=== PATIENT | male | born 1965 | race Caucasian/White ===

== ENCOUNTER 2024-11-13 20:40 | Emergency (ER) | payer BC, SELFPAY ==
--- OUTSIDE RECORDS SUMMARY | 2024-10-15 13:40 | XMS_ITS | Encounter Summary ---
Author Organization [facility] Address [address] [place] [id number] Care Team Providers Care [employer] Name Role Phone No Ref-Primary, Physician Primary Care Provider Reason for Visit * Reason Comments Urgent Care Abdominal pain back/ rib cage x 2 wks Encounter Details Date Type Department Care Team (Late st Contact Info) Description 10/15/2024 1:40 PM CDT Office Visit [facility] [place] [address] [place] [phone] Awais Kidd, PAOh [address] [place] [address] Abdominal pain, right upper quadrant (Primary Dx); Fever, unspecified fever cause; Nausea Social History Tobacco Use Types Packs/Day Years Used Date Smoking Tobacco: Every Day Cigarettes Smokeless Tobacco: Current Chew Comments:chew quiting, 1 can q 3 day7s Alcohol Use Standard Drinks/Week Comments Yes 0 (1 standard drink = 0.6 oz pur e alcohol) several beers on the weekends AUDIT-C Answer Date Recorded Q1: How often do you have a drink containing alc ohol? 2-3 times a week 04/04/2019 Q2: How many drinks containi ng alcohol do you have on a typical day when you are drinking? 10 or more 04/04/2019 Frequency of Binge Drinking Not on file 03/07 PHQ-2 Answer Date Recorded PHQ-2 Score 0 04/13/2021 Adolescent Education Answer Date Record ed Getting School Help Needed Not on file 03/20 Food Insecurity Answer Date Recorded Within the past 12 months, d id you worry that your food would run out before you got money to buy more? No 10/15/2024 Within the past 12 months, d id the food you bought just not last and you didn t have money to get more? No 10/15/2024 Housing Stability Answer Date Recorded Do you have housing? ([place]aughn is defined as stable permanent housing and does not include staying outside in a car, in a tent, in an abandoned building, in an overnight senior care, or couch-surfing.) Yes 10/15/2024 Are you worried about losing your housing? No 10/15/2024 Financial Resource Strain Answer Date R ecorded Within the past 12 months, h ave you or your family members you live with been unable to get utilities (heat, electricity) when it was really needed? No 10/15/2024 Transportation Needs Answer Date Record ed Within the past 12 months, h as lack of transportation kept you from medical appointments, getting your medicines, non-medical meetings or appointments, work, or from getting things that you need? No 10/15/2024 Interpersonal Safety Answer Date Record ed Do you feel physically and e motionally safe where you currently live? Yes 10/16/2024 Within the past 12 months, h ave you been hit, slapped, kicked or otherwise physically hurt by someone? No 10/16/2024 Within the past 12 months, h ave you been humiliated or emotionally abused in other ways by your partner or ex-partner? No 10/16/2024 Sex and Gender Information Value Date Recorded Sex Assigned at Not on file Legal Sex Male 3:38 AM [employer] Gender Identity Not on file Sexual Orientation Not on file documented as of this encounter Last Filed Vital Signs Vital Sign Reading Time Taken Comments Blood Pressure 165/100 10/15/2024 1:51 PM CDT Pulse 104 10/15/2024 1:51 PM CDT Temperature 38.7 C (101.7 F) 10/15/2024 1:46 PM CDT Respiratory Rate - - Oxygen Saturation 94% 10/15/2024 1:51 PM CDT Inhaled Oxygen Concentration - - Weight 90.7 kg (200 lb) 10/15/2024 1:46 PM CDT Height - - Body Mass Index 28.63 04/04/2019 3:54 PM CDT documented in this encounter Progress Notes * Awais Kidd PA-C - 10/15/2024 1:40 PM CDT Assessment & Plan Abdominal pain, right upper quadrant Patient is having extensive RUQ abdominal pain, high fever, nausea He is not feeling well He has had some problems the last few weeks but now its worse I have sent him to the ED for IV fluids, advanced imaging and blood work He will need to have much more done than what we can do in an UC - UA Macroscopic with reflex to Microscopic and Culture - Clinic Collect - UA Microscopic with Reflex to Culture Fever, unspecified fever cause A fever is a high body temperature and is the body's reaction to an illness. It's one way your bodyfights illness. A temperature of up to 102??F can be helpful, because it helps the body respond to infection. Most healthy people can have a fever as high as 103??F to 104??F for short periods of time without problems. Its important to stay well hydrated with a fever and avoid being in the heat. A fever can be treated with medications provided, but If symptoms worsen then be seen by your PCP or go to the UC. Concern for 101.7 fever for cholycystitis Nausea Patient is nauseated Stay NPO Referred to the ED now for advanced imaging, blood work, IV access No follow-ups on file. Awais Kidd, [facility] Franco is a 59 year old male who presents to clinic today for the following health issues: Chief Complaint Patient presents with Urgent Care Abdominal pain back/rib cage x 2 wks 10/15/2024 1:49 PM Additional Questions Roomed by Talia Accompanied by (Danyelle) HPI Review of Systems Constitutional, HEENT, cardiovascular, pulmonary, GI, , musculoskeletal, neuro, skin, endocrine and psych systems are negative, except as otherwise noted. Objective BP (!) 165/100 Pulse 104 Temp (!) 101.7 ??F (38.7 ??C) (Tympanic) Wt 90.7 kg (200 lb) SpO2 94% BMI 28.63 kg/m?? Physical Exam GENERAL: alert and no distress EYES: Eyes grossly normal to inspection, PERRL and conjunctivae and sclerae normal HENT: ear canals and TM's normal, nose and mouth without ulcers or lesions NECK: no adenopathy, no asymmetry, masses, or scars RESP: lungs clear to auscultation - no rales, rhonchi or wheezes CV: regular rate and rhythm, normal S1 S2, no S3 or S4, no murmur, click or rub, no peripheral edema ABDOMEN: tenderness RUQ and bowel sounds normal MS: no gross musculoskeletal defects noted, no edema SKIN: no suspicious lesions or rashes NEURO: Normal strength and tone, mentation intact and speech normal PSYCH: mentation appears normal, affect normal/bright Results for orders placed or performed in visit on 10/15/24 UA Macroscopic with reflex to Microscopic and Culture - Clinic Collect Status: Abnormal Specimen: Urine, Clean Catch Result Value Ref Range Color Urine Yellow Colorless, Straw, Light Yellow, Yellow Appearance Urine Clear Clear Glucose Urine Negative Negative mg/dL Bilirubin Urine Moderate (A) Negative Ketones Urine Trace (A) Negative mg/dL Specific [place] Urine 1.020 1.003 - 1.035 Blood Urine Negative Negative pH Urine 7.0 5.0 - 7.0 Protein Albumin Urine 100 (A) Negative mg/dL Urobilinogen Urine 4.0 (A) 0.2, 1.0 E.U./dL Nitrite Urine Negative Negative Leukocyte Esterase Urine Negative Negative UA Microscopic with Reflex to Culture Status: Abnormal Result Value Ref Range Bacteria Urine None Seen None Seen /HPF RBC Urine 0-2 0-2 /HPF /HPF WBC Urine 0-5 0-5 /HPF /HPF Squamous Epithelials Urine Few (A) None Seen /LPF Narrative Urine Culture not indicated documented in this encounter Plan of Treatment Upcoming Encounters Date Type Department Care Team (Late st Contact Info) Description 12/09/2024 8:30 AM CDT Office Visit [facility] [place] [address] [place] [phone] Henri Castañeda PA-C [address] [place] [address] [place] [phone] documented as of this encounter Procedures Procedure Name Priority Date/Time Associated Diagnosis Comments UA MICROSCOPIC WITH REFLEX TO CULTURE Routine 10/15/2024 1:53 PM CDT Abdominal pain, right upper quadrant UA MACROSCOPIC WITH REFLEX TO MICRO AND CULTURE Routine 10/15/2024 1:53 PM CDT Abdominal pain, right upper quadrant documented in this encounter Results * (ABNORMAL) UA Microscopic with Reflex to Culture (10/15/2024 1:53 PM CDT) Bacteria Urine None Seen None Seen /HPF [facility] 10/15/2024 2:11 PM CDT [facility] RBC Urine 0-2 0-2 /HPF /HPF FIL[place] 10/15/2024 2:11 PM CDT [facility] WBC Urine 0-5 0-5 /HPF /HPF [place] 10/15/2024 2:11 PM CDT [facility] Squamous Epithelials Urine Few(A) None Seen /LPF [place] 10/15/2024 2:11 PM CDT [facility] Urine URINE SPECIMEN OBTAINED BY CLEAN CATCH PROCEDURE / Unknown Non-blood Collection / Unknown 10/15/2024 1:53 PM CDT 10/15/2024 2:02 PM CDT Narrative [facility] - 10/15/2024 2:11 PM CDT Urine Culture not indicated Awais Kidd PA-C LAB - URINE ORDERABLES Final Result [facility] [address] [place] [phone] * (ABNORMAL) UA Macroscopic with reflex to Microscopic and Culture - Clinic Collect (10/15/2024 1:53 PM CDT) Color Urine Yellow Colorless, Straw, Light Yellow, Yellow 10/15/2024 2:12 PM CDT [facility] Appearance Urine Clear Clear 10/16/19 2:12 PM CDT [facility] Glucose Urine Negative Negative mg/dL 10/15/2024 2:12 PM CDT [facility] Bilirubin Urine Moderate(A) Negative 10/16/19 2:12 PM CDT [facility] Ketones Urine Trace(A) Negative mg/dL 10/15/2024 2:12 PM CDT [facility] Specific [place] Urine 1.020 1.003 - 1.035 10/15/2024 2:12 PM CDT [facility] Blood Urine Negative Negative 10/15/2024 2:12 PM CDT [facility] pH Urine 7.0 5.0 - 7.0 10/15/2024 2:12 PM CDT [facility] Protein Albumin Urine 100(A) Negative mg/dL 10/15/2024 2:12 PM CDT [facility] Urobilinogen Urine 4.0(A) 0.2, 1.0 E.U./dL 10/15/2024 2:12 PM CDT [facility] Nitrite Urine Negative Negative 10/15/2024 2:12 PM CDT [facility] Leukocyte Esterase Urine Negative Negative 10/15/2024 2:12 PM CDT [facility] Urine URINE SPECIMEN OBTAINED BY CLEAN CATCH PROCEDURE / Unknown Non-blood Collection / Unknown 10/15/2024 1:53 PM CDT 10/15/2024 2:02 PM CDT us Awais Kidd PA-C LAB - URINE ORDERABLES Final Result [facility] [address] [place] [phone], [facility] documented in this encounter Visit Diagnoses Diagnosis Abdominal pain, right upper quadrant- Primary Fever, unspecified fever cause Nausea Nausea alone documented in this encounter Care Teams [employer] Relationship Specialty Start Date End Date No Ref-Primary, Physician PCP - General 10/15/24 documented as of this encounter
--- OUTSIDE RECORDS SUMMARY | 2024-10-15 15:36 | XMS_ITS | Encounter Summary ---
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 Role Phone No Ref-Primary, Physician Primary Care Provider Reason for Referral * Consultation (Routine: Next available opening) - Pending Review Specialty Diagnoses / Procedures Referred By Anh hermosillo Referred To Contact Diagnoses Acute sepsis (H) Nicolas Caicedo MD [address] [place] [address] Phone: tel:[phone] fax: Referral ID Status Reason Start Date Expiration Date V isits Requested Visits Authorized [id number] Pending Review 10/21/2024 10/21/2025 1 1 Question Answer Schedule Primary Care visit within 7 Days Recommended labs and Imaging (to be ordered by Primary Care Provider) Will benefit for repeat echocardiogram in the near future to follow-up recent diagnosis of stress-induced cardiomyopathy Comments Please be aware that coverage of these services is subject to the terms and limitations of your health insurance plan. Call member services at your health plan with any benefit or coverage questions. Reason for Visit * Reason Comments Abdominal Pain * Auth/Cert Specialty Diagnoses / Procedures Referred By Anh t Referred To Contact EMERGENCY MEDICINE Diagnoses Cholecystitis Acute sepsis (H) Elevated LFTs Common bile duct dilation [facility] Emergency Dept [address] [place] [address] Phone: tel:[phone] fax: Referral ID Status Reason Start Date Expiration Date Visits Re quested Visits Authorized [id number] 1 1 Encounter Details Date Type Department Care Team (Late st Contact Info) Description 10/15/2024 3:36 PM CDT - 10/21/2024 10:41 PM CDT Hospital Encounter [place] [address] Medical Surgical [address] [place] [id number] Leonora Bone PA-C [facility] [address] [place], [place] [id number] Ole Brown MD [address] [place] [address] Cholangitis (H) (Primary Dx); Cholecystitis; Acute sepsis (H); Elevated LFTs; Common bile duct dilation Discharge Disposition: Home or Self Care Social History Tobacco Use Types Packs/Day Years Used Date Smoking Tobacco: Every Day Cigarettes Smokeless Tobacco: Current Chew Tobacco Cessation:Ready to Q uit: Not Asked; Counseling Given: Not Answered Comments:chew quiting, 1 can q 3 day7s [...] in an abandoned building, in an overnight fdc, or couch-surfing.) Yes 10/15/2024 Are you worried [...] on file 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 Gender Identity Not on file Sexual Orientation Not on file documented as of this encounter Last Filed Vital Signs Vital Sign Reading Time Taken Comments Blood Pressure 136/87 10/21/2024 4:16 PM CDT Pulse 117 10/21/2024 4:16 PM CDT Temperature 37.2 C (98.9 F) 10/21/2024 4:16 PM CDT Respiratory Rate 20 10/21/2024 4:16 PM CDT Oxygen Saturation 96% 10/21/2024 4:16 PM CDT Inhaled Oxygen Concentration - - Weight 88.2 kg (194 lb 8 oz) 10/21/2024 5:35 AM CDT Height 175.3 cm (5' 9) 10/17/2024 8:08 PM CDT Body Mass Index 28.72 10/17/2024 8:08 PM CDT documented in this encounter Discharge Summaries * Nicolas Caicedo MD - 10/21/2024 1:32 PM CDT Images from the original note were not included. [facility] Hospitalist Discharge Summary Date of Admission: 10/15/2024 Date of Discharge: 10/21/2024 Discharging Provider: Nicolas Caicedo MD, MD Discharge Service: Hospitalist Service Discharge Diagnoses Severe sepsis secondary to ascending cholangitis with accompanying E. coli bacteremia Acute hypoxic respiratory failure secondary to #1 Acute congestive heart failure with reduced EF at 45% secondary to stress- induced cardiomyopathy GERD. Hypokalemia Tobacco abuse Acute postoperative pain Postoperative ileus improving Clinically Significant Risk Factors # Overweight: Estimated body mass index is 28.72 kg/m?? as calculated from the following: Height as of this encounter: 1.753 m (5' 9). Weight as of this encounter: 88.2 kg (194 lb 8 oz). Follow-ups Needed After Discharge Follow-up Appointments Follow Up Follow up with general surgery as scheduled Hospital to Primary Care - Establish PCP Referral Please be aware that coverage of these services is subject to the terms and limitations of your health insurance plan. Call member services at your health plan with any benefit or coverage questions. Schedule Primary Care visit within: 7 Days Recommended labs and Imaging (to be ordered by Primary Care Provider): Will benefit for repeat echocardiogram in the near future to follow-up recent diagnosis of stress-induced cardiomyopathy Unresulted Labs Ordered in the Past 30 Days of this Admission Date and Time Order Name Status Description 10/18/2024 2:01 PM Blood Culture Peripheral blood (BC) Hand, Right Preliminary 10/18/2024 2:01 PM Blood Culture Peripheral blood (BC) Arm, Right Preliminary These results will be followed up by primary care physician Discharge Disposition Discharged to home Condition at discharge: Stable Hospital Course I assumed medicine service care today. I met this very pleasant 59-year-old gentleman together withhis at bedside. He lives at home independently and has a background history for tobacco abuse and unfortunately has a presents in the hospital for fever with a worsening abdominal pain and eventually found with choledocholithiasis complicated with ascending cholangitis and severe sepsis with E. coli bacteremia with concomitant acute hypoxic respiratory failure and finding of stress-induced cardiomyopathy. Eventually had a uncontrolled postoperative pain with accompanying ileus. Fortunatelyhe responded well with antibiotics, surgical approach, further advancement of diet and currently fee ling significantly improved. He was diuresis earlier. He is not showing any evidence of hypoxia. Ambulating more. Stable hemodynamics. Remained afebrile. Pain control being optimized and prescriptions for pain regimen as per surgical service. Continuation of oral antibiotics with Cipro as per ID recommendations to finish until October 24. He is confident about hospital discharge. He will be awaitingfor a meaningful and satisfying bowel movement prior to discharge.. I will refer you to excerpts of prior progress notes as listed below further details of his hospitalization stay ASSESSMENT 59M with history of GERD presented with right upper quadrant abdominal pain and fever and found to have ascending colon just with E. coli bacteremia. Patient is now status post ERCP with evidence of choledocholithiasis s/p biliary sphincterotomy, dilation and balloon extraction. Also s/p lap amla rosa to prevent recurrence. Ongoing pain control issues but improved today. Will try to progress to full liquid diet. Still hasSOB, which may be a combination of mild pulmonary edema and atelectasis. Gentle diuresis today and incentive spirometry. PLAN Severe Sepsis 2/2 Ascending Cholangitis w/ E coli Bacteremia -Presented with RUQ abd pain and fever -On and, met SIRS criteria with evidence of ascending cholangitis as source -Now s/p ERCP with choledocholithiasis s/p sphincterotomy and balloon extraction -Also s/p lap alma rosa to prevent recurrence -Ceftriaxone 2g every day, 10d course of antibiotics per ID Post-Operative Pain & Ileus -A lot of issues with postoperative pain control -Likely due to ileus, also has large amount of operative gas below right diaphragm -Improved today, progressed to FLD if tolerated, wean pain meds as able Acute Hypoxic Respiratory Failure Acute HFmrEF EF 45-50% 2/2 Stress-Induced Cardiomyopathy -Worsening respiratory status and found to have flash pulm edema -TTE w/ EF 45-50% with concern for stress-induced cardiomyopathy -S/p diuresis, repeat echo with EF 55% -Seems to still have issues with periodic SOB and PND -Gentle IV diuresis today, may benefit from Lasix 20 mg daily at time of discharge Other Issues -GERD: PPI -Tobacco abuse: Counseled cessation, nicotine replacement -Hypokalemia: Replacement protocol Consultations This Hospital Stay GASTROENTEROLOGY IP CONSULT SURGERY GENERAL IP CONSULT CARDIOLOGY IP CONSULT INFECTIOUS DISEASES IP CONSULT NURSING TO CONSULT FOR VASCULAR ACCESS CARE IP CONSULT Code Status Full Code Time Spent on this Encounter I, Nicolas Caicedo MD, , personally saw the patient today and spent greater than 30 minutes discharging this patient. Nicolas Caicedo MD, [address] SURGICAL [address] [place] [facility] [address] Physical Exam Vital Signs: Temp: 98.1 ??F (36.7 ??C) Temp src: Oral BP: 137/89 Pulse: 112 Resp: 20 SpO2: 96 % O2 Device: None (Room air) Weight: 194 lbs 8 oz HEENT; Atraumatic, normocephalic, pinkish conjuctiva, pupils bilateral reactive Skin: warm and moist, no rashes Lymphatics: no cervical or axillary lymphandenopathy Lungs: equal chest expansion, clear to auscultation, no wheezes, no stridor, no crackles, Heart: normal rate, normal rhythm, no rubs or gallops. Abdomen: normal bowel sounds, no tenderness, no peritoneal signs, no guarding Extremities: no deformities, no edema Neuro; follow commands, alert and oriented x3, spontaneous speech, coherent, moves all extremities spontaneously Psych; no hallucination, euthymic mood, not agitated Primary Care Physician Physician No Ref-Primary Discharge Orders Hospital to Primary Care - Establish PCP Referral Reason for your hospital stay I assumed medicine service care today. I met this very pleasant 59-year-old gentleman together withhis at bedside. He lives at home independently and has a background history for tobacco abuse and unfortunately has a presents in the hospital for fever with a worsening abdominal pain and eventually found with choledocholithiasis complicated with ascending cholangitis and severe sepsis with E. coli bacteremia with concomitant acute hypoxic respiratory failure and finding of stress-induced cardiomyopathy. Eventually had a uncontrolled postoperative pain with accompanying ileus. Fortunatelyhe responded well with antibiotics, surgical approach, further advancement of diet and currently fee ling significantly improved. He was diuresis earlier. He is not showing any evidence of hypoxia. Ambulating more. Stable hemodynamics. Remained afebrile. Pain control being optimized and prescriptions for pain regimen as per surgical service. Continuation of oral antibiotics with Cipro as per ID recommendations to finish until October 24. He is confident about hospital discharge. He will be awaiting for a meaningful and satisfying bowel movement prior to discharge. Activity Your activity upon discharge: activity as tolerated Follow Up Follow up with general surgery as scheduled Full Code Diet Follow this diet upon discharge: Current Diet:Orders Placed This Encounter Regular Diet Adult Significant Results and Procedures Most Recent 3 CBC's: Recent Labs Lab Test 10/21/24 0710 10/20/24 0739 10/19/24 0723 WBC 11.7* 15.5* 11.4* HGB 13.6 14.4 14.2 MCV 87 87 88 PLT 311 246 207 Most Recent 3 BMP's: Recent Labs Lab Test 10/21/24 0710 10/20/24 0739 10/19/24 0723 NA 135 136 139 POTASSIUM 3.6 4.1 4.6 CHLORIDE 95* 99 103 CO2 26 25 24 BUN 20.5 17.6 12.9 CR 0.84 0.82 0.74 ANIONGAP 14 12 12 RACHAEL 9.1 9.2 8.8 GLC 125* 133* 111* Most Recent 2 LFT's: Recent Labs Lab Test 10/21/24 0710 10/20/24 0739 AST 31 43 ALT 143* 201* ALKPHOS 127 121 BILITOTAL 1.9* 2.5* Most Recent 3 INR's: Recent Labs Lab Test 10/16/24 0224 INR 1.21* 7-Day Micro Results Collected Updated Procedure Result Status 10/18/2024 1455 10/20/2024 1831 Blood Culture Peripheral blood (BC) Arm, Right [[id number]] Peripheral blood (BC) from Arm, Right Preliminary result Component Value Culture No growth after 2 days [P] 10/18/2024 1455 10/20/2024 1831 Blood Culture Peripheral blood (BC) Hand, Right [[id number]] Peripheral blood (BC) from Hand, Right Preliminary result Component Value Culture No growth after 2 days [P] 10/15/2024 1709 10/18/2024 0822 Blood Culture Peripheral blood (BC) Arm, Right [[id number]] (Abnormal) Peripheral blood (BC) from Arm, Right Final result Component Value Culture Positive on the 1st day of incubation Escherichia coli 2 of 2 bottles Susceptibility Escherichia coli FILIPE Ampicillin <=2 ug/mL Susceptible Ampicillin/ Sulbactam <=2 ug/mL Susceptible Cefepime <=0.12 ug/mL Susceptible Ceftazidime <=0.5 ug/mL Susceptible Ceftriaxone <=0.25 ug/mL Susceptible Ciprofloxacin <=0.06 ug/mL Susceptible Gentamicin <=1 ug/mL Susceptible Levofloxacin <=0.12 ug/mL Susceptible Meropenem <=0.25 ug/mL Susceptible Piperacillin/Tazobactam <=4 ug/mL Susceptible Trimethoprim/Sulfamethoxazole <=1/19 ug/mL Susceptible 10/15/2024 1709 10/16/2024 0600 Blood Culture ID Panel, PCR [[id number]] (Abnormal) Peripheral blood (BC) from Arm, Right Final result Component Value Enterococcus faecalis Not Detected Enterococcus faecium Not Detected Listeria monocytogenes Not Detected Staphylococcus species Not Detected Staphylococcus aureus Not Detected Staphylococcus epidermidis Not Detected Staphylococcus lugdunensis Not Detected Streptococcus species Not Detected Streptococcus agalactiae Not Detected Streptococcus pneumoniae Not Detected Streptococcus pyogenes Not Detected A. baumannii complex Not Detected Bacteroides fragilis Not Detected Enterobacter cloacae complex Not Detected Escherichia coli Detected Escherichia coli detected by [employer] BCID2 assay. Final identification and antimicrobial susceptibility testing will be verified by standard methods. The BCID2 assay will not distinguish E. coli fromShigella species. Specimens containing Shigella species or E. coli will be reported as E. coli detected. Klebsiella aerogenes Not Detected Klebsiella oxytoca Not Detected Klebsiella pneumoniae group Not Detected Proteus species Not Detected Salmonella species Not Detected Serratia marcescens Not Detected Haemophilus influenzae Not Detected Neisseria meningitidis Not Detected Pseudomonas aeruginosa Not Detected Stenotrophomonas maltophilia Not Detected CTX-M Not Detected IMP Not Detected KPC Not Detected mcr-1 Not Detected NDM Not Detected OXA-48 like Not Detected VIM Not Detected Agnes albicans Not Detected Agnes auris Not Detected Agnes glabrata Not Detected Agnes krusei Not Detected Agnes parapsilosis Not Detected Agnes tropicalis Not Detected Cryptococcus neoformans/gattii Not Detected 10/15/2024 1631 10/18/2024 0824 Blood Culture Peripheral blood (BC) Arm, Left [[id number]] (Abnormal) Peripheral blood (BC) from Arm, Left Final result Component Value Culture Positive on the 1st day of incubation Escherichia coli 2 of 2 bottles Susceptibilities done on previous cultures Most Recent TSH and T4:No lab results found. Most Recent Hemoglobin A1c:No lab results found. Most Recent 6 glucoses: Recent Labs Lab Test 10/21/24 0710 10/20/24 0739 10/19/24 0723 10/18/24 0720 10/17/24 1607 10/17/24 1215 GLC 125* 133* 111* 100* 150* 151* Most Recent Urinalysis: Recent Labs Lab Test 10/15/24 1353 COLOR Yellow APPEARANCE Clear URINEGLC Negative URINEBILI Moderate* URINEKETONE Trace* SG 1.020 UBLD Negative URINEPH 7.0 PROTEIN 100* UROBILINOGEN 4.0* NITRITE Negative LEUKEST Negative RBCU 0-2 WBCU 0-5 Most Recent ABG:No lab results found., Results for orders placed or performed during the hospital encounter of 10/15/24 US Abdomen Limited Narrative EXAM: US ABDOMEN LIMITED LOCATION: [facility] DATE: 10/15/2024 INDICATION: Right upper quadrant pain; elevated LFTs. COMPARISON: 05/09/2017. TECHNIQUE: Limited abdominal ultrasound. FINDINGS: GALLBLADDER: Gallstones and sludge in an otherwise normal gallbladder. No wall thickening, or pericholecystic fluid. Negative sonographic Casillas's sign. BILE DUCTS: No visualized intrahepatic biliary ductal dilatation. The common duct measures up to 11mm within its midportion. It is incompletely visualized distally, due to overlying bowel gas. LIVER: Normal parenchyma with smooth contour. The portal vein is patent with flow in the normal direction. RIGHT KIDNEY: No hydronephrosis. PANCREAS: The pancreas is largely obscured by overlying gas. Impression IMPRESSION: 1. Cholelithiasis and sludge, without sonographic evidence of acute cholecystitis. 2. Dilated common bile duct, measuring up to 11 mm. Correlation with LFTs and consideration of MRCPimaging is recommended to exclude a distal obstructing stone or mass lesion. XR Chest Port 1 View Narrative EXAM: XR CHEST PORT 1 VIEW LOCATION: [facility] DATE: 10/16/2024 INDICATION: hypoxia COMPARISON: 10/11/2021 Impression IMPRESSION: Heart size is upper limits of normal. Mild pulmonary vascular congestion noted. Mild linear atelectasis in the left lung base. No confluent airspace opacity, right pleural effusion or pneumothorax. Left costophrenic angle is excluded from view without significant left pleural effusion. CT Chest Pulmonary Embolism w Contrast Narrative EXAM: CT CHEST PULMONARY EMBOLISM W CONTRAST LOCATION: [facility] DATE: 10/16/2024 INDICATION: tachycardia, tachypnea COMPARISON: Same date portable chest radiograph. TECHNIQUE: CT chest pulmonary angiogram during arterial phase injection of IV contrast. Multiplanarreformats and MIP reconstructions were performed. Dose reduction techniques were used. CONTRAST: 67mL Isovue 370 FINDINGS: ANGIOGRAM CHEST: Pulmonary arteries are normal caliber and negative for pulmonary emboli. Thoracic aorta is negative for dissection. No CT evidence of right heart strain. LUNGS AND PLEURA: Scattered areas of subsegmental atelectasis. No pleural effusion. MEDIASTINUM/AXILLAE: Normal. CORONARY ARTERY CALCIFICATION: None. UPPER ABDOMEN: Normal. MUSCULOSKELETAL: No acute osseous abnormality. Impression IMPRESSION: 1. No pulmonary artery embolus. 2. Scattered areas of subsegmental atelectasis. No pleural effusion. 3. No other acute process within the chest. XR ERCP Narrative This exam was marked as non-reportable because it will not be read by a radiologist or a [facility] non-radiologist provider. XR Abdomen 1 View Narrative EXAM: XR ABDOMEN 1 VIEW LOCATION: [facility] DATE: 10/19/2024 INDICATION: evaluate for ileus, increasing distension, postop day one lateral cholecystectomy. COMPARISON: None. Impression IMPRESSION: Postop changes from recent cholecystectomy. Free air under the right hemidiaphragm consistent with recent surgery. Nothing for ileus. XR Chest Port 1 View Narrative EXAM: XR CHEST PORT 1 VIEW LOCATION: [facility] DATE: 10/19/2024 INDICATION: SOB postop day 1 cholecystectomy. COMPARISON: 10/16/2024 portable chest and 10/16/2024 CT chest Impression IMPRESSION: Some free air under the right hemidiaphragm consistent with recent cholecystectomy. Shallow inspiration with some mild new atelectasis in the left lung base. CT Abdomen Pelvis w Contrast Narrative EXAM: CT ABDOMEN PELVIS W CONTRAST LOCATION: [facility] DATE: 10/19/2024 INDICATION: worsening abdominal pain following surgery yesterday COMPARISON: 05/09/2017 TECHNIQUE: CT scan of the abdomen and pelvis was performed following injection of IV contrast. Multiplanar reformats were obtained. Dose reduction techniques were used. CONTRAST: 99mL Isovue 370 FINDINGS: LOWER CHEST: Bibasilar atelectasis. HEPATOBILIARY: Liver appears normal. Status post cholecystectomy. No fluid collection in the gallbladder fossa. No biliary dilatation. PANCREAS: Normal. SPLEEN: Normal. ADRENAL GLANDS: Normal. KIDNEYS/BLADDER: Normal. BOWEL: Few mildly dilated small bowel loops in the left upper quadrant, measuring up to 3.0 cm in diameter. Gradual transition to normal caliber small bowel. No transition point to suggest obstruction. Appendix not visualized, although no secondary signs of acute appendicitis. PERITONEUM/RETROPERITONEUM: Small amount of intraperitoneal free air. Small amount of intraperitoneal free fluid. No focal fluid collection. LYMPH NODES: No lymphadenopathy. VASCULATURE: Mild atherosclerotic calcifications. PELVIC ORGANS: Prostatic calcifications. MUSCULOSKELETAL: Bilateral fat-containing inguinal hernias. Small fat-containing periumbilical hernia. Scattered soft tissue gas in the ventral abdominal wall, presumably postsurgical. Multilevel degenerative changes of the spine. Impression IMPRESSION: 1. Status post cholecystectomy. No fluid collection in the gallbladder fossa. No biliary dilatation. Small amount of intraperitoneal free air and free fluid, presumably postsurgical. 2. Few mildly dilated small bowel loops in the left upper quadrant, favored to represent focal ileus. No discrete transition point to suggest obstruction. XR Chest Port 1 View Narrative EXAM: XR CHEST PORT 1 VIEW LOCATION: [facility] DATE: 10/20/2024 INDICATION: Shortness of breath COMPARISON: Chest radiograph and CT abdomen/pelvis 10/19/2024. Impression IMPRESSION: Stable size of cardiomediastinal silhouette. Low lung volumes with likely linear bibasilar atelectasis. No davin airspace consolidation, pleural effusion or pneumothorax. Small volume pneumoperitoneum, not significantly changed from recent chest radiograph and CT abdomen/pelvis. Echocardiogram Complete Value LVEF 45-50% Narrative [id number]^SATURNINO^[facility] [address] [place] [address] Name: SALVADOR AHUMADA : 1965 Study Date: 10/16/2024 09:51 AM Age: 59 yrs Gender: Male Patient Location: [facility] Reason For Study: SOB, SOB Ordering Physician: REBEKAH MATAMOROS Performed By: Isha Murray BSA: 2.0 m2 Height: 68 in Weight: 200 lb BP: 134/92 mmHg Procedure Echocardiogram with two-dimensional, color and spectral Doppler. Optison ([facility] #[id number]) given intravenously. Interpretation Summary The visual ejection fraction is 45-50%. There is mild global hypokinesia of the left ventricle. Grade I or early diastolic dysfunction. Contrast was used without apparent complications. Left Ventricle The left ventricle is normal in size. There is normal left ventricular wall thickness. The visual ejection fraction is 45-50%. Grade I or early diastolic dysfunction. There is mild global hypokinesia of the left ventricle. Right Ventricle The right ventricle is normal in structure, function and size. Atria Normal left atrial size. Right atrial size is normal. Mitral Valve The mitral valve is normal in structure and function. There is mild mitral annular calcification. Tricuspid Valve Normal tricuspid valve. Aortic Valve The aortic valve is normal in structure and function. Pulmonic Valve Normal pulmonic valve. Vessels The aortic root is normal size. Pericardium There is no pericardial effusion. Rhythm The rhythm was sinus tachycardia. MMode/2D Measurements & Calculations IVSd: 0.99 cm LVIDd: 4.5 cm LVIDs: 3.5 cm LVPWd: 0.79 cm FS: 22.2 % LV mass(C)d: 130.2 grams LV mass(C)dI: 63.7 grams/m2 Ao root diam: 3.7 cm asc Aorta Diam: 3.4 cm LVOT diam: 2.4 cm LVOT area: 4.5 cm2 Ao root diam index Ht(cm/m): 2.2 Ao root diam index BSA (cm/m2): 1.8 Asc Ao diam index BSA (cm/m2): 1.7 Asc Ao diam index Ht(cm/m): 2.0 EF Biplane: 48.0 % LA Volume (BP): 45.4 ml LA Volume Index (BP): 22.3 ml/m2 RWT: 0.35 TAPSE: 1.3 cm Doppler Measurements & Calculations MV E max onur: 57.7 cm/sec MV A max onur: 79.0 cm/sec MV E/A: 0.73 MV dec slope: 745.1 cm/sec2 MV dec time: 0.08 sec PA acc time: 0.11 sec TR max onur: 221.8 cm/sec TR max P.7 mmHg E/E' av.9 Lateral E/e': 6.3 Medial E/e': 7.6 Report approved by: Rudy Mcdowell MD on 10/16/2024 11:03 AM Echocardiogram Limited Value LVEF 55-60% Narrative [id number]^RICKI^STEVO^A [facility] [address] [place] [address] Name: SALVADOR AHUMADA : 1965 Study Date: 10/18/2024 07:35 AM Age: 59 yrs Gender: Male Patient [facility]: [facility] Reason For Study: Cardiomyopathy Ordering Physician: STEVO ROBISON Performed By: Katelyn Antonio BSA: 2.1 m2 Height: 69 in Weight: 201 lb HR: 88 BP: 138/96 mmHg Procedure Limited Echocardiogram with two-dimensional, color and spectral Doppler. Interpretation Summary Left ventricular systolic function is normal. The visual ejection fraction is 55-60%. No regional wall motion abnormalities noted. Left Ventricle Left ventricular systolic function is normal. The visual ejection fraction is 55-60%. No regional wall motion abnormalities noted. Right Ventricle The right ventricle is normal in structure, function and size. Mitral Valve The mitral valve is normal in structure and function. There is trace mitral regurgitation. Tricuspid Valve The tricuspid valve is not well visualized, but is grossly normal. The right ventricular systolic pressure is elevated at 33.6 mmHg. Aortic Valve The aortic valve is trileaflet. No aortic regurgitation is present. No aortic stenosis is present. Vessels The inferior vena cava is normal. Pericardium There is no pericardial effusion. MMode/2D Measurements & Calculations IVC diam: 1.9 cm asc Aorta Diam: 3.5 cm Asc Ao diam index BSA (cm/m2): 1.7 Asc Ao diam index Ht(cm/m): 2.0 Doppler Measurements & Calculations TR max onur: 290.0 cm/sec TR max P.6 mmHg Report approved by: Saima Yeung MD on 10/18/2024 08:56 AM Discharge Medications Current Discharge Medication List START taking these medications Details acetaminophen (TYLENOL) 325 MG tablet Take 2 tablets (650 mg) by mouth 3 times daily. Qty: 100 tablet, Refills: 0 Associated Diagnoses: Cholecystitis; Cholangitis (H) ciprofloxacin (CIPRO) 500 MG tablet Take 1 tablet (500 mg) by mouth 2 times daily for 3 days. Qty: 6 tablet, Refills: 0 Associated Diagnoses: Acute sepsis (H) HYDROmorphone (DILAUDID) 2 MG tablet Take 1 tablet (2 mg) by mouth every 4 hours as needed for severe pain (IF pain not managed with non-pharmacological and non-opioid interventions). Qty: 10 tablet, Refills: 0 Associated Diagnoses: Cholecystitis; Cholangitis (H) senna-docusate (SENOKOT-S/PERICOLACE) 8.6-50 MG tablet Take 1 tablet by mouth 2 times daily. Qty: 20 tablet, Refills: 0 Associated Diagnoses: Cholecystitis; Cholangitis (H) CONTINUE these medications which have NOT CHANGED Details multivitamin (CENTRUM SILVER) tablet Take 1 tablet by mouth daily. omeprazole (PRILOSEC OTC) 20 MG EC tablet Take 20 mg by mouth daily. STOP taking these medications azithromycin (ZITHROMAX) 250 MG tablet Comments: Reason for Stopping: Allergies No Known Allergies documented in this encounter Discharge Instructions * Discharge Instructions* Dominique Ortiz MD - 10/21/2024 9:08 AM CDT HOME CARE FOLLOWING LAPAROSCOPIC CHOLECYSTECTOMY Pamela Jay, Zaria Valencia, R. O???Basil Gonzales J. Shaheen INCISIONAL CARE: Replace the bandage over your incisions DAILY until all drainage stops, or if more comfortable to have in place. If present, leave the steri-strips (white paper tapes) in place for 14 days after surgery. If Dermabond (a type of skin glue) is present, leave in place until it wears/flakes off (2-3 weeks). BATHING: OK to shower 48 hours after surgery. Avoid baths for 1 week after surgery. You may wash your hair at any time. Gently pat your incision dry after bathing. Do not apply lotions, creams, or ointments to incisions. ACTIVITY: Light Activity -- you may immediately be up and about as tolerated. Walking is encouraged, increaseas tolerated. Driving/Light Work-- when comfortable and off narcotic pain medications. Strenuous Work/Activity -- limit lifting to 20 pounds for 2 weeks. Progressively increase with time. Active Sports (running, biking, etc.) -- cautiously resume after 2 weeks. DISCOMFORT: Local anesthetic placed at surgery should provide relief for 4-8 hours. Begin taking pain pills before discomfort is severe. Take the pain medication with some food, when possible, to minimize side effects. Intermittent use of ice packs may help during the first 1-3 weeks after surgery. Expect gradual improvement. Joua-woj-jzdsmki anti-inflammatory medications (i.e. Ibuprofen/Advil/Motrin or Naprosyn/Aleve) may be used per package instructions in addition to or while tapering off the narcotic pain medications to decrease swelling and sensitivity. DO NOT TAKE these Anti-inflammatory medications if your primary physician has advised against doing so, or if you have acid reflux, ulcer, or bleeding disorder, or take blood-thinner medications. Call your primary physician or the surgery office if you have medication questions. After laparoscopic cholecystectomy, you may have shoulder or upper back discomfort due to the gas used during surgery. This is temporary and should resolve within 2-3 days. Frequent short walks may help with this. You may have decreased energy level for 1-2 weeks after surgery related to your recovery. DIET: Start with liquids and gradually increase diet as tolerated. Drink plenty of fluids. While taking pain medications, consider use of a stool softener, increase your fiber in your diet, or add a fiber supplement (like Metamucil, Citrucel) to help prevent constipation - a possible side effect of pain m edications. It is not uncommon to experience some bowel changes (loose stools or constipation) after surgery. Your body has to adapt to you no longer having a gall bladder. To help minimize this sideeffect, avoid fatty foods for 1-2 weeks after surgery. You may then slowly increase the amount of fatty foods in your diet. NAUSEA: If nauseated from the anesthetic/pain meds; rest in bed, get up cautiously with assistance, and drink clear liquids (juice, tea, broth). FOLLOW-UP AFTER SURGERY: -Our office will contact you approximately 2-3 weeks after surgery to check on your progress and answer any questions you may have. If you are doing well, you will not need to return for an office appointment. If any concerns are identified over the phone, we will help you make an appointment to see a provider. -If you have not received a phone call, have any questions or concerns, or would like to be seen, please call us at [phone]. We are located at: [address] [facility], [address]; [place] [address] -CONTACT US IF THE FOLLOWING DEVELOPS: 1. A fever that is above 101?? 2. Increased redness, warmth, drainage, bleeding, or swelling. 3. Pain that is not relieved by rest/ice and your prescription. 4. Increasing pain after 48 hours. 5. Drainage that is thick, cloudy, yellow, green or white. 6. Any other questions or concerns. FREQUENTLY ASKED QUESTIONS: Q: How should my incision look? A: Normally your incision will appear slightly swollen with light redness directly along the incision itself as it heals. It may feel like a bump or ridge as the healing/scarring happens, and over time (3-4 months) this bump or ridge feeling should slowly go away. In general, clear or pink watery drainage can be normal at first as your incision heals, but should decrease over time. Q: How do I know if my incision is infected? A: Look at your incision for signs of infection, like redness around the incision spreading to surrounding skin, or drainage of cloudy or foul-smelling drainage. If you feel warm, check your temperature to see if you are running a fever. If any of these things occur, please notify the nurse at our office. We may need you to come intothe office for an incision check. Q: How do I take care of my incision? A: If you have a dressing in place - Starting the day after surgery, replace the dressing 1-2 timesa day until there is no further drainage from the incision. At that time, a dressing is no longer needed. Try to minimize tape on the skin if irritation is occurring at the tape sites. If you have significant irritation from tape on the skin, please call the office to discuss other method of dressing your incision. Small pieces of tape called ???steri-strips?? may be present directly overlying your incision; these may be removed 10 days after surgery unless otherwise specified by your surgeon. If these tapes start to loosen at the ends, you may trim them back until they fall off or are removed. A: If you had ???Dermabond?? tissue glue used as a dressing (this causes your incision to look shiny with a clear covering over it) - This type of dressing wears off with time and does not require more dressings over the top unless it is draining around the glue as it wears off. Do not apply ointments or lotions over the incisions until the glue has completely worn off. Q: There is a piece of tape or a sticky ???lead?? still on my skin. Can I remove this? A: Sometimes the sticky ???leads?? used for monitoring during surgery or for evaluation in the emergency department are not all removed while you are in the hospital. These sometimes have a tab or metal dot on them. You can easily remove these on your own, like taking off a band-aid. If there is agel substance under the ???lead?? , simply wipe/clean it off with a washcloth or paper towel. Q: What can I do to minimize constipation (very hard stools, or lack of stools)? A: Stay well hydrated. Increase your dietary fiber intake or take a fiber supplement -with plenty of water. Walk around frequently. You may consider an [id number] stool-softener. Your Pharmacist can assist you with choosing one that is stocked at your pharmacy. Constipation is also one of themost common side effects of pain medication. If you are using pain medication, be pro- active and try to PREVENT problems with constipation by taking the steps above BEFORE constipation becomes a problem. Q: What do I do if I need more pain medications? A: Call the office to receive refills. Be aware that certain pain meds cannot be called into a pharmacy and actually require a paper prescription. A change may be made in your pain med as you progress thru your recovery period or if you have side effects to certain meds. --Pain meds are NOT refilled after 5pm on weekdays, and NOT AT ALL on the weekends, so please look ahead to prevent problems. Q: Why am I having a hard time sleeping now that I am at home? A: Many medications you receive while you are in the hospital can impact your sleep for a number ofdays after your surgery/hospitalization. Decreased level of activity and naps during the day may also make sleeping at night difficult. Try to minimize day-time naps, and get up frequently during theday to walk around your home during your recovery time. Sleep aides may be of some help, but are not recommended for long-term use. Q: I am having some back discomfort. What should I do? A: This may be related to certain positioning that was required for your surgery, extended periods of time in bed, or other changes in your overall activity level. You may try ice, heat, acetaminophen, or ibuprofen to treat this temporarily. Note that many pain medications have acetaminophen in them and would state this on the prescription bottle. Be sure not to exceed the maximum of 4000mg per day of acetaminophen. If the pain you are having does not resolve, is severe, or is a flare of back pain you have had on other occasions prior to surgery, please contact your primary physician for further recommendations or for an appointment to be examined at their office. Q: Why am I having headaches? A: Headaches can be caused by many things: caffeine withdrawal, use of pain meds, dehydration, highblood pressure, lack of sleep, over-activity/exhaustion, flare-up of usual migraine headaches. If you feel this is related to muscle tension (a band-like feeling around the head, or a pressure at thelow-back of the head) you may try ice or heat to this area. You may need to drink more fluids (try electrolyte drink like Gatorade), rest, or take your usual migraine medications. If your headaches do not resolve, worsen, are accompanied by other symptoms, or if your blood pressure is high, please call your primary physician for recommendation and/or examination. Q: I am unable to urinate. What do I do? A: A small percentage of people can have difficulty urinating initially after surgery. This includes being able to urinate only a very small amount at a time and feeling discomfort or pressure in thevery low abdomen. This is called ???urinary retention?? , and is actually an urgent situation. Proceed to your nearest Emergency department for evaluation (not an Urgent Care Center). Sometimes the bladder does not work correctly after certain medications you receive during surgery, or related to certain procedures. You may need to have a catheter placed until your bladder recovers. When planningto go to an Emergency department, it may help to call the ER to let them know you are coming in for this problem after a surgery. This may help you get in quicker to be evaluated. If you have symptoms of a urinary tract infection, please contact your primary physician for the proper evaluation and treatment. If you have other questions, please call the office Monday thru Monday between 8am and 4:30pm to discuss with the nurse or physician access services assistant. # There is a surgeon [employer]ETICIST on weekday evenings and over the weekend in case of urgent need only, and may be contacted at the same number. If you are having an emergency, call 911 or proceed to your nearest emergency department. * Attachments The following attachments cannot be sent through Care Everywhere. * (s) After Anesthesia (Sleep Medicine) (Macedonian) documented in this encounter Medications at Time of Discharge acetaminophen (TYLENOL) 325 MG tabletIndications :Cholecystitis,Ch olangitis (H) Take 2 tablets (650 mg) by mouth 3 times daily. 100 tablet 10/21/2024 multivitamin (CENTRUM SILVER) tablet Take 1 tablet by mouth daily. omeprazole (PRILOSEC OTC) 20 MG EC tablet Take 20 mg by mouth daily. senna-docusate (SENOKOT-S/ESTELLE LACE) 8.6-50 MG tabletIndications :Cholecystitis,Ch olangitis (H) Take 1 tablet by mouth 2 times daily. 20 tablet 10/21/2024 ciprofloxacin (CIPRO) 500 MG tabletIndications :Acute sepsis (H) Take 1 tablet (500 mg) by mouth 2 times daily for 3 days. 6 tablet 10/21/2024 10/24/2024 HYDROmorphone (DILAUDID) 2 MG tabletIndications :Cholecystitis,Ch olangitis (H) Take 1 tablet (2 mg) by mouth every 4 hours as needed for severe pain (IF pain not managed with non-pharmacol ogical and non-opioid interventions ). 10 tablet 10/21/2024 10/24/2024 documented as of this encounter Progress Notes * Dominique Ortiz MD - 10/21/2024 9:31 AM CDT General surgery progress note Patient feeling better today. Did not sleep well. Still has right neck/shoulder/RUQ pain but it is manageable with PO diluadid. Tolerating diet. Abdomen mildly distended, incisions intact with small amount of reactive erythema. No BM since last week. Plan for suppository today, recommend BM before DC Otherwise appropriate for discharge, instructions and pain medications ordered Dominique Ortiz MD * Barbara Lal MD - 10/20/2024 1:07 PM CDT Images from the original note were not included. [facility] Infectious Disease Progress Note Date of Service (when I saw the patient): 10/20/2024 Assessment: 59YM who has been admitted due to fever and right upper quadrant abdominal pain, and was found to have E.coli sepsis with markedly elevated liver enzymes related to ascending cholangitis in the setting of cholelithiasis. He is s/p ERCP on 10/15 with removal of biliary stones and sphincterotomy, followed by laparoscopic cholecystectomy on 10/18. Sepsis is now controlled, course complicated by post operative ileus. -E.coli sepsis of biliary source -Ascending cholangitis with marked elevation of liver enzymes -Choledocholithiasis s/p ERCP with removal of biliary stones and sphincterotomy on 10/15 -S/p cholecystectomy on 10/18 -Post operative ileus -Elevated liver enzymes are improving Recommendations: Patient has been maintained on appropriate antimicrobials with Ceftriaxone -day 6 of antibiotics today Transition to oral Ciprofloxacin at discharge, complete a 10 day treatment course until 10/24. Supportive care for ileus CT abdomen was completed which does not show any additional focus of infection ID will sign off, please call us back as needed Barbara Lal MD Interval History Feels better today, remains afebrile, was diagnosed with ileus as cause for abdominal pain, afebrile and has leukocytosis of 15.5L today Physical Exam Temp: 98.1 ??F (36.7 ??C) Temp src: Oral BP: (!) 159/103 Pulse: 110 Resp: 16 SpO2: 97 % O2 Device: None (Room air) Vitals: 10/18/24 0606 10/19/24 0612 10/20/24 0700 Weight: 89.9 kg (198 lb 1.6 oz) 89.7 kg (197 lb 12.8 oz) 89.3 kg (196 lb 14.4 oz) Vital Signs with Ranges Temp: [98.1 ??F (36.7 ??C)-98.9 ??F (37.2 ??C)] 98.1 ??F (36.7 ??C) Pulse: [102-110] 110 Resp: [16-22] 16 BP: (151-167)/(103-106) 159/103 SpO2: [93 %-97 %] 97 % Constitutional: Awake, alert, cooperative, no apparent distress Lungs: non labored breathing Abdomen: distended Skin: No rashes, no cyanosis, no edema Other: Medications Current Facility-Administered Medications Medication Dose Route Frequency Provider Last Rate Last Admin Current Facility-Administered Medications Medication Dose Route Frequency Provider Last Rate Last Admin acetaminophen (TYLENOL) tablet 650 mg 650 mg Oral TID Dominique Ortiz MD 650 mg at 10/20/24 0844 Or acetaminophen (TYLENOL) Suppository 650 mg 650 mg Rectal TID Dominique Ortiz MD cefTRIAXone (ROCEPHIN) 2 g vial to attach to NS 100 ml bag for ADULTS or NS 50 ml bag for PEDS 2 g Intravenous Q24H RickiStevo DO 2 g at 10/19/24 1627 furosemide (LASIX) injection 20 mg 20 mg Intravenous Q8H [address] MD 20 mg at 10/20/24 0846 melatonin tablet 3 mg 3 mg Oral Once [address] MD nicotine (NICODERM CQ) 7 MG/24HR 24 hr patch 1 patch 1 patch Transdermal Daily Ole Brown MD 1 patch at 10/20/24 0845 pantoprazole (PROTONIX) EC tablet 40 mg 40 mg Oral QAM AC Salvador Rocha APRN [employer]ER 40 mg at 10/20/24 0526 rOPINIRole (REQUIP) tablet 0.25 mg 0.25 mg Oral At Bedtime Ole Brown MD 0.25 mg at 10/19/24 2128 senna-docusate (SENOKOT-S/PERICOLACE) 8.6-50 MG per tablet 1 tablet 1 tablet Oral BID Bev Rocha APRN CNP 1 tablet at 10/19/24 0828 Or senna-docusate (SENOKOT-S/PERICOLACE) 8.6-50 MG per tablet 2 tablet 2 tablet Oral BID Salvador Rocha APRN CNP 2 tablet at 10/20/24 0844 sodium chloride (PF) 0.9% PF flush 3 mL 3 mL Intracatheter Q8H LOU Salvador Rocha APRN [employer] 3 mL at 10/20/24 0846 Data All microbiology laboratory data reviewed. Recent Labs Lab Test 10/20/24 0739 10/19/24 0723 10/18/24 2354 WBC 15.5* 11.4* 15.5* HGB 14.4 14.2 13.7 HCT 42.0 41.6 39.5* MCV 87 88 87 PLT 246 207 213 Recent Labs Lab Test 10/20/24 0739 10/19/24 0723 10/18/24 0720 CR 0.82 0.74 0.93 icrobiology 10/18/2024 1455 10/19/2024 0631 Blood Culture Peripheral blood (BC) Arm, Right [[id number]] Peripheral blood (BC) from Arm, Right Preliminary result Component Value Culture No growth after 12 hours P 10/18/2024 1455 10/19/2024 0631 Blood Culture Peripheral blood (BC) Hand, Right [[id number]] Peripheral blood (BC) from Hand, Right Preliminary result Component Value Culture No growth after 12 hours P 10/15/2024 1709 10/18/2024 0822 Blood Culture Peripheral blood (BC) Arm, Right [[id number]] (Abnormal) Peripheral blood (BC) from Arm, Right Final result Component Value Culture Positive on the 1st day of incubation Abnormal Escherichia coli Panic 2 of 2 bottles Susceptibility Escherichia coli FILIPE Ampicillin <=2 ug/mL Susceptible Ampicillin/ Sulbactam <=2 ug/mL Susceptible Cefazolin 2 ug/mL Susceptible * Cefepime <=0.12 ug/mL Susceptible Ceftazidime <=0.5 ug/mL Susceptible Ceftriaxone <=0.25 ug/mL Susceptible Ciprofloxacin <=0.06 ug/mL Susceptible Ertapenem <=0.12 ug/mL Susceptible * Extended Spectrum Beta-Lactamase Negative ug/mL ESBL Negative * Gentamicin <=1 ug/mL Susceptible Levofloxacin <=0.12 ug/mL Susceptible Meropenem <=0.25 ug/mL Susceptible Nitrofurantoin <=16 ug/mL Susceptible * Piperacillin/Tazobactam <=4 ug/mL Susceptible Trimethoprim/Sulfamethoxazole <=1/19 ug/mL Susceptible 10/15/2024 1631 10/18/2024 0824 Blood Culture Peripheral blood (BC) Arm, Left [[id number]] (Abnormal) Peripheral blood (BC) from Arm, Left Final result Component Value Culture Positive on the 1st day of incubation Abnormal Escherichia coli Panic 2 of 2 bottles Susceptibilities done on previous cultures Imaging EXAM: CT ABDOMEN PELVIS W CONTRAST LOCATION: [facility] DATE: 10/19/2024 INDICATION: worsening abdominal pain following surgery yesterday COMPARISON: 05/09/2017 TECHNIQUE: CT scan of the abdomen and pelvis was performed following injection of IV contrast. Multiplanar reformats were obtained. Dose reduction techniques were used. CONTRAST: 99mL Isovue 370 FINDINGS: LOWER CHEST: Bibasilar atelectasis. HEPATOBILIARY: Liver appears normal. Status post cholecystectomy. No fluid collection in the gallbladder fossa. No biliary dilatation. PANCREAS: Normal. SPLEEN: Normal. ADRENAL GLANDS: Normal. KIDNEYS/BLADDER: Normal. BOWEL: Few mildly dilated small bowel loops in the left upper quadrant, measuring up to 3.0 cm in diameter. Gradual transition to normal caliber small bowel. No transition point to suggest obstruction. Appendix not visualized, although no secondary signs of acute appendicitis. PERITONEUM/RETROPERITONEUM: Small amount of intraperitoneal free air. Small amount of intraperitoneal free fluid. No focal fluid collection. LYMPH NODES: No lymphadenopathy. VASCULATURE: Mild atherosclerotic calcifications. PELVIC ORGANS: Prostatic calcifications. MUSCULOSKELETAL: Bilateral fat-containing inguinal hernias. Small fat-containing periumbilical hernia. Scattered soft tissue gas in the ventral abdominal wall, presumably postsurgical. Multilevel degenerative changes of the spine. IMPRESSION: 1. Status post cholecystectomy. No fluid collection in the gallbladder fossa. No biliary dilatation. Small amount of intraperitoneal free air and free fluid, presumably postsurgical. 2. Few mildly dilated small bowel loops in the left upper quadrant, favored to represent focal ileus. No discrete transition point to suggest obstruction. EXAM: CT CHEST PULMONARY EMBOLISM W CONTRAST LOCATION: [facility] DATE: 10/16/2024 INDICATION: tachycardia, tachypnea COMPARISON: Same date portable chest radiograph. TECHNIQUE: CT chest pulmonary angiogram during arterial phase injection of IV contrast. Multiplanarreformats and MIP reconstructions were performed. Dose reduction techniques were used. CONTRAST: 67mL Isovue 370 FINDINGS: ANGIOGRAM CHEST: Pulmonary arteries are normal caliber and negative for pulmonary emboli. Thoracic aorta is negative for dissection. No CT evidence of right heart strain. LUNGS AND PLEURA: Scattered areas of subsegmental atelectasis. No pleural effusion. MEDIASTINUM/AXILLAE: Normal. CORONARY ARTERY CALCIFICATION: None. UPPER ABDOMEN: Normal. MUSCULOSKELETAL: No acute osseous abnormality. IMPRESSION: 1. No pulmonary artery embolus. 2. Scattered areas of subsegmental atelectasis. No pleural effusion. 3. No other acute process within the chest. EXAM: US ABDOMEN LIMITED LOCATION: [facility] DATE: 10/15/2024 INDICATION: Right upper quadrant pain; elevated LFTs. COMPARISON: 05/09/2017. TECHNIQUE: Limited abdominal ultrasound. FINDINGS: GALLBLADDER: Gallstones and sludge in an otherwise normal gallbladder. No wall thickening, or pericholecystic fluid. Negative sonographic Caslilas's sign. BILE DUCTS: No visualized intrahepatic biliary ductal dilatation. The common duct measures up to 11mm within its midportion. It is incompletely visualized distally, due to overlying bowel gas. LIVER: Normal parenchyma with smooth contour. The portal vein is patent with flow in the normal direction. RIGHT KIDNEY: No hydronephrosis. PANCREAS: The pancreas is largely obscured by overlying gas. IMPRESSION: 1. Cholelithiasis and sludge, without sonographic evidence of acute cholecystitis. 2. Dilated common bile duct, measuring up to 11 mm. Correlation with LFTs and consideration of MRCPimaging is recommended to exclude a distal obstructing stone or mass lesion. * Jacob Valencia MD - 10/20/2024 12:16 PM CDT Surgery progress note: Doing better today. Still some pain in the abdomen but much improved. Breathing also better. Getting some gentle diuresis. Had some food this morning. CT scan yesterday reviewed by me showing expected post-op changes. Abdomen remains moderately distended on exam but appropriately tender. Incisions are clean and intact. Overall improving. Ok to ADAT. Suspect discharge later today vs tomorrow. Jacob Valencia MD * [address] MD - 10/20/2024 10:13 AM CDT [facility] Hospitalist Progress Note Assessment & Plan ASSESSMENT 59M with history of GERD presented with right upper quadrant abdominal pain and fever and found to have ascending colon just with E. coli bacteremia. Patient is now status post ERCP with evidence of choledocholithiasis s/p biliary sphincterotomy, dilation and balloon extraction. Also s/p lap alma rosa to prevent recurrence. Ongoing pain control issues but improved today. Will try to progress to full liquid diet. Still hasSOB, which may be a combination of mild pulmonary edema and atelectasis. Gentle diuresis today and incentive spirometry. PLAN Severe Sepsis 2/2 Ascending Cholangitis w/ E coli Bacteremia -Presented with RUQ abd pain and fever -On and, met SIRS criteria with evidence of ascending cholangitis as source -Now s/p ERCP with choledocholithiasis s/p sphincterotomy and balloon extraction -Also s/p lap alma rosa to prevent recurrence -Ceftriaxone 2g every day, 10d course of antibiotics per ID Post-Operative Pain & Ileus -A lot of issues with postoperative pain control -Likely due to ileus, also has large amount of operative gas below right diaphragm -Improved today, progressed to FLD if tolerated, wean pain meds as able Acute Hypoxic Respiratory Failure 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 Pain somewhat improved. Has been walking the halls. Does still feel short of breath. Objective Blood pressure (!) 159/103, pulse 110, temperature 98.1 ??F (36.7 ??C), temperature source Oral, resp. rate 16, height 1.753 m (5' 9), weight 89.3 kg (196 lb 14.4 oz), SpO2 97%. PHYSICAL EXAM General: In no acute distress CV: RRR. Lungs: CTAB. Nl WOB. Abd: Mild right upper quadrant tenderness. Surgical incision sites clean dry intact. Ext: No edema. LABS AND IMAGING Reviewed and pertinent results discussed in assessment and plan. * Jacob Valencia MD - 10/19/2024 10:02 AM CDT Surgery progress note: POD#1 lap cholecystectomy. Surgery notable for chronically inflamed and contracted gallbladder. Hadpain and distension last night after drinking liquids. Pain is better this morning although he has had a lot of pain meds and feels a little foggy right now. Not much of an appetite. No vomiting. Hurts to take deep breaths BP (!) 173/109 Pulse 89 Temp 98 ??F (36.7 ??C) (Oral) Resp 20 Ht 1.753 m (5' 9) Wt 89.7 kg (197 lb 12.8 oz) SpO2 95% BMI 29.21 kg/m?? On exam, he is lying in bed and appears not in distress and is Aox3. Slight tachypnea with short sentences, abdomen is distended with mild diffuse tenderness, incisions are c/d/I A/P: -I suspect the pain and pain with deep breaths is due to ileus after surgery. I ordered an XR todaywhich was not very remarkable for distended bowel but on exam he is distended. His labs have improved today. Recommend continuing with just sips of clears for today. Not ready for discharge. Jacob Valencia MD * [address] MD - 10/19/2024 9:44 AM CDT [facility] Hospitalist Progress Note Assessment & Plan ASSESSMENT 59M with history of GERD presented with right upper quadrant abdominal pain and fever and found to have ascending colon just with E. coli bacteremia. Patient is now status post ERCP with evidence of choledocholithiasis s/p biliary sphincterotomy, dilation and balloon extraction. Also s/p lap alma rosa to prevent recurrence. Issues with pain control overnight. Will be clear liquid diet today, scheduled Toradol, surgery putan order for XR to eval for ileus. 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 A lot of pain control issues last night and this morning expresses eating. Some nausea as well. Case discussed with surgery. XR ordered. Clear liquid diet for today. Objective Blood pressure (!) 173/109, pulse 89, temperature 98 ??F (36.7 ??C), temperature source Oral, resp.rate 20, height 1.753 m (5' 9), weight 89.7 kg (197 lb 12.8 oz), SpO2 95%. PHYSICAL EXAM General: In no acute distress CV: RRR. Lungs: CTAB. Nl WOB. Abd: Mild right upper quadrant tenderness. Surgical incision sites clean dry intact. Ext: No edema. LABS AND IMAGING Reviewed and pertinent results discussed in assessment and plan. * Ole Brown MD - 10/18/2024 9:23 PM CDT Notified by RN that patient is having abdominal pain after having chicken broth. Patient seen and examined. He states that he is having epigastric pain which he described as burning pain. He had Tumsearlier which did not help much. He denies vomiting. Currently he is very uncomfortable. Will orderPepcid. Will keep him n.p.o. and put him back on IV fluids. * Julio Cesar Regan MD - 10/18/2024 3:14 PM CDT [facility] Progress Note - Hospitalist Service Date of Admission: 10/15/2024 Reason for hospitalization Severe sepsis secondary to ascending cholangitis E. coli bacteremia Assessment & Plan Salvador Ahumada is a 59 year old male admitted on 10/15/2024. He has a past medical history of GERD and is admitted for sepsis due to ascending cholangitis. Seen in urgent care on 10/15/24 for RUQ pain that developed around 0400. He endorses intermittent abdominal pain with radiation to his back over the past 2- 1/2 weeks with 3-4 episodes of severe pain up to 02/12. He did endorse intermittent RUQ pain over the past year to 1.5 years. Past surgical history of an appendectomy at age 21. At urgent care he had a fever of 101, elevated LFTs of ALT 1380 and AST 1240, WBC count of 11.9, elevated total bilirubin at 4.7 and direct of 2.98, lipase 28 and was advised to go to the ED. Vital signs in the ED were T 101.7, P 104-117, BP 165/100, RR 18, and O2 sat 95% on RA. Ultrasound abdomen showed a dilated common bile duct measuring up to 11mm, cholelithiasis and sludge without evidence for acute cholecystitis. He was admitted to medicine with sepsis and concern for ascending cholangitis. At 0200 on 10/16 he developed sudden SOB and a rapid response was called. He was noted to have rigors, increased work of breathing, tachypnea where his breathing in high 30s, tachycardia 130s to 150s. Blood pressure 230/128. Workup revealed elevated D-dimer 1.47, lactic acid 5.5, N-terminal proBNP 652, chest x-ray was without any overt pulmonary edema, consolidation, pleural effusion, or pneumothorax. CT angiogram wasperformed due to concern for PE and was negative. Patient was placed on BiPAP and transferred to the ICU. Patient was able to wean off BiPAP and wean down to 2L NC over the next several hours. Repeatlactic acid was 2.1 and 3.3. Blood cultures returned positive for E. Coli, and the patient is being covered with Zosyn. 10/17 antibiotics were de-escalated to ceftriaxone per antimicrobial management. Severe Sepsis without evidence of septic shock E.coli bacteremia and lactic acidosis due to sepsis ascending cholangitis Elevated LFT -blood cultures positive for E. Coli. Initially on Zosyn. De-escalated to ceftriaxone 2g daily on 10/17 per antimicrobial management and ID. . -LFT improving -GI consult, ERCP on 10/16 with removal of stone from biliary tree and removal of sludge. Patient tolerated procedure well. -seen by GI, they have signed off. - Currently patient is afebrile, status post lap alma rosa, blood culture from October 15 grew pansensitiveE. coli. No subsequent cultures obtained. Will get 2 sets of blood culture, involve infectious service duration of antibiotic given patient's complex infection. Continue ceftriaxone for now Acute hypoxic respiratory failure Flash pulmonary edema mildly reduced LVEF of 45-50% with early diastolic dysfunction Concern for Sepsis induced cardiomyopathy Acute episode of respiratory distress overnight on 10/16. Patient placed on BiPAP during episode andthen able to wean to 2L NC. Elevated BNP up to 652. Patient with no history of CHF, CAD, asthma, COPD, or smoking history. Chest xray without pneumothorax and CT angiogram negative for PE. Flash pulmonary edema possible, monitor fluids and respiratory status closely. Cardiogenic etiology including sepsis-induced cardiomyopathy remains likely and echocardiogram today showed mild global hypokinesiaof left ventricle with EF 45-50% and grade I or early diastolic dysfunction. Lower suspicion for CAD given global hypokinesia and patient denies chest pain. -EKG with sinus tach on 10/16 -Cardiology consult on 10/16. Recommended repeat echo on 10/18. Agree LV dysfunction most likely secondary to sepsis and Lactic acidosis. Consider patient low risk for cholecystectomy. -closely monitor fluid and respiratory status in the setting of recent respiratory distress and hypokinesia of LV with reduced EF. Cardiology does not recommend further diuretics. -rpt limited ECHO showed EF of 55 to 60%. -Currently patient is stable without hypoxia or shortness of breath. Will continue to monitor Hypokalemia-replace per protocol Status post laparoscopic cholecystectomy for chronic cholecystitis -- Dr. Ortiz performed cholecystectomy on October 18, 2024. -- Stable postoperatively, continue to monitor, ambulate the patient, continue to biotic and postoperative care Diet: Advance Diet as Tolerated: Clear Liquid Diet; Regular Diet Adult DVT Prophylaxis: Pneumatic Compression Devices Pro Catheter: Not present Fluids: none Lines: None Cardiac Monitoring: None Code Status: Full Code Social Drivers of Health Tobacco Use: High Risk (10/18/2024) Patient History Smoking Tobacco Use: Every Day Smokeless Tobacco Use: Current Alcohol Use: Alcohol Misuse (04/04/2019) AUDIT-C Frequency of Alcohol Consumption: 2-3 times a week Average Number of Drinks: 10 or more Disposition Plan Disposition: Home when ready Medically Ready for Discharge: Anticipated in 2-4 Days pending continued improvement and once antibiotic plan is clarified by infectious disease service Family update: Patient spouse at bedside and she was updated about care plan. Julio Cesar Regan MD Interval History Patient was seen and examined by me this morning. Care plan assumed by me today. Patient is postop following lap alma rosa. Denies any pain. No shortness of breath, fever or chills. His was at bedside. Care plan discussed with patient and family. I briefly spoke with surgery as well. Physical Exam Vital Signs: Temp: 98.7 ??F (37.1 ??C) Temp src: Oral BP: 137/89 Pulse: 82 Resp: 22 SpO2: 96 % O2 Device: None (Room air) Oxygen Delivery: 6 LPM Weight: 198 lbs 1.6 oz Constitutional: awake, alert, cooperative, no apparent distress Eyes: pupils equal, round and reactive to light, extra ocular muscles intact, no scleral icterus, conjunctiva normal ENT: normocephalic, without obvious abnormality Respiratory: No increased work of breathing, good air exchange, clear to auscultation bilaterally, no crackles or wheezing, Cardiovascular: regular rate and rhythm, normal S1 and S2, no S3 or S4, and no murmur noted GI: Well-healed appendectomy scar, normal bowel sounds, no tenderness to palpation, no masses palpated, no hepatosplenomegally Skin: jaundice improved, warm without edema Neurologic: Awake, alert, oriented to name, place and time. Cranial nerves II- XII are grossly intact. Moving all four extremities. Neuropsychiatric: mood and affect appropriate Medical Decision Making All laboratory and imaging data in the past 24 hours reviewed Recent Labs Lab 10/18/24 0710/17/24 0550 10/16/24 0224 WBC 10.8 16.9* 12.3* HGB 13.6 13.1* 15.5 HCT 39.8* 38.1* 46.0 MCV 87 88 89 PLT 208 168 233 No results for input(s): CULT in the last 168 hours. Recent Labs Lab 10/18/24 0720 10/17/24 1607 10/17/24 1215 10/17/24 0754 10/17/24 0550 10/16/24 1443 10/16/24 1039 10/16/24 0307 10/16/24 0224 NA 137 -- -- -- 138 -- -- -- 136 POTASSIUM 4.3 -- -- -- 4.4 -- 3.6 < > 4.4 CHLORIDE 105 -- -- -- 104 -- -- -- 100 CO2 23 -- -- -- 22 -- -- -- 20* ANIONGAP 9 -- -- -- 12 -- -- -- 16* GLC 100* 150* 151* < > 127* < > -- < > 125* BUN 15.6 -- -- -- 20.3 -- -- -- 15.2 CR 0.93 -- -- -- 1.00 -- -- -- 1.13 GFRESTIMATED >90 -- -- -- 87 -- -- -- 75 RACHAEL 8.7* -- -- -- 8.0* -- -- -- 8.9 PROTTOTAL 5.9* -- -- -- 5.3* -- -- -- 7.0 ALBUMIN 3.3* -- -- -- 3.0* -- -- -- 4.4 BILITOTAL 2.7* -- -- -- 4.7* -- -- -- 7.0* ALKPHOS 87 -- -- -- 72 -- -- -- 116 AST 73* -- -- -- 200* -- -- -- 736* ALT 382* -- -- -- 565* -- -- -- 1,259* < > = values in this interval not displayed. Recent Labs Lab 10/18/24 0720 10/17/24 1607 10/17/24 1215 10/17/24 0754 10/17/24 0550 GLC 100* 150* 151* 154* 127* Recent Labs Lab 10/16/24 0224 INR 1.21* No results for input(s): TROPONIN, TROPI, TROPR in the last 168 hours. Invalid input(s): TROP, TROPONINIES Recent Results (from the past 48 hours) Echocardiogram Limited Result Value LVEF 55-60% Narrative [id number]^RICKI^STEVO^Yakelin [facility] [address] [place] [address] Name: SALVADOR AHUMADA : 1965 Study Date: 10/18/2024 07:35 AM Age: 59 yrs Gender: Male Patient Location: [facility] Reason For Study: Cardiomyopathy Ordering Physician: STEVO ROBISON Performed By: Katelyn Antonio BSA: 2.1 m2 Height: 69 in Weight: 201 lb HR: 88 BP: 138/96 mmHg Procedure Limited Echocardiogram with two-dimensional, color and spectral Doppler. Interpretation Summary Left ventricular systolic function is normal. The visual ejection fraction is 55-60%. No regional wall motion abnormalities noted. Left Ventricle Left ventricular systolic function is normal. The visual ejection fraction is 55-60%. No regional wall motion abnormalities noted. Right Ventricle The right ventricle is normal in structure, function and size. Mitral Valve The mitral valve is normal in structure and function. There is trace mitral regurgitation. Tricuspid Valve The tricuspid valve is not well visualized, but is grossly normal. The right ventricular systolic pressure is elevated at 33.6 mmHg. Aortic Valve The aortic valve is trileaflet. No aortic regurgitation is present. No aortic stenosis is present. Vessels The inferior vena cava is normal. Pericardium There is no pericardial effusion. MMode/2D Measurements & Calculations IVC diam: 1.9 cm asc Aorta Diam: 3.5 cm Asc Ao diam index BSA (cm/m2): 1.7 Asc Ao diam index Ht(cm/m): 2.0 Doppler Measurements & Calculations TR max onur: 290.0 cm/sec TR max P.6 mmHg Report approved by: Saima Yeung MD on 10/18/2024 08:56 AM Data PAST 24 HR DATA REVIEWED * Saima Yeung DO - 10/18/2024 8:57 AM CDT REPEAT ECHO shows normal LV function. Low risk for periop cardiac events. No further cardiac workup needed. Please call with further questions. * Chuy Borrero RN - 10/17/2024 9:59 PM CDT 10/17/242005 Skin Skin WDL X;integrity Skin Integrity bruised (ecchymotic) Bruised (ecchymotic) location Buttocks/IT Device Skin Interventions Taken No adjustments needed Admission/Transfer from: ICU 2 RN skin assessment completed. Yes with Ankush Silverman RN Significant findings include: no breaches in skin integrity. Small bruise on Lest buttock in cleft. LDA added (if applicable)? Not Applicable Requested WOC Nurse Consult from MD? Not Applicable * Kimberlyn Stringer MD - 10/17/2024 3:01 PM CDT [facility] Surgery Progress Note Assessment and Plan: Assessment: Sepsis due to ascending cholangitis, choledocholithiasis with dilated common bile duct, elevated LFTs/Tbili, E.Coli Bacteremia on admission blood cultures -s/p 10/16 ERCP with sphincterotomy and stone extraction; am LFTs improved, TBili improved to 4.7, slight increase in leukocytosis (16.9) -sepsis induced cardiomyopathy (EF 45-50% on TTE yesterday) cardiology following -tachycardia/tachypnea improved Plan: -IV Rocephin per medicine -Pain management: acetaminophen -Diet restricted: full liquids advance to regular/low fat -Advance activity as tolerated -possible cholecystectomy this admission. Noted plan for repeat echo in the morning tomorrow. Will need to review and if improved may be able to add to surgery schedule if time allows. Pt and family aware surgery would be with Dr Ortiz if it happened tomorrow. If we are not able to do tomorrow likely would need to schedule as outpatient. Discussed surgery in detail, risks and benefits and they want to proceed as soon as possible Interval History: Pt feels very well. Sitting up in chair in good spirits and visiting with family. Tolerated liquid diet. Having bowel function. Wondering if he can advance diet and when surgery would be. Physical Exam: Blood pressure (!) 134/103, pulse 75, temperature 98.5 ??F (36.9 ??C), resp. rate 26, height 1.745 m (5' 8.7), weight 90.8 kg (200 lb 2.8 oz), SpO2 97%. I/O last 3 completed shifts: In: 2092.33 [P.O.:240; I.V.:3.33; IV Piggyback:200] Out: 1100 [Urine:1100] Constitutional: awake, alert, cooperative, no apparent distress, and appears stated age CV/Resp: RRR, breathing comfortably on RA Abdomen: Soft nontender nondistended Skin: Jaundiced Data: Recent Labs Lab 10/17/24 0550 10/16/24 0224 10/15/24 1510 WBC 16.9* 12.3* 11.9* HGB 13.1* 15.5 16.3 HCT 38.1* 46.0 45.6 MCV 88 89 85 PLT 168 233 236 Recent Labs Lab 10/17/24 1215 10/17/24 0754 10/17/24 0550 10/16/24 1443 10/16/24 1039 10/16/24 0755 10/16/24 0535 10/16/24 0307 10/16/24 0224 10/15/24 1510 NA -- -- 138 -- -- -- -- -- 136 138 POTASSIUM -- -- 4.4 -- 3.6 -- 3.1* -- 4.4 4.5 CHLORIDE -- -- 104 -- -- -- -- -- 100 101 CO2 -- -- 22 -- -- -- -- -- 20* 26 ANIONGAP -- -- 12 -- -- -- -- -- 16* 11 GLC 151* 154* 127* < > -- < > -- < > 125* 147* BUN -- -- 20.3 -- -- -- -- -- 15.2 12.3 CR -- -- 1.00 -- -- -- -- -- 1.13 1.00 GFRESTIMATED -- -- 87 -- -- -- -- -- 75 87 RACHAEL -- -- 8.0* -- -- -- -- -- 8.9 10.0 PROTTOTAL -- -- 5.3* -- -- -- -- -- 7.0 7.5 ALBUMIN -- -- 3.0* -- -- -- -- -- 4.4 4.8 BILITOTAL -- -- 4.7* -- -- -- -- -- 7.0* 4.7* ALKPHOS -- -- 72 -- -- -- -- -- 116 111 AST -- -- 200* -- -- -- -- -- 736* 1,240* ALT -- -- 565* -- -- -- -- -- 1,259* 1,380* < > = values in this interval not displayed. Kimberlyn Stringer MD * Stevo Robison DO - 10/17/2024 12:05 PM CDT Physician Attestation I, Stevo Robison DO, was present with the medical/JIM student who participated in the service and in the documentation of the note. I have verified the history and personally performed the physical exam and medical decision making. I agree with the assessment and plan of care as documented in the note. Advance diet but would advance to low fat in setting of cholelithiasis. Await gen surg plan. Repeatlimited ECHO tomorrow Please see A&P for additional details of medical decision making. I have personally reviewed the following data over the past 24 hrs: 16.9 (H) \ 13.1 (L) / 168 138 104 20.3 / 151 (H) 4.4 22 1.00 \ ALT: 565 (HH) AST: 200 (H) AP: 72 TBILI: 4.7 (H) ALB: 3.0 (L) TOT PROTEIN: 5.3 (L) LIPASE: N/A Stevo Robison, Date of Service (when I saw the patient): 10/17/24 [facility] Progress Note - Hospitalist Service Date of Admission: 10/15/2024 Assessment & Plan Salvador Ahumada is a 59 year old male admitted on 10/15/2024. He has a past medical history of GERD and is admitted for sepsis due to ascending cholangitis. Seen in urgent care on 10/15/24 for RUQ pain that developed around 0400. He endorses intermittent abdominal pain with radiation to his back over the past 2- 1/2 weeks with 3-4 episodes of severe pain up to 02/12. He did endorse intermittent RUQ pain over the past year to 1.5 years. Past surgical history of an appendectomy at age 21. At urgent care he had a fever of 101, elevated LFTs of ALT 1380 and AST 1240, WBC count of 11.9, elevated total bilirubin at 4.7 and direct of 2.98, lipase 28 and was advised to go to the ED. Vital signs in the ED were T 101.7, P 104-117, BP 165/100, RR 18, and O2 sat 95% on RA. Ultrasound abdomen showed a dilated common bile duct measuring up to 11mm, cholelithiasis and sludge without evidence for acute cholecystitis. He was admitted to medicine with sepsis and concern for ascending cholangitis. At 0200 on 10/16 he developed sudden SOB and a rapid response was called. He was noted to have rigors, increased work of breathing, tachypnea where his breathing in high 30s, tachycardia 130s to 150s. Blood pressure 230/128. Workup revealed elevated D-dimer 1.47, lactic acid 5.5, N-terminal proBNP 652, chest x-ray was without any overt pulmonary edema, consolidation, pleural effusion, or pneumothorax. CT angiogram wasperformed due to concern for PE and was negative. Patient was placed on BiPAP and transferred to the ICU. Patient was able to wean off BiPAP and wean down to 2L NC over the next several hours. Repeatlactic acid was 2.1 and 3.3. Blood cultures returned positive for E. Coli, and the patient is being covered with Zosyn. 10/17 antibiotics were de-escalated to ceftriaxone per antimicrobial management. Severe Sepsis without evidence of septic shock E.coli bacteremia and lactic acidosis due to sepsis ascending cholangitis Elevated LFT -blood cultures positive for E. Coli. Initially on Zosyn. De-escalated to ceftriaxone 2g daily on 10/17 per antimicrobial management and ID. Recommend at least 7 day course for bacteremia and can transition to PO cephalosporin at discharge. E. Coli Susceptibility pending. -LFT improving today, ALT down to 565, AST down to 200, total bili down from 7 to 4.7. WBC count upat 16.9 today. Daily CBC and CMP -GI consult, ERCP on 10/16 with removal of stone from biliary tree and removal of sludge. Patient tolerated procedure well. -Monitor for post-ERCP bleeding, patient with 1 normal bowel movement today, on PPI, Hb down at 13.1 today from 15.5. -Gen surg consult, possible lap alma rosa inpt vs outpt -IVF stopped after ERCP as patient successfully advanced to clear liquid diet -seen by GI, they have signed off. Will advance diet today to full liquids, eventual advancement tolow fat diet (cholelithiasis) acute hypoxic respiratory failure Flash pulmonary edema mildly reduced LVEF of 45-50% with early diastolic dysfunction Concern for Sepsis induced cardiomyopathy Acute episode of respiratory distress overnight on 10/16. Patient placed on BiPAP during episode andthen able to wean to 2L NC. Elevated BNP up to 652. Patient with no history of CHF, CAD, asthma, COPD, or smoking history. Chest xray without pneumothorax and CT angiogram negative for PE. Flash pulmonary edema possible, monitor fluids and respiratory status closely. Cardiogenic etiology including sepsis-induced cardiomyopathy remains likely and echocardiogram today showed mild global hypokinesiaof left ventricle with EF 45-50% and grade I or early diastolic dysfunction. Lower suspicion for CAD given global hypokinesia and patient denies chest pain. -EKG with sinus tach on 10/16 -Cardiology consult on 10/16. Recommended repeat echo on 10/18. Agree LV dysfunction most likely secondary to sepsis and Lactic acidosis. Consider patient low risk for cholecystectomy. -closely monitor fluid and respiratory status in the setting of recent respiratory distress and hypokinesia of LV with reduced EF. Cardiology does not recommend further diuretics. -rpt limited ECHO tomorrow, pending that consider outpt stress test as cardiology has signed off Hypokalemia Potassium 3.1 on 10/16. Replaced with repeat 3.6. K+ normal on 10/17 at 4.4. Diet: Clear Liquid Diet DVT Prophylaxis: Pneumatic Compression Devices Pro Catheter: Not present Fluids: none Lines: None Cardiac Monitoring: None Code Status: Full Code Social Drivers of Health Tobacco Use: High Risk (10/16/2024) Patient History Smoking Tobacco Use: Every Day Smokeless Tobacco Use: Current Alcohol Use: Alcohol Misuse (04/04/2019) AUDIT-C Frequency of Alcohol Consumption: 2-3 times a week Average Number of Drinks: 10 or more Disposition Plan Medically Ready for Discharge: Anticipated in 2-4 Days Zahira Garcia Medical Student Hospitalist Service [facility] Securely message with [employer] (more info) Text page via Sharematic Paging/Directory Interval History Underwent ERCP and tolerated procedure well. Afebrile since procedure. Reports no abdominal pain. 1BM without melena. Patient has been weaned to room air. Physical Exam Vital Signs: Temp: 98.5 ??F (36.9 ??C) Temp src: Temporal BP: (!) 134/103 Pulse: 75 Resp: 26 SpO2: 97 % O2 Device: None (Room air) Oxygen Delivery: 2 LPM Weight: 200 lbs 2.84 oz Constitutional: awake, alert, cooperative, no apparent distress Eyes: pupils equal, round and reactive to light, extra ocular muscles intact, no scleral icterus, conjunctiva normal ENT: normocephalic, without obvious abnormality Respiratory: No increased work of breathing, good air exchange, clear to auscultation bilaterally, no crackles or wheezing, Cardiovascular: regular rate and rhythm, normal S1 and S2, no S3 or S4, and no murmur noted GI: Well-healed appendectomy scar, normal bowel sounds, no tenderness to palpation, no masses palpated, no hepatosplenomegally Skin: jaundice improved, warm without edema Neurologic: Awake, alert, oriented to name, place and time. Cranial nerves II- XII are grossly intact. Moving all four extremities. Neuropsychiatric: mood and affect appropriate Medical Decision Making Please see A&P for additional details of medical decision making. Data PAST 24 HR DATA REVIEWED * Kerline Zurita, [facility] - 10/17/2024 10:08 AM CDT Images from the original note were not included. Antimicrobial Stewardship Team Note Antimicrobial Stewardship Program - A joint venture between [facility] and [facility] to optimize antibiotic management. Patient: Salvador Ahumada Allergies: Patient has no known allergies. Brief Summary: Savlador Ahumada is a 59 year old male admitted on 10/15/24 with abdominal pain, found to have ascending cholangitis. PMH significant for GERD. Abdominal ultrasound showed dilated CBD, cholelithiasis, and sludge without evidence for acute cholecystitis. He received ceftriaxone and metronidazole x1 in ED, started on Zosyn on admission. ERCP performed by GI 10/16 with noted choledocholithiasis with an obstruction, complete removal was accomplished by biliary sphincterotomy, dilation, and balloon extraction. General surgery consulted,plan for likely lap cholecystectomy this hospitalization. WBC count 11.9 on admission with fever 102 .7F, WBC 16.9 today, afebrile. Stable on room air. Blood cultures from admission growing E coli in 2/2 bottles. Active Anti-infective Medications (From admission, onward) Start Stop 10/16/24 0230 piperacillin-tazobactam 3.375 g, Intravenous, EVERY 6 HOURS sepsis -- Assessment: E coli bacteremia 2/2 ascending cholangitis s/p ERCP 10/16 Patient presented with abdominal pain, found to have imaging concerning for acute cholangitis and taken for ERCP by GI on 10/16 where choledocholithiasis with obstruction was found, complete removal accomplished. Blood cultures from admission growing mercer-sensitive E coli, currently on broad spectrumantibiotics with Zosyn. Based on susceptibilities, recommend narrowing to ceftriaxone to complete at least 7 day course. Recommendations: Narrow Zosyn to ceftriaxone 2g q24h to complete at least 7 day course for bacteremia, can transition to PO cephalosporin at discharge. Discussed with ID Staff MD Kerline Robin, PharmD, BCIDP Vital Signs/Clinical Features: Vitals 10/15 0710/16 0659 10/16 0700 10/17 0659 10/17 0700 10/17 1008 Most Recent Temp (??F) 98 - 102.7 97.1 - 101.5 98.5 98.5 (36.9) 10/17 0800 Pulse 78 - 156 66 - 124 75 - 85 75 10/17 0915 Resp 18 - 44 10 - 36 12 - 28 26 10/17 0915 BP 91/53 - 233/105 90/59 - 130/99 126/93 - 134/103 134/103 10/17 0900 SpO2 (%) 90 - 98 93 - 100 97 97 10/17 0700 Labs Estimated Creatinine Clearance: 88.1 mL/min (based on SCr of 1 mg/dL). Recent Labs Lab Test 03/07/24213010/15/24 15110/16/24 0224 10/17/24 0550 CR 1.10 1.00 1.13 1.00 Recent Labs Lab Test 03/07/24213010/15/24 1510 10/16/24 0224 10/17/24 0550 WBC 5.8 11.9* 12.3* 16.9* ANEU 4.1 11.1* -- -- ALYM 0.9 0.2* -- -- BRYAN 0.6 0.4 -- -- AEOS 0.1 0.0 -- -- HGB 14.3 16.3 15.5 13.1* HCT 42.5 45.6 46.0 38.1* MCV 90 85 89 88 PLT 254 236 233 168 Recent Labs Lab Test 10/15/24 1510 10/16/24 0224 10/17/24 0550 BILITOTAL 4.7* 7.0* 4.7* ALKPHOS 111 116 72 ALBUMIN 4.8 4.4 3.0* AST 1,240* 736* 200* ALT 1,380* 1,259* 565* Recent Labs Lab Test 10/16/24 0224 10/16/24 0535 10/16/24 0819 LACT 5.5* 2.1* 3.3* Culture Results: 7-Day Micro Results Procedure Component Value Units Date/Time Blood Culture Peripheral blood (BC) Arm, Right [[id number]] (Abnormal) (Susceptibility) Collected: 10/15/241708 Order Status: Completed Lab Status: Preliminary result Updated: 10/17/24 0935 Specimen: Peripheral blood (BC) from Arm, Right Culture Positive on the 1st day of incubation Escherichia coli Comment: 2 of 2 bottles Susceptibility Escherichia coli (1) Antibiotic Interpretation Sensitivity Method Status Ampicillin Susceptible <=2 ug/mL FILIPE Final Ampicillin/ Sulbactam Susceptible <=2 ug/mL FILIPE Final Piperacillin/Tazobactam Susceptible <=4 ug/mL FILIPE Final Cefazolin [*] Susceptible 2 ug/mL FILIPE Final Ceftazidime Susceptible <=0.5 ug/mL FILIPE Final Ceftriaxone Susceptible <=0.25 ug/mL FILIPE Final Cefepime Susceptible <=0.12 ug/mL FILIPE Final Extended Spectrum Beta-Lactamase [*] ESBL Negative Negative ug/mL FILIPE Final Ertapenem [*] Susceptible <=0.12 ug/mL FILIPE Final Meropenem Susceptible <=0.25 ug/mL FILIPE Final Gentamicin Susceptible <=1 ug/mL FILIPE Final Ciprofloxacin Susceptible <=0.06 ug/mL FILIPE Final Levofloxacin Susceptible <=0.12 ug/mL FILIPE Final Nitrofurantoin [*] Susceptible <=16 ug/mL FILIPE Final Trimethoprim/Sulfamethoxazole Susceptible <=1/19 ug/mL FILIPE Final [*] Suppressed Antibiotic Blood Culture ID Panel, PCR [[id number]] (Abnormal) Collected: 10/15/241708 Order Status: Completed Lab Status: Final result Updated: 10/16/24 06 Specimen: Peripheral blood (BC) from Arm, Right Enterococcus faecalis Not Detected Enterococcus faecium Not Detected Listeria monocytogenes Not Detected Staphylococcus species Not Detected Staphylococcus aureus Not Detected Staphylococcus epidermidis Not Detected Staphylococcus lugdunensis Not Detected Streptococcus species Not Detected Streptococcus agalactiae Not Detected Streptococcus pneumoniae Not Detected Streptococcus pyogenes Not Detected A. baumannii complex Not Detected Bacteroides fragilis Not Detected Enterobacter cloacae complex Not Detected Escherichia coli Detected Comment: Escherichia coli detected by Expert DynamicsFire BCID2 assay. Final identification and antimicrobial susceptibility testing will be verified by standard methods. The BCID2 assay will not distinguish E. coli from Shigella species. Specimens containing Shigella species or E. coli will be reported as E. coli detected. Klebsiella aerogenes Not Detected Klebsiella oxytoca Not Detected Klebsiella pneumoniae group Not Detected Proteus species Not Detected Salmonella species Not Detected Serratia marcescens Not Detected Haemophilus influenzae Not Detected Neisseria meningitidis Not Detected Pseudomonas aeruginosa Not Detected Stenotrophomonas maltophilia Not Detected CTX-M Not Detected IMP Not Detected KPC Not Detected mcr-1 Not Detected NDM Not Detected OXA-48 like Not Detected VIM Not Detected Agnes albicans Not Detected Agnes auris Not Detected Agnes glabrata Not Detected Agnes krusei Not Detected Agnes parapsilosis Not Detected Agnes tropicalis Not Detected Cryptococcus neoformans/gattii Not Detected Narrative: Assay performed using the FDA-cleared OnAppe Blood Culture Identification 2 (BCID2) Panel, a multiplexed nucleic acid test for the detection and identification of multiple bacterial and yeast nucleic acids and select genetic determinants associated with antimicrobial resistance. A negative BCID2 result does not exclude the possibility of bloodstream infection. Positive resultsdo not rule out co-infection with organisms not included in the BioFire BCID2 Panel. Results are intended to aid in the diagnosis of illness and are meant to be used in conjunction with other clinical findings. This test has been verified and performed by the Infectious Diseases Diagnostic Laboratory at [facility]. This laboratory is certified under the Clinical Laboratory Improvement Amendments of 1988 (CLIA-88) as qualified to perform high complexity clinical laboratory testing. Blood Culture Peripheral blood (BC) Arm, Left [[id number]] (Abnormal) Collected: 10/15/24 1631 Order Status: Completed Lab Status: Preliminary result Updated: 10/16/24 0541 Specimen: Peripheral blood (BC) from Arm, Left Culture Positive on the 1st day of incubation Gram negative bacilli Comment: 2 of 2 bottles Blood Culture Peripheral blood (BC) Order Status: Canceled Lab Status: No result Specimen: Peripheral blood (BC) Recent Labs Lab Test 03/07/24 2131 10/15/24 1353 URINEPH 6.0 7.0 NITRITE Negative Negative LEUKEST Negative Negative WBCU <1 0-5 Imaging: XR ERCP Result Date: 10/16/2024 This exam was marked as non-reportable because it will not be read by a radiologist or a [facility] non-radiologist provider. Echocardiogram Complete Result Date: 10/16/2024 [id number]^SATURNINO^REBEKAH [facility] [address] [place] [address] Name: SALVADOR AHUMADA : 1965Study Date: 10/16/2024 09:51 AM Age: 59 yrs Gender: Male Patient Location: [facility] Reason For Study: SOB, SOB Ordering Physician: REBEKAH MATAMOROS Performed By: Isha Murray BSA: 2.0 m2 Height: 68 in Weight: 200 lb BP: 134/92 mmHg Procedure Echocardiogram with two-dimensional, color and spectral Doppler. Optison ([facility] #[id number]) given intravenously. Interpretation Summary The visual ejection fraction is 45-50%. There is mild global hypokinesia ofthe left ventricle. Grade I or early diastolic dysfunction. Contrast was used without apparent complications. Left Ventricle The left ventricle is normal in size. There is normal left ventricular wall thickness. The visual ejection fraction is 45-50%. Grade I or early diastolic dysfunction. There is mild global hypokinesia of the left ventricle. Right Ventricle The right ventricle is normal in structure, function andsize. Atria Normal left atrial size. Right atrial size is normal. Mitral Valve The mitral valve is normal in structure and function. There is mild mitral annular calcification. Tricuspid Valve Normaltricuspid valve. Aortic Valve The aortic valve is normal in structure and function. Pulmonic Valve Normal pulmonic valve. Vessels The aortic root is normal size. Pericardium There is no pericardial effusion. Rhythm The rhythm was sinus tachycardia. MMode/2D Measurements & Calculations IVSd: 0.99 cm LVIDd: 4.5 cm LVIDs: 3.5 cm LVPWd: 0.79 cm FS: 22.2 % LV mass(C)d: 130.2 grams LV mass(C)dI: 63.7 grams/m2 Ao root diam: 3.7 cm asc Aorta Diam: 3.4 cm LVOT diam: 2.4 cm LVOT area: 4.5 cm2 Ao root diam index Ht(cm/m):2.2 Ao root diam index BSA (cm/m2): 1.8 Asc Ao diam index BSA (cm/m2): 1.7 Asc Ao diam index Ht(cm/m): 2.0 EF Biplane: 48.0 % LA Volume (BP): 45.4 ml LA Volume Index (BP): 22.3 ml/m2 RWT: 0.35 TAPSE:1.3 cm Doppler Measurements & Calculations MV E max onur: 57.7 cm/sec MV A max onur: 79.0 cm/sec MV E/A: 0.73 MV dec slope: 745.1 cm/sec2 MV dec time: 0.08 sec PA acc time: 0.11 sec TR max onur: 221.8 cm/sec TR max P.7 mmHg E/E' av.9 Lateral E/e': 6.3 Medial E/e': 7.6 Report approved by: Rudy Mcdowell MD on 10/16/2024 11:[address] Chest Pulmonary Embolism w Contrast Result Date: 10/16/2024 EXAM: CT CHEST PULMONARY EMBOLISM W CONTRAST LOCATION: [facility] DATE: 10/16/2024 INDICATION: tachycardia, tachypnea COMPARISON: Same date portable chest radiograph. TECHNIQUE:CT chest pulmonary angiogram during arterial phase injection of IV contrast. Multiplanar reformats and MIP reconstructions were performed. Dose reduction techniques were used. CONTRAST: 67mL Isovue 370 FINDINGS: ANGIOGRAM CHEST: Pulmonary arteries are normal caliber and negative for pulmonary emboli. Thoracic aorta is negative for dissection. No CT evidence of right heart strain. LUNGS AND PLEURA: Scattered areas of subsegmental atelectasis. No pleural effusion. MEDIASTINUM/AXILLAE: Normal. MAYE NARY ARTERY CALCIFICATION: None. UPPER ABDOMEN: Normal. MUSCULOSKELETAL: No acute osseous abnormality. IMPRESSION: 1. No pulmonary artery embolus. 2. Scattered areas of subsegmental atelectasis. No pleural effusion. 3. No other acute process within the chest. XR Chest Port 1 View Result Date: 10/16/2024 EXAM: XR CHEST PORT 1 VIEW LOCATION: [facility] DATE: 10/16/2024 INDICATION: hypoxia COMPARISON: 10/11/2021 IMPRESSION: Heart size is upper limits of normal. Mild pulmonary vascular congestion noted. Mild linear atelectasis in the left lung base. No confluent airspace opacity, right pleural effusion or pneumothorax. Left costophrenic angle is excluded from view without significant left pleural effusion. US Abdomen Limited Result Date: 10/15/2024 EXAM: US ABDOMEN LIMITED LOCATION: [facility] DATE: 10/15/2024 INDICATION: Right upper quadrant pain; elevated LFTs. COMPARISON: 05/09/2017. TECHNIQUE: Limited abdominal ultrasound. FINDINGS: GALLBLADDER: Gallstones and sludge in an otherwise normal gallbladder. No wall thickening, or pericholecystic fluid. Negative sonographic Casillas's sign. BILE DUCTS: No visualized intrahepatic biliary ductal dilatation. The common duct measures up to 11 mm within its midportion. It is incompletely visualized distally, due to overlying bowel gas. LIVER: Normal parenchyma with smooth contour. The portal vein is patent with flow in the normal direction. RIGHT KIDNEY: No hydronephrosis.PANCREAS: The pancreas is largely obscured by overlying gas. IMPRESSION: 1. Cholelithiasis and sludge, without sonographic evidence of acute cholecystitis. 2. Dilated common bile duct, measuring up to 11 mm. Correlation with LFTs and consideration of MRCP imaging is recommended to exclude a distal obstructing stone or mass lesion. * Cornelia Collazo APRN [employer] - 10/17/2024 7:30 AM CDT [facility] Progress Note IMPRESSION: Salvador Ahumada is a 59 year old male with PMH of appendectomy and GERD that presented to [facility] on 10/15/2024 from urgent due to concerns for RUQ abdominal pain. He was found to have elevated LFTs, CBC duct dilation to 11 mm (via abdominal US) as well as gall bladder sludge and cholecystitis. US of abdomen + for cholecystitis and CBD dilatation of [address] Sarkar on 10/16/2024: Impression: - Choledocholithiasis with an obstruction was found. Complete removal was accomplished by biliary sphincterotomy, dilation and balloon extraction. -LFTs significantly improved today, (T bili down from 7 to 4.7) -Hgb stable RECOMMENDATIONS: -defer to general surgery as to timing of cholecystectomy -spoke with patient and , no need for further GI follow up, would be reasonable to follow up alejandro few weeks with GP to recheck liver enzymes -today, monitor for signs of pancreatitis or acute bleeding We will sign off on Mr. Ahumada at this time. Thank you for allowing for us to participate in his cares. 18 minutes of total time was spent providing patient care, including patient evaluation, reviewing documentation/test results, and shipping order clerk Cornelia Collazo NP [facility] [phone] SUBJECTIVE: Resting in bed. States pain is now gone. Denies nausea or vomiting. OBJECTIVE: BP 109/77 Pulse 100 Temp 98.7 ??F (37.1 ??C) (Axillary) Resp 19 Ht 1.745 m (5' 8.7) Wt 90.8 kg (200 lb 2.8 oz) SpO2 98% BMI 29.82 kg/m?? Temp (24hrs), Av.7 ??F (37.6 ??C), Min:98 ??F (36.7 ??C), Max:102.7 ??F (39.3 ??C) Patient Vitals for the past 72 hrs: Weight 10/15/24 2056 90.8 kg (200 lb 2.8 oz) 10/15/24 1456 91.1 kg (200 lb 13.4 oz) Intake/Output Summary (Last 24 hours) at 10/16/2024 1624 Last data filed at 10/16/2024 1600 Gross per 24 hour Intake 1926.33 ml Output 1350 ml Net 576.33 ml PHYSICAL EXAM GEN: Alert, oriented x3, communicative and in NAD. HRT: RRR LUNGS: CTA ABD: ND, +BS, no guarding or pain to palpation, no rebound, no HSM. SKIN: No rash, jaundice or spider angiomata LABS: I have reviewed the patient's new clinical lab results: Recent Labs Lab Test 10/16/24 0224 10/15/24 1510 03/07/24 2131 WBC 12.3* 11.9* 5.8 HGB 15.5 16.3 14.3 MCV 89 85 90 PLT 233 236 254 INR 1.21* -- -- Recent Labs Lab Test 10/16/24 1039 10/16/24 0535 10/16/244 10/15/24 1510 03/07/24 2131 POTASSIUM 3.6 3.1* 4.4 4.5 4.0 CHLORIDE -- -- 100 101 104 CO2 -- -- 20* 26 26 BUN -- -- 15.2 12.3 16.9 CR -- -- 1.13 1.00 1.10 ANIONGAP -- -- 16* 11 9 Recent Labs Lab Test 10/16/2422310/15/24 1510 10/15/24 1353 03/07/24 2131 ALBUMIN 4.4 4.8 -- -- BILITOTAL 7.0* 4.7* -- -- ALT 1,259* 1,380* -- -- AST 736* 1,240* -- -- PROTEIN -- -- 100* Negative LIPASE -- 28 -- -- IMAGING: Reviewed * Stevo Robison DO - 10/16/2024 11:53 AM CDT Physician Attestation I, Stevo Robison DO, was present with the medical/JIM student who participated in the service and in the documentation of the note. I have verified the history and personally performed the physical exam and medical decision making. I agree with the assessment and plan of care as documented in the note. Please see A&P for additional details of medical decision making. I have personally reviewed the following data over the past 24 hrs: 12.3 (H) \ 15.5 / 233 136 100 15.2 / 87 3.6 20 (L) 1.13 \ ALT: 1,259 (HH) AST: 736 (HH) AP: 116 TBILI: 7.0 (H) ALB: 4.4 TOT PROTEIN: 7.0 LIPASE: 28 Trop: N/A BNP: 652 (H) Procal: N/A CRP: N/A Lactic Acid: 3.3 (H) INR: 1.21 (H) PTT: N/A D-dimer: 1.47 (H) Fibrinogen: N/A Stevo Robison DO Date of Service (when I saw the patient): 10/16/24 [facility] Progress Note - Hospitalist Service Date of Admission: 10/15/2024 Assessment & Plan Salvador Ahumada is a 59 year old male admitted on 10/15/2024. He has a past medical history of GERD and is admitted for sepsis due to ascending cholangitis. Seen in urgent care on 10/15/24 for RUQ pain that developed around 0400. He endorses intermittent abdominal pain with radiation to his back over the past 2- 1/2 weeks with 3-4 episodes of severe pain up to 02/12. He did endorse intermittent RUQ pain over the past year to 1.5 years. Past surgical history of an appendectomy at age 21. At urgent care he had a fever of 101, elevated LFTs of ALT 1380 and AST 1240, WBC count of 11.9, elevated total bilirubin at 4.7 and direct of 2.98, lipase 28 and was advised to go to the ED. Vital signs in the ED were T 101.7, P 104-117, BP 165/100, RR 18, and O2 sat 95% on RA. Ultrasound abdomen showed a dilated common bile duct measuring up to 11mm, cholelithiasis and sludge without evidence for acute cholecystitis. He was admitted to medicine with sepsis and concern for ascending cholangitis. At 0200 on 10/16 he developed sudden SOB and a rapid response was called. He was noted to have rigors, increased work of breathing, tachypnea where his breathing in high 30s, tachycardia 130s to 150s. Blood pressure 230/128. Workup revealed elevated D-dimer 1.47, lactic acid 5.5, N-terminal proBNP 652, chest x-ray was without any overt pulmonary edema, consolidation, pleural effusion, or pneumothorax. CT angiogram wasperformed due to concern for PE and was negative. Patient was placed on BiPAP and transferred to the ICU. Patient was able to wean off BiPAP and wean down to 2L NC over the next several hours. Repeatlactic acid was 2.1 and 3.3. Blood cultures returned positive for E. Coli, and the patient is being covered with Zosyn. #Severe Sepsis without evidence of septic shock #E.coli bacteremia #ascending cholangitis #Elevated LFT -blood cultures positive for E. Coli. Covering with Zosyn. Susceptibility pending. -GI consult, ERCP today -Gen surg consult, planning to consider cholecystectomy once common duct cleared and sepsis improved -IV fluids initially started on LR 100mL/hr which was paused after episode of respiratory distress.Restarted IVF this morning due to improvement in respiratory distress and soft BP noted in the setting of sepsis. Closely monitor respiratory and cardiac function. -NPO for ERCP -PPI for ERCP -daily CBC and CMP -prn IV dilaudid for pain -prn antiemetics #acute hypoxic respiratory failure #Flash pulmonary edema #mildly reduced LVEF of 45-50% with early diastolic dysfunction #Concern for Sepsis induced cardiomyopathy Acute episode of respiratory distress overnight. Patient placed on BiPAP during episode and then able to wean to 2L NC. Elevated BNP up to 652. Patient with no history of CHF, CAD, asthma, COPD, or smoking history. Chest xray without pneumothorax and CT angiogram negative for PE. Flash pulmonary edema possible, monitor fluids and respiratory status closely. Cardiogenic etiology including sepsis-induced cardiomyopathy remains likely and echocardiogram today showed mild global hypokinesia of leftventricle with EF 45-50% and grade I or early diastolic dysfunction. Lower suspicion for CAD given global hypokinesia and patient denies chest pain. -cardiology consult, appreciate recommendations -EKG ordered -closely monitor IVF in the setting of recent respiratory distress and hypokinesia of LV with reduced EF #Hypokalemia Potassium 3.1 today. Replaced with repeat 3.6. Diet: NPO for Procedure/Surgery per Anesthesia Guidelines Except for: Meds; Clear liquids before procedure/surgery: ADULT (Age GREATER than or Equal to 18 years) - Clear liquids 2 hours before procedure/surgery DVT Prophylaxis: Pneumatic Compression Devices Pro Catheter: Not present Fluids: lactated ringers 100mL/hr Lines: None Cardiac Monitoring: ACTIVE order. Indication: Procedural area Code Status: Full Code Social Drivers of Health Tobacco Use: High Risk (10/16/2024) Patient History Smoking Tobacco Use: Every Day Smokeless Tobacco Use: Current Alcohol Use: Alcohol Misuse (04/04/2019) AUDIT-C Frequency of Alcohol Consumption: 2-3 times a week Average Number of Drinks: 10 or more Disposition Plan Medically Ready for Discharge: Anticipated in 5+ Days The patient's care was discussed with the Attending Physician, Dr. Robison, Patient, and Patient's Family. Zahira Garcia Medical Student Hospitalist Service [facility] Securely message with [employer] (more info) Text page via Sharematic Paging/Directory Interval History Patient with episode of acute SOB overnight and transferred to ICU on BiPAP (see A&P for details). Patient has now improved and is on 2LPM NC. ERCP today. He reports 3/10 RUQ abdominal pain this morning. Physical Exam Vital Signs: Temp: (!) 101.5 ??F (38.6 ??C) (MDA notified) Temp src: Temporal BP: 95/68 Pulse: 114 Resp: 25 SpO2: 96 % O2 Device: Nasal cannula Oxygen Delivery: 2 LPM Weight: 200 lbs 2.84 oz Constitutional: awake, alert, cooperative, no apparent distress Eyes: pupils equal, round and reactive to light, extra ocular muscles intact, scleral icterus present, conjunctiva normal ENT: normocephalic, without obvious abnormality Respiratory: No increased work of breathing, good air exchange, clear to auscultation bilaterally, no crackles or wheezing, on 2L NC Cardiovascular: tachycardic rate with regular rhythm, normal S1 and S2, no S3 or S4, and no murmur noted GI: Well-healed appendectomy scar, normal bowel sounds, moderate tenderness to palpation in RUQ, nomasses palpated, no hepatosplenomegally Skin: jaundice, warm without edema Neurologic: Awake, alert, oriented to name, place and time. Cranial nerves II- XII are grossly intact. Moving all four extremities. Neuropsychiatric: mood and affect appropriate Medical Decision Making Please see A&P for additional details of medical decision making. Data PAST 24 HR DATA REVIEWED I have personally reviewed the following data over the past 24 hrs: 12.3 (H) \ 15.5 / 233 136 100 15.2 / 87 3.6 20 (L) 1.13 \ ALT: 1,259 (HH) AST: 736 (HH) AP: 116 TBILI: 7.0 (H) ALB: 4.4 TOT PROTEIN: 7.0 LIPASE: 28 Trop: N/A BNP: 652 (H) Procal: N/A CRP: N/A Lactic Acid: 3.3 (H) INR: 1.21 (H) PTT: N/A D-dimer: 1.47 (H) Fibrinogen: N/A Imaging results reviewed over the past 24 hrs: Recent Results (from the past 24 hours) US Abdomen Limited Narrative EXAM: US ABDOMEN LIMITED LOCATION: [facility] DATE: 10/15/2024 INDICATION: Right upper quadrant pain; elevated LFTs. COMPARISON: 05/09/2017. TECHNIQUE: Limited abdominal ultrasound. FINDINGS: GALLBLADDER: Gallstones and sludge in an otherwise normal gallbladder. No wall thickening, or pericholecystic fluid. Negative sonographic Casillas's sign. BILE DUCTS: No visualized intrahepatic biliary ductal dilatation. The common duct measures up to 11mm within its midportion. It is incompletely visualized distally, due to overlying bowel gas. LIVER: Normal parenchyma with smooth contour. The portal vein is patent with flow in the normal direction. RIGHT KIDNEY: No hydronephrosis. PANCREAS: The pancreas is largely obscured by overlying gas. Impression IMPRESSION: 1. Cholelithiasis and sludge, without sonographic evidence of acute cholecystitis. 2. Dilated common bile duct, measuring up to 11 mm. Correlation with LFTs and consideration of MRCPimaging is recommended to exclude a distal obstructing stone or mass lesion. XR Chest Port 1 View Narrative EXAM: XR CHEST PORT 1 VIEW LOCATION: [facility] DATE: 10/16/2024 INDICATION: hypoxia COMPARISON: 10/11/2021 Impression IMPRESSION: Heart size is upper limits of normal. Mild pulmonary vascular congestion noted. Mild linear atelectasis in the left lung base. No confluent airspace opacity, right pleural effusion or pneumothorax. Left costophrenic angle is excluded from view without significant left pleural effusion. CT Chest Pulmonary Embolism w Contrast Narrative EXAM: CT CHEST PULMONARY EMBOLISM W CONTRAST LOCATION: [facility] DATE: 10/16/2024 INDICATION: tachycardia, tachypnea COMPARISON: Same date portable chest radiograph. TECHNIQUE: CT chest pulmonary angiogram during arterial phase injection of IV contrast. Multiplanarreformats and MIP reconstructions were performed. Dose reduction techniques were used. CONTRAST: 67mL Isovue 370 FINDINGS: ANGIOGRAM CHEST: Pulmonary arteries are normal caliber and negative for pulmonary emboli. Thoracic aorta is negative for dissection. No CT evidence of right heart strain. LUNGS AND PLEURA: Scattered areas of subsegmental atelectasis. No pleural effusion. MEDIASTINUM/AXILLAE: Normal. CORONARY ARTERY CALCIFICATION: None. UPPER ABDOMEN: Normal. MUSCULOSKELETAL: No acute osseous abnormality. Impression IMPRESSION: 1. No pulmonary artery embolus. 2. Scattered areas of subsegmental atelectasis. No pleural effusion. 3. No other acute process within the chest. Echocardiogram Complete Result Value LVEF 45-50% Narrative [id number] [facility] [id number]^SATURNINO^REBEKAH [facility] [address] [place], [place] [id number] Name: SALVADOR AHUMADA : 1965 Study Date: 10/16/2024 09:51 AM Age: 59 yrs Gender: Male Patient Location: [facility] Reason For Study: SOB, BEATRIS Ordering Physician: REBEKAH MATAMOROS Performed By: Isha Murray BSA: 2.0 m2 Height: 68 in Weight: 200 lb BP: 134/92 mmHg Procedure Echocardiogram with two-dimensional, color and spectral Doppler. Optison ([facility] #[id number]) given intravenously. Interpretation Summary The visual ejection fraction is 45-50%. There is mild global hypokinesia of the left ventricle. Grade I or early diastolic dysfunction. Contrast was used without apparent complications. Left Ventricle The left ventricle is normal in size. There is normal left ventricular wall thickness. The visual ejection fraction is 45-50%. Grade I or early diastolic dysfunction. There is mild global hypokinesia of the left ventricle. Right Ventricle The right ventricle is normal in structure, function and size. Atria Normal left atrial size. Right atrial size is normal. Mitral Valve The mitral valve is normal in structure and function. There is mild mitral annular calcification. Tricuspid Valve Normal tricuspid valve. Aortic Valve The aortic valve is normal in structure and function. Pulmonic Valve Normal pulmonic valve. Vessels The aortic root is normal size. Pericardium There is no pericardial effusion. Rhythm The rhythm was sinus tachycardia. MMode/2D Measurements & Calculations IVSd: 0.99 cm LVIDd: 4.5 cm LVIDs: 3.5 cm LVPWd: 0.79 cm FS: 22.2 % LV mass(C)d: 130.2 grams LV mass(C)dI: 63.7 grams/m2 Ao root diam: 3.7 cm asc Aorta Diam: 3.4 cm LVOT diam: 2.4 cm LVOT area: 4.5 cm2 Ao root diam index Ht(cm/m): 2.2 Ao root diam index BSA (cm/m2): 1.8 Asc Ao diam index BSA (cm/m2): 1.7 Asc Ao diam index Ht(cm/m): 2.0 EF Biplane: 48.0 % LA Volume (BP): 45.4 ml LA Volume Index (BP): 22.3 ml/m2 RWT: 0.35 TAPSE: 1.3 cm Doppler Measurements & Calculations MV E max onur: 57.7 cm/sec MV A max onur: 79.0 cm/sec MV E/A: 0.73 MV dec slope: 745.1 cm/sec2 MV dec time: 0.08 sec PA acc time: 0.11 sec TR max onur: 221.8 cm/sec TR max P.7 mmHg E/E' av.9 Lateral E/e': 6.3 Medial E/e': 7.6 Report approved by: Rudy Mcdowell MD on 10/16/2024 11:03 AM XR ERCP Narrative This exam was marked as non-reportable because it will not be read by a radiologist or a [place] non-radiologist provider. * Carlton Lloyd, RT - 10/16/2024 3:49 AM CDT WOOD PILE DRIVER OPERATOR called for increased WOB. Patient had upper airway wheeze radiating to lower airways- albuterolgiven with no relief. Patient was placed on BiPAP 16/6 30% from 10 L oxymask. Patient was transported to CT on BiPAP with no issues. Upon arrival to ICU, patient was taken off BiPAP, room air, 93%, RR 30, BS clear. Overall, patient states he had a previous episode similar to this recently due to increased pain. Patient is currently breathing more shallow off of BiPAP- pain increasing. RN to give more pain medication. Unsure if patient had a true desaturation event as when patient began neb, oxygen was weaned from 10 L to 8 L to room air with no changes in sats. HR continued to be elevated with patient expressing pain. At this time, patient is off BiPAP, room air, BS clear/dim with shallow breathing. * Melissa Winston RN - 10/16/2024 3:39 AM CDT Pt escorted to CT by this expert medical writer and Zacarias RT. Pt then transferred to ICU 364 for continued cares. at the bedside, updated on events. IV dilaudid given for abdominal pain, IV lasix given. IV Morphine and Labetalol held as pt's breathing much improved BP is much improved. Pt and requesting to talk with . Dr. Matamoros text paged to come talk with pt. * Rebekah Matamoros MD - 10/16/2024 3:21 AM CDT WOOD PILE DRIVER OPERATOR was called due to acute onset shortness of breath and significant hypoxia. Salvador is a 59-year-old male who is admitted to the hospital with sepsis secondary to cholangitis versus choledocholithiasis. Patient was on room air and suddenly started having difficulty breathing and required up to 10 L nasal cannula. WOOD PILE DRIVER OPERATOR was called and I immediately assessed the patient at bedside. He was noted to have rigors, increased work of breathing, tachypnea where his breathing in high 30s, tachycardia 130s to 150s. Blood pressure 230/128. patient also noted to have diffuse audible wheezing. No crackles were heard, no lower extremity edema appreciated, overall patient appears euvolemic. Denies any prior history of COPD or asthma. Never smoker Differential diagnosis for acute onset respiratory failure considered including pulmonary edema/CHF, PE, pleural effusion, pneumothorax, anemia, anxiety etc. Did not recently receive any antibiotics or any new medications so low suspicion for any allergic reaction or anaphylaxis leading to hypoxia.workup was ordered including ABGs, D-dimer, lactic acid, NT proBNP, and chest x-ray. Patient was given albuterol nebulizer with minimal improvement in his symptoms. Was eventually put on BiPAP with improvement in work of breathing. Workup was reviewed which revealed elevated D-dimer 1.47, lactic acid 5.5, N- terminal proBNP 652, chest x-ray or my read was without any overt pulmonary edema, consolidation, pleural effusion, or pneumothorax. Per radiology report patient was noted to have mild pulmonary vascular congestion and mild linear atelectasis in the left lung base. Given sudden onset tachypnea, tachycardia and elevated D-dimer suspicion for pulmonary embolism. The only unusual thing was the diffuse wheezing which usually we do not see in pulmonary embolism. Patient underwent CT angiogram which did not reveal any pulmonary embolus. Does not have a prior history of CHF however now with elevated BNP and acute hypoxic respiratory failure this is a consideration, suspect if he could be having sepsis induced cardiomyopathy. Will order echocardiogram. Given diffuse wheezing and significantly elevated blood pressure also considered flash pulmonary edema however imaging does not report that, will do a trial of IV Lasix 40 mg once. It does not appear that patient had received large amount of IV fluids, discussed this with RN and patient had only received 393mL of IVF, 480 mL of p.o. intake and his output was 225. Will stop further IV fluids. Lastly suspect if patient might be going into ARDS given sepsis/cholangitis, however needs to rule out cardiogenic etiology first. Patient was transferred to the ICU as he is now on BiPAP and we do not have any IMC bed available on third floor. Broaden antibiotics to Zosyn. Repeat lactic acid in 4 hours. Addendum: Patient was seen again at bedside. He is off of BiPAP and now on 2 L nasal cannula. He reports significant improvement in his breathing. He appears comfortable. Wheezing have resolved. present at bedside, updated. 45 minutes were spent in direct patient encounter, chart review, assessment and plan, and care coordination. * Christine Suarez RN - 10/16/2024 2:30 AM CDT Asked permission from patient to call his spouse and update her. Pt gave consent for this RN to call and update Danyelle his spouse. Danyelle updated on pts status (difficulty breathing, labs drawn, xray taken) and she verbalized she will come in at this time. documented in this encounter H&P Notes * Salvador Rocha, BRYANNA BOX SHOOK PATCHER - 10/15/2024 7:19 PM CDT [facility] History and Physical - Hospitalist Service Date of Admission: 10/15/2024 Assessment & Plan Salvador Ahumada is a 59 year old male who past medical history of GERD who presents to [facility] on 10/15/2024 for evaluation of right upper quadrant pain. Seen in urgent care and was referred to the hospital for further care. He endorses intermittent abdominal pain with radiation to his back over the past 2-1/2 weeks. He notes 3-4 episodes of pain rating 9 out of 10 which tends to dissipate. He states that he has been having similar symptoms of a crescendo decrescendo nature over the past year to year and a half. Most recently at this morning around 0400 he developed severe right upper quadrant pain. He noticed some chest discomfort that he attributed to his GERD. Took 4 Ty lenol at that time and pain improved some about 5 AM. Later in the morning he started to feel ill, endorses clamminess and feeling cold and sought care in in the clinic. He was noted to have a fever of 101. Endorses nausea abdominal pain. Denies chest pain, shortness of breath, emesis, urinary symptoms, hematuria. Past surgical history is pertinent for an appendectomy. Acute medical issues: #Sepsis without evidence of septic shock #Concern for cholangitis versus choledocholithiasis #Elevated LFT 2/2 above Plan: -- Admit to Medicine -- GI Consult in the AM. Anticipate ERCP in the AM. Likely will need general surgery consult. -- CLD this evening. NPO at NH. -- Continue Rocephin and Flagyl for now. -- Repeat CBC and CMP in the AM. -- Okay for limited APAP. No more than 2.5 grams of APAP from all sources daily. -- IV Dilaudid for pain. -- Antiemetics. IVF hydration. -- PPI. Diet: NPO for Procedure/Surgery per Anesthesia Guidelines Except for: Meds; Clear liquids before procedure/surgery: ADULT (Age GREATER than or Equal to 18 years) - Clear liquids 2 hours before procedure/surgery DVT Prophylaxis: Pneumatic Compression Devices Pro Catheter: Not present Lines: None Cardiac Monitoring: None Code Status: Full Clinically Significant Risk Factors Present on Admission # Overweight: Estimated body mass index is 29.66 kg/m?? as calculated from the following: Height as of this encounter: 1.753 m (5' 9). Weight as of this encounter: 91.1 kg (200 lb 13.4 oz). Disposition Plan Medically Ready for Discharge: Anticipated in 2-4 Days The patient's care was discussed with the Patient and EM Team. Salvador Rocha APRN [facility] Hospitalist Service [facility] Securely message with [employer] (more info) Text page via [facility] Paging/Directory Chief Complaint Abdominal pain History is obtained from the patient, electronic health record, and emergency department physician History of Present Illness Salvador Hamlin Wong is a 59 year old male who past medical history of GERD who presents to [facility] on 10/15/2024 for evaluation of right upper quadrant pain. Seen in urgent care and was referred to the hospital for further care. He endorses intermittent abdominal pain with radiation to his back over the past 2-1/2 weeks. He notes 3-4 episodes of pain rating 9 out of 10 which tends to dissipate. He states that he has been having similar symptoms of a crescendo decrescendo nature over the past year to year and a half. Most recently at this morning around 0400 he developed severe right upper quadrant pain. He noticed some chest discomfort that he attributed to his GERD. Took 4 Ty lenol at that time and pain improved some about 5 AM. Later in the morning he started to feel ill, endorses clamminess and feeling cold and sought care in in the clinic. He was noted to have a fever of 101. Endorses nausea abdominal pain. Denies chest pain, shortness of breath, emesis, urinary symptoms, hematuria. Past surgical history is pertinent for an appendectomy. ED course: IV, labs, imaging, treatment Findings: Labs: Direct bili 2.98. Total bilirubin 4.7. AST/ALT 1240/1380. Scr 1.00. Lipase 28. EtOH negative.APAP <5 CBC: mild leukocytosis with a WBC 11.9 o/w WNL. BC NGTD. Abd US: cholelithiasis and sludge. No sonographic evidence of acute cholecystitis. Dilated CBD measuring ~ 11 mm. No obvious stone. Treatment: APAP 1 gm, Rocephin 2 gm, Flagyl 500 mg, Dilaudid and Toradol. Zofran. NS 1 L bolus. Past Medical History Past Medical History: Diagnosis Date Knee pain torn menisus. Past Surgical History Past Surgical History: Procedure Laterality Date [facility] APPENDECTOMY 2006 Prior to Admission Medications Prior to Admission Medications Prescriptions Last Dose Informant Patient Reported? Taking? azithromycin (ZITHROMAX) 250 MG tablet Not Taking No No Sig: Two tablets first day, then one tablet daily for four days. Patient not taking: Reported on 10/15/2024 multivitamin (CENTRUM SILVER) tablet 10/15/2024 Morning Yes Yes Sig: Take 1 tablet by mouth daily. omeprazole (PRILOSEC OTC) 20 MG EC tablet 10/15/2024 Morning Yes Yes Sig: Take 20 mg by mouth daily. Patient taking differently: Take 40 mg by mouth daily. Facility-Administered Medications: None Review of Systems The 10 point Review of Systems is negative other than noted in the HPI or here. Social History I have reviewed this patient's social history and updated it with pertinent information if needed. Social History Tobacco Use Smoking status: Every Day Current packs/day: 0.00 Types: Cigarettes Smokeless tobacco: Current Types: Chew Tobacco comments: chew quiting, 1 can q 3 day7s Substance Use Topics Alcohol use: Yes Alcohol/week: 0.0 standard drinks of alcohol Comment: several beers on the weekends Drug use: No Family History I have reviewed this patient's family history and updated it with pertinent information if needed. Family History Problem Relation Age of Onset Cancer Father Melanoma/Thyroid Cancer Mother Lung Cancer Diabetes No family hx of Cancer - colorectal No family hx of Allergies No Known Allergies Physical Exam Vital Signs: Temp: 99.1 ??F (37.3 ??C) Temp src: Oral BP: 119/77 Pulse: 78 Resp: 18 SpO2: 92 % Weight: 200 lbs 13.42 oz GEN: Alert, oriented x 3, appears comfortable, NAD. NECK: Supple ,no mass or thyromegaly HEENT: Normocephalic/atraumatic, no scleral icterus, no nasal discharge, mouth moist. CV: Regular rate and rhythm, no murmur or JVD. S1 + S2 noted, no S3 or S4. LUNGS: Clear to auscultation bilaterally without rales/rhonchi/wheezing/retractions. Symmetric chest rise on inhalation noted. ABD: Active bowel sounds, soft, RUQ tender but non-distended. No rebound/guarding/rigidity. EXT: No edema. No cyanosis. No joint synovitis noted. SKIN: Dry to touch, no exanthems noted in the visualized areas. Neurologic: Grossly intact,non focal. Neuropsychiatric: General: normal, calm and normal eye contact Level of consciousness: alert / normal Affect: normal Orientation: oriented to self, place, time and situation Medical Decision Making 90 MINUTES SPENT BY ME on the date of service doing chart review, history, exam, documentation & further activities per the note. Data PAST 24 HR DATA REVIEWED I have personally reviewed the following data over the past 24 hrs: 11.9 (H) \ 16.3 / 236 138 101 12.3 / 147 (H) 4.5 26 1.00 \ ALT: 1,380 (HH) AST: 1,240 (HH) AP: 111 TBILI: 4.7 (H) ALB: 4.8 TOT PROTEIN: 7.5 LIPASE: 28 Imaging results reviewed over the past 24 hrs: Recent Results (from the past 24 hours) US Abdomen Limited Narrative EXAM: US ABDOMEN LIMITED LOCATION: [facility] DATE: 10/15/2024 INDICATION: Right upper quadrant pain; elevated LFTs. COMPARISON: 05/09/2017. TECHNIQUE: Limited abdominal ultrasound. FINDINGS: GALLBLADDER: Gallstones and sludge in an otherwise normal gallbladder. No wall thickening, or pericholecystic fluid. Negative sonographic Casillas's sign. BILE DUCTS: No visualized intrahepatic biliary ductal dilatation. The common duct measures up to 11mm within its midportion. It is incompletely visualized distally, due to overlying bowel gas. LIVER: Normal parenchyma with smooth contour. The portal vein is patent with flow in the normal direction. RIGHT KIDNEY: No hydronephrosis. PANCREAS: The pancreas is largely obscured by overlying gas. Impression IMPRESSION: 1. Cholelithiasis and sludge, without sonographic evidence of acute cholecystitis. 2. Dilated common bile duct, measuring up to 11 mm. Correlation with LFTs and consideration of MRCPimaging is recommended to exclude a distal obstructing stone or mass lesion. Cosigned by Ole Brown MD at 10/16/2024 2:39 PM CDT Associated attestation - Ole Brown MD - 10/16/2024 2:39 PM CDT Physician Attestation I have reviewed and discussed with the advanced practice provider their history, physical and plan for Salvador Ahumada. I did not participate in a shared visit; this is an advanced practice provider only visit. Ole Brown MD, MD Date of Service (when I saw the patient): I did not personally see this patient today. documented in this encounter Consult Notes * Barbara Lal MD - 10/19/2024 8:12 AM CDTAssociated Order(s): INFECTIOUS DISEASES IP CONSULT Images from the original note were not included. [facility] Infectious Disease Consultation Date of Admission: 10/15/2024 Date of Consult (When I saw the patient): 10/19/24 Assessment: 59YM who has been admitted due to fever and right upper quadrant abdominal pain, and was found to have E.coli sepsis with markedly elevated liver enzymes related to ascending cholangitis in the setting of cholelithiasis. He is s/p ERCP on 10/15 with removal of biliary stones and sphincterotomy, followed by laparoscopic cholecystectomy on 10/18. Sepsis is now controlled but has post operative abdominal pain. -E.coli sepsis of biliary source -Ascending cholangitis with marked elevation of liver enzymes -Choledocholithiasis s/p ERCP with removal of biliary stones and sphincterotomy on 10/15 -S/p cholecystectomy on 10/18 -Elevated liver enzymes are improving Recommendations: Has post operative abdominal pain, awaiting surgical evaluation. ? ileus Patient has been maintained on appropriate antimicrobials with Ceftriaxone -day 5 of antibiotics today Transition to oral Ciprofloxacin at discharge, complete a 10 day treatment course until 10/24. Barbara Lal MD Reason for Consult Reason for consult: I was asked to evaluate this patient for E.coli sepsis. Primary Care Physician Physician No Ref-Primary Chief Complaint Fever and RUQ pain History is obtained from the patient and medical records History of Present Illness Salvador Ahumada is a 59 year old male who has been admitted due to fever and right upper quadrant abdominal pain, and was found to have E.coli sepsis with markedly elevated liver enzymes related to ascending cholangitis in the setting of cholelithiasis. He is s/p ERCP on 10/15 with removal of biliary stones and sphincterotomy, followed by laparoscopic cholecystectomy on 10/18. Patient was febrile on admission with a temperature of 102.7 degrees, he had marked leukocytosis upto 16.9k, ALT was 1380, AST was 1240. CT chest was negative and US abdomen showed Dilated common bile duct, measuring up to 11 mm with cholelithiasis and sludge. Patient has been maintained on Ceftriaxone and ID has been asked to assist with further antimicrobial recommendations. Today patient reports ongoing severe abdominal pain following dinner last night. He is afebrile andleukocytosis is improving. Past Medical History I have reviewed this patient's medical history and updated it with pertinent information if needed. Past Medical History: Diagnosis Date Knee pain torn menisus. Past Surgical History I have reviewed this patient's surgical history and updated it with pertinent information if needed. Past Surgical History: Procedure Laterality Date ENDOSCOPIC RETROGRADE CHOLANGIOPANCREATOGRAM N/A 10/16/2024 Procedure: ENDOSCOPIC RETROGRADE CHOLANGIOPANCREATOGRAPHY, COMPLEX, Stone Extraction, Dilation; Surgeon: Claudia Sarkar MD; Location: [facility] APPENDECTOMY 2006 Prior to Admission Medications Prior to Admission Medications Prescriptions Last Dose Informant Patient Reported? Taking? azithromycin (ZITHROMAX) 250 MG tablet Not Taking No No Sig: Two tablets first day, then one tablet daily for four days. Patient not taking: Reported on 10/15/2024 multivitamin (CENTRUM SILVER) tablet 10/15/2024 Morning Yes Yes Sig: Take 1 tablet by mouth daily. omeprazole (PRILOSEC OTC) 20 MG EC tablet 10/15/2024 Morning Yes Yes Sig: Take 20 mg by mouth daily. Patient taking differently: Take 40 mg by mouth daily. Facility-Administered Medications: None Allergies No Known Allergies Immunization History Immunization History Administered Date(s) Administered COVID-19 MONOVALENT 12+ (Pfizer) 10/12/2020, 11/03/2020, 06/29/2021 Influenza (IIV3) PF 03/20/2012 Influenza Vaccine 18-64 (Flublok) 04/04/2019, 04/13/2021 Influenza Vaccine >6 months,quad, PF 04/26/2013, 05/18/2016 Tdap (Adult) Unspecified Formulation 11/16/2017 Tetanus 06/05/2006 Social History I have reviewed this patient's social history and updated it with pertinent information if needed. Salvador Ahumada reports that he has been smoking cigarettes. His smokeless tobacco use includes chew. He reports current alcohol use. He reports that he does not use drugs. Family History I have reviewed this patient's family history and updated it with pertinent information if needed. Family History Problem Relation Age of Onset Cancer Father Melanoma/Thyroid Cancer Mother Lung Cancer Diabetes No family hx of Cancer - colorectal No family hx of Review of Systems The 10 point Review of Systems is as per HPI Physical Exam Temp: 98.6 ??F (37 ??C) Temp src: Oral BP: (!) 153/106 Pulse: 80 Resp: 22 SpO2: 94 % O2 Device: Nasal cannula Oxygen Delivery: 1 LPM Vital Signs with Ranges Temp: [96.1 ??F (35.6 ??C)-99.5 ??F (37.5 ??C)] 98.6 ??F (37 ??C) Pulse: [68-99] 80 Resp: [9-24] 22 BP: (126-179)/(86-110) 153/106 SpO2: [85 %-98 %] 94 % 197 lbs 12.8 oz Body mass index is 29.21 kg/m??. GENERAL APPEARANCE: awake EYES: Eyes grossly normal to inspection NECK: no adenopathy RESP: lungs clear CV: regular rates and rhythm LYMPHATICS: normal ant/post cervical and supraclavicular nodes ABDOMEN: firm diffusely tender, surgical site stable MS: extremities normal SKIN: no suspicious lesions or rashes Data All laboratory data reviewed Component Latest Ref [facility] 10/19/2024 7:23 AM Sodium 135 - 145 mmol/L 139 Potassium 3.4 - 5.3 mmol/L 4.6 Carbon Dioxide (CO2) 22 - 29 mmol/L 24 Anion Gap 7 - 15 mmol/L 12 Urea Nitrogen 8.0 - 23.0 mg/dL 12.9 Creatinine 0.67 - 1.17 mg/dL 0.74 GFR Estimate >60 mL/min/1.73m2 >90 Calcium 8.8 - 10.4 mg/dL 8.8 Chloride 98 - 107 mmol/L 103 Glucose 70 - 99 mg/dL 111 (H) Alkaline Phosphatase 40 - 150 U/L 97 AST 0 - 45 U/L 52 (H) ALT 0 - 70 U/L 264 (H) Protein Total 6.4 - 8.3 g/dL 6.2 (L) Albumin 3.5 - 5.2 g/dL 3.3 (L) Bilirubin Total <=1.2 mg/dL 2.1 (H) WBC 4.0 - 11.0 10e3/uL 11.4 (H) RBC Count 4.40 - 5.90 10e6/uL 4.74 Hemoglobin 13.3 - 17.7 g/dL 14.2 Hematocrit 40.0 - 53.0 % 41.6 MCV 78 - 100 fL 88 MCH 26.5 - 33.0 pg 30.0 MCHC 31.5 - 36.5 g/dL 34.1 RDW 10.0 - 15.0 % 13.3 Platelet Count 150 - 450 10e3/uL 207 Component Latest Ref Rng 10/18/2024 11:54 PM Lactic Acid 0.7 - 2.0 mmol/L 1.2 Microbiology 10/18/2024 1455 10/19/2024 0631 Blood Culture Peripheral blood (BC) Arm, Right [[id number]] Peripheral blood (BC) from Arm, Right Preliminary result Component Value Culture No growth after 12 hours P 10/18/2024 1455 10/19/2024 0631 Blood Culture Peripheral blood (BC) Hand, Right [[id number]] Peripheral blood (BC) from Hand, Right Preliminary result Component Value Culture No growth after 12 hours P 10/15/2024 1709 10/18/2024 0822 Blood Culture Peripheral blood (BC) Arm, Right [[id number]] (Abnormal) Peripheral blood (BC) from Arm, Right Final result Component Value Culture Positive on the 1st day of incubation Abnormal Escherichia coli Panic 2 of 2 bottles Susceptibility Escherichia coli FILIPE Ampicillin <=2 ug/mL Susceptible Ampicillin/ Sulbactam <=2 ug/mL Susceptible Cefazolin 2 ug/mL Susceptible * Cefepime <=0.12 ug/mL Susceptible Ceftazidime <=0.5 ug/mL Susceptible Ceftriaxone <=0.25 ug/mL Susceptible Ciprofloxacin <=0.06 ug/mL Susceptible Ertapenem <=0.12 ug/mL Susceptible * Extended Spectrum Beta-Lactamase Negative ug/mL ESBL Negative * Gentamicin <=1 ug/mL Susceptible Levofloxacin <=0.12 ug/mL Susceptible Meropenem <=0.25 ug/mL Susceptible Nitrofurantoin <=16 ug/mL Susceptible * Piperacillin/Tazobactam <=4 ug/mL Susceptible Trimethoprim/Sulfamethoxazole <=1/19 ug/mL Susceptible 10/15/2024 1631 10/18/2024 0824 Blood Culture Peripheral blood (BC) Arm, Left [[id number]] (Abnormal) Peripheral blood (BC) from Arm, Left Final result Component Value Culture Positive on the 1st day of incubation Abnormal Escherichia coli Panic 2 of 2 bottles Susceptibilities done on previous cultures Imaging EXAM: CT CHEST PULMONARY EMBOLISM W CONTRAST LOCATION: [facility] DATE: 10/16/2024 INDICATION: tachycardia, tachypnea COMPARISON: Same date portable chest radiograph. TECHNIQUE: CT chest pulmonary angiogram during arterial phase injection of IV contrast. Multiplanarreformats and MIP reconstructions were performed. Dose reduction techniques were used. CONTRAST: 67mL Isovue 370 FINDINGS: ANGIOGRAM CHEST: Pulmonary arteries are normal caliber and negative for pulmonary emboli. Thoracic aorta is negative for dissection. No CT evidence of right heart strain. LUNGS AND PLEURA: Scattered areas of subsegmental atelectasis. No pleural effusion. MEDIASTINUM/AXILLAE: Normal. CORONARY ARTERY CALCIFICATION: None. UPPER ABDOMEN: Normal. MUSCULOSKELETAL: No acute osseous abnormality. IMPRESSION: 1. No pulmonary artery embolus. 2. Scattered areas of subsegmental atelectasis. No pleural effusion. 3. No other acute process within the chest. EXAM: US ABDOMEN LIMITED LOCATION: [facility] DATE: 10/15/2024 INDICATION: Right upper quadrant pain; elevated LFTs. COMPARISON: 05/09/2017. TECHNIQUE: Limited abdominal ultrasound. FINDINGS: GALLBLADDER: Gallstones and sludge in an otherwise normal gallbladder. No wall thickening, or pericholecystic fluid. Negative sonographic Casillas's sign. BILE DUCTS: No visualized intrahepatic biliary ductal dilatation. The common duct measures up to 11mm within its midportion. It is incompletely visualized distally, due to overlying bowel gas. LIVER: Normal parenchyma with smooth contour. The portal vein is patent with flow in the normal direction. RIGHT KIDNEY: No hydronephrosis. PANCREAS: The pancreas is largely obscured by overlying gas. IMPRESSION: 1. Cholelithiasis and sludge, without sonographic evidence of acute cholecystitis. 2. Dilated common bile duct, measuring up to 11 mm. Correlation with LFTs and consideration of MRCPimaging is recommended to exclude a distal obstructing stone or mass lesion. * Saima Yeung DO - 10/16/2024 4:13 PM CDTAssociated Order(s): CARDIOLOGY IP CONSULT [facility] Cardiology Consultation Date of Admission: 10/15/2024 Assessment & Plan Salvador Ahumada is a 59 year old male who was admitted on 10/15/2024. Sepsis secondary to ascending cholangitis Mild LV dysfunction likely secondary to sepsis and lactic acidosis-recommend repeating limited echoand reassessing LV function once he is medically stable. I would consider him low risk for cholecystectomy for perioperative cardiac events 3. Respiratory distress likely secondary to sepsis and probably mild ARDS, less likelyHFpEF. Would not recommend diuretics, he is on supplemental oxygen. Recommend supportive care If his repeat echocardiogram does have persistent borderline or low normal LV systolic function, consider chemical stress test again once he is medically stable Please feel free to contact me with any questions Moderate complexity Saima Zamzam Yeung DO, MD Primary Care Physician Physician No Ref-Primary Reason for Consult Reason for consult: I was asked by ricki to evaluate this patient for abnormal echo. History of Present Illness Salvador Ahumada is a 59 year old male who presents with past medical history of GERD who presents to [facility] on 10/15/2024 for evaluation of right upper quadrant pain. Seen in urgent care and was referred to the hospital for further care. He endorses intermittent abdominal pain with radiation to his back over the past 2-1/2 weeks. He notes 3-4 episodes of pain rating 9 out of 10 which tends to dissipate. He states that he has been having similar symptoms of a crescendo decrescendo nature over the past year to year and a half. Most recently at this morning around 0400 he developed severe right upper quadrant pain. He noticed some chest discomfort that he attributed to his GERD. Took 4 Tylenol at that time and pain improved some about 5 AM. Later in the morning he startedto feel ill, endorses clamminess and feeling cold and sought care in in the clinic. He was noted tohave a fever of 101. Endorses nausea abdominal pain. Denies chest pain, shortness of breath, emesis, urinary symptoms, hematuria. Past surgical history is pertinent for an appendectomy. He has been diagnosed with ascending cholangitis, sepsis and has undergone ERCP for stone removal in the common bile duct. He is scheduled for cholecystectomy. He developed shortness of breath along with fever and rigors upon presentation and was put on supplemental oxygen. A chest CT was performed that did not demonstrate evidence for PE there were scattered areas of subsegmental atelectasis no pleural effusion and no other acute process. An echocardiogram was ordered and was borderline low normal with an EF of 45 to 50% no significant valve disease. Cardiac risk factors-chewing tobacco Reviewed his ECG from admission which demonstrates a sinus tachycardia without acute ST or T wave abnormalities. Computer read as inferior infarct but there is a tiny R wave in lead III so I do not agree with this Past Medical History Past Medical History: Diagnosis Date Knee pain torn menisus. Past Surgical History Past Surgical History: Procedure Laterality Date [facility] APPENDECTOMY 2006 Prior to Admission Medications Prior to Admission Medications Prescriptions Last Dose Informant Patient Reported? Taking? azithromycin (ZITHROMAX) 250 MG tablet Not Taking No No Sig: Two tablets first day, then one tablet daily for four days. Patient not taking: Reported on 10/15/2024 multivitamin (CENTRUM SILVER) tablet 10/15/2024 Morning Yes Yes Sig: Take 1 tablet by mouth daily. omeprazole (PRILOSEC OTC) 20 MG EC tablet 10/15/2024 Morning Yes Yes Sig: Take 20 mg by mouth daily. Patient taking differently: Take 40 mg by mouth daily. Facility-Administered Medications: None Current Facility-Administered Medications Medication Dose Route Frequency Provider Last Rate Last Admin acetaminophen (TYLENOL) tablet 650 mg 650 mg Oral Q4H PRN Salvador Rocha APRN CNP Or acetaminophen (TYLENOL) Suppository 650 mg 650 mg Rectal Q4H PRN Salvador Rocha APRN CNP artificial saliva (BIOTENE MT) solution 1 spray 1 spray Mouth/Throat 4x Daily PRN Salvador Rocha APRN CNP benzocaine-menthol (CHLORASEPTIC) 6-10 MG lozenge 1 lozenge 1 lozenge Buccal Q1H PRN Salvador Rocha APRN CNP calcium carbonate (TUMS) chewable tablet 1,000 mg 1,000 mg Oral 4x Daily PRN Salvador Rocha APRN CNP flumazenil (ROMAZICON) injection 0.2 mg 0.2 mg Intravenous q1 min prn Claudia Sarkar MD HYDROmorphone (DILAUDID) half-tab 1 mg 1 mg Oral Q4H PRN Salvador Rocha APRN CNP HYDROmorphone (DILAUDID) injection 0.2 mg 0.2 mg Intravenous Q2H PRN Salvador Rocha APRN CNP HYDROmorphone (DILAUDID) injection 0.4 mg 0.4 mg Intravenous Q2H PRN Salvador Rocha APRN CNP 0.4 mg at 10/16/24 0312 HYDROmorphone (DILAUDID) tablet 2 mg 2 mg Oral Q4H PRN Salvador Rocha APRN CNP levalbuterol (XOPENEX) neb solution 1.25 mg 1.25 mg Nebulization Q1H PRN Rebekah Matamoros MD lidocaine (LMX4) cream Topical Q1H PRN Salvador Rocha APRN CNP lidocaine 1 % 0.1-1 mL 0.1-1 mL Other Q1H PRN Salvador Rocha APRN CNP melatonin tablet 5 mg 5 mg Oral At Bedtime PRN Salvador Rocha APRN CNP naloxone (NARCAN) injection 0.2 mg 0.2 mg Intravenous Q2 Min PRN Ole Brown MD Or naloxone (NARCAN) injection 0.4 mg 0.4 mg Intravenous Q2 Min PRN Ole Brown MD Or naloxone (NARCAN) injection 0.2 mg 0.2 mg Intramuscular Q2 Min PRN Ole Brown MD Or naloxone (NARCAN) injection 0.4 mg 0.4 mg Intramuscular Q2 Min PRN Ole Brown MD ondansetron (ZOFRAN ODT) ODT tab 4 mg 4 mg Oral Q6H PRN Claudia Sarkar MD Or ondansetron (ZOFRAN) injection 4 mg 4 mg Intravenous Q6H PRN Claudai Sarkar MD ondansetron (ZOFRAN ODT) ODT tab 4 mg 4 mg Oral Q6H PRN Salvador Rocha APRN CNP Or ondansetron (ZOFRAN) injection 4 mg 4 mg Intravenous Q6H PRN Salvador Rocah APRN CNP pantoprazole (PROTONIX) EC tablet 40 mg 40 mg Oral QAM AC Salvador Rocha APRN CNP 40 mg at 10/16/24 0853 piperacillin-tazobactam (ZOSYN) 3.375 g vial to attach to NS 100 mL bag 3.375 g Intravenous Q6H Rebekah Matamoros MD 3.375 g at 10/16/24 0853 polyethylene glycol (MIRALAX) Packet 17 g 17 g Oral BID PRN Salvador Rocha APRN CNP prochlorperazine (COMPAZINE) injection 10 mg 10 mg Intravenous Q6H PRN Claudia Sarkar MD Or prochlorperazine (COMPAZINE) tablet 10 mg 10 mg Oral Q6H PRN Claudia Sarkar MD prochlorperazine (COMPAZINE) injection 10 mg 10 mg Intravenous Q6H PRN Salvador Rocha APRN CNP Or prochlorperazine (COMPAZINE) tablet 10 mg 10 mg Oral Q6H PRN Salvador Rocha APRN CNP senna-docusate (SENOKOT-S/PERICOLACE) 8.6-50 MG per tablet 1 tablet 1 tablet Oral BID Salvador Rocha APRN CNP 1 tablet at 10/15/24 2236 Or senna-docusate (SENOKOT-S/PERICOLACE) 8.6-50 MG per tablet 2 tablet 2 tablet Oral BID Salvador Rocha APRN CNP 2 tablet at 10/16/24 0853 sodium chloride (PF) 0.9% PF flush 3 mL 3 mL Intracatheter Q8H LOU Salvador Rocha APRN CNP 3 mL at 10/15/24 2236 sodium chloride (PF) 0.9% PF flush 3 mL 3 mL Intracatheter q1 min prSalvador Schaeffer APRN CNP sodium chloride 0.9 % infusion Intravenous Continuous Ricki, Stevo A, DO 100 mL/hr at 10/16/24 1600 Rate Verify at 10/16/24 1600 Current Facility-Administered Medications Medication Dose Route Frequency Provider Last Rate Last Admin acetaminophen (TYLENOL) tablet 650 mg 650 mg Oral Q4H PRN Salvador Rocha APRN CNP Or acetaminophen (TYLENOL) Suppository 650 mg 650 mg Rectal Q4H PRN Salvador Rocha APRN CNP artificial saliva (BIOTENE MT) solution 1 spray 1 spray Mouth/Throat 4x Daily PRN Salvador Rocha APRN CNP benzocaine-menthol (CHLORASEPTIC) 6-10 MG lozenge 1 lozenge 1 lozenge Buccal Q1H PRN Salvador Rocha APRN CNP calcium carbonate (TUMS) chewable tablet 1,000 mg 1,000 mg Oral 4x Daily PRN Salvador Rocha APRN CNP flumazenil (ROMAZICON) injection 0.2 mg 0.2 mg Intravenous q1 min prn Claudia Sarkar MD HYDROmorphone (DILAUDID) half-tab 1 mg 1 mg Oral Q4H PRN Salvador Rocha APRN CNP HYDROmorphone (DILAUDID) injection 0.2 mg 0.2 mg Intravenous Q2H PRN Salvador Rocha APRN CNP HYDROmorphone (DILAUDID) injection 0.4 mg 0.4 mg Intravenous Q2H PRN Salvador Rocha APRN CNP 0.4 mg at 10/16/24 0312 HYDROmorphone (DILAUDID) tablet 2 mg 2 mg Oral Q4H PRN Salvador Rocha APRN CNP levalbuterol (XOPENEX) neb solution 1.25 mg 1.25 mg Nebulization Q1H PRN Rebekah Matamoros MD lidocaine (LMX4) cream Topical Q1H PRN Salvador Rocha APRN CNP lidocaine 1 % 0.1-1 mL 0.1-1 mL Other Q1H PRN Salvador Rocha APRN CNP melatonin tablet 5 mg 5 mg Oral At Bedtime PRN Salvador Rocha APRN CNP naloxone (NARCAN) injection 0.2 mg 0.2 mg Intravenous Q2 Min PRN Ole Brown MD Or naloxone (NARCAN) injection 0.4 mg 0.4 mg Intravenous Q2 Min PRN Ole Brown MD Or naloxone (NARCAN) injection 0.2 mg 0.2 mg Intramuscular Q2 Min PRN Ole Brown MD Or naloxone (NARCAN) injection 0.4 mg 0.4 mg Intramuscular Q2 Min PRN Ole Brown MD ondansetron (ZOFRAN ODT) ODT tab 4 mg 4 mg Oral Q6H PRN Claudia Sarkar MD Or ondansetron (ZOFRAN) injection 4 mg 4 mg Intravenous Q6H PRN Claudia Sarkar MD ondansetron (ZOFRAN ODT) ODT tab 4 mg 4 mg Oral Q6H PRN Salvador Rocha APRN CNP Or ondansetron (ZOFRAN) injection 4 mg 4 mg Intravenous Q6H PRN Salvador Rocha APRN CNP pantoprazole (PROTONIX) EC tablet 40 mg 40 mg Oral QAM AC Salvador Rocha APRN CNP 40 mg at 10/16/24 0853 piperacillin-tazobactam (ZOSYN) 3.375 g vial to attach to NS 100 mL bag 3.375 g Intravenous Q6H Rebekah Matamoros MD 3.375 g at 10/16/24 0853 polyethylene glycol (MIRALAX) Packet 17 g 17 g Oral BID PRN Salvador Rocha APRN CNP prochlorperazine (COMPAZINE) injection 10 mg 10 mg Intravenous Q6H PRN Claudia Sarkar MD Or prochlorperazine (COMPAZINE) tablet 10 mg 10 mg Oral Q6H PRN Claudia Sarkar MD prochlorperazine (COMPAZINE) injection 10 mg 10 mg Intravenous Q6H PRN Salvador Rocha APRN CNP Or prochlorperazine (COMPAZINE) tablet 10 mg 10 mg Oral Q6H PRN Salvador Rocha APRN CNP senna-docusate (SENOKOT-S/PERICOLACE) 8.6-50 MG per tablet 1 tablet 1 tablet Oral BID Salvador Rocha APRN CNP 1 tablet at 10/15/242235 Or senna-docusate (SENOKOT-S/PERICOLACE) 8.6-50 MG per tablet 2 tablet 2 tablet Oral BID Salvador Rocha APRN CNP 2 tablet at 10/16/24 0853 sodium chloride (PF) 0.9% PF flush 3 mL 3 mL Intracatheter Q8H LOU Salvador Rocha APRN CNP 3 mL at 10/15/242235 sodium chloride (PF) 0.9% PF flush 3 mL 3 mL Intracatheter q1 min prn Salvador Rocha APRN CNP sodium chloride 0.9 % infusion Intravenous Continuous Stevo Robison, DO 100 mL/hr at 10/16/24 1600 Rate Verify at 10/16/24 1600 Allergies No Known Allergies Social History reports that he has been smoking. His smokeless tobacco use includes chew. He reports current alcohol use. He reports that he does not use drugs. Family History I have reviewed this patient's family history and updated it with pertinent information if needed. Family History Problem Relation Age of Onset Cancer Father Melanoma/Thyroid Cancer Mother Lung Cancer Diabetes No family hx of Cancer - colorectal No family hx of Review of Systems A comprehensive review of system was performed and is negative other than that noted in the HPI or here. Physical Exam Vital Signs with Ranges Temp: [98 ??F (36.7 ??C)-102.7 ??F (39.3 ??C)] 98.7 ??F (37.1 ??C) Pulse: [78-156] 100 Resp: [10-44] 19 BP: (90-233)/(53-128) 109/77 FiO2 (%): [25 %] 25 % SpO2: [90 %-100 %] 98 % Wt Readings from Last 4 Encounters: 10/15/24 90.8 kg (200 lb 2.8 oz) 10/15/24 90.7 kg (200 lb) 03/07/24 90.6 kg (199 lb 11.8 oz) 04/13/21 90.9 kg (200 lb 6.4 oz) I/O last 3 completed shifts: In: 1773 [P.O.:530; I.V.:1243] Out: 1350 [Urine:1350] Vitals: BP 109/77 Pulse 100 Temp 98.7 ??F (37.1 ??C) (Axillary) Resp 19 Ht 1.745 m (5' 8.7) Wt 90.8 kg (200 lb 2.8 oz) SpO2 98% BMI 29.82 kg/m?? Physical Exam: General - Alert and oriented to time place and person in no acute distress Eyes - No scleral icterus HEENT - Neck supple, moist mucous membranes Cardiovascular - regular tachy Extremities - There is no edema Respiratory - clear Skin - No pallor or cyanosis Gastrointestinal -nondistended, soft Psych - Appropriate affect Neurological - No gross motor neurological focal deficits No lab results found in last 7 days. Invalid input(s): TROPONINIES Recent Labs Lab 10/16/24 1443 10/16/24 1039 10/16/24 0755 10/16/24 0535 10/16/24 0307 10/16/244 10/15/24 1510 WBC -- -- -- -- -- 12.3* 11.9* HGB -- -- -- -- -- 15.5 16.3 MCV -- -- -- -- -- 89 85 PLT -- -- -- -- -- 233 236 INR -- -- -- -- -- 1.21* -- NA -- -- -- -- -- 136 138 POTASSIUM -- 3.6 -- 3.1* -- 4.4 4.5 CHLORIDE -- -- -- -- -- 100 101 CO2 -- -- -- -- -- 20* 26 BUN -- -- -- -- -- 15.2 12.3 CR -- -- -- -- -- 1.13 1.00 GFRESTIMATED -- -- -- -- -- 75 87 ANIONGAP -- -- -- -- -- 16* 11 RACHAEL -- -- -- -- -- 8.9 10.0 GLC 122* -- 87 -- 131* 125* 147* ALBUMIN -- -- -- -- -- 4.4 4.8 PROTTOTAL -- -- -- -- -- 7.0 7.5 BILITOTAL -- -- -- -- -- 7.0* 4.7* ALKPHOS -- -- -- -- -- 116 111 ALT -- -- -- -- -- 1,259* 1,380* AST -- -- -- -- -- 736* 1,240* LIPASE -- -- -- -- -- -- 28 No results for input(s): CHOL, HDL, LDL, TRIG, CHOLHDLRATIO in the last 39914 hours. Recent Labs Lab 10/16/2422310/15/24 1510 WBC 12.3* 11.9* HGB 15.5 16.3 HCT 46.0 45.6 MCV 89 85 PLT 233 236 No results for input(s): PH, PHV, PO2, PO2V, SAT, PCO2, PCO2V, HCO3, HCO3V in thelast 168 hours. Recent Labs Lab 10/16/24 0224 10/15/24 1510 NTBNP 652* 209* Recent Labs Lab 10/16/24 022 DD 1.47* No results for input(s): SED, CRP in the last 168 hours. Recent Labs Lab 10/16/24 0224 10/15/24 1510 PLT 233 236 No results for input(s): TSH in the last 168 hours. Recent Labs Lab 10/15/24 1353 COLOR Yellow APPEARANCE Clear URINEGLC Negative URINEBILI Moderate* URINEKETONE Trace* SG 1.020 UBLD Negative URINEPH 7.0 PROTEIN 100* UROBILINOGEN 4.0* NITRITE Negative LEUKEST Negative RBCU 0-2 WBCU 0-5 Imaging: Recent Results (from the past 48 hours) US Abdomen Limited Narrative EXAM: US ABDOMEN LIMITED LOCATION: [facility] DATE: 10/15/2024 INDICATION: Right upper quadrant pain; elevated LFTs. COMPARISON: 05/09/2017. TECHNIQUE: Limited abdominal ultrasound. FINDINGS: GALLBLADDER: Gallstones and sludge in an otherwise normal gallbladder. No wall thickening, or pericholecystic fluid. Negative sonographic Casillas's sign. BILE DUCTS: No visualized intrahepatic biliary ductal dilatation. The common duct measures up to 11mm within its midportion. It is incompletely visualized distally, due to overlying bowel gas. LIVER: Normal parenchyma with smooth contour. The portal vein is patent with flow in the normal direction. RIGHT KIDNEY: No hydronephrosis. PANCREAS: The pancreas is largely obscured by overlying gas. Impression IMPRESSION: 1. Cholelithiasis and sludge, without sonographic evidence of acute cholecystitis. 2. Dilated common bile duct, measuring up to 11 mm. Correlation with LFTs and consideration of MRCPimaging is recommended to exclude a distal obstructing stone or mass lesion. XR Chest Port 1 View Narrative EXAM: XR CHEST PORT 1 VIEW LOCATION: [facility] DATE: 10/16/2024 INDICATION: hypoxia COMPARISON: 10/11/2021 Impression IMPRESSION: Heart size is upper limits of normal. Mild pulmonary vascular congestion noted. Mild linear atelectasis in the left lung base. No confluent airspace opacity, right pleural effusion or pneumothorax. Left costophrenic angle is excluded from view without significant left pleural effusion. CT Chest Pulmonary Embolism w Contrast Narrative EXAM: CT CHEST PULMONARY EMBOLISM W CONTRAST LOCATION: [facility] DATE: 10/16/2024 INDICATION: tachycardia, tachypnea COMPARISON: Same date portable chest radiograph. TECHNIQUE: CT chest pulmonary angiogram during arterial phase injection of IV contrast. Multiplanarreformats and MIP reconstructions were performed. Dose reduction techniques were used. CONTRAST: 67mL Isovue 370 FINDINGS: ANGIOGRAM CHEST: Pulmonary arteries are normal caliber and negative for pulmonary emboli. Thoracic aorta is negative for dissection. No CT evidence of right heart strain. LUNGS AND PLEURA: Scattered areas of subsegmental atelectasis. No pleural effusion. MEDIASTINUM/AXILLAE: Normal. CORONARY ARTERY CALCIFICATION: None. UPPER ABDOMEN: Normal. MUSCULOSKELETAL: No acute osseous abnormality. Impression IMPRESSION: 1. No pulmonary artery embolus. 2. Scattered areas of subsegmental atelectasis. No pleural effusion. 3. No other acute process within the chest. Echocardiogram Complete Result Value LVEF 45-50% Narrative [id number]^SATURNINO^REBEKAH [facility] [address] [place] [id number] Name: SALAVDOR AHUMADA : 1965 Study Date: 10/16/2024 09:51 AM Age: 59 yrs Gender: Male Patient Location: [facility] Reason For Study: SOB, BEATRIS Ordering Physician: REBEKAH MATAMOROS Performed By: Isha Murray BSA: 2.0 m2 Height: 68 in Weight: 200 lb BP: 134/92 mmHg Procedure Echocardiogram with two-dimensional, color and spectral Doppler. Optison ([facility] #[id number]) given intravenously. Interpretation Summary The visual ejection fraction is 45-50%. There is mild global hypokinesia of the left ventricle. Grade I or early diastolic dysfunction. Contrast was used without apparent complications. Left Ventricle The left ventricle is normal in size. There is normal left ventricular wall thickness. The visual ejection fraction is 45-50%. Grade I or early diastolic dysfunction. There is mild global hypokinesia of the left ventricle. Right Ventricle The right ventricle is normal in structure, function and size. Atria Normal left atrial size. Right atrial size is normal. Mitral Valve The mitral valve is normal in structure and function. There is mild mitral annular calcification. Tricuspid Valve Normal tricuspid valve. Aortic Valve The aortic valve is normal in structure and function. Pulmonic Valve Normal pulmonic valve. Vessels The aortic root is normal size. Pericardium There is no pericardial effusion. Rhythm The rhythm was sinus tachycardia. MMode/2D Measurements & Calculations IVSd: 0.99 cm LVIDd: 4.5 cm LVIDs: 3.5 cm LVPWd: 0.79 cm FS: 22.2 % LV mass(C)d: 130.2 grams LV mass(C)dI: 63.7 grams/m2 Ao root diam: 3.7 cm asc Aorta Diam: 3.4 cm LVOT diam: 2.4 cm LVOT area: 4.5 cm2 Ao root diam index Ht(cm/m): 2.2 Ao root diam index BSA (cm/m2): 1.8 Asc Ao diam index BSA (cm/m2): 1.7 Asc Ao diam index Ht(cm/m): 2.0 EF Biplane: 48.0 % LA Volume (BP): 45.4 ml LA Volume Index (BP): 22.3 ml/m2 RWT: 0.35 TAPSE: 1.3 cm Doppler Measurements & Calculations MV E max onur: 57.7 cm/sec MV A max onur: 79.0 cm/sec MV E/A: 0.73 MV dec slope: 745.1 cm/sec2 MV dec time: 0.08 sec PA acc time: 0.11 sec TR max onur: 221.8 cm/sec TR max P.7 mmHg E/E' av.9 Lateral E/e': 6.3 Medial E/e': 7.6 Report approved by: Rudy Mcdowell MD on 10/16/2024 11:03 AM XR ERCP Narrative This exam was marked as non-reportable because it will not be read by a radiologist or a [place] non-radiologist provider. Echo: No results found for this or any previous visit (from the past 4320 hours). Clinically Significant Risk Factors Present on Admission # Hypokalemia: Lowest K = 3.1 mmol/L in last 2 days, will replace as needed # Coagulation Defect: INR = 1.21 (Ref range: 0.85 - 1.15) and/or PTT = N/A, will monitor for bleeding # Overweight: Estimated body mass index is 29.82 kg/m?? as calculated from the following: Height as of this encounter: 1.745 m (5' 8.7). Weight as of this encounter: 90.8 kg (200 lb 2.8 oz). * Kimberlyn Stringer MD - 10/16/2024 9:10 AM CDTAssociated Order(s): SURGERY GENERAL IP CONSULT General Surgery Consultation Salvador Ahumada Age: [age] year old Date of : 1965 Date of Admission: 10/15/2024 Reason for consult: cholangitis Requesting physician: Stevo Robison DO Assessment and Plan: Assessment: Salvador Ahumada is a 59 year old male with sepsis, ascending cholangitis based on dilated commonbile duct and elevated hepatic panel including transaminases and bilirubin. He has e coli bacteremia. Do not suspect cholecystitis. Comorbidities: has a past medical history of Knee pain. Plan: ERCP planned today per GI Consider cholecystectomy once common duct cleared and sepsis improved Will follow hospital course. Inpatient vs outpatient cholecystectomy depending on course. Discussedwith him and will need to ensure duct cleared and sepsis improving prior to considering surgery. Chief Complaint: Abdominal pain, right upper quadrant History is obtained from the patient, and chart. History of Present Illness: Salvador Ahumada is a 59 year old male who presents with epigastric region right upper quadrant abdominal pain for the past several weeks. Similar pain over the past year or so. More severe pain yesterday morning with fever. Went to urgent care and was referred to the ER. Overnight in the hospital developed respiratory failure requiring bipap for a short time. Now feeling better on nasal cannula. Past Medical History: Past Medical History: Diagnosis Date Knee pain torn menisus. Past Surgical History: Past Surgical History: Procedure Laterality Date [facility] APPENDECTOMY 2006 Social History: Social History Tobacco Use Smoking status: Every Day Current packs/day: 0.00 Types: Cigarettes Smokeless tobacco: Current Types: Chew Tobacco comments: chew quiting, 1 can q 3 day7s Substance Use Topics Alcohol use: Yes Alcohol/week: 0.0 standard drinks of alcohol Comment: several beers on the weekends Family History: Family History Problem Relation Age of Onset Cancer Father Melanoma/Thyroid Cancer Mother Lung Cancer Diabetes No family hx of Cancer - colorectal No family hx of Allergies: No Known Allergies Medications: Current Facility-Administered Medications Medication Dose Route Frequency Provider Last Rate Last Admin acetaminophen (TYLENOL) tablet 650 mg 650 mg Oral Q4H PRN Salvador Rocha APRN CNP Or acetaminophen (TYLENOL) Suppository 650 mg 650 mg Rectal Q4H PRN Salvador Rocha APRN CNP artificial saliva (BIOTENE MT) solution 1 spray 1 spray Mouth/Throat 4x Daily PRN Salvador Rocha APRN CNP benzocaine-menthol (CHLORASEPTIC) 6-10 MG lozenge 1 lozenge 1 lozenge Buccal Q1H PRN Salvador Rocha APRN CNP calcium carbonate (TUMS) chewable tablet 1,000 mg 1,000 mg Oral 4x Daily PRN Salvador Rocha APRN CNP HYDROmorphone (DILAUDID) half-tab 1 mg 1 mg Oral Q4H PRN Salvador Rocha APRN CNP HYDROmorphone (DILAUDID) injection 0.2 mg 0.2 mg Intravenous Q2H PRN Salvador Rocha APRN CNP HYDROmorphone (DILAUDID) injection 0.4 mg 0.4 mg Intravenous Q2H PRN Salvador Rocha APRN CNP 0.4 mg at 10/16/24 0312 HYDROmorphone (DILAUDID) tablet 2 mg 2 mg Oral Q4H PRN Salvador Rocha APRN CNP levalbuterol (XOPENEX) neb solution 1.25 mg 1.25 mg Nebulization Q1H PRN Rebekah Matamoros MD lidocaine (LMX4) cream Topical Q1H PRN Salvador Rocha APRN CNP lidocaine 1 % 0.1-1 mL 0.1-1 mL Other Q1H PRSalvador Schaeffer APRN CNP melatonin tablet 5 mg 5 mg Oral At Bedtime PRN Salvador Rocha APRN CNP naloxone (NARCAN) injection 0.2 mg 0.2 mg Intravenous Q2 Min PRN Ole Brown MD Or naloxone (NARCAN) injection 0.4 mg 0.4 mg Intravenous Q2 Min PRN Ole Brown MD Or naloxone (NARCAN) injection 0.2 mg 0.2 mg Intramuscular Q2 Min PRN Ole Brown MD Or naloxone (NARCAN) injection 0.4 mg 0.4 mg Intramuscular Q2 Min PRN Ole Brown MD ondansetron (ZOFRAN ODT) ODT tab 4 mg 4 mg Oral Q6H PRN Salvador Rocha APRN CNP Or ondansetron (ZOFRAN) injection 4 mg 4 mg Intravenous Q6H PRN Salvador Rocha APRN CNP pantoprazole (PROTONIX) EC tablet 40 mg 40 mg Oral QAM AC Salvador Rocha APRN CNP 40 mg at 10/16/24 0853 piperacillin-tazobactam (ZOSYN) 3.375 g vial to attach to NS 100 mL bag 3.375 g Intravenous Q6H Rebekah Matamoros MD 3.375 g at 10/16/24 0853 polyethylene glycol (MIRALAX) Packet 17 g 17 g Oral BID PRN Salvador Rocha APRN CNP prochlorperazine (COMPAZINE) injection 10 mg 10 mg Intravenous Q6H PRN Salvador Rocha APRN CNP Or prochlorperazine (COMPAZINE) tablet 10 mg 10 mg Oral Q6H PRSalvador Schaeffer APRN CNP senna-docusate (SENOKOT-S/PERICOLACE) 8.6-50 MG per tablet 1 tablet 1 tablet Oral BID Salvador Rocha APRN CNP 1 tablet at 10/15/242235 Or senna-docusate (SENOKOT-S/PERICOLACE) 8.6-50 MG per tablet 2 tablet 2 tablet Oral BID Salvador Rocha APRN CNP 2 tablet at 10/16/24 0853 sodium chloride (PF) 0.9% PF flush 3 mL 3 mL Intracatheter Q8H LOU Salvador Rocha APRN CNP 3 mL at 10/15/242235 sodium chloride (PF) 0.9% PF flush 3 mL 3 mL Intracatheter q1 min prSalvador Schaeffer APRN CNP [Held by provider] sodium chloride 0.9 % infusion Intravenous Continuous Salvador Rocha APRN CNP Stopped at 10/16/24 0235 Current Facility-Administered Medications Medication Dose Route Frequency Provider Last Rate Last Admin pantoprazole (PROTONIX) EC tablet 40 mg 40 mg Oral QAM AC Salvador Rocha APRN [employer] SH[employer] P[employer] 40 mg at 10/16/24 0853 piperacillin-tazobactam (ZOSYN) 3.375 g vial to attach to NS 100 mL bag 3.375 g Intravenous Q6H Rebekah Matamoros MD 3.375 g at 10/16/24 0853 senna-docusate (SENOKOT-S/PERICOLACE) 8.6-50 MG per tablet 1 tablet 1 tablet Oral BID Salvador Rocha APRN CNP 1 tablet at 10/15/24 2236 Or senna-docusate (SENOKOT-S/PERICOLACE) 8.6-50 MG per tablet 2 tablet 2 tablet Oral BID Salvador Rocha APRN BOX SHOOK P[employer]ER 2 tablet at 10/16/24 0853 sodium chloride (PF) 0.9% PF flush 3 mL 3 mL Intracatheter Q8H LOU Salvador Rocha APRN CNP 3 mL at 10/15/242235 Review of Systems: The 10 point review of systems is negative other than noted in the HPI. Physical Exam: BP 115/82 Pulse (!) 124 Temp 99.3 ??F (37.4 ??C) (Oral) Resp (!) 32 Ht 1.745 m (5' 8.7) Wt 90.8 kg (200 lb 2.8 oz) SpO2 100% BMI 29.82 kg/m?? General - Well developed, well nourished male in no apparent distress HEENT: Head normocephalic and atraumatic, pupils equal and round, conjunctivae clear, + scleral icterus Lungs: No dyspnea on 2L NC Heart: tachycardic Abdomen: soft, rounded, non-distended with moderate and severe tenderness noted in the epigastric region and in the right upper quadrant . no masses palpated. Prior mcburney's point incision Extremities: Warm without edema Neurologic: nonfocal Psychiatric: Mood and affect appropriate Skin: jaundiced Data: WBC - Lab Results Component Value Date WBC 12.3 (H) 10/16/2024 HgB - Lab Results Component Value Date HGB 15.5 10/16/2024 Plt- Lab Results Component Value Date PLT 233 10/16/2024 Liver Function Studies - Recent Labs Lab Test 10/16/24 0224 PROTTOTAL 7.0 ALBUMIN 4.4 BILITOTAL 7.0* ALKPHOS 116 AST 736* ALT 1,259* Lipase- Lab Results Component Value Date LIPASE 28 10/15/2024 Imaging: All imaging studies reviewed by me. Results for orders placed or performed during the hospital encounter of 10/15/24 US Abdomen Limited Narrative EXAM: US ABDOMEN LIMITED LOCATION: [facility] DATE: 10/15/2024 INDICATION: Right upper quadrant pain; elevated LFTs. COMPARISON: 05/09/2017. TECHNIQUE: Limited abdominal ultrasound. FINDINGS: GALLBLADDER: Gallstones and sludge in an otherwise normal gallbladder. No wall thickening, or pericholecystic fluid. Negative sonographic Casillas's sign. BILE DUCTS: No visualized intrahepatic biliary ductal dilatation. The common duct measures up to 11mm within its midportion. It is incompletely visualized distally, due to overlying bowel gas. LIVER: Normal parenchyma with smooth contour. The portal vein is patent with flow in the normal direction. RIGHT KIDNEY: No hydronephrosis. PANCREAS: The pancreas is largely obscured by overlying gas. Impression IMPRESSION: 1. Cholelithiasis and sludge, without sonographic evidence of acute cholecystitis. 2. Dilated common bile duct, measuring up to 11 mm. Correlation with LFTs and consideration of MRCPimaging is recommended to exclude a distal obstructing stone or mass lesion. XR Chest Port 1 View Narrative EXAM: XR CHEST PORT 1 VIEW LOCATION: [facility] DATE: 10/16/2024 INDICATION: hypoxia COMPARISON: 10/11/2021 Impression IMPRESSION: Heart size is upper limits of normal. Mild pulmonary vascular congestion noted. Mild linear atelectasis in the left lung base. No confluent airspace opacity, right pleural effusion or pneumothorax. Left costophrenic angle is excluded from view without significant left pleural effusion. CT Chest Pulmonary Embolism w Contrast Narrative EXAM: CT CHEST PULMONARY EMBOLISM W CONTRAST LOCATION: [facility] DATE: 10/16/2024 INDICATION: tachycardia, tachypnea COMPARISON: Same date portable chest radiograph. TECHNIQUE: CT chest pulmonary angiogram during arterial phase injection of IV contrast. Multiplanarreformats and MIP reconstructions were performed. Dose reduction techniques were used. CONTRAST: 67mL Isovue 370 FINDINGS: ANGIOGRAM CHEST: Pulmonary arteries are normal caliber and negative for pulmonary emboli. Thoracic aorta is negative for dissection. No CT evidence of right heart strain. LUNGS AND PLEURA: Scattered areas of subsegmental atelectasis. No pleural effusion. MEDIASTINUM/AXILLAE: Normal. CORONARY ARTERY CALCIFICATION: None. UPPER ABDOMEN: Normal. MUSCULOSKELETAL: No acute osseous abnormality. Impression IMPRESSION: 1. No pulmonary artery embolus. 2. Scattered areas of subsegmental atelectasis. No pleural effusion. 3. No other acute process within the chest. Kimberlyn Stringer MD * Claudia Sarkar MD - 10/16/2024 8:03 AM CDTAssociated Order(s): GASTROENTEROLOGY IP CONSULT [facility] Consultation Salvador Ahumada [id number] [facility] [id number] 59 year old male Admission Date/Time: 10/15/2024 Primary Care Provider: No Ref-Primary, Physician We were asked to see the patient in consultation by Dr. Rocha for evaluation of septic shock, likely 2/2 cholelithiasis, choledocholithiasis . -evidence of US of abdomen of CBD dilatation of 11 mm as well as cholecystitis -elevated WBC ct and AST/ALT -signs of septic shock including tachycardia, elevated lactate, and elevated WBC ct--> blood cultures are positive for gram negative bacilli RECOMMENDATIONS: -discussed case with Dr. Bruce-we are working on OR scheduling for ERCP her at [facility] today in the OR -appreciate and agree with general surgery consult -agree with IV antibiotics per primary team, IV narcotics and IV antiemetics -keep NPO -agree with PPI Case discussed with Dr. Bruce. 60 minutes of total time was spent providing patient care, including patient evaluation, reviewing documentation/test results, and shipping order clerk Cornelia Collazo NP [facility] [phone] CC: RUQ abdominal pain HPI: Salvador Ahumada is a 59 year old male with PMH of appendectomy and GERD that presented to [facility] ED on 10/15/2024 from urgent due to concerns for RUQ abdominal pain. He was found to have elevated LFTs, CBC duct dilation to 11 mm (via abdominal US) as well as gall bladder sludge and cholecystitis. Morning labs show: ALT 1259, AST 736, lactic of 5.5 (has come down to 2.1 after fluids), and normalalk phos of 116. WBC ct of 12.3. Patient remains tachycardic in the one teens to 120's. BP stable. Per patient and , he has been experiencing RUQ pain for several weeks on and off. It worsened yesterday, and he began have diaphoresis and chills. He has not vomited. He went to urgent care, and due to vital signs and location of pain, advised patient to transfer to hospital ED for further cares. Patient denies history of known gallstones, but notes his mother did have trouble with her gallbladder, and then subsequent cholecystectomy. ROS: A comprehensive ten point review of systems was negative aside from those in mentioned in the HPI. PAST MEDICAL HISTORY: Patient Active Problem List Diagnosis Date Noted Cholecystitis 10/15/2024 Priority: Medium Elevated LFTs 10/15/2024 Priority: Medium Common bile duct dilation 10/15/2024 Priority: Medium Acute sepsis (H) 10/15/2024 Priority: Medium Plantar fasciitis of left foot 05/23/2022 Priority: Medium Tobacco abuse 03/20/2012 Priority: Medium CARDIOVASCULAR SCREENING; LDL GOAL LESS THAN 160 04/04/2010 Priority: Medium SOCIAL HISTORY: Social History Tobacco Use Smoking status: Every Day Current packs/day: 0.00 Types: Cigarettes Smokeless tobacco: Current Types: Chew Tobacco comments: chew quiting, 1 can q 3 day7s Substance Use Topics Alcohol use: Yes Alcohol/week: 0.0 standard drinks of alcohol Comment: several beers on the weekends Drug use: No FAMILY HISTORY: Family History Problem Relation Age of Onset Cancer Father Melanoma/Thyroid Cancer Mother Lung Cancer Diabetes No family hx of Cancer - colorectal No family hx of ALLERGIES: No Known Allergies MEDICATIONS: Current Facility-Administered Medications Medication Dose Route Frequency Provider Last Rate Last Admin acetaminophen (TYLENOL) tablet 650 mg 650 mg Oral Q4H PRN Salvador Rocha APRN CNP Or acetaminophen (TYLENOL) Suppository 650 mg 650 mg Rectal Q4H PRSalvador Schaeffer APRN CNP artificial saliva (BIOTENE MT) solution 1 spray 1 spray Mouth/Throat 4x Daily PRN Salvador Rocha APRN CNP benzocaine-menthol (CHLORASEPTIC) 6-10 MG lozenge 1 lozenge 1 lozenge Buccal Q1H PRN Salvador Rocha APRN CNP calcium carbonate (TUMS) chewable tablet 1,000 mg 1,000 mg Oral 4x Daily PRN Salvador Rocha APRN CNP HYDROmorphone (DILAUDID) half-tab 1 mg 1 mg Oral Q4H PRN Salvador Rocha APRN CNP HYDROmorphone (DILAUDID) injection 0.2 mg 0.2 mg Intravenous Q2H PRSalvador Schaeffer APRN CNP HYDROmorphone (DILAUDID) injection 0.4 mg 0.4 mg Intravenous Q2H PRN Salvador Rocha APRN CNP 0.4 mg at 10/16/24 0312 HYDROmorphone (DILAUDID) tablet 2 mg 2 mg Oral Q4H PRSalvador Schaeffer APRN CNP levalbuterol (XOPENEX) neb solution 1.25 mg 1.25 mg Nebulization Q1H PRN Rebekah Matamoros MD lidocaine (LMX4) cream Topical Q1H PRN Salvador Rocha APRN CNP lidocaine 1 % 0.1-1 mL 0.1-1 mL Other Q1H PRN Salvador Rocha APRN CNP melatonin tablet 5 mg 5 mg Oral At Bedtime PRN Salvador Rocha APRN CNP naloxone (NARCAN) injection 0.2 mg 0.2 mg Intravenous Q2 Min PRN Ole Brown MD Or naloxone (NARCAN) injection 0.4 mg 0.4 mg Intravenous Q2 Min PRN Ole Brown MD Or naloxone (NARCAN) injection 0.2 mg 0.2 mg Intramuscular Q2 Min PRN Ole Brown MD Or naloxone (NARCAN) injection 0.4 mg 0.4 mg Intramuscular Q2 Min PRN Ole Brown MD ondansetron (ZOFRAN ODT) ODT tab 4 mg 4 mg Oral Q6H PRN Salvador Rocha APRN CNP Or ondansetron (ZOFRAN) injection 4 mg 4 mg Intravenous Q6H PRN Salvador Rocha APRN CNP pantoprazole (PROTONIX) EC tablet 40 mg 40 mg Oral QAM AC Salvador Rocha APRN CNP piperacillin-tazobactam (ZOSYN) 3.375 g vial to attach to NS 100 mL bag 3.375 g Intravenous Q6H Rebekah Matamoros MD 3.375 g at 10/16/24 0328 polyethylene glycol (MIRALAX) Packet 17 g 17 g Oral BID PRN Salvador Rocha APRN CNP potassium chloride otis ER (KLOR-CON M20) CR tablet 40 mEq 40 mEq Oral Once Ricki Stevo A, DO prochlorperazine (COMPAZINE) injection 10 mg 10 mg Intravenous Q6H PRN Salvador Rocha APRN CNP Or prochlorperazine (COMPAZINE) tablet 10 mg 10 mg Oral Q6H PRN Salvador Rocha APRN CNP senna-docusate (SENOKOT-S/PERICOLACE) 8.6-50 MG per tablet 1 tablet 1 tablet Oral BID Salvador Rocha APRN CNP 1 tablet at 10/15/242235 Or senna-docusate (SENOKOT-S/PERICOLACE) 8.6-50 MG per tablet 2 tablet 2 tablet Oral BID Salvador Rocha APRN CNP sodium chloride (PF) 0.9% PF flush 3 mL 3 mL Intracatheter Q8H LOU Salvador Rocha APRN CNP 3 mL at 10/15/242235 sodium chloride (PF) 0.9% PF flush 3 mL 3 mL Intracatheter q1 min prn Salvador Rocha APRN CNP [Held by provider] sodium chloride 0.9 % infusion Intravenous Continuous Salvador Rocha APRN CNP Stopped at 10/16/24 0235 PHYSICAL EXAM: BP 106/80 Pulse 116 Temp 99.3 ??F (37.4 ??C) (Oral) Resp 24 Ht 1.745 m (5' 8.7) Wt 90.8 kg (200 lb 2.8 oz) SpO2 100% BMI 29.82 kg/m?? GEN: Alert, oriented x3, communicative and in NAD HRT: RRR LUNGS: CTA ABD: , ND, +BS, no guarding or pain to palpation, no rebound, no HSM. SKIN: No rash, jaundice or spider angiomata MSKL: LE free of edema, strength 5/5 all 4 extrems NEURO: CN grossly intact ADDITIONAL DATA: I reviewed the patient's new clinical lab test results. Recent Labs Lab Test 10/16/2422310/15/24150903/07/24 2131 WBC 12.3* 11.9* 5.8 HGB 15.5 16.3 14.3 MCV 89 85 90 PLT 233 236 254 INR 1.21* -- -- Recent Labs Lab Test 10/16/24 0535 10/16/2422310/15/24 1510 03/07/24 2131 POTASSIUM 3.1* 4.4 4.5 4.0 CHLORIDE -- 100 101 104 CO2 -- 20* 26 26 BUN -- 15.2 12.3 16.9 CR -- 1.13 1.00 1.10 ANIONGAP -- 16* 11 9 Recent Labs Lab Test 10/16/2422310/15/24 1510 10/15/24 1353 03/07/24 2131 ALBUMIN 4.4 4.8 -- -- BILITOTAL 7.0* 4.7* -- -- ALT 1,259* 1,380* -- -- AST 736* 1,240* -- -- PROTEIN -- -- 100* Negative LIPASE -- 28 -- -- IMAGING: EXAM: US ABDOMEN LIMITED LOCATION: [facility] DATE: 10/15/2024 INDICATION: Right upper quadrant pain; elevated LFTs. COMPARISON: 05/09/2017. TECHNIQUE: Limited abdominal ultrasound. FINDINGS: GALLBLADDER: Gallstones and sludge in an otherwise normal gallbladder. No wall thickening, or pericholecystic fluid. Negative sonographic Casillas's sign. BILE DUCTS: No visualized intrahepatic biliary ductal dilatation. The common duct measures up to 11mm within its midportion. It is incompletely visualized distally, due to overlying bowel gas. LIVER: Normal parenchyma with smooth contour. The portal vein is patent with flow in the normal direction. RIGHT KIDNEY: No hydronephrosis. PANCREAS: The pancreas is largely obscured by overlying gas. IMPRESSION: 1. Cholelithiasis and sludge, without sonographic evidence of acute cholecystitis. 2. Dilated common bile duct, measuring up to 11 mm. Correlation with LFTs and consideration of MRCPimaging is recommended to exclude a distal obstructing stone or mass lesion. GI attending note Patient seen and examined. Chart reviewed. Agree with the assessment and recommendations from MINH Collazo. Patient has been having intermittent abdominal pain. Now comes in with evidence of sepsis and biliary obstruction consistent with cholangitis. On antibiotics and IV placed. Plan for ERCP today. Claudia WILKINSON 20 minutes spent. documented in this encounter Nursing Notes * Idalia Pierce RN - 10/18/2024 12:[address] Lukasz DOHERTY of diastolic blood pressures in the 100s. Dr. Lal gave a verbal order of10 mg of hydralazine to be given. Will administer and continue to monitor. documented in this encounter ED Notes * Isis Lane RN - 10/15/2024 6:10 PM CDT [facility] ED Nurse Handoff Report ED Chief complaint: Abdominal Pain . ED Diagnosis: Final diagnoses: None Allergies: No Known Allergies Code Status: Full Code Activity level - Baseline/Home: independent. Activity Level - Current: standby. Lift room needed: No. Bariatric: No Food Stylist Needed: No Isolation: No. Infection: Not Applicable. Respiratory status: Room air Vital Signs (within 30 minutes): Vitals: 10/15/24 1456 10/15/24 1729 BP: (!) 163/92 Pulse: 117 Resp: 18 Temp: 101 ??F (38.3 ??C) (!) 102.7 ??F (39.3 ??C) TempSrc: Temporal SpO2: 95% Weight: 91.1 kg (200 lb 13.4 oz) Height: 1.753 m (5' 9) Cardiac Rhythm: , Pain level: Patient confused: No. Patient Falls Risk: nonskid shoes/slippers when out of bed and patient and family education. Elimination Status: has not voided Patient Report - Initial Complaint: Pt arrives from he has been having abdominal pain on and offfor 2 years that gets worse with a meal, Pt states for the last couple days it has gotten worse with nothing making it better. . Focused Assessment: Salvador Ahumada is a 59 year old male with a history of GERD presenting withright upper quadrant pain. The patient reports intermittent abdominal pain radiating into his back over the past 2.5 weeks; he notes 3-4 episodes of 9/10 pain which tends to dissipate. He has been having similar symptoms for the past year to year and a half. This morning at around 0400 he developedsevere RUQ pain. He also noted some chest discomfort which he attributed to his GERD. As per spouse, he took 4 tylenols at 0430, with pain dissipating at around 0500. Salvador went to work; however, called his when pain returned prompting them to go into . As per spouse, patient felt clammy andcold at urgent care, regardless of having a temperature 101F throughout the past 8 hours. He was given Zofran from nausea which resolved. Patient denies emesis, diarrhea, groin pain, hematuria or other urinary symptoms. He does not have kidney stones, gallstones, blood pressure or diabetes mellitus. At some point he suspected having a hernia, but after several evaluation, he was told he was clear. Patient has a surgical history relevant for an appendectomy. Abnormal Results: Labs Ordered and Resulted from Time of ED Arrival to Time of ED Departure COMPREHENSIVE METABOLIC PANEL - Abnormal Result Value Sodium 138 Potassium 4.5 Carbon Dioxide (CO2) 26 Anion Gap 11 Urea Nitrogen 12.3 Creatinine 1.00 GFR Estimate 87 Calcium 10.0 Chloride 101 Glucose 147 (*) Alkaline Phosphatase 111 AST 1,240 (*) ALT 1,380 (*) Protein Total 7.5 Albumin 4.8 Bilirubin Total 4.7 (*) BILIRUBIN DIRECT - Abnormal Bilirubin Direct 2.98 (*) CBC WITH PLATELETS AND DIFFERENTIAL - Abnormal WBC Count 11.9 (*) RBC Count 5.35 Hemoglobin 16.3 Hematocrit 45.6 MCV 85 MCH 30.5 MCHC 35.7 RDW 12.6 Platelet Count 236 % Neutrophils 94 % Lymphocytes 2 % Monocytes 4 % Eosinophils 0 % Basophils 0 % Immature Granulocytes 1 NRBCs per 100 WBC 0 Absolute Neutrophils 11.1 (*) Absolute Lymphocytes 0.2 (*) Absolute Monocytes 0.4 Absolute Eosinophils 0.0 Absolute Basophils 0.0 Absolute Immature Granulocytes 0.1 Absolute NRBCs 0.0 LIPASE - Normal Lipase 28 ETHANOL LEVEL BLOOD - Normal Ethanol Level Blood <0.01 ACETAMINOPHEN LEVEL BLOOD CULTURE BLOOD CULTURE US Abdomen Limited (Results Pending) Treatments provided: See MAR Family Comments: at bedside OBS brochure/video discussed/provided to patient: No ED Medications: Medications HYDROmorphone (PF) (DILAUDID) injection 0.5 mg (0.5 mg Intravenous $Given 10/15/24 174) metroNIDAZOLE (FLAGYL) infusion 500 mg (has no administration in time range) ondansetron (ZOFRAN ODT) ODT tab 4 mg (4 mg Oral $Given 10/15/24 1501) ketorolac (TORADOL) injection 15 mg (15 mg Intravenous $Given 10/15/24 164) sodium chloride 0.9% BOLUS 1,000 mL (1,000 mLs Intravenous $New Bag 10/15/24 1643) cefTRIAXone (ROCEPHIN) 2 g vial to attach to NS 100 ml bag for ADULTS or NS 50 ml bag for PEDS (2 gIntravenous $New Bag 10/15/24 1728) acetaminophen (TYLENOL) tablet 1,000 mg (1,000 mg Oral $Given 10/15/24 174) Drips infusing: No For the majority of the shift this patient was Green. Interventions performed were NA. Sepsis treatment initiated: Yes Per the ED Provider, Time Zero for severe sepsis or septic shock is: 1622 3 Hour Severe Sepsis Bundle Completion: 1. Initial Lactic Acid Result: No lab results found. 2. Blood Cultures before Antibiotics: Yes 3. Broad Spectrum Antibiotics Administered: Anti-infectives (From now, onward) Start Dose/Rate Route Frequency Ordered Stop 10/15/24 1635 metroNIDAZOLE (FLAGYL) infusion 500 mg Note to Pharmacy: Metronidazole IV may be dosed more frequently than Q12h for bacteremia, [employer]IST infection and Clostridium difficile. 500 mg over 60 Minutes Intravenous ONCE 10/15/24 1634 4. 1000 ml of IV fluids have been given so far 6 Hour Severe Sepsis Bundle Completion: 1. Repeat Lactic Acid Level: Not drawn 2. Patient currently on Vasopressors = No Cares/treatment/interventions/medications to be completed following ED care: NA ED Nurse Name: Kisha Cary RN 6:10 PM RECEIVING UNIT ED HANDOFF REVIEW Above ED Nurse Handoff Report was reviewed: Yes Reviewed by: Isis Lane RN on October 15, 2024 at 8:31 PM I Shea called the ED to inform them the note was read: Yes * Al Ayon MD - 10/15/2024 4:51 PM CDT ED APC SUPERVISION NOTE: I evaluated this patient in conjunction with Leonora Bone PA-C I have participated in the care of the patient and personally performed goddard elements of the history, exam, and medical decision making. HPI: Salvador Ahumada is a 59 year old male with history of GERD who presents to the ED with his for evaluation of abdominal pain. Patient reports ongoing right upper quadrant pain for the past year and a half, but it has been constant the past two weeks, with flare ups of increased pain. He developed increased pain at approximately 0400 this morning, and took 4 Tylenol. Upon ED visit, he took an ibuprofen, and reports having less pain. Denies vomiting, diarrhea, hematuria, groin pain, or other urinary symptoms. Surgical history of appendectomy. Patient was seen at Urgent Care this morning and referred to Ed for further evaluation. Independent Historian: None Review of External Notes: I reviewed Urgent Care note from today, patient was seen for fever, rightupper quadrant abdominal pain and nausea. His labs show high LFT's. I reviewed previous labs from 8years ago. EXAM: General: No respiratory distress Cardiovascular: Good cap refill. Respiratory: Breathing non labored. Musculoskeletal: No tenderness. No bony deformity. Skin: No rashes or petechiae Neurologic: non focal Psychiatric: Appropriate Gastrointestinal: Right upper quadrant tenderness Independent Interpretation (X-rays, CTs, rhythm strip): None Consultations/Discussion of Management or Tests: None MIPS: None MEDICAL DECISION MAKING/ASSESSMENT AND PLAN: The patient has signs of cholecystitis I did consider with the elevation there could be things likeTylenol overdose the patient however is stable and was admitted to the hospital likely for CRP and other interventions. DIAGNOSIS: ICD-10-CM 1. Cholecystitis K81.9 2. Acute sepsis (H) A41.9 3. Elevated LFTs R79.89 4. Common bile duct dilation K83.8 Scribe Disclosure: Schuyler Lesleyyakelin Buchanan, am serving as a scribe at 4:51 PM on 10/15/2024 to document services personally performed by Leonora Bone PA-C based on my observations and the provider's statements to me. 10/15/2024 [facility] EMERGENCY [facility] Al Ayon MD 10/15/24 2332 * Kisha Cary RN - 10/15/2024 4:36 PM CDT Bed: ED23 Expected date: Expected time: Means of arrival: Comments: 45 clean * Leonora Bone PA-C - 10/15/2024 3:56 PM CDT Emergency Department Note History of Present Illness Chief Complaint Abdominal Pain HPI Salvador Ahumada is a 59 year old male with a history of GERD presenting with right upper quadrant abdominal pain. The patient reports intermittent abdominal pain radiating into his back over the past 2.5 weeks; he notes 3-4 episodes of 9/10 pain which tends to dissipate. He has been having similar symptoms for the past year to year and a half. This morning at around 0400 he developed severe RUQ pain. He also noted some chest discomfort which seems to radiate from the abdomen. As per spouse, he took 4 tylenols at 0430, with pain decreasing at around 0500. Salvador went to work; however, calledhis when pain returned prompting them to go into . As per spouse, patient felt clammy and cold at urgent care, reporting a temperature 101F throughout the past 8 hours. He was given Zofran from nausea which resolved. Patient denies emesis, diarrhea, groin pain, hematuria or other urinary symptoms. He does not have kidney stones, gallstones, blood pressure or diabetes mellitus. At some point he suspected having a hernia, but after several evaluation, he was told he was clear. Patient has a surgical history relevant for an appendectomy. Independent Historian as detailed above. Review of External Notes I reviewed Urgent care note from earlier today 10/15/24; RUQ pain. Past Medical History Medical History and Problem List Tobacco use GERD Medications Prilosec OTC Surgical History Appendectomy Physical Exam Patient Vitals for the past 24 hrs: BP Temp Temp src Pulse Resp SpO2 Height Weight 10/15/24 1456 (!) 163/92 101 ??F (38.3 ??C) Temporal 117 18 95 % 1.753 m (5' 9) 91.1 kg (200 lb 13.4 oz) Physical Exam Vital signs and nursing notes reviewed. General: Alert and oriented, uncomfortable. Resting on bed with at bedside. Skin: Skin is warm and dry. No rash. No diaphoresis. HEENT: Head: Normocephalic, atraumatic. Facial features symmetric. Eyes: Conjunctiva pink, sclera white. EOMs grossly intact. Ears: Auricles without lesion, erythema, or edema. Nose: Symmetric with no discharge. Mouth and throat: Lips are moist with no lesions or edema Neck: Normal range of motion. CV: Heart RRR. 2+ radial pulses bilaterally. Pulm/Chest: Chest wall expansion symmetric with no increased effort of breathing. Lungs clear and equal to auscultation bilaterally. Abd: Abdomen is soft and tender to palpation in right upper quadrant M/S: Moves all extremities spontaneously. Psych: Normal mood and affect. Behavior is normal. Diagnostics Lab Results Labs Ordered and Resulted from Time of ED Arrival to Time of ED Departure COMPREHENSIVE METABOLIC PANEL - Abnormal Result Value Sodium 138 Potassium 4.5 Carbon Dioxide (CO2) 26 Anion Gap 11 Urea Nitrogen 12.3 Creatinine 1.00 GFR Estimate 87 Calcium 10.0 Chloride 101 Glucose 147 (*) Alkaline Phosphatase 111 AST 1,240 (*) ALT 1,380 (*) Protein Total 7.5 Albumin 4.8 Bilirubin Total 4.7 (*) BILIRUBIN DIRECT - Abnormal Bilirubin Direct 2.98 (*) CBC WITH PLATELETS AND DIFFERENTIAL - Abnormal WBC Count 11.9 (*) RBC Count 5.35 Hemoglobin 16.3 Hematocrit 45.6 MCV 85 MCH 30.5 MCHC 35.7 RDW 12.6 Platelet Count 236 % Neutrophils 94 % Lymphocytes 2 % Monocytes 4 % Eosinophils 0 % Basophils 0 % Immature Granulocytes 1 NRBCs per 100 WBC 0 Absolute Neutrophils 11.1 (*) Absolute Lymphocytes 0.2 (*) Absolute Monocytes 0.4 Absolute Eosinophils 0.0 Absolute Basophils 0.0 Absolute Immature Granulocytes 0.1 Absolute NRBCs 0.0 ACETAMINOPHEN LEVEL - Abnormal Acetaminophen <5.0 (*) LIPASE - Normal Lipase 28 ETHANOL LEVEL BLOOD - Normal Ethanol Level Blood <0.01 BLOOD CULTURE BLOOD CULTURE Imaging US Abdomen Limited Final Result IMPRESSION: 1. Cholelithiasis and sludge, without sonographic evidence of acute cholecystitis. 2. Dilated common bile duct, measuring up to 11 mm. Correlation with LFTs and consideration of MRCPimaging is recommended to exclude a distal obstructing stone or mass lesion. Independent Interpretation None ED Course Medications Administered Medications ondansetron (ZOFRAN ODT) ODT tab 4 mg (4 mg Oral $Given 10/15/24 1501) Procedures Procedures Discussion of Management Admitting Hospitalist, Dr. Rocha Gastroenterology, Dr. Holder ED Course ED Course as of 10/16/24 0030 MonOctober 15, 2024 161 I obtained the history and examined the patient as noted above. 1830 I reassessed the patient and updated them on results and plan of care. [address] Holder, GI, regarding patient's presentation, findings, and plan of care. [address] Rocha, hospitalist, regarding patient's presentation, findings, and plan of care. Additional Documentation none Medical Decision Making / Diagnosis [facility] Diagnoses: None MIPS None MDM Salvador Ahumada is a 59 year old male who presents to the emergency department for evaluation ofright upper quadrant abdominal pain and fever. See HPI. Initially febrile with associated tachycardia. Normotensive in the ED. Reproducible right upper quadrant tenderness to palpation. Workup notable for cholecystitis and common bile duct dilation. Ultrasound confirms this. LFTs are quite elevatedgreater than 1000 on lab work. She has been taking Tylenol for pain but not in excessive amounts. No evidence of acetaminophen toxicity on lab workup. Direct bilirubin elevated at 2.98. Leukocytosis with a white blood cell count of 11.9. Remainder of chemistry without renal, metabolic, electrolyte a bnormality. Alcohol level negative. Antibiotics were initiated after blood cultures were obtained and pending. He will be admitted to the hospital for ongoing cares. Discussed case with GI who recommends ERCP in the morning and n.p.o. at midnight. Dr. Brown accepted the patient and will oversee further care I staffed this patient with Dr. Ayon who agrees with the above assessment and plan. Disposition The patient was admitted to the hospital. Diagnosis ICD-10-CM 1. Cholecystitis K81.9 2. Acute sepsis (H) A41.9 3. Elevated LFTs R79.89 4. Common bile duct dilation K83.8 Scribe Disclosure: Pau Payan, am serving as a scribe at 4:26 PM on 10/15/2024 to document services personally performed by Leonora Bone PA-C based on my observations and the provider's statements to me. Leonora Bone PA-C on 10/16/2024 at 12:36 AM Leonora Bone PA-C 10/16/24 0036 * Favorite, Kianna Silverman RN - 10/15/2024 2:57 PM CDT Pt arrives from he has been having abdominal pain on and off for 2 years that gets worse with a meal, Pt states for the last couple days it has gotten worse with nothing making it better. Triage Assessment (Adult) Row Name 10/15/24 6297 Triage Assessment Airway WDL WDL Respiratory WDL Respiratory WDL WDL Skin Circulation/Temperature WDL Skin Circulation/Temperature WDL WDL Cardiac WDL Cardiac WDL WDL Peripheral/Neurovascular WDL Peripheral Neurovascular WDL WDL Cognitive/Neuro/Behavioral WDL Cognitive/Neuro/Behavioral WDL WDL Portia Coma Scale Best Eye Response 4-->(E4) spontaneous Best Motor Response 6-->(M6) obeys commands Best Verbal Response 5-->(V5) oriented Mukund Coma Scale Score 15 documented in this encounter Miscellaneous Notes * Plan of Care - Rayshawn Quintanilla RN - 10/21/2024 6:17 AM CDT For vital signs and complete assessments, please see documentation flowsheets. [id number] Pertinent assessments: Pt A&Ox4. Ind in room. On RA. Afebrile. Elevated HR & BP. Denies pain, nausea & SOB. Pt reported now passing gas. No BM during shift. PIV saline locked. Major Shift Events: None Treatment Plan: Pain management. Rocephin. IV Lasix. Monitor bowel function. Discharge TBD. Bedside Nurse: Rayshawn Quintanilla RN Problem: Adult Inpatient Plan of Care Goal: Plan of Care Review Description: The Plan of Care Review/Shift note should be completed every shift. The Outcome Evaluation is a brief statement about your assessment that the patient is improving, declining, or no change. This information will be displayed automatically on your shiftnote. Outcome: Progressing Flowsheets (Taken 10/21/2024 0617) Outcome Evaluation: Ind in room. On RA. PIV saline locked. Plan of Care Reviewed With: patient Overall Patient Progress: improving Goal: Patient-Specific Goal (Individualized) Description: You can add care plan individualizations to a care plan. Examples of Individualizationmight be: Parent requests to be called daily at 9am for status, I have a hard time hearing out of my right ear, or Do not touch me to wake me up as it startlesme. Outcome: Progressing Goal: Absence of Hospital-Acquired Illness or Injury Outcome: Progressing Intervention: Identify and Manage Fall Risk Recent Flowsheet Documentation Taken 10/21/2024 0005 by Rayshawn Quintanilla, RN Safety Promotion/Fall Prevention: clutter free environment maintained lighting adjusted nonskid shoes/slippers when out of bed patient and family education room near nurse's station room organization consistent safety round/check completed treat reversible contributory factors Intervention: Prevent Skin Injury Recent Flowsheet Documentation Taken 10/21/2024 0005 by Rayshawn Quintanilla RN Body Position: position changed independently Intervention: Prevent Infection Recent Flowsheet Documentation Taken 10/21/2024 0005 by Rayshawn Quintanilla RN Infection Prevention: hand hygiene promoted rest/sleep promoted single patient room provided Goal: Optimal Comfort and Wellbeing Outcome: Progressing Goal: Readiness for Transition of Care Outcome: Progressing Problem: Pain Acute Goal: Optimal Pain Control and Function Outcome: Progressing Intervention: Prevent or Manage Pain Recent Flowsheet Documentation Taken 10/21/2024 0005 by Rayshawn Quintanilla RN Medication Review/Management: medications reviewed Problem: Sepsis/Septic Shock Goal: Optimal Coping Outcome: Progressing Goal: Absence of Bleeding Outcome: Progressing Goal: Blood Glucose Level Within Targeted Range Outcome: Progressing Goal: Absence of Infection Signs and Symptoms Outcome: Progressing Intervention: Initiate Sepsis Management Recent Flowsheet Documentation Taken 10/21/2024 0005 by Rayshawn Quintanilla RN Infection Prevention: hand hygiene promoted rest/sleep promoted single patient room provided Goal: Optimal Nutrition Intake Outcome: Progressing Goal Outcome Evaluation: Plan of Care Reviewed With: patient Overall Patient Progress: improvingOverall Patient Progress: improving Outcome Evaluation: Ind in room. On RA. PIV saline locked. * Plan of Care - Trang Lin RN - 10/20/2024 10:05 PM CDT Problem: Adult Inpatient Plan of Care Goal: Plan of Care Review Description: The Plan of Care Review/Shift note should be completed every shift. The Outcome Evaluation is a brief statement about your assessment that the patient is improving, declining, or no change. This information will be displayed automatically on your shiftnote. Outcome: Progressing Flowsheets (Taken 10/20/20242203) Outcome Evaluation: Requested not to be disturbed over night, Lap sites open to air, CDI with skin glue, Independent in room, plan to discharge home tomorrow. Plan of Care Reviewed With: patient Overall Patient Progress: improving Goal: Patient-Specific Goal (Individualized) Description: You can add care plan individualizations to a care plan. Examples of Individualizationmight be: Parent requests to be called daily at 9am for status, I have a hard time hearing out of my right ear, or Do not touch me to wake me up as it startlesme. Outcome: Progressing Goal: Absence of Hospital-Acquired Illness or Injury Outcome: Progressing Intervention: Identify and Manage Fall Risk Recent Flowsheet Documentation Taken 10/20/20242127 by Trang Lin RN Safety Promotion/Fall Prevention: safety round/check completed Intervention: Prevent Infection Recent Flowsheet Documentation Taken 10/20/20242127 by Trang Lin RN Infection Prevention: cohorting utilized hand hygiene promoted rest/sleep promoted single patient room provided Goal: Optimal Comfort and Wellbeing Outcome: Progressing Goal: Readiness for Transition of Care Outcome: Progressing Problem: Pain Acute Goal: Optimal Pain Control and Function Outcome: Progressing Intervention: Prevent or Manage Pain Recent Flowsheet Documentation Taken 10/20/20242127 by Trang Lin RN Medication Review/Management: medications reviewed Problem: Sepsis/Septic Shock Goal: Optimal Coping Outcome: Progressing Goal: Absence of Bleeding Outcome: Progressing Goal: Blood Glucose Level Within Targeted Range Outcome: Progressing Goal: Absence of Infection Signs and Symptoms Outcome: Progressing Intervention: Initiate Sepsis Management Recent Flowsheet Documentation Taken 10/20/20242127 by Trang Lin RN Infection Prevention: cohorting utilized hand hygiene promoted rest/sleep promoted single patient room provided Intervention: Promote Recovery Recent Flowsheet Documentation Taken 10/20/20242127 by Trang Lin RN Activity Management: up in chair Goal: Optimal Nutrition Intake Outcome: Progressing Goal Outcome Evaluation: Plan of Care Reviewed With: patient Overall Patient Progress: improvingOverall Patient Progress: improving Outcome Evaluation: Requested not to be disturbed over night, Lap sites open to air, CDI with skin glue, Independent in room, plan to discharge home tomorrow. * Plan of Care - Sveta Elam RN - 10/20/2024 6:27 PM CDT Temp: 98.1 ??F (36.7 ??C) Temp src: Oral BP: (!) 159/103 Pulse: 110 Resp: 16 SpO2: 97 % O2 Device: None (Room air) Orientation: A&O x4 VS: VSS Pain: 6/10. Tylenol given. Dilaudid give. Effective Activity: Independent Resp: RA GI: Denies nausea and vomiting. Needs to BM : Voiding without difficulty. Skin: Lap Sites Lines: PIV SL Diet: Regular Labs: Potassium Plan: Home Discharge: Pending Problem: Adult Inpatient Plan of Care Goal: Plan of Care Review Description: The Plan of Care Review/Shift note should be completed every shift. The Outcome Evaluation is a brief statement about your assessment that the patient is improving, declining, or no change. This information will be displayed automatically on your shiftnote. Outcome: Progressing Flowsheets (Taken 10/20/2024 1106) Outcome Evaluation: independent. Trying to poop. Plan of Care Reviewed With: patient Overall Patient Progress: improving Goal: Patient-Specific Goal (Individualized) Description: You can add care plan individualizations to a care plan. Examples of Individualizationmight be: Parent requests to be called daily at 9am for status, I have a hard time hearing out of my right ear, or Do not touch me to wake me up as it startlesme. Outcome: Progressing Goal: Absence of Hospital-Acquired Illness or Injury Outcome: Progressing Intervention: Identify and Manage Fall Risk Recent Flowsheet Documentation Taken 10/20/2024 1047 by Sveta Elam RN Safety Promotion/Fall Prevention: safety round/check completed Goal: Optimal Comfort and Wellbeing Outcome: Progressing Goal: Readiness for Transition of Care Outcome: Progressing Goal Outcome Evaluation: Plan of Care Reviewed With: patient Overall Patient Progress: improvingOverall Patient Progress: improving Outcome Evaluation: independent. Trying to poop. * Provider Notification - Sveta Elam RN - 10/20/2024 2:07 PM CDT paged on worst SOB and increased anxiety. * Plan of Care - Rayshawn Quintanilla RN - 10/20/2024 5:48 AM CDT For vital signs and complete assessments, please see documentation flowsheets. [id number] Pertinent assessments: Pt A&Ox4. SBA. On RA. Afebrile. Elevated HR & BP. Denies nausea & SOB. Pain managed with scheduled meds. PIV saline locked. Major Shift Events: None Treatment Plan: Pain management. Rocephin. Diet advancement. Discharge TBD. Bedside Nurse: Rayshawn Quintanilla RN Problem: Adult Inpatient Plan of Care Goal: Plan of Care Review Description: The Plan of Care Review/Shift note should be completed every shift. The Outcome Evaluation is a brief statement about your assessment that the patient is improving, declining, or no change. This information will be displayed automatically on your shiftnote. Outcome: Progressing Flowsheets (Taken 10/20/2024 0547) Outcome Evaluation: On RA. SBA. PIV saline locked Plan of Care Reviewed With: patient Overall Patient Progress: improving Goal: Patient-Specific Goal (Individualized) Description: You can add care plan individualizations to a care plan. Examples of Individualizationmight be: Parent requests to be called daily at 9am for status, I have a hard time hearing out of my right ear, or Do not touch me to wake me up as it startlesme. Outcome: Progressing Goal: Absence of Hospital-Acquired Illness or Injury Outcome: Progressing Intervention: Identify and Manage Fall Risk Recent Flowsheet Documentation Taken 10/20/2024 0000 by Rayshawn Quintanilla RN Safety Promotion/Fall Prevention: activity supervised clutter free environment maintained increase visualization of patient lighting adjusted nonskid shoes/slippers when out of bed patient and family education room near nurse's station room organization consistent safety round/check completed treat reversible contributory factors Intervention: Prevent Skin Injury Recent Flowsheet Documentation Taken 10/20/2024 0000 by Rayshawn Quintanilla RN Body Position: position changed independently Intervention: Prevent and Manage VTE (Venous Thromboembolism) Risk Recent Flowsheet Documentation Taken 10/20/2024 0000 by Rayshawn Quintanilla RN VTE Prevention/Management: SCDs off (sequential compression devices) Intervention: Prevent Infection Recent Flowsheet Documentation Taken 10/20/2024 0000 by Rayshawn Quintanilla RN Infection Prevention: cohorting utilized hand hygiene promoted rest/sleep promoted single patient room provided Goal: Optimal Comfort and Wellbeing Outcome: Progressing Goal: Readiness for Transition of Care Outcome: Progressing Problem: Pain Acute Goal: Optimal Pain Control and Function Outcome: Progressing Intervention: Prevent or Manage Pain Recent Flowsheet Documentation Taken 10/20/2024 0000 by Rayshawn Quintanilla RN Medication Review/Management: medications reviewed Problem: Sepsis/Septic Shock Goal: Optimal Coping Outcome: Progressing Goal: Absence of Bleeding Outcome: Progressing Goal: Blood Glucose Level Within Targeted Range Outcome: Progressing Goal: Absence of Infection Signs and Symptoms Outcome: Progressing Intervention: Initiate Sepsis Management Recent Flowsheet Documentation Taken 10/20/2024 0000 by Rayshawn Quintanilla RN Infection Prevention: cohorting utilized hand hygiene promoted rest/sleep promoted single patient room provided Goal: Optimal Nutrition Intake Outcome: Progressing Goal Outcome Evaluation: Plan of Care Reviewed With: patient Overall Patient Progress: improvingOverall Patient Progress: improving Outcome Evaluation: On RA. SBA. PIV saline locked * Plan of Care - Darryl Green RN - 10/19/2024 11:03 PM CDT Pertinent assessments: A&Ox4. On room air. Up with SBA. Bed alarm on for sleep. Pain managed with scheduled and PRN medications. Saline locked PIV. Tolerating clear liquids. POD #1. Major Shift Events: PRN IV Dilaudid dosing increased. X1 dose of IV lasix given. CXR and abdominal CT completed. Treatment Plan: Pain management, encourage activity, nicotine patch, IV Rocephin, advance diet, anddischarge pending. Bedside Nurse: Darryl Green RN Problem: Adult Inpatient Plan of Care Goal: Plan of Care Review Description: The Plan of Care Review/Shift note should be completed every shift. The Outcome Evaluation is a brief statement about your assessment that the patient is improving, declining, or no change. This information will be displayed automatically on your shiftnote. Outcome: Not Progressing Flowsheets (Taken 10/19/2024 2303) Outcome Evaluation: Pain management. x1 IV lasix given. Imaging completed this evening. Plan of Care Reviewed With: patient spouse family Overall Patient Progress: no change Goal: Patient-Specific Goal (Individualized) Description: You can add care plan individualizations to a care plan. Examples of Individualizationmight be: Parent requests to be called daily at 9am for status, I have a hard time hearing out of my right ear, or Do not touch me to wake me up as it startlesme. Outcome: Not Progressing Goal: Absence of Hospital-Acquired Illness or Injury Outcome: Not Progressing Intervention: Identify and Manage Fall Risk Recent Flowsheet Documentation Taken 10/19/2024 1554 by Darryl Green RN Safety Promotion/Fall Prevention: activity supervised clutter free environment maintained increase visualization of patient lighting adjusted nonskid shoes/slippers when out of bed patient and family education room near nurse's station safety round/check completed treat reversible contributory factors Intervention: Prevent Skin Injury Recent Flowsheet Documentation Taken 10/19/2024 1554 by Darryl Green RN Body Position: position changed independently Intervention: Prevent and Manage VTE (Venous Thromboembolism) Risk Recent Flowsheet Documentation Taken 10/19/2024 1554 by Darryl Green RN VTE Prevention/Management: SCDs off (sequential compression devices) Intervention: Prevent Infection Recent Flowsheet Documentation Taken 10/19/2024 1554 by Darryl Green RN Infection Prevention: cohorting utilized hand hygiene promoted rest/sleep promoted single patient room provided Goal: Optimal Comfort and Wellbeing Outcome: Not Progressing Intervention: Monitor Pain and Promote Comfort Recent Flowsheet Documentation Taken 10/19/2024 2131 by Darryl Green RN Pain Management Interventions: medication (see MAR) Taken 10/19/2024 1916 by Darryl Green RN Pain Management Interventions: medication (see MAR) Taken 10/19/2024 1554 by Darryl Green RN Pain Management Interventions: medication (see MAR) Goal: Readiness for Transition of Care Outcome: Not Progressing Goal Outcome Evaluation: Plan of Care Reviewed With: patient, spouse, family Overall Patient Progress: no change Overall Patient Progress: no change Outcome Evaluation: Pain management. x1 IV lasix given. Imaging completed this evening. * Plan of Care - Huyen Zazueta RN - 10/19/2024 2:57 PM CDT Goal Outcome Evaluation: Pertinent assessments: pt A&Ox4. Elevated BP, other VSS, on RA. SBA with IV pole. Ls clear. BS x4, abd distended. Not passing gas yet. Pt denies nausea. C/o pain, IV toradol and IV dilaudid x3 given. PIV infusing NS @ 75 ml/hr. On clear liquid diet. Major Shift Events: Abd XR done. Pt c/o uncontrolled pain and SOB. MD and Surgery aware and orderedCXR and abd/pelvis CT. IVF stopped. Treatment Plan: Rocephin, repeat BC, ID consult. IVF. Pain management. Discharge TBD. Bedside Nurse: Huyen Zazueta RN Problem: Adult Inpatient Plan of Care Goal: Plan of Care Review Description: The Plan of Care Review/Shift note should be completed every shift. The Outcome Evaluation is a brief statement about your assessment that the patient is improving, declining, or no change. This information will be displayed automatically on your shiftnote. Outcome: Progressing Flowsheets (Taken 10/19/2024 1781) Plan of Care Reviewed With: patient Overall Patient Progress: no change Goal: Patient-Specific Goal (Individualized) Description: You can add care plan individualizations to a care plan. Examples of Individualizationmight be: Parent requests to be called daily at 9am for status, I have a hard time hearing out of my right ear, or Do not touch me to wake me up as it startlesme. Outcome: Progressing Goal: Absence of Hospital-Acquired Illness or Injury Outcome: Progressing Intervention: Identify and Manage Fall Risk Recent Flowsheet Documentation Taken 10/19/2024 1013 by Huyen Zazueta RN Safety Promotion/Fall Prevention: activity supervised nonskid shoes/slippers when out of bed room near nurse's station safety round/check completed Intervention: Prevent Skin Injury Recent Flowsheet Documentation Taken 10/19/2024 1013 by Huyen Zazueta RN Body Position: position changed independently Intervention: Prevent and Manage VTE (Venous Thromboembolism) Risk Recent Flowsheet Documentation Taken 10/19/2024 1013 by Huyen Zazueta RN VTE Prevention/Management: SCDs off (sequential compression devices) Goal: Optimal Comfort and Wellbeing Outcome: Progressing Intervention: Monitor Pain and Promote Comfort Recent Flowsheet Documentation Taken 10/19/2024 1013 by Huyen Zazueta RN Pain Management Interventions: medication (see MAR) Goal: Readiness for Transition of Care Outcome: Progressing Problem: Pain Acute Goal: Optimal Pain Control and Function Outcome: Progressing Intervention: Develop Pain Management Plan Recent Flowsheet Documentation Taken 10/19/2024 1013 by Huyen Zazueta RN Pain Management Interventions: medication (see MAR) Intervention: Prevent or Manage Pain Recent Flowsheet Documentation Taken 10/19/2024 1013 by Huyen Zazueta RN Medication Review/Management: medications reviewed Problem: Sepsis/Septic Shock Goal: Optimal Coping Outcome: Progressing Goal: Absence of Bleeding Outcome: Progressing Goal: Blood Glucose Level Within Targeted Range Outcome: Progressing Goal: Absence of Infection Signs and Symptoms Outcome: Progressing Intervention: Promote Recovery Recent Flowsheet Documentation Taken 10/19/2024 1013 by Huyen Zazueta RN Activity Management: activity adjusted per tolerance Goal: Optimal Nutrition Intake Outcome: Progressing Plan of Care Reviewed With: patient Overall Patient Progress: no changeOverall Patient Progress: no change * Plan of Care - Candida Her RN - 10/19/2024 6:08 AM CDT Goal Outcome Evaluation: Plan of Care Reviewed With: patient Overall Patient Progress: no changeOverall Patient Progress: no change Outcome Evaluation: Pt c/o abdominal pain, IV dilaudid and Toradol given Pt alert and oriented x4, BP elevated, it keeps fluctuating, provider notified. Pt states that painis tolerable at the moment and would like pain medication later, education provided. BP (!) 153/106 Pulse 80 Temp 98.6 ??F (37 ??C) (Oral) Resp 22 Ht 1.753 m (5' 9) Wt 89.7 kg (197 lb 12.8 oz) SpO2 94% BMI 29.21 kg/m?? Problem: Adult Inpatient Plan of Care Goal: Plan of Care Review Description: The Plan of Care Review/Shift note should be completed every shift. The Outcome Evaluation is a brief statement about your assessment that the patient is improving, declining, or no change. This information will be displayed automatically on your shiftnote. Outcome: Progressing Flowsheets (Taken 10/19/2024 0606) Outcome Evaluation: Pt c/o abdominal pain, IV dilaudid and Toradol given Plan of Care Reviewed With: patient Overall Patient Progress: no change Goal: Patient-Specific Goal (Individualized) Description: You can add care plan individualizations to a care plan. Examples of Individualizationmight be: Parent requests to be called daily at 9am for status, I have a hard time hearing out of my right ear, or Do not touch me to wake me up as it startlesme. Outcome: Progressing Goal: Absence of Hospital-Acquired Illness or Injury Outcome: Progressing Intervention: Identify and Manage Fall Risk Recent Flowsheet Documentation Taken 10/18/20242349 by Candida Her RN Safety Promotion/Fall Prevention: safety round/check completed Intervention: Prevent Skin Injury Recent Flowsheet Documentation Taken 10/18/20242349 by Candida Her RN Body Position: position changed independently Taken 10/18/20242008 by Candida Her RN Body Position: position changed independently Intervention: Prevent and Manage VTE (Venous Thromboembolism) Risk Recent Flowsheet Documentation Taken 10/18/20242349 by Candida Her RN VTE Prevention/Management: SCDs on (sequential compression devices) Goal: Optimal Comfort and Wellbeing Outcome: Progressing Intervention: Monitor Pain and Promote Comfort Recent Flowsheet Documentation Taken 10/18/20242338 by Candida Her RN Pain Management Interventions: medication (see MAR) Taken 10/18/20242008 by Candida Her RN Pain Management Interventions: medication (see MAR) Goal: Readiness for Transition of Care Outcome: Progressing Problem: Pain Acute Goal: Optimal Pain Control and Function Outcome: Progressing Intervention: Develop Pain Management Plan Recent Flowsheet Documentation Taken 10/18/20242338 by Candida Her RN Pain Management Interventions: medication (see MAR) Taken 10/18/20242008 by Candida Her RN Pain Management Interventions: medication (see MAR) Intervention: Prevent or Manage Pain Recent Flowsheet Documentation Taken 10/18/20242349 by Candida Her RN Medication Review/Management: medications reviewed Problem: Sepsis/Septic Shock Goal: Optimal Coping Outcome: Progressing Goal: Absence of Bleeding Outcome: Progressing Goal: Blood Glucose Level Within Targeted Range Outcome: Progressing Goal: Absence of Infection Signs and Symptoms Outcome: Progressing Goal: Optimal Nutrition Intake Outcome: Progressing * Provider Notification - Candida Her RN - 10/18/2024 10:55 PM CDT Following the Hospitalist's request, expert medical writer called general surgery and informed provider Diana Solomon the patient's abdominal pain, which was on the RUQ radiating to the right shoulder, and that the Hospitalist had seen the patient and placed new orders. General surgery placed orders; EKG, Labsand Toradol for pain. * Provider Notification - Candida Her RN - 10/18/2024 9:40 PM CDT Provider was notified pt was experiencing abdominal pain and had been given IV Dilaudid with littlerelief. Pt was also very anxious. More pain medication was requested and some medication for anxiety. Pt seemed to be very restless, expert medical writer requested provider to come to patient's room and see the pt. Provider came and assessed the patient and placed orders and asked expert medical writer to contact the general surgery and inform them what was going on. * Plan of Care - Lester Hampton RN - 10/18/2024 6:08 PM CDT Problem: Adult Inpatient Plan of Care Goal: Plan of Care Review Description: The Plan of Care Review/Shift note should be completed every shift. The Outcome Evaluation is a brief statement about your assessment that the patient is improving, declining, or no change. This information will be displayed automatically on your shiftnote. Outcome: Progressing Goal: Patient-Specific Goal (Individualized) Description: You can add care plan individualizations to a care plan. Examples of Individualizationmight be: Parent requests to be called daily at 9am for status, I have a hard time hearing out of my right ear, or Do not touch me to wake me up as it startlesme. Outcome: Progressing Goal: Absence of Hospital-Acquired Illness or Injury Outcome: Progressing Goal: Optimal Comfort and Wellbeing Outcome: Progressing Intervention: Provide Person-Centered Care Recent Flowsheet Documentation Taken 10/18/2024 0986 by Lester Hampton RN Trust Relationship/Rapport: care explained choices provided empathic listening provided questions answered questions encouraged reassurance provided thoughts/feelings acknowledged Goal: Readiness for Transition of Care Outcome: Progressing Goal Outcome Evaluation: Assumed care at 1500, VSS, A&Ox3, prn Dilaudid po for pain management, continues on IV Ceftriaxone, up with SBA, will continue with POC. * Plan of Care - Huyen Zazueta RN - 10/18/2024 2:18 PM CDT Goal Outcome Evaluation: Pertinent assessments: pt A&Ox4. VSS, on RA. Up independent in the room. Ls clear. BS x4. Pt denies pain and nausea. PIV - SL. On clear liquid diet. Major Shift Events: ECHO. Lap alma rosa, on capno. 4 lap sites. Treatment Plan: Rocephin, repeat BC, ID consult. Discharge TBD. Bedside Nurse: Huyen Zazueta RN Problem: Adult Inpatient Plan of Care Goal: Plan of Care Review Description: The Plan of Care Review/Shift note should be completed every shift. The Outcome Evaluation is a brief statement about your assessment that the patient is improving, declining, or no change. This information will be displayed automatically on your shiftnote. Outcome: Progressing Flowsheets (Taken 10/18/2024 0823) Outcome Evaluation: Cindy paredes done Plan of Care Reviewed With: patient Overall Patient Progress: no change Goal: Patient-Specific Goal (Individualized) Description: You can add care plan individualizations to a care plan. Examples of Individualizationmight be: Parent requests to be called daily at 9am for status, I have a hard time hearing out of my right ear, or Do not touch me to wake me up as it startlesme. Outcome: Progressing Goal: Absence of Hospital-Acquired Illness or Injury Outcome: Progressing Intervention: Identify and Manage Fall Risk Recent Flowsheet Documentation Taken 10/18/2024827 by Huyen Zazueta RN Safety Promotion/Fall Prevention: room near nurse's station safety round/check completed Intervention: Prevent Skin Injury Recent Flowsheet Documentation Taken 10/18/2024827 by Huyen Zazueta RN Body Position: position changed independently Intervention: Prevent and Manage VTE (Venous Thromboembolism) Risk Recent Flowsheet Documentation Taken 10/18/2024827 by Huyen Zazueta RN VTE Prevention/Management: SCDs off (sequential compression devices) Goal: Optimal Comfort and Wellbeing Outcome: Progressing Goal: Readiness for Transition of Care Outcome: Progressing Problem: Pain Acute Goal: Optimal Pain Control and Function Outcome: Progressing Intervention: Prevent or Manage Pain Recent Flowsheet Documentation Taken 10/18/2024827 by Huyen Zazueta RN Medication Review/Management: medications reviewed Problem: Sepsis/Septic Shock Goal: Optimal Coping Outcome: Progressing Goal: Absence of Bleeding Outcome: Progressing Goal: Blood Glucose Level Within Targeted Range Outcome: Progressing Goal: Absence of Infection Signs and Symptoms Outcome: Progressing Intervention: Promote Recovery Recent Flowsheet Documentation Taken 10/18/2024827 by Huyen Zazueta RN Activity Management: activity adjusted per tolerance Goal: Optimal Nutrition Intake Outcome: Progressing Plan of Care Reviewed With: patient Overall Patient Progress: no changeOverall Patient Progress: no change Outcome Evaluation: Lap alma rosa done * Brief Op Note - Dominique Ortiz MD - 10/18/2024 11:53 AM CDT [facility] Brief Operative Note Pre-operative diagnosis: Cholangitis (H) [K83.09] Post-operative diagnosis Cholangitis and chronic cholecystitis Procedure: CHOLECYSTECTOMY, LAPAROSCOPIC, N/A - Abdomen Surgeon: Surgeons and Role: * Dominique Ortiz MD - Primary * Pamela Cunningham PA-C - Assisting Anesthesia: General Estimated Blood Loss: 100 mL from 10/18/2024 9:40 AM to 10/18/2024 11:52 AM Drains: None Specimens: ID Type Source Tests Collected by Time Destination 1 : GALLBLADDER AND CONTENTS Tissue Gallbladder SURGICAL PATHOLOGY EXAM Dominique Ortiz MD 10/18/2024 11:29 AM Findings: Chronically inflamed contacted gallbladder with dense omental adhesions . Complications: None. Implants: * No implants in log * * Op Note - Dominique Ortiz MD - 10/18/2024 10:00 AM CDT [facility] General Surgery Operative Note Pre-operative diagnosis: Chronic cholecystitis and cholangitis Post-operative diagnosis: same Procedure: laparoscopic cholecystectomy Surgeon: Dominique Ortiz MD Tuber Operator(s): Pamela Cunningham PA-C The Physician Tuber Operator was medically necessary for their expertise in prepping, camera management,suctioning, suturing and retraction. Anesthesia: general Estimated blood loss: Specimen: 100 cc gallbladder and contents INDICATION FOR OPERATION: This is a 59 year old male who presented to ED with abdominal pain. Studies including ultrasound were consistent with cholangitis s/p ERCP but with continued RUQ pain concerning for cholecystitis. We discussed laparoscopic cholecystectomy and the patient agreed to proceed after hearing the risks and benefits. DESCRIPTION OF PROCEDURE: The patient was taken to the operating room and placed on the table in supine position. General endotracheal anesthesia was induced and the abdomen was prepped and draped instandard sterile fashion. An incision above the umbilicus was made with a blade. The incision was carried down to the fascia. The fascia was elevated with rene clamps and the fascia was incised in the midline with a blade. The peritoneum was entered sharply. 0 Vicryl suture was placed at the extremes of the fascial incision. The Luis trocar was introduced and the abdomen was insufflated with CO2. A 5 mm port was placed in the subxiphoid position. Two additional 5 mm ports were placed in theright abdomen. The patient was placed in reverse Trendelenburg and right side up. The gallbladder appeared contracted with copious dense adhesions of omentum. The fundus of the gallbladder was grasped and retracted cephalad. Omental adhesions were taken down with cautery and blunt dissection. Clipswere used to control bleeding from omental vessels.The infundibulum was grasped and retracted latera lly. The peritoneum over the medial and lateral aspects of the triangle of Calot was taken down with the [place] dissector and modest amounts of Bovie electrocautery. The cystic duct and artery werefreed up from surrounding tissues. The triangle of Calot was skeletonized revealing the critical view of safety. As the patient had received ICG preoperatively, Intraoperative fluorescence was also used to visualize the course of the common bile duct, the cystic duct could not be seen. The cystic artery was clipped twice distally and once proximally however the clips were not positioned well. The clips were then removed and replaced. The cystic duct was then clipped twice proximally, once distally and transected with the scissors. The gallbladder was then removed from the liver using the hook electrocautery. The liver bed was visualized with ICG fluorescence and no bile leakagewas seen . The gallbladder was passed into an Endocatch bag. We observed the right upper quadrant carefully for hemostasis. Hemostasis was assured. The abdomen was irrigated with saline. Each of the ports were removed under direct visualization. There was no bleeding from any of these sites. The Luis trocar was removed and the abdomen was evacuated of CO2. The gallbladder was removed through the umbilicaltrocar site. Additional 0 Vicryl was placed in the fascia between the previously placed 0 vicryls and all were tied down to good effect. The skin of the umbilical incision was anesthetized with localanesthetic. All of the incisions were closed with interrupted 4-0 Vicryl subcuticular sutures and Dermabond. The patient tolerated the procedure well. Sponge and instrument counts were correct. FINDINGS: Chronically inflamed contacted gallbladder with dense omental adhesions Dominique Ortiz MD * Plan of Care - Maria Teresa Ace RN - 10/18/2024 6:42 AM CDT End of Shift Summary For vital signs and complete assessments, please see documentation flowsheets. Pertinent assessments: VSS. Afebrile. Ls clear. BS x4. Pt denies pain and nausea. NPO with Clear Liquids 2 hours prior to surgery. Independently ambulating. PIV - SL. A&O, calls appropriately forassistance. Melatonin given for sleep, slept well. Major Shift Events: none Treatment Plan: Plan to have ECHO today, Possible Lap Alma Rosa today, Rocephin, Discharge TBD. Goal Outcome Evaluation: Plan of Care Reviewed With: patient Overall Patient Progress: improving Outcome Evaluation: Denies pain and nausea, NPO/Clear liquids, Slept well. Problem: Adult Inpatient Plan of Care Goal: Plan of Care Review Description: The Plan of Care Review/Shift note should be completed every shift. The Outcome Evaluation is a brief statement about your assessment that the patient is improving, declining, or no change. This information will be displayed automatically on your shiftnote. Outcome: Progressing Flowsheets (Taken 10/18/2024 0667) Outcome Evaluation: Denies pain and nausea, NPO/Clear liquids, Slept well. Plan of Care Reviewed With: patient Overall Patient Progress: improving Goal: Patient-Specific Goal (Individualized) Description: You can add care plan individualizations to a care plan. Examples of Individualizationmight be: Parent requests to be called daily at 9am for status, I have a hard time hearing out of my right ear, or Do not touch me to wake me up as it startlesme. Outcome: Progressing Goal: Absence of Hospital-Acquired Illness or Injury Outcome: Progressing Intervention: Identify and Manage Fall Risk Recent Flowsheet Documentation Taken 10/17/2024 2213 by Maria Teresa Ace RN Safety Promotion/Fall Prevention: assistive device/personal items within reach clutter free environment maintained increased rounding and observation increase visualization of patient lighting adjusted mobility aid in reach nonskid shoes/slippers when out of bed patient and family education room near nurse's station room organization consistent safety round/check completed treat reversible contributory factors treat underlying cause Intervention: Prevent Skin Injury Recent Flowsheet Documentation Taken 10/17/20242352 by Maria Teresa Ace RN Body Position: position changed independently supine Intervention: Prevent and Manage VTE (Venous Thromboembolism) Risk Recent Flowsheet Documentation Taken 10/17/2024 2353 by Maria Teresa Ace RN VTE Prevention/Management: SCDs off (sequential compression devices) Intervention: Prevent Infection Recent Flowsheet Documentation Taken 10/17/20242352 by Maria Teresa Ace RN Infection Prevention: cohorting utilized rest/sleep promoted single patient room provided Goal: Optimal Comfort and Wellbeing Outcome: Progressing Goal: Readiness for Transition of Care Outcome: Progressing Problem: Pain Acute Goal: Optimal Pain Control and Function Outcome: Progressing Intervention: Prevent or Manage Pain Recent Flowsheet Documentation Taken 10/17/20242352 by Maria Teresa Ace RN Medication Review/Management: medications reviewed Problem: Sepsis/Septic Shock Goal: Optimal Coping Outcome: Progressing Goal: Absence of Bleeding Outcome: Progressing Goal: Blood Glucose Level Within Targeted Range Outcome: Progressing Goal: Absence of Infection Signs and Symptoms Outcome: Progressing Intervention: Initiate Sepsis Management Recent Flowsheet Documentation Taken 10/17/20242352 by Maria Teresa Ace RN Infection Prevention: cohorting utilized rest/sleep promoted single patient room provided Intervention: Promote Recovery Recent Flowsheet Documentation Taken 10/17/20242352 by Maria Teresa Ace RN Activity Management: activity adjusted per tolerance up ad savana Goal: Optimal Nutrition Intake Outcome: Progressing * Plan of Care - Chuy Borrero RN - 10/17/2024 10:14 PM CDT End of Shift Summary For vital signs and complete assessments, please see documentation flowsheets. Pertinent assessments: Aox4 VSS on RA, no reports of pain. Independent in room. Abdomen rounded butnon tender. Tolerating diet well. No breaches in skin integrity. Slight scleral icterus. All other system assessments unremarkable. Major Shift Events admitted to floor, skin check Treatment Plan: NPO at NH, echo tomorrow am possible lap alma rosa Bedside Nurse: Chuy Borrero RN Goal Outcome Evaluation: Problem: Adult Inpatient Plan of Care Goal: Plan of Care Review Description: The Plan of Care Review/Shift note should be completed every shift. The Outcome Evaluation is a brief statement about your assessment that the patient is improving, declining, or no change. This information will be displayed automatically on your shiftnote. Outcome: Progressing Flowsheets (Taken 10/17/20244) Outcome Evaluation: doing well. independent in room. denies pain, denies nausea. abdomen non tender. tolerating diet Plan of Care Reviewed With: patient spouse Overall Patient Progress: improving Goal: Patient-Specific Goal (Individualized) Description: You can add care plan individualizations to a care plan. Examples of Individualizationmight be: Parent requests to be called daily at 9am for status, I have a hard time hearing out of my right ear, or Do not touch me to wake me up as it startlesme. Outcome: Progressing Goal: Absence of Hospital-Acquired Illness or Injury Outcome: Progressing Intervention: Identify and Manage Fall Risk Recent Flowsheet Documentation Taken 10/17/2024 2006 by Chuy Borrero RN Safety Promotion/Fall Prevention: activity supervised assistive device/personal items within reach clutter free environment maintained increased rounding and observation increase visualization of patient lighting adjusted nonskid shoes/slippers when out of bed room near nurse's station room organization consistent safety round/check completed treat underlying cause treat reversible contributory factors Goal: Optimal Comfort and Wellbeing Outcome: Progressing Goal: Readiness for Transition of Care Outcome: Progressing Problem: Pain Acute Goal: Optimal Pain Control and Function Outcome: Progressing Intervention: Prevent or Manage Pain Recent Flowsheet Documentation Taken 10/17/2024 2006 by Chuy Borrero RN Medication Review/Management: medications reviewed Problem: Sepsis/Septic Shock Goal: Optimal Coping Outcome: Progressing Goal: Absence of Bleeding Outcome: Progressing Goal: Blood Glucose Level Within Targeted Range Outcome: Progressing Goal: Absence of Infection Signs and Symptoms Outcome: Progressing Intervention: Promote Recovery Recent Flowsheet Documentation Taken 10/17/2024 2006 by Chuy Borrero RN Activity Management: activity adjusted per tolerance Goal: Optimal Nutrition Intake Outcome: Progressing Plan of Care Reviewed With: patient, spouse Overall Patient Progress: improvingOverall Patient Progress: improving Outcome Evaluation: doing well. independent in room. denies pain, denies nausea. abdomen non tender. tolerating diet * Plan of Care - Trang Vicente RN - 10/17/2024 8:10 PM CDT Pt and all belongings transferred to room 524. Report given to David ASHFORD. * Plan of Care - Yovana Mayfield RN - 10/17/2024 6:03 PM CDT Major shift events: Patient independent in room with family at bedside throughout the day. Plan forrepeat echo tomorrow and if improved/stable - will be added to OR schedule for lap alma rosa. Neuro: A&Ox4. Cardiac: SR. VSS. Slightly hypertensive. Respiratory: Sating 94-100% on RA. GI/: Adequate urine output. BM X1. Diet/appetite: Tolerating regular diet. Eating well. NPO at midnight. Activity: independent in room, up to chair and in halls. Up to chair x1. Pain: At acceptable level on current regimen. Denies pain. Tylenol given x1 for dull headache. Skin: No new deficits noted. LDA's: PIV intact. Plan: Continue with POC. Notify primary team with changes. Goal Outcome Evaluation: Plan of Care Reviewed With: patient, spouse Overall Patient Progress: improvingOverall Patient Progress: improving Outcome Evaluation: see note Problem: Adult Inpatient Plan of Care Goal: Plan of Care Review Description: The Plan of Care Review/Shift note should be completed every shift. The Outcome Evaluation is a brief statement about your assessment that the patient is improving, declining, or no change. This information will be displayed automatically on your shiftnote. Outcome: Progressing Flowsheets (Taken 10/17/2024 1800) Outcome Evaluation: see note Plan of Care Reviewed With: patient spouse Overall Patient Progress: improving Goal: Patient-Specific Goal (Individualized) Description: You can add care plan individualizations to a care plan. Examples of Individualizationmight be: Parent requests to be called daily at 9am for status, I have a hard time hearing out of my right ear, or Do not touch me to wake me up as it startlesme. Outcome: Progressing Goal: Absence of Hospital-Acquired Illness or Injury Outcome: Progressing Intervention: Identify and Manage Fall Risk Recent Flowsheet Documentation Taken 10/17/2024 1700 by Yovana Mayfield RN Safety Promotion/Fall Prevention: activity supervised assistive device/personal items within reach clutter free environment maintained increased rounding and observation increase visualization of patient lighting adjusted nonskid shoes/slippers when out of bed room near nurse's station room organization consistent safety round/check completed treat underlying cause treat reversible contributory factors Taken 10/17/2024 1200 by Yovana Mayfield RN Safety Promotion/Fall Prevention: activity supervised assistive device/personal items within reach clutter free environment maintained increased rounding and observation increase visualization of patient lighting adjusted nonskid shoes/slippers when out of bed room near nurse's station room organization consistent safety round/check completed treat underlying cause treat reversible contributory factors Taken 10/17/2024 0800 by Yovana Mayfield RN Safety Promotion/Fall Prevention: activity supervised assistive device/personal items within reach clutter free environment maintained increased rounding and observation increase visualization of patient lighting adjusted nonskid shoes/slippers when out of bed room near nurse's station room organization consistent safety round/check completed treat underlying cause treat reversible contributory factors Intervention: Prevent Skin Injury Recent Flowsheet Documentation Taken 10/17/2024 1700 by Yovana Mayfield RN Body Position: position changed independently Skin Protection: adhesive use limited Taken 10/17/2024 1600 by Yovana Mayfield RN Body Position: position changed independently Taken 10/17/2024 1200 by Yovana Mayfield RN Body Position: position changed independently Skin Protection: adhesive use limited Taken 10/17/2024 0800 by Yovana Mayfield RN Body Position: position changed independently Skin Protection: adhesive use limited Intervention: Prevent and Manage VTE (Venous Thromboembolism) Risk Recent Flowsheet Documentation Taken 10/17/2024 1700 by Yovana Mayfield RN VTE Prevention/Management: (ambulating) SCDs off (sequential compression devices) Taken 10/17/2024 1200 by Yovana Mayfield RN VTE Prevention/Management: (ambulating) SCDs off (sequential compression devices) Taken 10/17/2024 0800 by Yovana Mayfield RN VTE Prevention/Management: (ambulating) SCDs off (sequential compression devices) Goal: Optimal Comfort and Wellbeing Outcome: Progressing Intervention: Monitor Pain and Promote Comfort Recent Flowsheet Documentation Taken 10/17/2024 1600 by Yovana Mayfield RN Pain Management Interventions: declines Taken 10/17/2024 0800 by Yovana Mayfield RN Pain Management Interventions: declines Intervention: Provide Person-Centered Care Recent Flowsheet Documentation Taken 10/17/2024 1700 by Yovana Mayfield RN Trust Relationship/Rapport: care explained choices provided empathic listening provided questions answered questions encouraged reassurance provided thoughts/feelings acknowledged Taken 10/17/2024 1200 by Yovana Mayfield RN Trust Relationship/Rapport: care explained choices provided empathic listening provided questions answered questions encouraged reassurance provided thoughts/feelings acknowledged Taken 10/17/2024 0800 by Yovana Mayfield RN Trust Relationship/Rapport: care explained choices provided empathic listening provided questions answered questions encouraged reassurance provided thoughts/feelings acknowledged Goal: Readiness for Transition of Care Outcome: Progressing Problem: Pain Acute Goal: Optimal Pain Control and Function Outcome: Progressing Intervention: Optimize Psychosocial Wellbeing Recent Flowsheet Documentation Taken 10/17/2024 1700 by Yovana Mayfield RN Supportive Measures: active listening utilized positive reinforcement provided verbalization of feelings encouraged Taken 10/17/2024 1200 by Yovana Mayfield RN Supportive Measures: active listening utilized positive reinforcement provided verbalization of feelings encouraged Taken 10/17/2024 0800 by Yovana Mayfield RN Supportive Measures: active listening utilized positive reinforcement provided verbalization of feelings encouraged Intervention: Develop Pain Management Plan Recent Flowsheet Documentation Taken 10/17/2024 1600 by Yovana Mayfield RN Pain Management Interventions: declines Taken 10/17/2024 0800 by Yovana Mayfield RN Pain Management Interventions: declines Intervention: Prevent or Manage Pain Recent Flowsheet Documentation Taken 10/17/2024 1700 by Yovana Mayfield RN Sensory Stimulation Regulation: care clustered quiet environment promoted Sleep/Rest Enhancement: comfort measures Medication Review/Management: medications reviewed Taken 10/17/2024 1200 by Yovana Mayfield RN Sensory Stimulation Regulation: care clustered quiet environment promoted Sleep/Rest Enhancement: comfort measures Medication Review/Management: medications reviewed Taken 10/17/2024 0800 by Yovana Mayfield RN Sensory Stimulation Regulation: care clustered quiet environment promoted Sleep/Rest Enhancement: comfort measures Medication Review/Management: medications reviewed Problem: Sepsis/Septic Shock Goal: Optimal Coping Outcome: Progressing Intervention: Optimize Psychosocial Adjustment to Illness Recent Flowsheet Documentation Taken 10/17/2024 1700 by Yovana Mayfield RN Supportive Measures: active listening utilized positive reinforcement provided verbalization of feelings encouraged Family/Support System Care: self-care encouraged support provided presence promoted Taken 10/17/2024 1200 by Yovana Mayfield RN Supportive Measures: active listening utilized positive reinforcement provided verbalization of feelings encouraged Family/Support System Care: self-care encouraged support provided presence promoted Taken 10/17/2024 0800 by Yovana Mayfield RN Supportive Measures: active listening utilized positive reinforcement provided verbalization of feelings encouraged Family/Support System Care: self-care encouraged support provided presence promoted Goal: Absence of Bleeding Outcome: Progressing Intervention: Monitor and Manage Bleeding Recent Flowsheet Documentation Taken 10/17/2024 1700 by Yovana Mayfield RN Bleeding Precautions: blood pressure closely monitored Taken 10/17/2024 1200 by Yovana Mayfield RN Bleeding Precautions: blood pressure closely monitored Taken 10/17/2024 0800 by Yovana Mayfield RN Bleeding Precautions: blood pressure closely monitored Goal: Blood Glucose Level Within Targeted Range Outcome: Progressing Intervention: Optimize Glycemic Control Recent Flowsheet Documentation Taken 10/17/2024 170 by Yovana Mayfield RN Hyperglycemia Management: blood glucose monitored Hypoglycemia Management: blood glucose monitored Taken 10/17/2024 1200 by Yovana Mayfield RN Hyperglycemia Management: blood glucose monitored Hypoglycemia Management: blood glucose monitored Taken 10/17/2024 0800 by Yovana Mayfield RN Hyperglycemia Management: blood glucose monitored Hypoglycemia Management: blood glucose monitored Goal: Absence of Infection Signs and Symptoms Outcome: Progressing Intervention: Promote Stabilization Recent Flowsheet Documentation Taken 10/17/2024 1700 by Yovana Mayfield RN Fluid/Electrolyte Management: oral rehydration therapy initiated Taken 10/17/2024 1200 by Yovana Mayfield RN Fluid/Electrolyte Management: oral rehydration therapy initiated Taken 10/17/2024 0800 by Yovana Mayfield RN Fluid/Electrolyte Management: oral rehydration therapy initiated Intervention: Promote Recovery Recent Flowsheet Documentation Taken 10/17/2024 170 by Yovana Mayfield RN Airway/Ventilation Management: airway patency maintained Sleep/Rest Enhancement: comfort measures Activity Management: activity adjusted per tolerance Taken 10/17/2024 1600 by Yovana Mayfield RN Activity Management: activity adjusted per tolerance Taken 10/17/2024 1200 by Yovana Mayfield RN Airway/Ventilation Management: airway patency maintained Sleep/Rest Enhancement: comfort measures Activity Management: activity adjusted per tolerance Taken 10/17/2024 0800 by Yovana Mayfield RN Airway/Ventilation Management: airway patency maintained Sleep/Rest Enhancement: comfort measures Activity Management: activity adjusted per tolerance Goal: Optimal Nutrition Intake Outcome: Progressing Intervention: Optimize Nutrition Delivery Recent Flowsheet Documentation Taken 10/17/2024 1700 by Yovana Mayfield RN Nutrition Support Management: weight trending reviewed Taken 10/17/2024 1200 by Yovana Mayfield RN Nutrition Support Management: weight trending reviewed Taken 10/17/2024 0800 by Yovana Mayfield RN Nutrition Support Management: weight trending reviewed Yovana Mayfield RN * Plan of Care - Trang Vicente RN - 10/17/2024 7:32 AM CDT Goal Outcome Evaluation: Plan of Care Reviewed With: patient, spouse Overall Patient Progress: improvingOverall Patient Progress: improving Outcome Evaluation: no pain, VSS Problem: Adult Inpatient Plan of Care Goal: Plan of Care Review Description: The Plan of Care Review/Shift note should be completed every shift. The Outcome Evaluation is a brief statement about your assessment that the patient is improving, declining, or no change. This information will be displayed automatically on your shiftnote. Outcome: Not Progressing Flowsheets (Taken 10/17/2024 0732) Outcome Evaluation: no pain, VSS Plan of Care Reviewed With: patient spouse Overall Patient Progress: improving Goal: Patient-Specific Goal (Individualized) Description: You can add care plan individualizations to a care plan. Examples of Individualizationmight be: Parent requests to be called daily at 9am for status, I have a hard time hearing out of my right ear, or Do not touch me to wake me up as it startlesme. Outcome: Not Progressing Goal: Absence of Hospital-Acquired Illness or Injury Outcome: Not Progressing Intervention: Identify and Manage Fall Risk Recent Flowsheet Documentation Taken 10/17/2024 0428 by Trang Vicente RN Safety Promotion/Fall Prevention: activity supervised assistive device/personal items within reach clutter free environment maintained increased rounding and observation increase visualization of patient lighting adjusted nonskid shoes/slippers when out of bed room near nurse's station room organization consistent safety round/check completed treat underlying cause treat reversible contributory factors Taken 10/16/20242349 by Trang Vicente RN Safety Promotion/Fall Prevention: activity supervised assistive device/personal items within reach clutter free environment maintained increased rounding and observation increase visualization of patient lighting adjusted nonskid shoes/slippers when out of bed room near nurse's station room organization consistent safety round/check completed treat underlying cause treat reversible contributory factors Taken 10/16/20241999 by Trang Vicente RN Safety Promotion/Fall Prevention: activity supervised assistive device/personal items within reach clutter free environment maintained increased rounding and observation increase visualization of patient lighting adjusted nonskid shoes/slippers when out of bed room near nurse's station room organization consistent safety round/check completed treat underlying cause treat reversible contributory factors Intervention: Prevent Skin Injury Recent Flowsheet Documentation Taken 10/17/2024 0630 by Trang Vicente RN Body Position: position changed independently Taken 10/17/2024 042 by Trang Vicente RN Body Position: position changed independently Skin Protection: adhesive use limited Taken 10/17/2024 020 by Trang Vicente RN Body Position: position changed independently Taken 10/16/20242349 by Trang Vicente RN Body Position: position changed independently Skin Protection: adhesive use limited Taken 10/16/20241999 by Trang Vicente RN Body Position: position changed independently Skin Protection: adhesive use limited Intervention: Prevent and Manage VTE (Venous Thromboembolism) Risk Recent Flowsheet Documentation Taken 10/17/2024427 by Trang Vicente RN VTE Prevention/Management: (ambulating) SCDs off (sequential compression devices) Taken 10/16/20242349 by Trang Vicente RN VTE Prevention/Management: (ambulating) SCDs off (sequential compression devices) Taken 10/16/20241999 by Trang Vicente RN VTE Prevention/Management: (ambulating) SCDs off (sequential compression devices) Goal: Optimal Comfort and Wellbeing Outcome: Not Progressing Intervention: Provide Person-Centered Care Recent Flowsheet Documentation Taken 10/17/2024427 by Trang Vicente RN Trust Relationship/Rapport: care explained choices provided empathic listening provided questions answered questions encouraged reassurance provided thoughts/feelings acknowledged Taken 10/16/2024 2350 by Trang Vicente RN Trust Relationship/Rapport: care explained choices provided empathic listening provided questions answered questions encouraged reassurance provided thoughts/feelings acknowledged Taken 10/16/20241999 by Trang Vicente RN Trust Relationship/Rapport: care explained choices provided empathic listening provided questions answered questions encouraged reassurance provided thoughts/feelings acknowledged Goal: Readiness for Transition of Care Outcome: Not Progressing * Plan of Care - Yovana Mayfield RN - 10/16/2024 6:49 PM CDT Major shift events: Patient completed ERCP. Afebrile, denies pain. Neuro: A&Ox4. Cardiac: Sinus tach. VSS. Respiratory: Sating 94-100% on RA. Weaned to RA. GI/: Adequate urine output. Urine sonny/dark. Diet/appetite: Tolerating clear liquid diet. Activity: SBA, up to chair. Pain: At acceptable level on current regimen. Denies pain. Reported headache x1. Given tylenol. Skin: No new deficits noted. LDA's: PIV intact x1. Plan: Continue with POC. Notify primary team with changes. Goal Outcome Evaluation: Plan of Care Reviewed With: patient, spouse Overall Patient Progress: improvingOverall Patient Progress: improving Outcome Evaluation: See note Problem: Adult Inpatient Plan of Care Goal: Plan of Care Review Description: The Plan of Care Review/Shift note should be completed every shift. The Outcome Evaluation is a brief statement about your assessment that the patient is improving, declining, or no change. This information will be displayed automatically on your shiftnote. 10/16/20241848 by Yovana Mayfield RN Outcome: Progressing Flowsheets (Taken 10/16/20241848) Outcome Evaluation: See note Plan of Care Reviewed With: patient spouse Overall Patient Progress: improving 10/16/20241822 by Yovana Mayfield RN Outcome: Progressing Flowsheets (Taken 10/16/20241822) Plan of Care Reviewed With: patient spouse Overall Patient Progress: improving Goal: Patient-Specific Goal (Individualized) Description: You can add care plan individualizations to a care plan. Examples of Individualizationmight be: Parent requests to be called daily at 9am for status, I have a hard time hearing out of my right ear, or Do not touch me to wake me up as it startlesme. 10/16/2024 184 by Yovana Mayfield RN Outcome: Progressing 10/16/20241822 by Yovana Mayfield RN Outcome: Progressing Goal: Absence of Hospital-Acquired Illness or Injury 10/16/20241848 by Yovana Mayfield RN Outcome: Progressing 10/16/20241822 by Yovana Mayfield RN Outcome: Progressing Intervention: Identify and Manage Fall Risk Recent Flowsheet Documentation Taken 10/16/2024 1600 by Yovana Mayfield RN Safety Promotion/Fall Prevention: activity supervised assistive device/personal items within reach clutter free environment maintained increased rounding and observation increase visualization of patient lighting adjusted room near nurse's station safety round/check completed Taken 10/16/2024 0800 by Yovana Mayfield RN Safety Promotion/Fall Prevention: activity supervised assistive device/personal items within reach clutter free environment maintained increased rounding and observation increase visualization of patient lighting adjusted room near nurse's station safety round/check completed Intervention: Prevent Skin Injury Recent Flowsheet Documentation Taken 10/16/2024 1600 by Yovana Mayfield RN Body Position: position changed independently Taken 10/16/2024 1430 by Yovana Mayfield RN Body Position: position changed independently Taken 10/16/2024 0800 by Yovana Mayfield RN Body Position: position changed independently Intervention: Prevent and Manage VTE (Venous Thromboembolism) Risk Recent Flowsheet Documentation Taken 10/16/2024 1600 by Yovana Mayfield RN VTE Prevention/Management: SCDs off (sequential compression devices) Taken 10/16/2024 0800 by Yovana Mayfield RN VTE Prevention/Management: SCDs off (sequential compression devices) Goal: Optimal Comfort and Wellbeing 10/16/20241848 by Yovana Mayfield RN Outcome: Progressing 10/16/20241822 by Yovana Mayfield RN Outcome: Progressing Intervention: Monitor Pain and Promote Comfort Recent Flowsheet Documentation Taken 10/16/2024 0800 by Yovana Mayfield RN Pain Management Interventions: declines Intervention: Provide Person-Centered Care Recent Flowsheet Documentation Taken 10/16/2024 1600 by Yovana Mayfield RN Trust Relationship/Rapport: care explained choices provided empathic listening provided emotional support provided questions answered questions encouraged reassurance provided thoughts/feelings acknowledged Taken 10/16/2024 0800 by Yovana Mayfield RN Trust Relationship/Rapport: care explained choices provided empathic listening provided emotional support provided questions answered questions encouraged reassurance provided thoughts/feelings acknowledged Goal: Readiness for Transition of Care 10/16/2024 184 by Yovana Mayfield RN Outcome: Progressing 10/16/20241822 by Yovana Mayfield RN Outcome: Progressing Problem: Pain Acute Goal: Optimal Pain Control and Function 10/16/20241848 by Yovana Mayfield RN Outcome: Progressing 10/16/20241822 by Yovana Mayfield RN Outcome: Progressing Intervention: Optimize Psychosocial Wellbeing Recent Flowsheet Documentation Taken 10/16/2024 1600 by Yovana Mayfield RN Supportive Measures: active listening utilized positive reinforcement provided relaxation techniques promoted Taken 10/16/2024 0800 by Yovana Mayfield RN Supportive Measures: active listening utilized positive reinforcement provided relaxation techniques promoted Intervention: Develop Pain Management Plan Recent Flowsheet Documentation Taken 10/16/2024 0800 by Yovana Mayfield RN Pain Management Interventions: declines Intervention: Prevent or Manage Pain Recent Flowsheet Documentation Taken 10/16/2024 1600 by Yovana Mayfield RN Sleep/Rest Enhancement: comfort measures Medication Review/Management: medications reviewed Taken 10/16/2024 0800 by Yovana Mayfield RN Sleep/Rest Enhancement: comfort measures Medication Review/Management: medications reviewed Problem: Sepsis/Septic Shock Goal: Optimal Coping 10/16/20241848 by Yovana Mayfield RN Outcome: Progressing 10/16/20241822 by Yovana Mayfield RN Outcome: Progressing Intervention: Optimize Psychosocial Adjustment to Illness Recent Flowsheet Documentation Taken 10/16/2024 1600 by Yovana Mayfield RN Supportive Measures: active listening utilized positive reinforcement provided relaxation techniques promoted Family/Support System Care: self-care encouraged support provided presence promoted Taken 10/16/2024 0800 by Yovana Mayfield RN Supportive Measures: active listening utilized positive reinforcement provided relaxation techniques promoted Family/Support System Care: self-care encouraged support provided presence promoted Goal: Absence of Bleeding 10/16/2024 184 by Yovana Mayfield RN Outcome: Progressing 10/16/2024 1823 by Yovana Mayfield RN Outcome: Progressing Goal: Blood Glucose Level Within Targeted Range 10/16/2024 184 by Yovana Mayfield RN Outcome: Progressing 10/16/2024 1823 by Yovana Mayfield RN Outcome: Progressing Goal: Absence of Infection Signs and Symptoms 10/16/20241848 by Yovana Mayfield RN Outcome: Progressing 10/16/2024 182 by Yovana Mayfield RN Outcome: Progressing Intervention: Promote Recovery Recent Flowsheet Documentation Taken 10/16/2024 1600 by Yovana Mayfield RN Sleep/Rest Enhancement: comfort measures Activity Management: bedrest Taken 10/16/2024 1430 by Yovana Mayfield RN Activity Management: bedrest Taken 10/16/2024 0800 by Yovana Mayfield RN Sleep/Rest Enhancement: comfort measures Activity Management: bedrest Goal: Optimal Nutrition Intake 10/16/20241848 by Yovana Mayfield RN Outcome: Progressing 10/16/2024 182 by Yovana Mayfield RN Outcome: Progressing Yovana Mayfield RN * Plan of Care - Mireya Alejandra RN - 10/16/2024 5:58 AM CDT ICU End of Shift Summary. For vital signs and complete assessments, please see documentation flowsheets. Pertinent assessments: Neuro: A&Ox4, CALZADA, follows commands. Cardiac: MAPs >65. SBPs mainly 90s to low 100s. HR one-teens to 120s. Tele: Sinus tach. Resp: LS clear, dim in bases. On 2L NC. GI:BS+, denies nausea. RUQ tender. ABD discomfort. : Voiding spontaneously on own. 1125ml out this shift. Skin: See flowsheets. Lines: PIVx1 Drips: None Major Shift Events: Blood cultures came back positive for gram negative bacilli. Blood cultures organism came back at [facility]. Has been NPO since 0000. Plan (Upcoming Events): GI consult pending-possible ERCP, echo to be completed, general surgery consult? Discharge/Transfer Needs: TBD Bedside Shift Report Completed : Yes Bedside Safety Check Completed: Yes Goal Outcome Evaluation: Plan of Care Reviewed With: patient Overall Patient Progress: improvingOverall Patient Progress: improving Outcome Evaluation: see note Problem: Adult Inpatient Plan of Care Goal: Plan of Care Review Description: The Plan of Care Review/Shift note should be completed every shift. The Outcome Evaluation is a brief statement about your assessment that the patient is improving, declining, or no change. This information will be displayed automatically on your shiftnote. Outcome: Progressing Flowsheets (Taken 10/16/2024557) Outcome Evaluation: see note Plan of Care Reviewed With: patient Overall Patient Progress: improving Goal: Patient-Specific Goal (Individualized) Description: You can add care plan individualizations to a care plan. Examples of Individualizationmight be: Parent requests to be called daily at 9am for status, I have a hard time hearing out of my right ear, or Do not touch me to wake me up as it startlesme. Outcome: Progressing Goal: Absence of Hospital-Acquired Illness or Injury Outcome: Progressing Intervention: Identify and Manage Fall Risk Recent Flowsheet Documentation Taken 10/16/2024329 by Mireya Alejandra RN Safety Promotion/Fall Prevention: activity supervised assistive device/personal items within reach clutter free environment maintained increased rounding and observation increase visualization of patient lighting adjusted room near nurse's station safety round/check completed Intervention: Prevent Skin Injury Recent Flowsheet Documentation Taken 10/16/2024329 by Mireya Alejandra RN Body Position: position changed independently Intervention: Prevent and Manage VTE (Venous Thromboembolism) Risk Recent Flowsheet Documentation Taken 10/16/2024329 by Mireya Alejandra, RN VTE Prevention/Management: SCDs off (sequential compression devices) Goal: Optimal Comfort and Wellbeing Outcome: Progressing Intervention: Provide Person-Centered Care Recent Flowsheet Documentation Taken 10/16/2024329 by Mireya Alejandra RN Trust Relationship/Rapport: care explained choices provided empathic listening provided emotional support provided questions answered questions encouraged reassurance provided thoughts/feelings acknowledged Goal: Readiness for Transition of Care Outcome: Progressing Problem: Pain Acute Goal: Optimal Pain Control and Function Outcome: Progressing Intervention: Optimize Psychosocial Wellbeing Recent Flowsheet Documentation Taken 10/16/2024329 by Mireya Alejandra RN Supportive Measures: active listening utilized positive reinforcement provided relaxation techniques promoted Intervention: Prevent or Manage Pain Recent Flowsheet Documentation Taken 10/16/2024329 by Mireya Alejandra RN Sensory Stimulation Regulation: auditory stimulation minimized care clustered lighting decreased quiet environment promoted Sleep/Rest Enhancement: awakenings minimized family presence promoted noise level reduced regular sleep/rest pattern promoted relaxation techniques promoted room darkened Medication Review/Management: medications reviewed Problem: Sepsis/Septic Shock Goal: Optimal Coping Outcome: Progressing Intervention: Optimize Psychosocial Adjustment to Illness Recent Flowsheet Documentation Taken 10/16/2024329 by Mireya Alejandra RN Supportive Measures: active listening utilized positive reinforcement provided relaxation techniques promoted Goal: Absence of Bleeding Outcome: Progressing Goal: Blood Glucose Level Within Targeted Range Outcome: Progressing Goal: Absence of Infection Signs and Symptoms Outcome: Progressing Intervention: Promote Recovery Recent Flowsheet Documentation Taken 10/16/2024329 by Mireya Alejandra RN Sleep/Rest Enhancement: awakenings minimized family presence promoted noise level reduced regular sleep/rest pattern promoted relaxation techniques promoted room darkened Activity Management: bedrest Goal: Optimal Nutrition Intake Outcome: Progressing * Code/Rapid Response - Isis Lane RN - 10/16/2024 2:49 AM CDT Dionna0 - RN called into room by other RN. Patient with increased WOB, audible wheezing and patient complaining of sudden onset of severe SOB. SpO2 91-92 % on RA at this time. Patient place on 10L oxymask d/t patient's complaint of SOB. At this time, patient stating mild abdominal pain of a 3/10. 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 Polly FIGUEROA MD and flyer at bedside. Patient placed on continuous pulse oximetry; patient tachycardic, tachypneic to 42, and unable to obtain a BP d/t patient shaking. RT at bedside and neb given per MD. Patient placed on BIPAP with some improvement. 0223 - xray to bedside. 0224 - Lab to bedside and labs drawn. 0238 - patient down to CT with RT and RN. Plan for patient to transfer to room [address] * Plan of Care - Isis Lane RN - 10/15/2024 11:12 PM CDT Goal Outcome Evaluation: Plan of Care Reviewed With: patient Overall Patient Progress: improvingOverall Patient Progress: improving Patient admitted to room 242 from ED with . Initial nursing assessment and admission questions completed. Patient and oriented to room and unit procedures. VSS. Patient rating pain as a 2/10. Patient stating no additional medications needed at this time. Patient encouraged to call RN if patient starts having increased pain. Patient stated an understanding. PIV site c/d/I and flushed. Patient informed of CLQ till 0000 and NPO at 0000. Patient stated an understanding. Will continue with cares and will notify service with any questions or concerns. Problem: Adult Inpatient Plan of Care Goal: Plan of Care Review Description: The Plan of Care Review/Shift note should be completed every shift. The Outcome Evaluation is a brief statement about your assessment that the patient is improving, declining, or no change. This information will be displayed automatically on your shiftnote. Outcome: Progressing Flowsheets (Taken 10/15/2024 2312) Plan of Care Reviewed With: patient Overall Patient Progress: improving Goal: Patient-Specific Goal (Individualized) Description: You can add care plan individualizations to a care plan. Examples of Individualizationmight be: Parent requests to be called daily at 9am for status, I have a hard time hearing out of my right ear, or Do not touch me to wake me up as it startlesme. Outcome: Progressing Goal: Absence of Hospital-Acquired Illness or Injury Outcome: Progressing Intervention: Identify and Manage Fall Risk Recent Flowsheet Documentation Taken 10/15/20242114 by Isis Lane RN Safety Promotion/Fall Prevention: activity supervised clutter free environment maintained nonskid shoes/slippers when out of bed Intervention: Prevent Skin Injury Recent Flowsheet Documentation Taken 10/15/20242114 by Isis Lane RN Body Position: position changed independently Goal: Optimal Comfort and Wellbeing Outcome: Progressing Goal: Readiness for Transition of Care Outcome: Progressing Intervention: Mutually Develop Transition Plan Recent Flowsheet Documentation Taken 10/15/20242199 by Isis Lane RN Equipment Currently Used at Home: none Problem: Pain Acute Goal: Optimal Pain Control and Function Outcome: Progressing Intervention: Prevent or Manage Pain Recent Flowsheet Documentation Taken 10/15/20242114 by Isis Lane RN Medication Review/Management: medications reviewed * Pharmacy-Admission Medication History - Steve Robledo RPH - 10/15/2024 7:05 PM CDT Pharmacist Admission Medication History Admission medication history is complete. The information provided in this note is only as accurateas the sources available at the time of the update. Information Source(s): Patient, Family member, and CareEverywhere/SureScripts via in-person Pertinent Information: none Changes made to [employer] medication list: Added: mvi Deleted: None Changed: omeprazole Allergies reviewed with patient and updates made in EHR: yes Medication History Completed By: Steve Robledo RPH 10/15/2024 7:05 PM [employer] Med List Medication Sig Last Dose/Taking multivitamin (CENTRUM SILVER) tablet Take 1 tablet by mouth daily. 10/15/2024 Morning omeprazole (PRILOSEC OTC) 20 MG EC tablet Take 20 mg by mouth daily. (Patient taking differently: Take 40 mg by mouth daily.) 10/15/2024 Morning documented in this encounter Plan of Treatment Upcoming Encounters Date Type Department Care Team (Late st Contact Info) Description 12/09/2024 8:30 AM CDT Office Visit [facility] [address] [place] [id number] Henri Castañeda PA-C [address] [facility] [place] [address] Scheduled Referrals Name Type Priority Associated Diagnoses Orde r Schedule Hospital to Primary Care - Establish PCP Referral Referral Priority: 1-2 Weeks Acute sepsis (H) Expected: 10/21/2024 (Approximate), Expires: 11/20/2024 documented as of this encounter Procedures Procedure Name Priority Date/Time Associated Diagnosis Comments COMPREHENSIVE METABOLIC PANEL Routine 7:10 AM CDT CBC WITH PLATELETS Routine 10/21/2024 7:10 AM CDT XR CHEST PORT 1 VIEW STAT 10/20/2024 3:45 PM CDT COMPREHENSIVE METABOLIC PANEL Routine 7:39 AM CDT CBC WITH PLATELETS Routine 10/20/2024 7:[address] ABDOMEN PELVIS W CONTRAST STAT 6:49 PM CDT XR CHEST PORT 1 VIEW STAT 10/19/2024 3:25 PM CDT XR ABDOMEN 1 VIEW Routine 10/19/2024 9:55 AM CDT COMPREHENSIVE METABOLIC PANEL Routine 7:23 AM CDT CBC WITH PLATELETS Routine 10/19/2024 7:23 AM CDT LACTIC ACID WHOLE BLOOD STAT 10/19/19 11:54 PM CDT CBC WITH PLATELETS STAT 10/18/2024 11:54 PM CDT EKG 12-LEAD, TRACING ONLY Routine 2024 11:42 PM CDT BLOOD CULTURE STAT 10/18/2024 2:55 PM CDT BLOOD CULTURE STAT 10/18/2024 2:55 PM CDT SURGICAL PATHOLOGY EXAM Routine 10/19/19 11:29 AM CDT LAP,CHOLECYSTECTOMY/EXPLORE 10/03 9:40 AM CDT Cholangitis (H) LAP,CHOLECYSTECTOMY/GRAPH 2024 9:40 AM CDT Cholangitis (H) LAPAROSCOPY, SURGICAL; CHOLECYSTECTOMY 10/18/2024 9:40 AM CDT Cholangitis (H) ECHO LIMITED Routine 10/18/2024 7:57 AM CDT COMPREHENSIVE METABOLIC PANEL Routine 7:20 AM CDT CBC WITH PLATELETS Routine 10/18/2024 7:20 AM CDT GLUCOSE BY METER Routine 10/17/2024 4:07 PM CDT GLUCOSE BY METER Routine 10/17/2024 12:15 PM CDT GLUCOSE BY METER Routine 10/17/2024 7:54 AM CDT COMPREHENSIVE METABOLIC PANEL Routine 5:50 AM CDT CBC WITH PLATELETS Routine 10/17/2024 5:50 AM CDT GLUCOSE BY METER Routine 10/17/2024 4:25 AM CDT GLUCOSE BY METER Routine 10/16/2024 11:43 PM CDT GLUCOSE BY METER Routine 10/16/2024 8:25 PM CDT EKG 12-LEAD, TRACING ONLY Routine 2024 3:12 PM CDT GLUCOSE BY METER Routine 10/16/2024 2:43 PM CDT XR ERCP Routine 10/16/2024 1:37 PM CDT ERCP W REMOVAL OF STONE, BILIARY/PANCREATIC DUCT 10/16/2024 12:52 PM CDT Cholecystitis Common bile duct dilation ECHO COMPLETE WITH CONTRAST Routine 10/03 10:47 AM CDT ENDOSCOPIC RETROGRADE CHOLANGIOPANCREATOGRAPHY Routine 10/16/2024 10:40 AM CDT POTASSIUM Timed 10/16/2024 10:39 AM CDT LACTIC ACID WHOLE BLOOD Routine 10/17/19 8:19 AM CDT GLUCOSE BY METER Routine 10/16/2024 7:55 AM CDT EXTRA PURPLE TOP EDTA (LAB USE ONLY) Routine 10/16/2024 5:35 AM CDT POTASSIUM Routine 10/16/2024 5:35 AM CDT LACTIC ACID WHOLE BLOOD Timed 10/17/19 5:35 AM CDT GLUCOSE BY METER Routine 10/16/2024 3:[address] CHEST PULMONARY EMBOLISM W CONTRAST STAT 10/16/2024 2:55 AM CDT INR Routine 10/16/2024 2:24 AM CDT NT-PROBNP STAT Add-on 10/16/2024 2:24 AM CDT LACTIC ACID WHOLE BLOOD STAT 10/17/19 2:24 AM CDT D DIMER QUANTITATIVE STAT 10/16/2024 2:24 AM CDT COMPREHENSIVE METABOLIC PANEL Routine 2:24 AM CDT CBC WITH PLATELETS Routine 10/16/2024 2:24 AM CDT XR CHEST PORT 1 VIEW STAT 10/16/2024 2:23 AM CDT US ABDOMEN LIMITED STAT 10/15/2024 6:05 PM CDT BLOOD CULTURE ID PANEL, PCR Routine 10/03 5:09 PM CDT BLOOD CULTURE STAT 10/15/2024 5:09 PM CDT BLOOD CULTURE STAT 10/15/2024 4:31 PM CDT EXTRA TUBE STAT 10/15/2024 3:10 PM CDT EXTRA RED TOP TUBE STAT 10/15/2024 3:10 PM CDT EXTRA BLUE TOP TUBE STAT 10/15/2024 3:10 PM CDT CBC WITH PLATELETS AND DIFFERENTIAL STAT 10/15/2024 3:10 PM CDT CBC WITH PLATELETS & DIFFERENTIAL STAT 10/15/2024 3:10 PM CDT NT-PROBNP STAT Add-on 10/15/2024 3:10 PM CDT LIPASE STAT 10/15/2024 3:10 PM CDT COMPREHENSIVE METABOLIC PANEL STAT 3:10 PM CDT BILIRUBIN DIRECT STAT 10/15/2024 3:10 PM CDT ETHANOL LEVEL BLOOD STAT 10/15/2024 3:10 PM CDT ACETAMINOPHEN LEVEL STAT 10/15/2024 3:10 PM CDT documented in this encounter Results * (ABNORMAL) CBC with platelets (10/21/2024 7:10 AM CDT) WBC Count 11.7(H) 4.0 - 11.0 10e3/uL 10/21/2024 7:25 AM CDT [facility] RBC Count 4.54 4.40 - 5.90 10e6/uL 10/21/2024 7:25 AM CDT [facility] Hemoglobin 13.6 13.3 - 17.7 g/dL 10/21/2024 7:25 AM CDT [facility] Hematocrit 39.5(L) 40.0 - 53.0 % 10/21/2024 7:25 AM CDT [facility] MCV 87 78 - 100 fL 10/21/2024 7:25 AM CDT [facility] MCH 30.0 26.5 - 33.0 pg 10/21/2024 7:25 AM CDT [facility] MCHC 34.4 31.5 - 36.5 g/dL 10/21/2024 7:25 AM CDT [facility] RDW 13.6 10.0 - 15.0 % 10/21/2024 7:25 AM CDT [facility] Platelet Count 311 150 - 450 10e3/uL 10/21/2024 7:25 AM CDT [facility] Blood STRUCTURE OF LEFT UPPER LIMB / Unknown Venipuncture / Unknown 10/21/2024 7:10 AM CDT 10/21/2024 7:22 AM CDT us Stevo A Ricki DO LAB - BLOOD ORDERABLES Final R esult [facility] [address] Lab (1st floor, no room number) [place] [address], [facility] * (ABNORMAL) Comprehensive metabolic panel (10/21/2024 7:10 AM CDT) Sodium 135 135 - 145 mmol/L 10/21/2024 7:57 AM CDT [facility] Potassium 3.6 3.4 - 5.3 mmol/L 10/21/2024 7:57 AM CDT LABORATORY Carbon Dioxide (CO2) 26 22 - 29 mmol/L 10/21/2024 7:57 AM CDT LABORATORY Anion Gap 14 7 - 15 mmol/L 10/21/2024 7:57 AM CDT LABORATORY Urea Nitrogen 20.5 8.0 - 23.0 mg/dL 10/21/2024 7:57 AM CDT LABORATORY Creatinine 0.84 0.67 - 1.17 mg/dL 10/21/2024 7:57 AM CDT LABORATORY GFR Estimate >90 >60 mL/min/1.7 3m2 10/21/2024 7:57 AM CDT LABORATORY Comment:eGFR calculated 2020 CKD-EPI equation. Calcium 9.1 8.8 - 10.4 mg/dL 10/21/2024 7:57 AM [facility] Chloride 95(L) 98 - 107 mmol/L 10/21/2024 7:57 AM [facility] Glucose 125(H) 70 - 99 mg/dL 10/21/2024 7:57 AM CDT LABORATORY Alkaline Phosphatase 127 40 - 150 U/L 10/21/2024 7:57 AM CDT LABORATORY AST 31 0 - 45 U/L 10/21/2024 7:57 AM CDT LABORATORY ALT 143(H) 0 - 70 U/L 10/21/2024 7:57 AM [facility] Protein Total 7.1 6.4 - 8.3 g/dL 10/21/2024 7:57 AM [facility] Albumin 3.5 3.5 - 5.2 g/dL 10/21/2024 7:57 AM [facility] Bilirubin Total 1.9(H) <=1.2 mg/dL 10/21/2024 7:57 AM [facility] Blood STRUCTURE OF LEFT UPPER LIMB / Unknown Venipuncture / Unknown 10/21/2024 7:10 AM CDT 10/21/2024 7:22 AM CDT us Stevo A Ricki DO LAB - BLOOD ORDERABLES Final R esult LABORATORY [facility] [address] Lab (1st floor, no room number) [place] [address] * XR Chest Port 1 View (10/20/2024 3:45 PM CDT) Anatomical Region Laterality Modality Chest Digital Radiogra phy 10/20/2024 3:45 PM CDT Impressions 10/20/2024 3:58 PM CDT IMPRESSION: Stable size of cardiomediastinal silhouette. Low lung volumes with likely linear bibasilar atelectasis. No davin airspace consolidation, pleural effusion or pneumothorax. Small volume pneumoperitoneum, not significantly changed from recent chest radiograph and CT abdomen/pelvis. Narrative 10/20/2024 3:58 PM CDT EXAM: XR CHEST PORT 1 VIEW LOCATION: [facility] DATE: 10/20/2024 INDICATION: Shortness of breath COMPARISON: Chest radiograph and CT abdomen/pelvis 10/19/2024. Procedure Note Rudy Foss MD - 10/20/2024 EXAM: XR CHEST PORT 1 VIEW LOCATION: [facility] DATE: 10/20/2024 INDICATION: Shortness of breath COMPARISON: Chest radiograph and CT abdomen/pelvis 10/19/2024. IMPRESSION: Stable size of cardiomediastinal silhouette. Low lung volumeswith likely linear bibasilar atelectasis. No davin airspace consolidation,pleural effusion or pneumothorax. Small volume pneumoperitoneum, notsignificantly changed from recent chest radiograph and CT abdomen/pelvis. Bradford [address] MD IMG DIAGNOSTIC MEGHAN GING ORDERABLES Final Result * (ABNORMAL) CBC with platelets (10/20/2024 7:39 AM CDT) WBC Count 15.5(H) 4.0 - 11.0 10e3/uL 10/20/2024 8:05 AM CDT [facility] RBC Count 4.85 4.40 - 5.90 10e6/uL 10/20/2024 8:05 AM CDT [facility] Hemoglobin 14.4 13.3 - 17.7 g/dL 10/20/2024 8:05 AM CDT [facility] Hematocrit 42.0 40.0 - 53.0 % 10/20/2024 8:05 AM CDT LABORATORY MCV 87 78 - 100 fL 10/20/2024 8:05 AM CDT LABORATORY MCH 29.7 26.5 - 33.0 pg 10/20/2024 8:05 AM CDT LABORATORY MCHC 34.3 31.5 - 36.5 g/dL 10/20/2024 8:05 AM CDT LABORATORY RDW 13.6 10.0 - 15.0 % 10/20/2024 8:05 AM CDT LABORATORY Platelet Count 246 150 - 450 10e3/uL 10/20/2024 8:05 AM CDT LABORATORY Blood STRUCTURE OF RIGHT UPPER LIMB / Unknown Venipuncture / Unknown 10/20/2024 7:39 AM CDT 10/20/2024 8:00 AM CDT us Stevo A Ricki DO LAB - BLOOD ORDERABLES Final R esult LABORATORY [facility] [address] Lab (1st floor, no room number) [place] [address], [facility] * (ABNORMAL) Comprehensive metabolic panel (10/20/2024 7:39 AM CDT) Sodium 136 135 - 145 mmol/L 10/20/2024 8:21 AM CDT LABORATORY Potassium 4.1 3.4 - 5.3 mmol/L 10/20/2024 8:21 AM CDT LABORATORY Carbon Dioxide (CO2) 25 22 - 29 mmol/L 10/20/2024 8:21 AM CDT LABORATORY Anion Gap 12 7 - 15 mmol/L 10/20/2024 8:21 AM CDT LABORATORY Urea Nitrogen 17.6 8.0 - 23.0 mg/dL 10/20/2024 8:21 AM CDT LABORATORY Creatinine 0.82 0.67 - 1.17 mg/dL 10/20/2024 8:21 AM CDT LABORATORY GFR Estimate >90 >60 mL/min/1.7 3m2 10/20/2024 8:21 AM CDT LABORATORY Comment:eGFR calculated usin 2020 CKD-EPI equation. Calcium 9.2 8.8 - 10.4 mg/dL 10/20/2024 8:21 AM CDT LABORATORY Chloride 99 98 - 107 mmol/L 10/20/2024 8:21 AM CDT LABORATORY Glucose 133(H) 70 - 99 mg/dL 10/20/2024 8:21 AM CDT LABORATORY Alkaline Phosphatase 121 40 - 150 U/L 10/20/2024 8:21 AM CDT LABORATORY AST 43 0 - 45 U/L 10/20/2024 8:21 AM CDT LABORATORY ALT 201(H) 0 - 70 U/L 10/20/2024 8:21 AM CDT LABORATORY Protein Total 7.0 6.4 - 8.3 g/dL 10/20/2024 8:21 AM CDT LABORATORY Albumin 3.6 3.5 - 5.2 g/dL 10/20/2024 8:21 AM CDT LABORATORY Bilirubin Total 2.5(H) <=1.2 mg/dL 10/20/2024 8:21 AM CDT LABORATORY Blood STRUCTURE OF RIGHT UPPER LIMB / Unknown Venipuncture / Unknown 10/20/2024 7:39 AM CDT 10/20/2024 8:00 AM CDT us Stevo A Ricki DO LAB - BLOOD ORDERABLES Final R esult LABORATORY [facility] [address] Lab (1st floor, no room number) [place] [address], [facility] * CT Abdomen Pelvis w Contrast (10/19/2024 6:49 PM CDT) Anatomical Region Laterality Modality Abdomen/Pelvis, SUBRAD CT SHERRIE DY, UMP CT ABDOMEN PELVIS, RAD CT Computed Tomography 10/19/2024 6:49 PM CDT Impressions 10/19/2024 7:08 PM CDT IMPRESSION: 1. Status post cholecystectomy. No fluid collection in the gallbladder fossa. No biliary dilatation. Small amount of intraperitoneal free air and free fluid, presumably postsurgical. 2. Few mildly dilated small bowel loops in the left upper quadrant, favored to represent focal ileus. No discrete transition point to suggest obstruction. Narrative 10/19/2024 7:08 PM CDT EXAM: CT ABDOMEN PELVIS W CONTRAST LOCATION: [facility] DATE: 10/19/2024 INDICATION: worsening abdominal pain following surgery yesterday COMPARISON: 05/09/2017 TECHNIQUE: CT scan of the abdomen and pelvis was performed following injection of IV contrast. Multiplanar reformats were obtained. Dose reduction techniques were used. CONTRAST: 99mL Isovue 370 FINDINGS: LOWER CHEST: Bibasilar atelectasis. HEPATOBILIARY: Liver appears normal. Status post cholecystectomy. No fluid collection in the gallbladder fossa. No biliary dilatation. PANCREAS: Normal. SPLEEN: Normal. ADRENAL GLANDS: Normal. KIDNEYS/BLADDER: Normal. BOWEL: Few mildly dilated small bowel loops in the left upper quadrant, measuring up to 3.0 cm in diameter. Gradual transition to normal caliber small bowel. No transition point to suggest obstruction. Appendix not visualized, although no secondary signs of acute appendicitis. PERITONEUM/RETROPERITONEUM: Small amount of intraperitoneal free air. Small amount of intraperitoneal free fluid. No focal fluid collection. LYMPH NODES: No lymphadenopathy. VASCULATURE: Mild atherosclerotic calcifications. PELVIC ORGANS: Prostatic calcifications. MUSCULOSKELETAL: Bilateral fat-containing inguinal hernias. Small fat-containing periumbilical hernia. Scattered soft tissue gas in the ventral abdominal wall, presumably postsurgical. Multilevel degenerative changes of the spine. Procedure Note Vipin Barth MD - 10/19/2024 EXAM: CT ABDOMEN PELVIS W CONTRAST LOCATION: [facility] DATE: 10/19/2024 INDICATION: worsening abdominal pain following surgery yesterday COMPARISON: 05/09/2017 TECHNIQUE: CT scan of the abdomen and pelvis was performed followinginjection of IV contrast. Multiplanar reformats were obtained. Dosereduction techniques were used. CONTRAST: 99mL Isovue 370 FINDINGS: LOWER CHEST: Bibasilar atelectasis. HEPATOBILIARY: Liver appears normal. Status post cholecystectomy. No fluidcollection in the gallbladder fossa. No biliary dilatation. PANCREAS: Normal. SPLEEN: Normal. ADRENAL GLANDS: Normal. KIDNEYS/BLADDER: Normal. BOWEL: Few mildly dilated small bowel loops in the left upper quadrant,measuring up to 3.0 cm in diameter. Gradual transition to normal calibersmall bowel. No transition point to suggest obstruction. Appendix notvisualized, although no secondary signs of acute appendicitis. PERITONEUM/RETROPERITONEUM: Small amount of intraperitoneal free air.Small amount of intraperitoneal free fluid. No focal fluid collection. LYMPH NODES: No lymphadenopathy. VASCULATURE: Mild atherosclerotic calcifications. PELVIC ORGANS: Prostatic calcifications. MUSCULOSKELETAL: Bilateral fat-containing inguinal hernias. Smallfat-containing periumbilical hernia. Scattered soft tissue gas in theventral abdominal wall, presumably postsurgical. Multilevel degenerativechanges of the spine. IMPRESSION: 1. Status post cholecystectomy. No fluid collection in the gallbladderfossa. No biliary dilatation. Small amount of intraperitoneal free air andfree fluid, presumably postsurgical. 2. Few mildly dilated small bowel loops in the left upper quadrant,favored to represent focal ileus. No discrete transition point to suggestobstruction. us Jacob Valencia MD IMG CT ORDERABLES Final Resul t * XR Chest Port 1 View (10/19/2024 3:25 PM CDT) Anatomical Region Laterality Modality Chest Digital Radiogra phy 10/19/2024 3:25 PM CDT Impressions 10/19/2024 3:50 PM CDT IMPRESSION: Some free air under the right hemidiaphragm consistent with recent cholecystectomy. Shallow inspiration with some mild new atelectasis in the left lung base. Narrative 10/19/2024 3:50 PM CDT EXAM: XR CHEST PORT 1 VIEW LOCATION: [facility] DATE: 10/19/2024 INDICATION: SOB postop day 1 cholecystectomy. COMPARISON: 10/16/2024 portable chest and 10/16/2024 CT chest Procedure Note Claudia Hyde MD - 10/19/2024 EXAM: XR CHEST PORT 1 VIEW LOCATION: [facility] DATE: 10/19/2024 INDICATION: SOB postop day 1 cholecystectomy. COMPARISON: 10/16/2024 portable chest and 10/16/2024 CT chest IMPRESSION: Some free air under the right hemidiaphragm consistent withrecent cholecystectomy. Shallow inspiration with some mild new atelectasisin the left lung base. us Bradford St MD IMG DIAGNOSTIC [facility]ING ORDERABLES Final Result * XR Abdomen 1 View (10/19/2024 9:55 AM CDT) Anatomical Region Laterality Modality Abdomen/Pelvis Digital Radiogra phy 10/19/2024 9:55 AM CDT Impressions 10/19/2024 1:53 PM CDT IMPRESSION: Postop changes from recent cholecystectomy. Free air under the right hemidiaphragm consistent with recent surgery. Nothing for ileus. Narrative 10/19/2024 1:53 PM CDT EXAM: XR ABDOMEN 1 VIEW LOCATION: [facility] DATE: 10/19/2024 INDICATION: evaluate for ileus, increasing distension, postop day one lateral cholecystectomy. COMPARISON: None. Procedure Note Claudia Hyde MD - 10/19/2024 EXAM: XR ABDOMEN 1 VIEW LOCATION: [facility] DATE: 10/19/2024 INDICATION: evaluate for ileus, increasing distension, postop day onelateral cholecystectomy. COMPARISON: None. IMPRESSION: Postop changes from recent cholecystectomy. Free air under theright hemidiaphragm consistent with recent surgery. Nothing for ileus. us Jacob Valencia MD IMG DIAGNOSTIC IMAGING ORDERA BLES Final Result * (ABNORMAL) CBC with platelets (10/19/2024 7:23 AM CDT) WBC Count 11.4(H) 4.0 - 11.0 10e3/uL 10/19/2024 7:46 AM CDT [facility] RBC Count 4.74 4.40 - 5.90 10e6/uL 10/19/2024 7:46 AM CDT [facility] Hemoglobin 14.2 13.3 - 17.7 g/dL 10/19/2024 7:46 AM CDT [facility] Hematocrit 41.6 40.0 - 53.0 % 10/19/2024 7:46 AM CDT [facility] MCV 88 78 - 100 fL 10/19/2024 7:46 AM CDT [facility] MCH 30.0 26.5 - 33.0 pg 10/19/2024 7:46 AM CDT [facility] MCHC 34.1 31.5 - 36.5 g/dL 10/19/2024 7:46 AM CDT LABORATORY RDW 13.3 10.0 - 15.0 % 10/19/2024 7:46 AM CDT LABORATORY Platelet Count 207 150 - 450 10e3/uL 10/19/2024 7:46 AM CDT LABORATORY Blood STRUCTURE OF RIGHT HAND / Unknown Venipuncture / Unknown 10/19/2024 7:23 AM CDT 10/19/2024 7:34 AM CDT us Stevo Robison DO LAB - BLOOD ORDERABLES Final R esult LABORATORY [facility] [address] [facility] Lab (1st floor, no room number) [place] [address] * (ABNORMAL) Comprehensive metabolic panel (10/19/2024 7:23 AM CDT) Sodium 139 135 - 145 mmol/L 10/19/2024 8:01 AM CDT LABORATORY Potassium 4.6 3.4 - 5.3 mmol/L 10/19/2024 8:01 AM T LABORATORY Carbon Dioxide (CO2) 24 22 - 29 mmol/L 10/19/2024 8:01 AM T LABORATORY Anion Gap 12 7 - 15 mmol/L 10/19/2024 8:01 AM T LABORATORY Urea Nitrogen 12.9 8.0 - 23.0 mg/dL 10/19/2024 8:01 AM T LABORATORY Creatinine 0.74 0.67 - 1.17 mg/dL 10/19/2024 8:01 AM CDT LABORATORY GFR Estimate >90 >60 mL/min/1.7 3m2 10/19/2024 8:01 AM CDT LABORATORY Comment:eGFR calculated us2020 CKD-EPI equation. Calcium 8.8 8.8 - 10.4 mg/dL 10/19/2024 8:01 AM T LABORATORY Chloride 103 98 - 107 mmol/L 10/19/2024 8:01 AM T LABORATORY Glucose 111(H) 70 - 99 mg/dL 10/19/2024 8:01 AM CDT [facility] Alkaline Phosphatase 97 40 - 150 U/L 10/19/2024 8:01 AM CDT [facility] AST 52(H) 0 - 45 U/L 10/19/2024 8:01 AM CDT [facility] ALT 264(H) 0 - 70 U/L 10/19/2024 8:01 AM CDT [facility] Protein Total 6.2(L) 6.4 - 8.3 g/dL 10/19/2024 8:01 AM CDT [facility] Albumin 3.3(L) 3.5 - 5.2 g/dL 10/19/2024 8:01 AM CDT [facility] Bilirubin Total 2.1(H) <=1.2 mg/dL 10/19/2024 8:01 AM CDT [facility] Blood STRUCTURE OF RIGHT HAND / Unknown Venipuncture / Unknown 10/19/2024 7:23 AM CDT 10/19/2024 7:34 AM CDT us Stveo Robison DO LAB - BLOOD ORDERABLES Final R esult [facility] [address] Lab (1st floor, no room number) [place] [id number] [place] [address] * Lactic acid whole blood (10/18/2024 11:54 PM CDT) Lactic Acid 1.2 0.7 - 2.0 mmol/L 10/19/2024 12:03 AM CDT LABORATORY Blood STRUCTURE OF RIGHT HAND / Unknown Venipuncture / Unknown 10/18/2024 11:54 PM CDT 10/18/2024 11:57 PM CDT us Dominique Ortiz MD LAB - BLOOD ORDERABLES Final Result [facility] [address] Lab (1st floor, no room number) [place] [address] * (ABNORMAL) CBC with platelets (10/18/2024 11:54 PM CDT) WBC Count 15.5(H) 4.0 - 11.0 10e3/uL 10/18/2024 11:59 PM CDT [facility] RBC Count 4.56 4.40 - 5.90 10e6/uL 10/18/2024 11:59 PM CDT [facility] Hemoglobin 13.7 13.3 - 17.7 g/dL 10/18/2024 11:59 PM CDT [facility] Hematocrit 39.5(L) 40.0 - 53.0 % 10/18/2024 11:59 PM CDT [facility] MCV 87 78 - 100 fL 10/18/2024 11:59 PM CDT [facility] MCH 30.0 26.5 - 33.0 pg 10/18/2024 11:59 PM CDT [facility] MCHC 34.7 31.5 - 36.5 g/dL 10/18/2024 11:59 PM CDT [facility] RDW 13.4 10.0 - 15.0 % 10/18/2024 11:59 PM CDT [facility] Platelet Count 213 150 - 450 10e3/uL 10/18/2024 11:59 PM CDT [facility] Blood STRUCTURE OF RIGHT HAND / Unknown Venipuncture / Unknown 10/18/2024 11:54 PM CDT 10/18/2024 11:57 PM CDT us Dominique Ortiz MD LAB - BLOOD ORDERABLES Final Result [facility] [address] Lab (1st floor, no room number) [place] [address] * EKG 12-lead, tracing only (10/18/2024 11:42 PM CDT) Systolic Blood Pressure mmHg RADIOLOGY RESULTS Diastolic Blood Pressure mmHg RADIOLOGY RESULTS Ventricular Rate 90 BPM RAD IOLOGY RESULTS Atrial Rate 90 BPM RADIOLOG Y RESULTS MA Interval 144 ms RADIOLOG Y RESULTS QRS Duration 92 ms RADIOLO GY RESULTS QT 352 ms RADIOLOGY RESULTS QTc 430 ms RADIOLOGY RESULTS P [place] 53 degrees RADIOLOGY RESULTS R AXIS -7 degrees RADIOLOGY RESULTS T [place] 21 degrees RADIOLOGY RESULTS Interpretation ECG Sinus rhythm Normal ECG When compared with ECG of 16-Oct-2024 15:12, No significant change was found Confirmed by SATINDER DE LEON ([id number]) on 10/21/2024 4:25:05 PM RADIOLOGY RESULTS 10/18/2024 11:4 2 PM CDT 10/21/2024 4:25 PM CDT us Dominique Ortiz MD ECG ORDERABLES Edited Result - Final RADIOLOGY RESULTS * Blood Culture Peripheral blood (BC) Hand, Right (10/18/2024 2:55 PM CDT) Culture No Growth 10/23/2024 6:32 PM CDT [facility] Peripheral blood (BC) STRUCTURE OF RIGHT HAND / Unknown Venipuncture / Unknown 10/18/2024 2:55 PM CDT 10/18/2024 3:01 PM CDT Narrative [facility] - 10/23/2024 6:32 PM CDT Only an Aerobic Blood Culture Bottle was collected, interpret results with caution. us Julio Cesar Regan MD LAB - MICRO GENERAL ORDERABL ES Final Result Performing Organization Address [facility]/ZIP Co de Phone Number [facility] Inf. Diseases Diag. Lab [address] [facility], Room [place] [phone] * Blood Culture Peripheral blood (BC) Arm, Right (10/18/2024 2:55 PM CDT) Culture No Growth 10/23/2024 6:32 PM CDT [facility] Peripheral blood (BC) STRUCTURE OF RIGHT UPPER LIMB / Unknown Venipuncture / Unknown 10/18/2024 2:55 PM CDT 10/18/2024 3:01 PM CDT us Julio Cesar Regan MD LAB - MICRO GENERAL ORDERABL ES Final Result [facility] Inf. Diseases Diag. Lab [address] [facility], Room [place] [phone] * Surgical Pathology Exam (10/18/2024 11:29 AM CDT) Case Report Surgical Pathology Report Case: [id number] Authorizing [facility] Collected: 10/18/2024 11:29 AM Ordering Location: [facility] Received: 10/18/2024 11:54 AM Main OR Pathologist: Alisa Watts MD Specimen: Gallbladder, GALLBLADDER AND CONTENTS 10/21/2024 12:28 PM CDT LABORATORY Final Diagnosis A(1). Gallbladder, cholecystectomy: -Acute cholecystitis -Negative for dysplasia or malignancy. 10/21/2024 12:28 PM CDT LABORATORY at 1227 CDT Clinical Information Procedure: CHOLECYSTECTOMY, LAPAROSCOPIC Pre-op Diagnosis: Cholangitis (H) [K83.09] Post-op Diagnosis: K83.09 - Cholangitis (H) [ICD-10-CM] 10/21/2024 12:28 PM CDT LABORATORY Gross Description A(1). Gallbladder, GALLBLADDER AND CONTENTS: The specimen is received in formalin, labeled with the patient's name, medical record number and other identifying information designated gallbladder and contents. It consists of a 7.0 x 2.7 x 2.5 cm markedly shaggy, previously disrupted norris-red gallbladder with attached shaggy adipose tissue. The possible cystic duct margin is inked black. The specimen displays a red-norris, velvety mucosa without obvious possible mass or nodularities. No obvious possible calculi are grossly identified within the previously disrupted gallbladder or received free-floating within the specimen container. [employer] sections of the gallbladder to include the possible cystic duct margin (inked black) are submitted in 1 cassette. (WILFREDO Brock (ASCP) 10/18/2024 1:31 PM 10/21/2024 12:28 PM CDT LABORATORY Microscopic Description Microscopic examination was performed. 10/21/2024 12:28 PM CDT LABORATORY Performing Labs The technical component of this testing was completed at [facility]. Stain controls for all stains resulted within this report have been reviewed and show appropriate reactivity. 10/21/2024 12:28 PM CDT [facility] Case Images 10/21/2024 12:28 PM CDT [facility] Tissue GALLBLADDER PART / Unknown 10/18/2024 11:29 AM CDT 10/18/2024 11:54 AM CDT us Dominique Ortiz MD LAB - SHAZIA AP Final Result LABORATORY [facility] [address] [facility] Lab (1st floor, no room number) [place] [address], [facility] * ECHO LIMITED (10/18/2024 7:57 AM CDT) LVEF 55-60% CARDIOLOGY RESULTS Anatomical Region Laterality Modality Echocardiography 10/18/2024 7:35 AM CDT Narrative 10/18/2024 8:56 AM CDT [id number]^RICKI^STEVO^A [facility] [address] [place] [address] Name: SALVADOR AHUMADA Yakelin : 1965 Study Date: 10/18/2024 07:35 AM Age: 59 yrs Gender: Male Patient Location: [facility] Reason For Study: Cardiomyopathy Ordering Physician: STEVO ROBISON Performed By: Katelyn Antonio BSA: 2.1 m2 Height: 69 in Weight: 201 lb HR: 88 BP: 138/96 mmHg Procedure Limited Echocardiogram with two-dimensional, color and spectral Doppler. Interpretation Summary Left ventricular systolic function is normal. The visual ejection fraction is 55-60%. No regional wall motion abnormalities noted. Left Ventricle Left ventricular systolic function is normal. The visual ejection fraction is 55-60%. No regional wall motion abnormalities noted. Right Ventricle The right ventricle is normal in structure, function and size. Mitral Valve The mitral valve is normal in structure and function. There is trace mitral regurgitation. Tricuspid Valve The tricuspid valve is not well visualized, but is grossly normal. The right ventricular systolic pressure is elevated at 33.6 mmHg. Aortic Valve The aortic valve is trileaflet. No aortic regurgitation is present. No aortic stenosis is present. Vessels The inferior vena cava is normal. Pericardium There is no pericardial effusion. MMode/2D Measurements & Calculations IVC diam: 1.9 cm asc Aorta Diam: 3.5 cm Asc Ao diam index BSA (cm/m2): 1.7 Asc Ao diam index Ht(cm/m): 2.0 Doppler Measurements & Calculations TR max onur: 290.0 cm/sec TR max P.6 mmHg Report approved by: Saima Yeung MD on 10/18/2024 08:56 AM Procedure Note Saima Yeung, - 10/18/2024 [id number]^RICKI^STEVO^Yakelin [facility] [address] [place] [address] Name: SALVADOR AHUMADA : 1965 Study Date: 10/18/2024 07:35 AM Age: 59 yrs Gender: Male Patient Location: [facility] Reason For Study: Cardiomyopathy Ordering Physician: STEVO ROBISON Performed By: Katelyn Antonio BSA: 2.1 m2 Height: 69 in Weight: 201 lb HR: 88 BP: 138/96 mmHg Procedure Limited Echocardiogram with two-dimensional, color and spectral Doppler. Interpretation Summary Left ventricular systolic function is normal. The visual ejection fraction is 55-60%. No regional wall motion abnormalities noted. Left Ventricle Left ventricular systolic function is normal. The visual ejection fractionis 55-60%. No regional wall motion abnormalities noted. Right Ventricle The right ventricle is normal in structure, function and size. Mitral Valve The mitral valve is normal in structure and function. There is tracemitral regurgitation. Tricuspid Valve The tricuspid valve is not well visualized, but is grossly normal. Theright ventricular systolic pressure is elevated at 33.6 mmHg. Aortic Valve The aortic valve is trileaflet. No aortic regurgitation is present. Noaortic stenosis is present. Vessels The inferior vena cava is normal. Pericardium There is no pericardial effusion. MMode/2D Measurements & Calculations IVC diam: 1.9 cm asc Aorta Diam: 3.5 cm Asc Ao diam index BSA (cm/m2): 1.7 Asc Ao diam index Ht(cm/m): 2.0 Doppler Measurements & Calculations TR max onur: 290.0 cm/sec TR max P.6 mmHg Report approved by: Saima Yeung MD on 10/18/2024 08:56 AM us Stevo A Ricki DO CV ECHO ORDERABLES Edited Resu lt - Final * (ABNORMAL) CBC with platelets (10/18/2024 7:20 AM CDT) WBC Count 10.8 4.0 - 11.0 10e3/uL 10/18/2024 7:51 AM CDT [facility] RBC Count 4.56 4.40 - 5.90 10e6/uL 10/18/2024 7:51 AM CDT [facility] Hemoglobin 13.6 13.3 - 17.7 g/dL 10/18/2024 7:51 AM CDT [facility] Hematocrit 39.8(L) 40.0 - 53.0 % 10/18/2024 7:51 AM CDT [facility] MCV 87 78 - 100 fL 10/18/2024 7:51 AM CDT [facility] MCH 29.8 26.5 - 33.0 pg 10/18/2024 7:51 AM CDT [facility] MCHC 34.2 31.5 - 36.5 g/dL 10/18/2024 7:51 AM CDT [facility] RDW 13.4 10.0 - 15.0 % 10/18/2024 7:51 AM CDT [facility] Platelet Count 208 150 - 450 10e3/uL 10/18/2024 7:51 AM CDT [facility] Blood STRUCTURE OF RIGHT HAND / Unknown Venipuncture / Unknown 10/18/2024 7:20 AM CDT 10/18/2024 7:47 AM CDT us Stevo A Ricki DO LAB - BLOOD ORDERABLES Final R esult LABORATORY [facility] [address] Lab (1st floor, no room number) [place] [address] * (ABNORMAL) Comprehensive metabolic panel (10/18/2024 7:20 AM CDT) Sodium 137 135 - 145 mmol/L 10/18/2024 8:07 AM CDT LABORATORY Potassium 4.3 3.4 - 5.3 mmol/L 10/18/2024 8:07 AM CDT LABORATORY Carbon Dioxide (CO2) 23 22 - 29 mmol/L 10/18/2024 8:07 AM CDT LABORATORY Anion Gap 9 7 - 15 mmol/L 10/18/2024 8:07 AM CDT LABORATORY Urea Nitrogen 15.6 8.0 - 23.0 mg/dL 10/18/2024 8:07 AM CDT LABORATORY Creatinine 0.93 0.67 - 1.17 mg/dL 10/18/2024 8:07 AM CDT LABORATORY GFR Estimate >90 >60 mL/min/1.7 3m2 10/18/2024 8:07 AM CDT LABORATORY Comment:eGFR calculated usin 2020 CKD-EPI equation. Calcium 8.7(L) 8.8 - 10.4 mg/dL 10/18/2024 8:07 AM CDT LABORATORY Chloride 105 98 - 107 mmol/L 10/18/2024 8:07 AM CDT LABORATORY Glucose 100(H) 70 - 99 mg/dL 10/18/2024 8:07 AM CDT LABORATORY Alkaline Phosphatase 87 40 - 150 U/L 10/18/2024 8:07 AM CDT LABORATORY AST 73(H) 0 - 45 U/L 10/18/2024 8:07 AM CDT LABORATORY ALT 382(H) 0 - 70 U/L 10/18/2024 8:07 AM CDT LABORATORY Protein Total 5.9(L) 6.4 - 8.3 g/dL 10/18/2024 8:07 AM CDT LABORATORY Albumin 3.3(L) 3.5 - 5.2 g/dL 10/18/2024 8:07 AM CDT LABORATORY Bilirubin Total 2.7(H) <=1.2 mg/dL 10/18/2024 8:07 AM CDT LABORATORY Blood STRUCTURE OF RIGHT HAND / Unknown Venipuncture / Unknown 10/18/2024 7:20 AM CDT 10/18/2024 7:47 AM CDT us Stevo Robison DO LAB - BLOOD ORDERABLES Final R esult LABORATORY [facility] [address] Lab (1st floor, no room number) [place] [address], [facility] * (ABNORMAL) Glucose by meter (10/17/2024 4:07 PM CDT) [facility] [address] GLUCOSE BY METER POCT 150(H) 70 - 99 mg/dL 10/17/2024 4:15 PM CDT LABORATORY POC Comment:/RN Notified Blood, Capillary BLOOD SPECIMEN / Unknown 10/17/2024 4:07 PM CDT 10/17/2024 4:15 PM CDT Ole Brown MD LAB - BEAKER POCT Martha l Result LABORATORY [facility] [address] Lab (1st floor, no room number) [address] * (ABNORMAL) Glucose by meter (10/17/2024 12:15 PM CDT) GLUCOSE BY METER POCT 151(H) 70 - 99 mg/dL 10/17/2024 12:22 PM CDT LABORATORY POC Comment:Joon Notified Blood, Capillary BLOOD SPECIMEN / Unknown 10/17/2024 12:15 PM CDT 10/17/2024 12:22 PM CDT Ole Brown MD LAB - BEAKER POCT Martha l Result Performing Organization Address City/[facility]/ZIP Co de Phone Number LABORATORY [facility] [address] Lab (1st floor, no room number) [address] * (ABNORMAL) Glucose by meter (10/17/2024 7:54 AM CDT) GLUCOSE BY METER POCT 154(H) 70 - 99 mg/dL 10/17/2024 8:03 AM CDT LABORATORY POC Comment:Joon Notified Blood, Capillary BLOOD SPECIMEN / Unknown 10/17/2024 7:54 AM CDT 10/17/2024 8:03 AM CDT Ole Brown MD LAB - BEAKER POCT [place] l Result LABORATORY [facility] [address] Lab (1st floor, no room number) [address] * (ABNORMAL) CBC with platelets (10/17/2024 5:50 AM CDT) WBC Count 16.9(H) 4.0 - 11.0 10e3/uL 10/17/2024 6:18 AM CDT [facility] RBC Count 4.35(L) 4.40 - 5.90 10e6/uL 10/17/2024 6:18 AM CDT [facility] Hemoglobin 13.1(L) 13.3 - 17.7 g/dL 10/17/2024 6:18 AM CDT [facility] LAB[facility]ORY Hematocrit 38.1(L) 40.0 - 53.0 % 10/17/2024 6:18 AM CDT RH LAB[facility] MCV 88 78 - 100 fL 10/17/2024 6:18 AM CDT RH LAB[facility] MCH 30.1 26.5 - 33.0 pg 10/17/2024 6:18 AM CDT [facility] MCHC 34.4 31.5 - 36.5 g/dL 10/17/2024 6:18 AM CDT [facility] RDW 13.7 10.0 - 15.0 % 10/17/2024 6:18 AM CDT [facility] Platelet Count 168 150 - 450 10e3/uL 10/17/2024 6:18 AM CDT [facility] Blood BLOOD SPECIMEN / Unknown Venipuncture / Unknown 10/17/2024 5:50 AM CDT 10/17/2024 6:15 AM CDT us Stevo Robison DO LAB - BLOOD ORDERABLES Final R esult LABORATORY [facility] [address] Lab (1st floor, no room number) [place] [address], [facility] * (ABNORMAL) Comprehensive metabolic panel (10/17/2024 5:50 AM CDT) Sodium 138 135 - 145 mmol/L 10/17/2024 6:38 AM CDT RH [facility] Potassium 4.4 3.4 - 5.3 mmol/L 10/17/2024 6:38 AM CDT RH LAB[facility] Carbon Dioxide (CO2) 22 22 - 29 mmol/L 10/17/2024 6:38 AM CDT RH LABORATORY Anion Gap 12 7 - 15 mmol/L 10/17/2024 6:38 AM CDT RH LAB[facility] Urea Nitrogen 20.3 8.0 - 23.0 mg/dL 10/17/2024 6:38 AM CDT LABORATORY Creatinine 1.00 0.67 - 1.17 mg/dL 10/17/2024 6:38 AM CDT LABORATORY GFR Estimate 87 >60 mL/min/1.7 3m2 10/17/2024 6:38 AM CDT LABORATORY Comment:eGFR calculated usin 2020 CKD-EPI equation. Calcium 8.0(L) 8.8 - 10.4 mg/dL 10/17/2024 6:38 AM CDT LABORATORY Chloride 104 98 - 107 mmol/L 10/17/2024 6:38 AM CDT LABORATORY Glucose 127(H) 70 - 99 mg/dL 10/17/2024 6:38 AM CDT LABORATORY Alkaline Phosphatase 72 40 - 150 U/L 10/17/2024 6:38 AM CDT LABORATORY AST 200(H) 0 - 45 U/L 10/17/2024 6:38 AM CDT LABORATORY ALT 565(HH) 0 - 70 U/L 10/17/2024 6:38 AM CDT LABORATORY Protein Total 5.3(L) 6.4 - 8.3 g/dL 10/17/2024 6:38 AM CDT LABORATORY Albumin 3.0(L) 3.5 - 5.2 g/dL 10/17/2024 6:38 AM CDT LABORATORY Bilirubin Total 4.7(H) <=1.2 mg/dL 10/17/2024 6:38 AM CDT LABORATORY Blood BLOOD SPECIMEN / Unknown Venipuncture / Unknown 10/17/2024 5:50 AM CDT 10/17/2024 6:15 AM CDT us Stevo A Ricki DO LAB - BLOOD ORDERABLES Final R esult LABORATORY [facility] [address] Lab (1st floor, no room number) [place] [address], [facility] * (ABNORMAL) Glucose by meter (10/17/2024 4:25 AM CDT) GLUCOSE BY METER POCT 141(H) 70 - 99 mg/dL 10/17/2024 4:32 AM CDT LABORATORY POC Blood, Capillary BLOOD SPECIMEN / Unknown 10/17/2024 4:25 AM CDT 10/17/2024 4:32 AM CDT Ole Brown MD LAB - BEAKER POCT Martha l Result LABORATORY [facility] [address] Lab (1st floor, no room number) [place] [phone] [place] [address] * (ABNORMAL) Glucose by meter (10/16/2024 11:43 PM CDT) GLUCOSE BY METER POCT 150(H) 70 - 99 mg/dL 10/16/2024 11:50 PM CDT LABORATORY POC Blood, Capillary BLOOD SPECIMEN / Unknown 10/16/2024 11:43 PM CDT 10/16/2024 11:50 PM CDT Ole Brown MD LAB - BEAKER POCT Martha l Result Performing Organization Address City/[facility]/ZIP Co de Phone Number LABORATORY [facility] [address] Lab (1st floor, no room number) [address] [place] [address] * (ABNORMAL) Glucose by meter (10/16/2024 8:25 PM CDT) GLUCOSE BY METER POCT 161(H) 70 - 99 mg/dL 10/16/2024 8:32 PM CDT LABORATORY POC Blood, Capillary BLOOD SPECIMEN / Unknown 10/16/2024 8:25 PM CDT 10/16/2024 8:32 PM CDT Ole Brown MD LAB - BEAKER POCT Martha l Result LABORATORY [facility] [address] Lab (1st floor, no room number) [place] [address] * EKG 12-lead, tracing only (10/16/2024 3:12 PM CDT) Systolic Blood Pressure mmHg RADIOLOGY RESULTS Diastolic Blood Pressure mmHg RADIOLOGY RESULTS Ventricular Rate 103 BPM RAD IOLOGY RESULTS Atrial Rate 103 BPM RADIOLOG Y RESULTS MA Interval 152 ms RADIOLOG Y RESULTS QRS Duration 88 ms RADIOLO GY RESULTS QT 336 ms RADIOLOGY RESULTS QTc 440 ms RADIOLOGY RESULTS P [place] 39 degrees RADIOLOGY RESULTS R AXIS 9 degrees RADIOLOGY RESULTS T [place] 9 degrees RADIOLOGY RESULTS Interpretation ECG Sinus tachycardia Cannot rule out Inferior infarct , age undetermined Abnormal ECG Compared to prior ECG from 07-Mar-2024 at 21:20:24: HR increased by 34 bpm Otherwise no major changes Confirmed by Osmany Wall ([id number]) on 10/16/2024 3:42:20 PM RADIOLOGY RESULTS 10/16/2024 3:12 PM CDT 10/16/2024 3:42 PM CDT Stevo Robison DO ECG ORDERABLES Edited Result - Final RADIOLOGY RESULTS * (ABNORMAL) Glucose by meter (10/16/2024 2:43 PM CDT) GLUCOSE BY METER POCT 122(H) 70 - 99 mg/dL 10/16/2024 2:49 PM CDT LABORATORY POC Blood, Capillary BLOOD SPECIMEN / Unknown 10/16/2024 2:43 PM CDT 10/16/2024 2:49 PM CDT Ole Brown MD LAB - BEAKER POCT Martha l Result RH LABORATORY POC [facility] [address] Lab (1st floor, no room number) [place] [address] * XR ERCP (10/16/2024 1:37 PM CDT) Narrative [facility] - 10/16/2024 1:39 PM CDT This exam was marked as non-reportable because it will not be read by a radiologist or a [place] non-radiologist provider. us Cornelia Collazo IMPREGNATOR OPERATOR BOX SHOOK PATCHER IMG DIAGNOSTIC IMAGING O RDERABLES Final Result [facility] * ECHO COMPLETE WITH CONTRAST (10/16/2024 10:47 AM CDT) LVEF 45-50% CARDIOLOGY RESULTS Anatomical Region Laterality Modality Echocardiography 10/16/2024 9:51 AM CDT Narrative 10/16/2024 11:03 AM CDT [id number]^SATURNINO^REBEKAH [facility] [address] [place] [address] Name: SALVADOR AHUMADA : 1965 Study Date: 10/16/2024 09:51 AM Age: 59 yrs Gender: Male Patient Location: [facility] Reason For Study: SOB, SOB Ordering Physician: REBEKAH MATAMOROS Performed By: Isha Murray BSA: 2.0 m2 Height: 68 in Weight: 200 lb BP: 134/92 mmHg Procedure Echocardiogram with two-dimensional, color and spectral Doppler. Optison ([facility] #[id number]) given intravenously. Interpretation Summary The visual ejection fraction is 45-50%. There is mild global hypokinesia of the left ventricle. Grade I or early diastolic dysfunction. Contrast was used without apparent complications. Left Ventricle The left ventricle is normal in size. There is normal left ventricular wall thickness. The visual ejection fraction is 45-50%. Grade I or early diastolic dysfunction. There is mild global hypokinesia of the left ventricle. Right Ventricle The right ventricle is normal in structure, function and size. Atria Normal left atrial size. Right atrial size is normal. Mitral Valve The mitral valve is normal in structure and function. There is mild mitral annular calcification. Tricuspid Valve Normal tricuspid valve. Aortic Valve The aortic valve is normal in structure and function. Pulmonic Valve Normal pulmonic valve. Vessels The aortic root is normal size. Pericardium There is no pericardial effusion. Rhythm The rhythm was sinus tachycardia. MMode/2D Measurements & Calculations IVSd: 0.99 cm LVIDd: 4.5 cm LVIDs: 3.5 cm LVPWd: 0.79 cm FS: 22.2 % LV mass(C)d: 130.2 grams LV mass(C)dI: 63.7 grams/m2 Ao root diam: 3.7 cm asc Aorta Diam: 3.4 cm LVOT diam: 2.4 cm LVOT area: 4.5 cm2 Ao root diam index Ht(cm/m): 2.2 Ao root diam index BSA (cm/m2): 1.8 Asc Ao diam index BSA (cm/m2): 1.7 Asc Ao diam index Ht(cm/m): 2.0 EF Biplane: 48.0 % LA Volume (BP): 45.4 ml LA Volume Index (BP): 22.3 ml/m2 RWT: 0.35 TAPSE: 1.3 cm Doppler Measurements & Calculations MV E max onur: 57.7 cm/sec MV A max onur: 79.0 cm/sec MV E/A: 0.73 MV dec slope: 745.1 cm/sec2 MV dec time: 0.08 sec PA acc time: 0.11 sec TR max onur: 221.8 cm/sec TR max P.7 mmHg E/E' av.9 Lateral E/e': 6.3 Medial E/e': 7.6 Report approved by: Rudy Mcdowell MD on 10/16/2024 11:03 AM Procedure Note Rudy Mcdowell MD - 10/16/2024 [id number]^SATURNINO^REBEKAH [facility] [address] [place], [place] [address] Name: SALVADOR AHUMADA : 1965 Study Date: 10/16/2024 09:51 AM Age: 59 yrs Gender: Male Patient Location: [facility] Reason For Study: SOB, SOB Ordering Physician: REBEKAH MATAMOROS Performed By: Isha Murray BSA: 2.0 m2 Height: 68 in Weight: 200 lb BP: 134/92 mmHg Procedure Echocardiogram with two-dimensional, color and spectral Doppler. Optison([facility] #[id number]) given intravenously. Interpretation Summary The visual ejection fraction is 45-50%. There is mild global hypokinesia of the left ventricle. Grade I or early diastolic dysfunction. Contrast was used without apparent complications. Left Ventricle The left ventricle is normal in size. There is normal left ventricularwall thickness. The visual ejection fraction is 45-50%. Grade I or earlydiastolic dysfunction. There is mild global hypokinesia of the left ventricle. Right Ventricle The right ventricle is normal in structure, function and size. Atria Normal left atrial size. Right atrial size is normal. Mitral Valve The mitral valve is normal in structure and function. There is mildmitral annular calcification. Tricuspid Valve Normal tricuspid valve. Aortic Valve The aortic valve is normal in structure and function. Pulmonic Valve Normal pulmonic valve. Vessels The aortic root is normal size. Pericardium There is no pericardial effusion. Rhythm The rhythm was sinus tachycardia. MMode/2D Measurements & Calculations IVSd: 0.99 cm LVIDd: 4.5 cm LVIDs: 3.5 cm LVPWd: 0.79 cm FS: 22.2 % LV mass(C)d: 130.2 grams LV mass(C)dI: 63.7 grams/m2 Ao root diam: 3.7 cm asc Aorta Diam: 3.4 cm LVOT diam: 2.4 cm LVOT area: 4.5 cm2 Ao root diam index Ht(cm/m): 2.2 Ao root diam index BSA (cm/m2): 1.8 Asc Ao diam index BSA (cm/m2): 1.7 Asc Ao diam index Ht(cm/m): 2.0 EF Biplane: 48.0 % LA Volume (BP): 45.4 ml LA Volume Index (BP): 22.3 ml/m2 RWT: 0.35 TAPSE: 1.3 cm Doppler Measurements & Calculations MV E max onur: 57.7 cm/sec MV A max onur: 79.0 cm/sec MV E/A: 0.73 MV dec slope: 745.1 cm/sec2 MV dec time: 0.08 sec PA acc time: 0.11 sec TR max onur: 221.8 cm/sec TR max P.7 mmHg E/E' av.9 Lateral E/e': 6.3 Medial E/e': 7.6 Report approved by: Rudy Mcdowell MD on 10/16/2024 11:03 AM Rebekah Matamoros MD CV ECHO ORDERABLES Edited Result - Final * ENDOSCOPIC RETROGRADE CHOLANGIOPANCREATOGRAPHY (10/16/2024 10:40 AM CDT) [facility] Patient Name: Salvador Reyesjose Procedure Date: 10/16/2024 10:40 AM Date of : 1965 Admit Type: Inpatient Age: 59 Gender: Male Attending MD: CLAUDIA SARKAR MD, Total Sedation Time: Instrument Name: 263 - ERCP Procedure: ERCP Indications: Suspected ascending cholangitis Providers: CLAUDIA SARKAR MD (Doctor) Referring MD: Medicines: General Anesthesia Complications: No immediate complications. Procedure: Pre-Anesthesia Assessment: - Pre-procedure physical examination revealed no contraindications to sedation. After obtaining informed consent, the scope was passed under direct vision. Throughout the procedure, the patient's blood pressure, pulse, and oxygen saturations were monitored continuously. The Olympus Exera II Duodenovideoscope (ERCP), Model # TJF-Q190V, Censitrac # [id number] was introduced through the mouth, and used to inject contrast into and used to inject contrast into the bile duct. The ERCP was accomplished without difficulty. The patient tolerated the procedure well. Findings: The medical records administrator film was normal. The papilla appeared normal. The bile duct was cannulated with a sphincterotome and a wire. The initial cholangiogram revealed filling defect with a 15 mm bile duct. Intrahepatic ducts were mildly dilated but otherwise normal. A complete biliary sphincterotomy was performed. A retrieval balloon was used to sweep the duct. Copious amounts of purulent bile was removed. The stone was too large to fit through the sphincterotomy site. The sphincterotomy site was then dilated with a balloon to 13 mm. Further balloon sweeps produced the stone. Follow-up occlusion cholangiogram was without any further filling defects. Excellent drainage was achieved. The cystic duct did not fill. Impression: - Choledocholithiasis with an obstruction was found. Complete removal was accomplished by biliary sphincterotomy, dilation and balloon extraction. - Ascending cholangitis was found. Recommendation: - [facility]. - Clear liquid diet. - Continue Antibiotics. - Lap alma rosa per surgical service. Claudia Sarkar MD __ CLAUDIA SARKAR MD 10/16/2024 1:34:57 PM I was physically present for the entire viewing portion of the exam. ____CLAUDIA SARKAR MD Number of Addenda: 0 Note Initiated On: 10/16/2024 10:40 AM Procedure Date: 10/16/2024 10:40:11 AM Total Procedure Duration: 0 hours 23 minutes 43 seconds Estimated Blood Loss: Scope In: 1:03:54 PM Scope Out: 1:27:37 PM RADIOLOGY RESULTS 10/16/2024 10:4 0 AM CDT us Claudia Sarkar MD PROCEDURES Final Re sult RADIOLOGY RESULTS * Potassium (10/16/2024 10:39 AM CDT) Pathologist [facility] Potassium 3.6 3.4 - 5.3 mmol/L 10/16/2024 11:51 AM CDT LABORATORY Blood BLOOD SPECIMEN / Unknown Venipuncture / Unknown 10/16/2024 10:39 AM CDT 10/16/2024 11:23 AM CDT Stevo Robison DO LAB - BLOOD ORDERABLES Final R esult LABORATORY [facility] [address] [facility] Lab (1st floor, no room number) [place] [address], [facility] * (ABNORMAL) Lactic acid whole blood (10/16/2024 8:19 AM CDT) Lactic Acid 3.3(H) 0.7 - 2.0 mmol/L 10/16/2024 8:49 AM CDT LABORATORY Blood STRUCTURE OF RIGHT HAND / Unknown Venipuncture / Unknown 10/16/2024 8:19 AM CDT 10/16/2024 8:47 AM CDT Stevo Robison DO LAB - BLOOD ORDERABLES Final R esult LABORATORY [facility] [address] Lab (1st floor, no room number) [place] [address] * Glucose by meter (10/16/2024 7:55 AM CDT) GLUCOSE BY METER POCT 87 70 - 99 mg/dL 10/16/2024 8:04 AM CDT LABORATORY POC Comment:Dr/RN Notified Blood, Capillary BLOOD SPECIMEN / Unknown 10/16/2024 7:55 AM CDT 10/16/2024 8:04 AM CDT Ole Brown MD LAB - BEAKER POCT Martha l Result Performing Organization Address City/[facility]/ZIP Co de Phone Number LABORATORY [facility] [address] Lab (1st floor, no room number) [place] [address] * Extra Purple Top EDTA (LAB USE ONLY) (10/16/2024 5:35 AM CDT) Hold Specimen JIC 10/16/2024 6:46 AM CDT LABORATORY Blood BLOOD SPECIMEN / Unknown Venipuncture / Unknown 10/16/2024 5:35 AM CDT 10/16/2024 5:43 AM CDT Ole Brown MD LAB - BLOOD ORDERABLES Final Result LABORATORY [facility] [address] Lab (1st floor, no room number) [place] [id number] [place] [address] * (ABNORMAL) Potassium (10/16/2024 5:35 AM CDT) Potassium 3.1(L) 3.4 - 5.3 mmol/L 10/16/2024 6:12 AM CDT LABORATORY Blood BLOOD SPECIMEN / Unknown Venipuncture / Unknown 10/16/2024 5:35 AM CDT 10/16/2024 5:43 AM CDT Rebekah Matamoros MD LAB - BLOOD ORDERABLES Final Res ult LABORATORY [facility] [address] Lab (1st floor, no room number) [place] [id number] [place] [address] * (ABNORMAL) Lactic acid whole blood (10/16/2024 5:35 AM CDT) Lactic Acid 2.1(H) 0.7 - 2.0 mmol/L 10/16/2024 5:52 AM CDT LABORATORY Blood BLOOD SPECIMEN / Unknown Venipuncture / Unknown 10/16/2024 5:35 AM CDT 10/16/2024 5:43 AM CDT Rebekah Matamoros MD LAB - BLOOD ORDERABLES Final Res ult LABORATORY [facility] [address] Lab (1st floor, no room number) [place] [phone] [place] [address] * (ABNORMAL) Glucose by meter (10/16/2024 3:07 AM CDT) GLUCOSE BY METER POCT 131(H) 70 - 99 mg/dL 10/16/2024 3:14 AM CDT LABORATORY POC Comment:Dr/RN Notified Blood, Capillary BLOOD SPECIMEN / Unknown 10/16/2024 3:07 AM CDT 10/16/2024 3:14 AM CDT Ole Brown MD LAB - SHAZIA POCT Martha l Result LABORATORY [facility] [address] Lab (1st floor, no room number) [place] [address], [facility] * CT Chest Pulmonary Embolism w Contrast (10/16/2024 2:55 AM CDT) Anatomical Region Laterality Modality Chest, SUBRAD CT BODY, UMP CT CHEST Computed Tomography 10/16/2024 2:55 AM CDT Impressions 10/16/2024 3:05 AM CDT IMPRESSION: 1. No pulmonary artery embolus. 2. Scattered areas of subsegmental atelectasis. No pleural effusion. 3. No other acute process within the chest. Narrative 10/16/2024 3:05 AM CDT EXAM: CT CHEST PULMONARY EMBOLISM W CONTRAST LOCATION: [facility] DATE: 10/16/2024 INDICATION: tachycardia, tachypnea COMPARISON: Same date portable chest radiograph. TECHNIQUE: CT chest pulmonary angiogram during arterial phase injection of IV contrast. Multiplanar reformats and MIP reconstructions were performed. Dose reduction techniques were used. CONTRAST: 67mL Isovue 370 FINDINGS: ANGIOGRAM CHEST: Pulmonary arteries are normal caliber and negative for pulmonary emboli. Thoracic aorta is negative for dissection. No CT evidence of right heart strain. LUNGS AND PLEURA: Scattered areas of subsegmental atelectasis. No pleural effusion. MEDIASTINUM/AXILLAE: Normal. CORONARY ARTERY CALCIFICATION: None. UPPER ABDOMEN: Normal. MUSCULOSKELETAL: No acute osseous abnormality. Procedure Note Norm Maciel MD - 10/16/2024 EXAM: CT CHEST PULMONARY EMBOLISM W CONTRAST LOCATION: [facility] DATE: 10/16/2024 INDICATION: tachycardia, tachypnea COMPARISON: Same date portable chest radiograph. TECHNIQUE: CT chest pulmonary angiogram during arterial phase injection ofIV contrast. Multiplanar reformats and MIP reconstructions were performed.Dose reduction techniques were used. CONTRAST: 67mL Isovue 370 FINDINGS: ANGIOGRAM CHEST: Pulmonary arteries are normal caliber and negative forpulmonary emboli. Thoracic aorta is negative for dissection. No CTevidence of right heart strain. LUNGS AND PLEURA: Scattered areas of subsegmental atelectasis. No pleuraleffusion. MEDIASTINUM/AXILLAE: Normal. CORONARY ARTERY CALCIFICATION: None. UPPER ABDOMEN: Normal. MUSCULOSKELETAL: No acute osseous abnormality. IMPRESSION: 1. No pulmonary artery embolus. 2. Scattered areas of subsegmental atelectasis. No pleural effusion. 3. No other acute process within the chest. Rebekah Matamoros MD IMG CT ORDERABLES Final Result * (ABNORMAL) NT-proBNP (10/16/2024 2:24 AM CDT) [facility] [address] NT-proBNP 652(H) 0 - 177 pg/mL 10/16/2024 3:23 AM CDT LABORATORY Comment: Starting on 10/09/2024, [facility] laboratory began flagging abnormal values for plasma NT-proBNP results for adults using age-specific reference ranges instead of clinical cut-points/thresholds (see interpretation comment below for clinical threshold values) as part of a test standardization effort. Pediatric abnormal values were already previously flagged using age-specific reference intervals, which are not currently changing. The test methodology remains unchanged, and previous results performed with this methodology can be interpreted with the updated reference intervals. [facility]'s Pediatric (boys and girls) Reference Ranges in pg/mL * 0 up to 3 days: 0 - 61203 3 days up to 1 month: 0 - 6500 1 month up to 1 year: 0 - 1000 2 up to 6 years: 0 - 330 6 up to 18 years: 0 - 240 Male Reference Ranges in pg/mL 18-44 years: 0 - 93 45-54 years: 0 - 138 55-64 years: 0 - 177 65-74 years: 0 - 229 75 years or older: 0 - 852 Female Reference Ranges in pg/mL 8-44 years: 0 - 178 45-54 years: 0 - 192 55-64 years: 0 - 226 65-74 years: 0 - 353 75 years or older: 0 - 624 Reference ranges in adults reflect 95th percentiles for NT-pro-BNP levels in patients without congestive heart failure (CHF). Knowledge of each individual patient's NT-proBNP range may be more useful than using similar cut-points for every patient. For adult chronic CHF patients according to [place] Heart Association (NYHA) Functional Class, the mean NT-proBNP concentration is as following (5th and 95th percentile values respectively displayed in parentheses): Class I: 1016 pg/mL (33-3410) Class II: 1666 pg/mL (103-6567) Class III: 3029 pg/mL (126-36785) Class IV: 3465 pg/mL (148-04649) Clinical thresholds for acute (emergency department) settings: < 300 pg/mL effectively rules out acute decompensated heart failure (ADHF), with 99% negative predictive value. The following values may rule in potential acute decompensated heart failure (ADHF) in individuals (with a PPV of 50-60%): Under 50 years: >450 pg/mL Between 50-75 years: >900 pg/mL Over 75 years: >1800 pg/mL Among patients with dyspnea, NT-proBNP is highly sensitive for detection of acute CHF. Elevations in NT-proBNP levels may be observed in states other than left ventricular congestive failure including: acute coronary syndromes, right heart strain/failure (including pulmonary embolism and cor pulmonale), critical illness, and renal failure. Falsely low NT-proBNP in CHF patients may be observed in increased body mass index. * References: (1) Angel Hamlin et al. Pediatr Cardiol 30:3-8, 2008. Blood BLOOD SPECIMEN / Unknown Venipuncture / Unknown 10/16/2024 2:24 AM CDT 10/16/2024 2:46 AM CDT us Rebekah Matamoros MD LAB - BLOOD ORDERABLES Final Res ult LABORATORY [facility] [address] ([facility], no room number) [place] [address], [facility] * (ABNORMAL) Lactic acid whole blood (10/16/2024 2:24 AM CDT) [facility] [address] Lactic Acid 5.5(HH) 0.7 - 2.0 mmol/L 10/16/2024 2:33 AM CDT LABORATORY Blood BLOOD SPECIMEN / Unknown Venipuncture / Unknown 10/16/2024 2:24 AM CDT 10/16/2024 2:26 AM CDT Rebekah Matamoros MD LAB - BLOOD ORDERABLES Final Res ult LABORATORY [facility] [address] Lab (1st floor, no room number) [place] [address], [facility] * (ABNORMAL) D dimer quantitative (10/16/2024 2:24 AM CDT) D-Dimer Quantitative 1.47(H) 0.00 - 0.50 ug/mL FEU 10/16/2024 3:09 AM CDT LABORATORY Blood BLOOD SPECIMEN / Unknown Venipuncture / Unknown 10/16/2024 2:24 AM CDT 10/16/2024 2:46 AM CDT Narrative LABORATORY - 10/16/2024 3:09 AM CDT This D-dimer assay is intended for use in conjunction with a clinical pretest probability assessment model to exclude pulmonary embolism (PE) and deep venous thrombosis (DVT) in outpatients suspected of PE or DVT. The cut-off value is 0.50 ug/mL FEU. For patients 50 years of age or older, the application of age-adjusted cut-off values for D-Dimer may increase the specificity without significant effect on sensitivity. The literature suggested calculation age adjusted cut-off in ug/L = age in years x 10 ug/L. The results in this laboratory are reported as ug/mL rather than ug/L. The calculation for age adjusted cut off in ug/mL= age in years x 0.01 ug/mL. For example, the cut off for a 76 year old male is 76 x 0.01 ug/mL = 0.76 ug/mL (760 ug/L). M Mark et al. Age adjusted D-dimer cut-off levels to rule out pulmonary embolism: The ADJUST-PE Study. BRETT 2014;311:1211-9532.; RAYNA Garcia et al. Diagnostic accuracy of conventional or age adjusted D-dimer cutoff values in older patients with suspected venous thromboembolism. Systemic review and meta-analysis. BMJ 2013:346:f2492. Rebekah Matamoros MD LAB - BLOOD ORDERABLES Final Res ult LABORATORY [facility] [address] Lab (1st floor, no room number) [place] [address] * (ABNORMAL) INR (10/16/2024 2:24 AM CDT) INR 1.21(H) 0.85 - 1.15 10/16/2024 3:07 AM CDT [facility] LABORATORY PT 15.3(H) 11.8 - 14.8 Seconds 10/16/2024 3:07 AM CDT [facility] LABORATORY Blood BLOOD SPECIMEN / Unknown Venipuncture / Unknown 10/16/2024 2:24 AM CDT 10/16/2024 2:46 AM CDT Salvador Rocha APRN, CNP LAB - BLOOD ORDERABLE S Final Result Performing Organization Address City/[facility]/ZIP Co de Phone Number LABORATORY [facility] [address] Lab (1st floor, no room number) [place] [address] * (ABNORMAL) CBC with platelets (10/16/2024 2:24 AM CDT) WBC Count 12.3(H) 4.0 - 11.0 10e3/uL 10/16/2024 3:36 AM CDT RH LABORATORY RBC Count 5.20 4.40 - 5.90 10e6/uL 10/16/2024 3:36 AM CDT [facility] LABORATORY Hemoglobin 15.5 13.3 - 17.7 g/dL 10/16/2024 3:36 AM CDT [facility] LABORATORY Hematocrit 46.0 40.0 - 53.0 % 10/16/2024 3:36 AM CDT RH LABORATORY MCV 89 78 - 100 fL 10/16/2024 3:36 AM CDT RH LABORATORY MCH 29.8 26.5 - 33.0 pg 10/16/2024 3:36 AM CDT RH LABORATORY MCHC 33.7 31.5 - 36.5 g/dL 10/16/2024 3:36 AM CDT RH LABORATORY RDW 13.0 10.0 - 15.0 % 10/16/2024 3:36 AM CDT LABORATORY Platelet Count 233 150 - 450 10e3/uL 10/16/2024 3:36 AM CDT LABORATORY Blood BLOOD SPECIMEN / Unknown Venipuncture / Unknown 10/16/2024 2:24 AM CDT 10/16/2024 2:47 AM CDT Salvador Rocha APRN [employer]OX SHOOK PATCHER LAB - BLOOD ORDERABLE S Final Result LABORATORY [facility] [address] Lab (1st floor, no room number) [place] [address] * (ABNORMAL) Comprehensive metabolic panel (10/16/2024 2:24 AM CDT) Sodium 136 135 - 145 mmol/L 10/16/2024 3:33 AM CDT LABORATORY Potassium 4.4 3.4 - 5.3 mmol/L 10/16/2024 3:33 AM CDT LABORATORY Carbon Dioxide (CO2) 20(L) 22 - 29 mmol/L 10/16/2024 3:33 AM CDT LABORATORY Anion Gap 16(H) 7 - 15 mmol/L 10/16/2024 3:33 AM CDT LABORATORY Urea Nitrogen 15.2 8.0 - 23.0 mg/dL 10/16/2024 3:33 AM CDT LABORATORY Creatinine 1.13 0.67 - 1.17 mg/dL 10/16/2024 3:33 AM CDT LABORATORY GFR Estimate 75 >60 mL/min/1. 73m2 10/16/2024 3:33 AM CDT LABORATORY Comment:eGFR calculated us2020 CKD-EPI equation. Calcium 8.9 8.8 - 10.4 mg/dL 10/16/2024 3:33 AM CDT LABORATORY Chloride 100 98 - 107 mmol/L 10/16/2024 3:33 AM CDT LABORATORY Glucose 125(H) 70 - 99 mg/dL 10/16/2024 3:33 AM CDT LABORATORY Alkaline Phosphatase 116 40 - 150 U/L 10/16/2024 3:33 AM CDT RH LABORATORY AST 736(HH) 0 - 45 U/L 10/16/2024 3:33 AM CDT RH LABORATORY ALT 1,259(HH) 0 - 70 U/L 10/16/2024 3:33 AM CDT RH LABORATORY Protein Total 7.0 6.4 - 8.3 g/dL 10/16/2024 3:33 AM CDT RH LABORATORY Albumin 4.4 3.5 - 5.2 g/dL 10/16/2024 3:33 AM CDT RH LABORATORY Bilirubin Total 7.0(H) <=1.2 mg/dL 10/16/2024 3:33 AM CDT RH LABORATORY Blood BLOOD SPECIMEN / Unknown Venipuncture / Unknown 10/16/2024 2:24 AM CDT 10/16/2024 2:46 AM CDT us Salvador Rocha APRN [employer] LAB - BLOOD ORDERABLE S Final Result [facility] [address] Lab (1st floor, no room number) [place] [address] * XR Chest Port 1 View (10/16/2024 2:23 AM CDT) Anatomical Region Laterality Modality Chest Digital Radiogra phy 10/16/2024 2:23 AM CDT Impressions 10/16/2024 2:33 AM CDT IMPRESSION: Heart size is upper limits of normal. Mild pulmonary vascular congestion noted. Mild linear atelectasis in the left lung base. No confluent airspace opacity, right pleural effusion or pneumothorax. Left costophrenic angle is excluded from view without significant left pleural effusion. Narrative 10/16/2024 2:33 AM CDT EXAM: XR CHEST PORT 1 VIEW LOCATION: [facility] DATE: 10/16/2024 INDICATION: hypoxia COMPARISON: 10/11/2021 Procedure Note Bradford Brown MD - 10/16/2024 EXAM: XR CHEST PORT 1 VIEW LOCATION: [facility] DATE: 10/16/2024 INDICATION: hypoxia COMPARISON: 10/11/2021 IMPRESSION: Heart size is upper limits of normal. Mild pulmonary vascularcongestion noted. Mild linear atelectasis in the left lung base. Noconfluent airspace opacity, right pleural effusion or pneumothorax. Leftcostophrenic angle is excluded from view without significant left pleural effusion. Rebekah Matamoros MD IMG DIAGNOSTIC IMAGING ORDERABLE S Final Result * US Abdomen Limited (10/15/2024 6:05 PM CDT) Anatomical Region Laterality Modality Abdomen/Pelvis Ultrasound 10/15/2024 6:05 PM CDT Impressions 10/15/2024 6:34 PM CDT IMPRESSION: 1. Cholelithiasis and sludge, without sonographic evidence of acute cholecystitis. 2. Dilated common bile duct, measuring up to 11 mm. Correlation with LFTs and consideration of MRCP imaging is recommended to exclude a distal obstructing stone or mass lesion. Narrative 10/15/2024 6:34 PM CDT EXAM: US ABDOMEN LIMITED LOCATION: [facility] DATE: 10/15/2024 INDICATION: Right upper quadrant pain; elevated LFTs. COMPARISON: 05/09/2017. TECHNIQUE: Limited abdominal ultrasound. FINDINGS: GALLBLADDER: Gallstones and sludge in an otherwise normal gallbladder. No wall thickening, or pericholecystic fluid. Negative sonographic Casillas's sign. BILE DUCTS: No visualized intrahepatic biliary ductal dilatation. The common duct measures up to 11 mm within its midportion. It is incompletely visualized distally, due to overlying bowel gas. LIVER: Normal parenchyma with smooth contour. The portal vein is patent with flow in the normal direction. RIGHT KIDNEY: No hydronephrosis. PANCREAS: The pancreas is largely obscured by overlying gas. Procedure Note Jacob Mike MD - 10/15/2024 EXAM: US ABDOMEN LIMITED LOCATION: [facility] DATE: 10/15/2024 INDICATION: Right upper quadrant pain; elevated LFTs. COMPARISON: 05/09/2017. TECHNIQUE: Limited abdominal ultrasound. FINDINGS: GALLBLADDER: Gallstones and sludge in an otherwise normal gallbladder. Nowall thickening, or pericholecystic fluid. Negative sonographic Casillas'ssign. BILE DUCTS: No visualized intrahepatic biliary ductal dilatation. Thecommon duct measures up to 11 mm within its midportion. It is incompletelyvisualized distally, due to overlying bowel gas. LIVER: Normal parenchyma with smooth contour. The portal vein is patentwith flow in the normal direction. RIGHT KIDNEY: No hydronephrosis. PANCREAS: The pancreas is largely obscured by overlying gas. IMPRESSION: 1. Cholelithiasis and sludge, without sonographic evidence of acutecholecystitis. 2. Dilated common bile duct, measuring up to 11 mm. Correlation with LFTsand consideration of MRCP imaging is recommended to exclude a distalobstructing stone or mass lesion. Leonora ALCANTARA US ORDERABLES Final Result * (ABNORMAL) Blood Culture ID Panel, PCR (10/15/2024 5:09 PM CDT) Enterococcus faecalis Not Detected Not Detected 10/16/2024 6:00 AM CDT [facility] Enterococcus faecium Not Detected Not Detected 10/16/2024 6:00 AM CDT [facility] Listeria monocytogenes Not Detected Not Detected 10/16/2024 6:00 AM CDT [facility] Staphylococcus species Not Detected Not Detected 10/16/2024 6:00 AM CDT [facility] Staphylococcus aureus Not Detected Not Detected 10/16/2024 6:00 AM CDT [facility] Staphylococcus epidermidis Not Detected Not Detected 10/16/2024 6:00 AM CDT [facility] Staphylococcus lugdunensis Not Detected Not Detected 10/16/2024 6:00 AM CDT [facility] Streptococcus species Not Detected Not Detected 10/16/2024 6:00 AM CDT [facility] Streptococcus agalactiae Not Detected Not Detected 10/16/2024 6:00 AM CDT [facility] Streptococcus pneumoniae Not Detected Not Detected 10/16/2024 6:00 AM CDT [facility] Streptococcus pyogenes Not Detected Not Detected 10/16/2024 6:00 AM CDT [facility] A. baumannii complex Not Detected Not Detected 10/16/2024 6:00 AM CDT [facility] Bacteroides fragilis Not Detected Not Detected 10/16/2024 6:00 AM CDT [facility] Enterobacter cloacae complex Not Detected Not Detected 10/16/2024 6:00 AM CDT [facility] Escherichia coli Detected(A) Not Detected 10/16/2024 6:00 AM CDT [facility] Comment:Escherichia coli det ected by [employer] BCID2 assay. Final identification and antimicrobial susceptibility testing will be verified by standard methods. The BCID2 assay will not distinguish E. coli from Shigella species. Specimens containing Shigella species or E. coli will be reported as E. coli detected. Klebsiella aerogenes Not Detected Not Detected 10/16/2024 6:00 AM CDT [facility] Klebsiella oxytoca Not Detected Not Detected 10/16/2024 6:00 AM CDT [facility] Klebsiella pneumoniae group Not Detected Not Detected 10/16/2024 6:00 AM CDT [facility] Proteus species Not Detected Not Detected 10/16/2024 6:00 AM CDT [facility] Salmonella species Not Detected Not Detected 10/16/2024 6:00 AM CDT [facility] Serratia marcescens Not Detected Not Detected 10/16/2024 6:00 AM CDT [facility] Haemophilus influenzae Not Detected Not Detected 10/16/2024 6:00 AM CDT [facility] Neisseria meningitidis Not Detected Not Detected 10/16/2024 6:00 AM CDT [facility] Pseudomonas aeruginosa Not Detected Not Detected 10/16/2024 6:00 AM CDT [facility] Stenotrophomonas maltophilia Not Detected Not Detected 10/16/2024 6:00 AM CDT [facility] CTX-M Not Detected Not Detected, NA 10/16/2024 6:00 AM CDT [facility] IMP Not Detected Not Detected, NA 10/16/2024 6:00 AM CDT [facility] KPC Not Detected Not Detected, NA 10/16/2024 6:00 AM CDT [facility] mcr-1 Not Detected Not Detected, NA 10/16/2024 6:00 AM CDT [facility] NDM Not Detected Not Detected, NA 10/16/2024 6:00 AM CDT [facility] OXA-48 like Not Detected Not Detected, NA 10/16/2024 6:00 AM CDT [facility] VIM Not Detected Not Detected, NA 10/16/2024 6:00 AM CDT [facility] Agnes albicans Not Detected Not Detected 10/16/2024 6:00 AM CDT [facility] Agnes auris Not Detected Not Detected 10/16/2024 6:00 AM CDT [facility] Agnes glabrata Not Detected Not Detected 10/16/2024 6:00 AM CDT [facility] Agnes krusei Not Detected Not Detected 10/16/2024 6:00 AM CDT [facility] Agnes parapsilosis Not Detected Not Detected 10/16/2024 6:00 AM CDT [facility] Agnes tropicalis Not Detected Not Detected 10/16/2024 6:00 AM CDT [facility] Cryptococcus neoformans/gattii Not Detected Not Detected 10/16/2024 6:00 AM CDT [facility] Peripheral blood (BC) STRUCTURE OF RIGHT UPPER LIMB / Unknown Venipuncture / Unknown 10/15/2024 5:09 PM CDT 10/15/2024 5:15 PM CDT Narrative [facility] - 10/16/2024 6:00 AM CDT Assay performed using the FDA-cleared [employer] Blood Culture Identification 2 (BCID2) Panel, a multiplexed nucleic acid test for the detection and identification of multiple bacterial and yeast nucleic acids and select genetic determinants associated with antimicrobial resistance. A negative BCID2 result does not exclude the possibility of bloodstream infection. Positive results do not rule out co-infection with organisms not included in the [employer] BCID2 Panel. Results are intended to aid in the diagnosis of illness and are meant to be used in conjunction with other clinical findings. This test has been verified and performed by the Infectious Diseases Diagnostic Laboratory at [facility]. This laboratory is certified under the Clinical Laboratory Improvement Amendments of 1988 (CLIA-88) as qualified to perform high complexity clinical laboratory testing. Leonora Bone PA-C LAB - MICRO GENERAL ORDE JENNY Final Result [facility] Inf. Diseases Diag. Lab [address] [facility], [address] [place] [phone] * (ABNORMAL) Blood Culture Peripheral blood (BC) Arm, Right (10/15/2024 5:09 PM CDT) Culture Positive on the 1st day of incubation(A) 10/18/2024 8:22 AM CDT [facility] Culture Escherichia coli(AA) 10/18/2024 8:22 AM CDT [facility] Comment:2 of 2 bottles Peripheral blood (BC) STRUCTURE OF RIGHT UPPER LIMB / Unknown Venipuncture / Unknown 10/15/2024 5:09 PM CDT 10/15/2024 5:15 PM CDT Narrative Organism Antibiotic Method Susceptibility Escherichia coli Ampicillin FILIPE <=2 ug/mL: Susceptible Escherichia coli Ampicillin/ Sulbactam FILIPE <=2 ug/mL: Susceptible Escherichia coli Piperacillin/Tazobactam FILIPE <=4 ug/mL: Susceptible Escherichia coli Ceftazidime FILIPE <=0.5 ug/mL: Susceptible Escherichia coli Ceftriaxone FILIPE <=0.25 ug/mL: Susceptible Escherichia coli Cefepime FILIPE <=0.12 ug/mL: Susceptible Escherichia coli Meropenem FILIPE <=0.25 ug/mL: Susceptible Escherichia coli Gentamicin FILIPE <=1 ug/mL: Susceptible Escherichia coli Ciprofloxacin FILIPE <=0.06 ug/mL: Susceptible Escherichia coli Levofloxacin FILIPE <=0.12 ug/mL: Susceptible Escherichia coli Trimethoprim/Sulfamethoxazole FILIPE <=1/19 ug/mL: Susceptible Leonora Bone PA-C LAB - MICRO GENERAL ORDE RABEMERALD Final Result [facility] Inf. Diseases Diag. Lab [address] [facility], [address] [address], [facility] * (ABNORMAL) Blood Culture Peripheral blood (BC) Arm, Left (10/15/2024 4:31 PM CDT) Culture Positive on the 1st day of incubation(A) 10/18/2024 8:24 AM CDT [facility] Culture Escherichia coli(AA) 10/18/2024 8:24 AM CDT [facility] Comment: 2 of 2 bottles Susceptibilities done on previous cultures Peripheral blood (BC) STRUCTURE OF LEFT UPPER LIMB / Unknown Venipuncture / Unknown 10/15/2024 4:31 PM CDT 10/15/2024 4:35 PM CDT Leonora Bone PA-C LAB - MICRO GENERAL STEFFEN ALVARADO Final Result [facility] Inf. Diseases Diag. Lab [address] [facility], [address] [place] [address] * (ABNORMAL) NT-proBNP (10/15/2024 3:10 PM CDT) Pathologist [facility] NT-proBNP 209(H) 0 - 177 pg/mL 10/16/2024 2:34 AM CDT LABORATORY Comment: Starting on 10/09/2024, [facility] laboratory began flagging abnormal values for plasma NT-proBNP results for adults using age-specific reference ranges instead of clinical cut-points/thresholds (see interpretation comment below for clinical threshold values) as part of a test standardization effort. Pediatric abnormal values were already previously flagged using age-specific reference intervals, which are not currently changing. The test methodology remains unchanged, and previous results performed with this methodology can be interpreted with the updated reference intervals. [facility]'s Pediatric (boys and girls) Reference Ranges in pg/mL * 0 up to 3 days: 0 - 58584 3 days up to 1 month: 0 - 6500 1 month up to 1 year: 0 - 1000 2 up to 6 years: 0 - 330 6 up to 18 years: 0 - 240 Male Reference Ranges in pg/mL 18-44 years: 0 - 93 45-54 years: 0 - 138 55-64 years: 0 - 177 65-74 years: 0 - 229 75 years or older: 0 - 852 Female Reference Ranges in pg/mL 8-44 years: 0 - 178 45-54 years: 0 - 192 55-64 years: 0 - 226 65-74 years: 0 - 353 75 years or older: 0 - 624 Reference ranges in adults reflect 95th percentiles for NT-pro-BNP levels in patients without congestive heart failure (CHF). Knowledge of each individual patient's NT-proBNP range may be more useful than using similar cut-points for every patient. For adult chronic CHF patients according to [place] Heart Association (NYHA) Functional Class, the mean NT-proBNP concentration is as following (5th and 95th percentile values respectively displayed in parentheses): Class I: 1016 pg/mL (33-3410) Class II: 1666 pg/mL (103-6567) Class III: 3029 pg/mL (126-23752) Class IV: 3465 pg/mL (148-79853) Clinical thresholds for acute (emergency department) settings: < 300 pg/mL effectively rules out acute decompensated heart failure (ADHF), with 99% negative predictive value. The following values may rule in potential acute decompensated heart failure (ADHF) in individuals (with a PPV of 50-60%): Under 50 years: >450 pg/mL Between 50-75 years: >900 pg/mL Over 75 years: >1800 pg/mL Among patients with dyspnea, NT-proBNP is highly sensitive for detection of acute CHF. Elevations in NT-proBNP levels may be observed in states other than left ventricular congestive failure including: acute coronary syndromes, right heart strain/failure (including pulmonary embolism and cor pulmonale), critical illness, and renal failure. Falsely low NT-proBNP in CHF patients may be observed in increased body mass index. * References: (1) Angel Hamlin et al. Pediatr Cardiol 30:3-8, 2008. Blood STRUCTURE OF RIGHT UPPER LIMB / Unknown Venipuncture / Unknown 10/15/2024 3:10 PM CDT 10/15/2024 3:31 PM CDT us Rebekah Matamoros MD LAB - BLOOD ORDERABLES Final Res ult LABORATORY [facility] [address] [facility] Lab (1st floor, no room number) [place] [address], [facility] * (ABNORMAL) Acetaminophen level (10/15/2024 3:10 PM CDT) Acetaminophen <5.0(L) 10.0 - 30.0 ug/mL 10/15/2024 7:15 PM CDT [facility] Blood STRUCTURE OF RIGHT UPPER LIMB / Unknown Venipuncture / Unknown 10/15/2024 3:10 PM CDT 10/15/2024 3:31 PM CDT Al Ayon MD LAB - BLOOD ORDERABLES F inal Result [facility] [address] Lab (1st floor, no room number) [place] [address] * Alcohol level blood (10/15/2024 3:10 PM CDT) Ethanol Level Blood <0.01 <=0.01 g/dL 10/15/2024 5:08 PM CDT LABORATORY Blood STRUCTURE OF RIGHT UPPER LIMB / Unknown Venipuncture / Unknown 10/15/2024 3:10 PM CDT 10/15/2024 3:31 PM CDT Leonora Bone PA-C LAB - BLOOD ORDERABLES F inal Result Performing Organization Address City/[facility]/ZIP Co de Phone Number [facility] [address] Lab (1st floor, no room number) [place] [address] * Extra Red Top Tube (10/15/2024 3:10 PM CDT) Hold Specimen JIC 10/15/2024 4:31 PM CDT LABORATORY Blood STRUCTURE OF RIGHT UPPER LIMB / Unknown Venipuncture / Unknown 10/15/2024 3:10 PM CDT 10/15/2024 3:31 PM CDT Leonora Bone PA-C LAB - BLOOD ORDERABLES F inal Result [facility] [address] Lab (1st floor, no room number) [place] [address] * Extra Blue Top Tube (10/15/2024 3:10 PM CDT) Hold Specimen JIC 10/15/2024 4:31 PM CDT [facility] Blood STRUCTURE OF RIGHT UPPER LIMB / Unknown Venipuncture / Unknown 10/15/2024 3:10 PM CDT 10/15/2024 3:31 PM CDT Leonora Bone PA-C LAB - BLOOD ORDERABLES F inal Result [facility] [address] Lab (1st floor, no room number) [place] [address], [facility] * (ABNORMAL) CBC with platelets and differential (10/15/2024 3:10 PM CDT) WBC Count 11.9(H) 4.0 - 11.0 10e3/uL 10/15/2024 3:34 PM CDT [facility] RBC Count 5.35 4.40 - 5.90 10e6/uL 10/15/2024 3:34 PM CDT [facility] Hemoglobin 16.3 13.3 - 17.7 g/dL 10/15/2024 3:34 PM CDT [facility] Hematocrit 45.6 40.0 - 53.0 % 10/15/2024 3:34 PM CDT [facility] MCV 85 78 - 100 fL 10/15/2024 3:34 PM CDT [facility] MCH 30.5 26.5 - 33.0 pg 10/15/2024 3:34 PM CDT [facility] MCHC 35.7 31.5 - 36.5 g/dL 10/15/2024 3:34 PM CDT [facility] RDW 12.6 10.0 - 15.0 % 10/15/2024 3:34 PM CDT [facility] Platelet Count 236 150 - 450 10e3/uL 10/15/2024 3:34 PM CDT [facility] % Neutrophils 94 % 10/15/2024 3:34 PM CDT [facility] % Lymphocytes 2 % 10/15/2024 3:34 PM CDT [facility] % Monocytes 4 % 10/15/2024 3:34 PM CDT [facility] % Eosinophils 0 % 10/15/2024 3:34 PM CDT [facility] % Basophils 0 % 10/15/2024 3:34 PM CDT [facility] % Immature Granulocytes 1 % 10/15/2024 3:34 PM CDT [facility] NRBCs per 100 WBC 0 <1 /100 025 3:34 PM CDT [facility] Absolute Neutrophils 11.1(H) 1.6 - 8.3 10e3/uL 10/15/2024 3:34 PM CDT [facility] Absolute Lymphocytes 0.2(L) 0.8 - 5.3 10e3/uL 10/15/2024 3:34 PM CDT [facility] Absolute Monocytes 0.4 0.0 - 1.3 10e3/uL 10/15/2024 3:34 PM CDT [facility] Absolute Eosinophils 0.0 0.0 - 0.7 10e3/uL 10/15/2024 3:34 PM CDT [facility] Absolute Basophils 0.0 0.0 - 0.2 10e3/uL 10/15/2024 3:34 PM CDT [facility] Absolute Immature Granulocytes 0.1 <=0.4 10e3/uL 10/15/2024 3:34 PM CDT [facility] Absolute NRBCs 0.0 10e3/uL 10/15/2024 3:34 PM CDT [facility] Blood STRUCTURE OF RIGHT UPPER LIMB / Unknown Venipuncture / Unknown 10/15/2024 3:10 PM CDT 10/15/2024 3:31 PM CDT Leonora Bone PA-C LAB - BLOOD ORDERABLES F inal Result [facility] [address] Lab (1st floor, no room number) [place] [address], [facility] * (ABNORMAL) Bilirubin direct (10/15/2024 3:10 PM CDT) Bilirubin Direct 2.98(H) 0.00 - 0.30 mg/dL 10/15/2024 4:03 PM CDT [facility] Blood STRUCTURE OF RIGHT UPPER LIMB / Unknown Venipuncture / Unknown 10/15/2024 3:10 PM CDT 10/15/2024 3:31 PM CDT Leonora Bone PA-C LAB - BLOOD ORDERABLES F inal Result [facility] [address] Lab (1st floor, no room number) [place] [address], [facility] * Lipase (10/15/2024 3:10 PM CDT) Lipase 28 13 - 60 U/L 10/15/2024 4:00 PM CDT LABORATORY Blood STRUCTURE OF RIGHT UPPER LIMB / Unknown Venipuncture / Unknown 10/15/2024 3:10 PM CDT 10/15/2024 3:31 PM CDT Leonora Bone PA-C LAB - BLOOD ORDERABLES F inal Result Performing Organization Address City/[facility]/ZIP Co de Phone Number [facility] [address] Lab (1st floor, no room number) [place] [address], [facility] * (ABNORMAL) Comprehensive metabolic panel (10/15/2024 3:10 PM CDT) Sodium 138 135 - 145 mmol/L 10/15/2024 4:15 PM CDT LABORATORY Potassium 4.5 3.4 - 5.3 mmol/L 10/15/2024 4:15 PM CDT LABORATORY Carbon Dioxide (CO2) 26 22 - 29 mmol/L 10/15/2024 4:15 PM CDT [facility] Anion Gap 11 7 - 15 mmol/L 10/15/2024 4:15 PM CDT [facility] Urea Nitrogen 12.3 8.0 - 23.0 mg/dL 10/15/2024 4:15 PM CDT [facility] Creatinine 1.00 0.67 - 1.17 mg/dL 10/15/2024 4:15 PM CDT LABORATORY GFR Estimate 87 >60 mL/min/1. 73m2 10/15/2024 4:15 PM CDT [facility] Comment:eGFR calculated in 2020 CKD-EPI equation. Calcium 10.0 8.8 - 10.4 mg/dL 10/15/2024 4:15 PM CDT LABORATORY Chloride 101 98 - 107 mmol/L 10/15/2024 4:15 PM CDT LABORATORY Glucose 147(H) 70 - 99 mg/dL 10/15/2024 4:15 PM CDT LABORATORY Alkaline Phosphatase 111 40 - 150 U/L 10/15/2024 4:15 PM CDT LABORATORY AST 1,240(HH) 0 - 45 U/L 10/15/2024 4:15 PM CDT LABORATORY ALT 1,380(HH) 0 - 70 U/L 10/15/2024 4:15 PM CDT LABORATORY Protein Total 7.5 6.4 - 8.3 g/dL 10/15/2024 4:15 PM CDT LABORATORY Albumin 4.8 3.5 - 5.2 g/dL 10/15/2024 4:15 PM CDT LABORATORY Bilirubin Total 4.7(H) <=1.2 mg/dL 10/15/2024 4:15 PM CDT LABORATORY Blood STRUCTURE OF RIGHT UPPER LIMB / Unknown Venipuncture / Unknown 10/15/2024 3:10 PM CDT 10/15/2024 3:31 PM CDT Leonora Bone PA-C LAB - BLOOD ORDERABLES F inal Result LABORATORY [facility] [address] [facility] Lab (1st floor, no room number) [place] [address], [facility] documented in this encounter Visit Diagnoses Diagnosis Cholangitis (H)- Primary Cholangitis Cholecystitis Cholecystitis, unspecified Acute sepsis (H) Elevated LFTs Other abnormal blood chemistry Common bile duct dilation Other specified disorders of biliary tract Cholecystitis Cholecystitis, unspecified Elevated LFTs Other abnormal blood chemistry Common bile duct dilation Other specified disorders of biliary tract Acute sepsis (H) documented in this encounter Admitting Diagnoses Diagnosis Cholecystitis Cholecystitis, unspecified Elevated LFTs Other abnormal blood chemistry Common bile duct dilation Other specified disorders of biliary tract Acute sepsis (H) documented in this encounter Administered Medications Inactive Administered Medications - up to 3 most recent administrations Medication Order MAR Action Action Date Dose Rate Site acetaminophen (TYLENOL) Suppository 650 mg 650 mg, Rectal, 3 TIMES DAILY, First dose (after last modification) on Mon10/18/24 at 2330, Alternate with ibuprofen if ordered. Maximum acetaminophen dose from all sources = 75 mg/kg/day not to exceed 4 grams/day. acetaminophen (TYLENOL) tablet 1,000 mg 1,000 mg, Oral, ONCE, On Mon10/15/24 at 1735, For 1 dose, Maximum acetaminophen dose from all sources = 75 mg/kg/day not to exceed 4 gram $Given 10/15/2024 5:41 PM CDT 1,000 mg acetaminophen (TYLENOL) tablet 650 mg 650 mg, Oral, EVERY 4 HOURS PRN, mild pain, other, and adjunct with moderate or severe pain or per patient request, Starting on Mon10/15/24 at 2050, Alternate with ibuprofen if ordered. No more than 2.5 grams of APAP from all sources daily. Maximum acetaminophen dose from all sources = 75 mg/kg/day not to exceed 4 grams/day. $Given 10/18/2024 9:07 PM CDT 650 mg $Given 10/17/2024 6:54 PM CDT 650 mg $Given 10/17/2024 9:17 AM CDT 650 mg acetaminophen (TYLENOL) tablet 650 mg 650 mg, Oral, 3 TIMES DAILY, First dose (after last modification) on Mon10/18/24 at 2330, Alternate with ibuprofen if ordered. No more than 2.5 grams of APAP from all sources daily. Maximum acetaminophen dose from all sources = 75 mg/kg/day not to exceed 4 grams/day. $Given 10/21/2024 3:36 PM CDT 650 mg $Given 10/21/2024 8:22 AM CDT 650 mg $Given 10/20/2024 9:04 PM CDT 650 mg benzocaine-menthol (CHLORASEPTIC) 6-10 MG lozenge 1 lozenge 1 lozenge, Buccal, EVERY 1 HOUR PRN, sore throat, without fever, Starting on Mon10/15/24 at 2050 $Given 10/17/2024 6:54 PM CDT 1 lozenge bisacodyl (DULCOLAX) suppository 10 mg 10 mg, Rectal, ONCE, On Mon10/21/24 at 0900, For 1 dose, Hold for loose stools. $Given 10/21/2024 9:29 AM CDT 10 mg calcium carbonate (TUMS) chewable tablet 1,000 mg 1,000 mg, Oral, 4 TIMES DAILY PRN, heartburn, Starting on Mon10/15/24 at 2051 $Given 10/18/2024 6:55 PM CDT 1,000 mg cefTRIAXone (ROCEPHIN) 2 g vial to attach to NS 100 ml bag for ADULTS or NS 50 ml bag for PEDS STAT, 2 g, Intravenous, ONCE, On Mon10/15/24 at 1635, For 1 dose, Lactated Ringer's solution is not compatible with ceftriaxone for injection, Indications: Intra-Abdominal InfectionIndications:Intra-Abdominal Infection $New Bag 10/15/2024 5:28 PM CDT 2 g cefTRIAXone (ROCEPHIN) 2 g vial to attach to NS 100 ml bag for ADULTS or NS 50 ml bag for PEDS Routine, 2 g, Intravenous, EVERY 24 HOURS, First dose on Patricia 10/17/24 at 1500, For 5 doses, Lactated Ringer's solution is not compatible with ceftriaxone for injection, Indications: cholangitisIndications:cholangitis $New Bag 10/21/2024 3:36 PM CDT 2 g $New Bag 10/20/2024 3:10 PM CDT 2 g $New Bag 10/19/2024 4:27 PM CDT 2 g famotidine (PEPCID) injection 20 mg 20 mg, Intravenous, Administer over 2 Minutes, EVERY 12 HOURS, First dose on Mon10/18/24 at 2130, For ordered IV doses 1-20 mg, give IV Push diluted with 5-10 mL NS over a minimum of 2 minutes. $Given 10/19/2024 8:39 AM CDT 20 mg $Given 10/18/2024 9:30 PM CDT 20 mg furosemide (LASIX) injection 20 mg 20 mg, Intravenous, ONCE, Administer over 1-3 Minutes, On 10/19/24 at 1500, For 1 dose $Given 10/19/2024 3:57 PM C DT 20 mg furosemide (LASIX) injection 20 mg 20 mg, Intravenous, EVERY 8 HOURS, Administer over 1-3 Minutes, First dose on Mon10/20/24 at 0900 $Given 10/20/2024 8:46 AM CDT 20 mg furosemide (LASIX) injection 20 mg 20 mg, Intravenous, EVERY 8 HOURS, Administer over 1-3 Minutes, First dose (after last modification) on Mon10/20/24 at 1500 $Given 10/21/2024 1:26 PM CDT 20 mg $Given 10/21/2024 5:48 AM CDT 20 mg $Given 10/20/2024 9:04 PM CDT 20 mg furosemide (LASIX) injection 40 mg 40 mg, Intravenous, ONCE, Administer over 1-3 Minutes, On Mon10/16/24 at 0300, For 1 dose $Given 10/16/2024 3:12 AM CDT 40 mg hydrALAZINE (APRESOLINE) injection 10 mg 10 mg, Intravenous, ONCE, Administer over 1 Minutes, On Mon10/18/24 at 1300, For 1 dose, PACU $Given 10/18/2024 12:34 PM CDT 10 mg HYDROmorphone (DILAUDID) half-tab 1 mg 1 mg, Oral, EVERY 4 HOURS PRN, moderate pain, IF pain not managed with non-pharmacological and non-opioid interventions, Starting on Mon10/15/24 at 2050, May use concomitant with non-opioid analgesics. $Given 10/18/2024 3:43 PM CDT 1 mg HYDROmorphone (DILAUDID) injection 0.2 mg 0.2 mg, Intravenous, EVERY 2 HOURS PRN, moderate pain, IF patient cannot take oral opioid OR IF pain not managed with non-pharmacological, non-opioid, or oral opioid interventions if ordered, Starting on Mon10/15/24 at 2050, May use concomitant with non-opioid analgesics. $Given 10/18/2024 8:09 PM CDT 0.2 mg HYDROmorphone (DILAUDID) injection 0.4 mg 0.4 mg, Intravenous, EVERY 2 HOURS PRN, severe pain, IF patient cannot take oral opioid OR IF pain not managed with non-pharmacological, non-opioid, or oral opioid interventions if ordered, Starting on Mon10/15/24 at 2050, May use concomitant with non-opioid analgesics. $Given 10/19/2024 1:20 PM CDT 0.4 mg $Given 10/19/2024 10:52 AM CDT 0.4 mg $Given 10/19/2024 8:39 AM CDT 0.4 mg HYDROmorphone (DILAUDID) injection 1 mg 1 mg, Intravenous, EVERY 2 HOURS PRN, severe pain, IF patient cannot take oral opioid OR IF pain not managed with non-pharmacological, non-opioid, or oral opioid interventions if ordered, Starting on Mon10/19/24 at 1531, May use concomitant with non-opioid analgesics. $Given 10/19/2024 9:31 PM CDT 1 mg $Given 10/19/2024 3:54 PM CDT 1 mg HYDROmorphone (DILAUDID) tablet 2 mg 2 mg, Oral, EVERY 4 HOURS PRN, severe pain, IF pain not managed with non-pharmacological and non-opioid interventions, Starting on Mon10/21/24 at 0909, May use concomitant with non-opioid analgesics. $Given 10/21/2024 1:31 PM CDT 2 mg HYDROmorphone (DILAUDID) tablet 2-4 mg 2-4 mg, Oral, EVERY 4 HOURS PRN, severe pain, IF pain not managed with non-pharmacological and non-opioid interventions, Starting on Mon10/18/24 at 2313, May use concomitant with non-opioid analgesics. $Given 10/21/2024 7:39 AM CDT 4 mg $Given 10/20/2024 10:27 PM CDT 4 mg $Given 10/20/2024 2:05 PM CDT 2 mg HYDROmorphone (PF) (DILAUDID) injection 0.5 mg 0.5 mg, Intravenous, EVERY 15 MIN PRN, moderate pain, Starting on Mon10/15/24 at 1617, For 3 doses $Given 10/15/2024 5:41 PM CDT 0.5 mg indocyanine green (IC-GREEN) injection 2.5 mg 2.5 mg, Intravenous, ONCE, On Mon10/18/24 at 0930, For 1 dose, Reconstitute vial with 10 mL Sterile Water for Injection (conc 2.5 mg/mL) PRIOR to administration. Administer IV as a single dose at least 45 minutes prior to robotic cholecystectomy surgery. Use prepared solution within 1 hours and discard any unused solution., Pre-procedure $Given 10/18/2024 9:07 AM CDT 2.5 mg iopamidol (ISOVUE-370) solution 500 mL 500 mL, Intravenous, ONCE, On Mon10/16/24 at 0300, For 1 dose $Given 10/16/2024 2:49 AM CDT 67 mLs iopamidol (ISOVUE-370) solution 500 mL 500 mL, Intravenous, ONCE, On Mon10/19/24 at 1900, For 1 dose $Given 10/19/2024 6:40 PM CDT 99 mLs ketorolac (TORADOL) injection 15 mg 15 mg, Intravenous, ONCE, On Mon10/15/24 at 1620, For 1 dose, Can cause pain on injection. If ordered intravenously (IV) : administer through a running maintenance fluid over 1 minute followed by a flush. If patient complains of pain on injection, may dilute 15-30 mg in 5 mL and push over 1 to 2 minutes. $Given 10/15/2024 4:43 PM CDT 15 mg ketorolac (TORADOL) injection 15 mg 15 mg, Intravenous, EVERY 6 HOURS, First dose on 10/19/24 at 1000, For 4 doses, Can cause pain on injection. If ordered intravenously (IV) : administer through a running maintenance fluid over 1 minute followed by a flush. If patient complains of pain on injection, may dilute 15-30 mg in 5 mL and push over 1 to 2 minutes. $Given 10/20/2024 4:10 AM CDT 15 mg $Given 10/19/2024 9:29 PM CDT 15 mg $Given 10/19/2024 3:51 PM CDT 15 mg ketorolac (TORADOL) injection 30 mg 30 mg, Intravenous, EVERY 6 HOURS PRN, inflammatory pain, Starting on Mon10/18/24 at 2306, For 5 days, Can cause pain on injection. If ordered intravenously (IV) : administer through a running maintenance fluid over 1 minute followed by a flush. If patient complains of pain on injection, may dilute 15-30 mg in 5 mL and push over 1 to 2 minutes.Indications:Cholecystitis,Cholang itis (H) $Given 10/18/2024 11:39 PM CDT 30 mg lactated ringers infusion at 10 mL/hr, Intravenous, CONTINUOUS, IF patient NOT on dialysis., Pre-procedure, Starting on Mon10/16/24 at 1030, Until Mon10/16/24 at 1339 Restarted 10/16/2024 1:06 PM CDT $New Bag 10/16/2024 10:30 AM CDT 10 mL/hr lactated ringers infusion at 10 mL/hr, Intravenous, CONTINUOUS, IF patient NOT on dialysis., Pre-procedure, Starting on Mon10/18/24 at 0930, Until Mon10/18/24 at 1153 $New Bag 10/18/2024 9:07 AM CDT 10 mL/hr levalbuterol (XOPENEX) neb solution 1.25 mg 1.25 mg, Nebulization, EVERY 1 HOUR PRN, wheezing, shortness of breath, Starting on Mon10/16/24 at 0221, Levalbuterol orders will be substituted to albuterol unless intolerance is documented here: Tachycardia LORazepam (ATIVAN) tablet 0.5 mg 0.5 mg, Oral, EVERY 4 HOURS PRN, anxiety, Starting on Mon10/18/24 at 2101 $Given 10/20/2024 1:31 PM CDT 0.5 mg $Given 10/18/2024 9:08 PM CDT 0.5 mg melatonin tablet 3 mg 3 mg, Oral, ONCE, On Mon10/20/24 at 0900, For 1 dose $Given 10/20/2024 1:31 PM CDT 3 mg melatonin tablet 5 mg 5 mg, Oral, AT BEDTIME PRN, sleep, Starting on Mon10/15/24 at 205, Do not give unless at least 6 hours of uninterrupted sleep is expected. If patient has multiple medications ordered PRN sleep/insomnia, offer melatonin first. $Given 10/17/2024 11:43 PM CDT 5 mg metroNIDAZOLE (FLAGYL) infusion 500 mg STAT, 500 mg, Intravenous, ONCE, On Mon10/15/24 at 1635, For 1 dose, Indications: cholecystitisIndications:c holecystitis $New Bag 10/15/2024 6:22 PM CDT 500 mg naloxone (NARCAN) injection 0.2 mg 0.2 mg, Intravenous, EVERY 2 MIN PRN, opioid reversal, Starting on Mon10/15/24 at 2056, Administer intravenous route when available and notify provider when administered. For unintended sedation or respiratory depression if all of the below criteria are met: ~ respiratory rate LESS than or EQUAL to 8. ~SaO2 less than 92% and or/end-tidal CO2 is greater than 50. ~ the patient is receiving an opioid, has unintended sedations assessed as RASS (-3), and is currently not on mechanical ventilation. RASS scale moderate (-3) is movement or eye opening to voice but no eye contact. Patient Monitoring Once the patient has demonstrated a response to the naloxone, continue to monitor respiratory rate, depth, oxygen saturation and end-tidal CO2 (if available) every 15 minutes x 2, then every 30 minutes x 2, then every 1 hour x 1 after each naloxone dose. Consider transfer to ICU if patient respiratory parameters have not improved after 4 naloxone doses. naloxone (NARCAN) injection 0.2 mg 0.2 mg, Intramuscular, EVERY 2 MIN PRN, opioid reversal, Starting on Mon10/15/24 at 2055, Administer intramuscular if an intravenous route is not available and notify provider when administered. For unintended sedation or respiratory depression if all of the below criteria are met: ~ respiratory rate LESS than or EQUAL to 8. ~SaO2 less than 92% and or/end-tidal CO2 is greater than 50. ~ the patient is receiving an opioid, has unintended sedations assessed as RASS (-3), and is currently not on mechanical ventilation. RASS scale moderate (-3) is movement or eye opening to voice but no eye contact. Patient Monitoring Once the patient has demonstrated a response to the naloxone, continue to monitor respiratory rate, depth, oxygen saturation and end-tidal CO2 (if available) every 15 minutes x 2, then every 30 minutes x 2, then every 1 hour x 1 after each naloxone dose. Consider transfer to ICU if patient respiratory parameters have not improved after 4 naloxone doses. naloxone (NARCAN) injection 0.4 mg 0.4 mg, Intravenous, EVERY 2 MIN PRN, opioid reversal, Starting on Mon10/15/24 at 2055, Administer intravenous route when available and notify provider when administered. For unintended sedation or respiratory depression if all of the below criteria are met: ~ respiratory rate LESS than or EQUAL to 8. ~ SaO2 less than 92% and or/end-tidal CO2 is greater than 50. ~ the patient is receiving an opioid, has unintended sedation assessed as RASS (-4) or (-5) and patient is currently not on mechanical ventilation. RASS scale (-4) is deep sedation with no response to voice but movement or eye opening to physical stimulation. RASS scale (-5) is unarousable. Patient Monitoring Once the patient has demonstrated a response to the naloxone, continue to monitor respiratory rate, depth, oxygen saturation and end-tidal CO2 (if available) every 15 minutes x 2, then every 30 minutes x 2, then every 1 hour x 1 after each naloxone dose. Consider transfer to ICU if patient respiratory parameters have not improved after 4 naloxone doses. naloxone (NARCAN) injection 0.4 mg 0.4 mg, Intramuscular, EVERY 2 MIN PRN, opioid reversal, Starting on Mon10/15/24 at 2055, Administer intramuscular if an intravenous route is not available and notify provider when administered. For unintended sedation or respiratory depression if all of the below criteria are met: ~ respiratory rate LESS than or EQUAL to 8. ~ SaO2 less than 92% and or/end-tidal CO2 is greater than 50. ~ the patient is receiving an opioid, has unintended sedation assessed as RASS (-4) or (-5) and patient is currently not on mechanical ventilation. RASS scale (-4) is deep sedation with no response to voice but movement or eye opening to physical stimulation. RASS scale (-5) is unarousable. Patient Monitoring Once the patient has demonstrated a response to the naloxone, continue to monitor respiratory rate, depth, oxygen saturation and end-tidal CO2 (if available) every 15 minutes x 2, then every 30 minutes x 2, then every 1 hour x 1 after each naloxone dose. Consider transfer to ICU if patient respiratory parameters have not improved after 4 naloxone doses. nicotine (NICODERM CQ) 7 MG/24HR 24 hr patch 1 patch 1 patch, Transdermal, Administer over 24 Hours, DAILY, First dose on Mon10/16/24 at 2200, Reminder: Remove previous patch before applying new patch. Avoid heat exposure to application site or surrounding areas. This includes heat from external sources, such as heating pads, electric blankets, or other equipment. $Patch/Med Applied 10/21/2024 8:22 AM CDT 1 patch Right Shoulder $Patch/Med Applied 10/20/2024 8:45 AM CDT 1 patch Right Arm $Patch/Med Applied 10/19/2024 8:28 AM CDT 1 patch Right Shoulder ondansetron (ZOFRAN ODT) ODT tab 4 mg 4 mg, Oral, ONCE PRN, nausea/vomiting - 1st line, Starting on Mon10/15/24 at 1459, For 1 dose, Unless IV in place With dry hands, peel back foil backing and gently remove tablet. Do not push oral disintegrating tablet through foil backing. Administer immediately on tongue and oral disintegrating tablet dissolves in seconds, then swallow with saliva. Liquid not required. $Given 10/15/2024 3:01 PM CDT 4 mg ondansetron (ZOFRAN ODT) ODT tab 4 mg 4 mg, Oral, EVERY 6 HOURS PRN, nausea/vomiting - 1st line, Starting on Mon10/15/24 at 2050, This is Step 1 of nausea and vomiting management. If nausea not resolved in 15 minutes, go to Step 2 prochlorperazine (COMPAZINE). With dry hands, peel back foil backing and gently remove tablet. Do not push oral disintegrating tablet through foil backing. Administer immediately on tongue and oral disintegrating tablet dissolves in seconds, then swallow with saliva. Liquid not required. ondansetron (ZOFRAN) injection 4 mg 4 mg, Intravenous, EVERY 6 HOURS PRN, nausea/vomiting - 1st line, Administer over 2-5 Minutes, Starting on Mon10/15/24 at 2050, Give IF patient unable to tolerate oral medication. This is Step 1 of nausea and vomiting management. If nausea not resolved in 15 minutes, go to Step 2 prochlorperazine (COMPAZINE). pantoprazole (PROTONIX) EC tablet 40 mg 40 mg, Oral, EVERY MORNING BEFORE BREAKFAST, First dose on Mon10/16/24 at 0730, DO NOT CRUSH. $Given 10/21/2024 5:48 AM CDT 40 mg $Given 10/20/2024 5:26 AM CDT 40 mg $Given 10/19/2024 6:19 AM CDT 40 mg perflutren diluted 1mL to 2mL with saline (OPTISON) diluted injection 3 mL 3 mL, Intravenous, ONCE, On Mon10/16/24 at 1100, For 1 dose $Given 10/16/2024 10:46 AM CDT 3 mLs piperacillin-tazobactam (ZOSYN) 3.375 g vial to attach to NS 100 mL bag STAT, 3.375 g, Intravenous, EVERY 6 HOURS, First dose on Mon10/16/24 at 0230, Lactated Ringer's solution is not compatible with piperacillin-tazobactam for injection., Indications: sepsisIndications:sepsis $New Bag 10/17/2024 9:17 AM CDT 3.375 g $New Bag 10/17/2024 1:30 AM CDT 3.375 g $New Bag 10/16/2024 8:12 PM CDT 3.375 g polyethylene glycol (MIRALAX) Packet 17 g 17 g, Oral, 2 TIMES DAILY PRN, constipation, Starting on Mon10/15/24 at 2050, IF more than 1 constipation PRN medication is ordered, administer step-laura as indicated, moving to the next step ONLY if prior step ineffective. Step 1: senna-docusate (SENOKOT-S; PERICOLACE) OR bisacodyl (DULCOLAX) EC tablet Step 2: polyethylene glycol (MIRALAX/GLYCOLAX) Step 3: bisacodyl (DULCOLAX) suppository Step 4: enema 1 Packet = 17 grams. Mix each gram with at least 1/2 ounce (15 mL) of water - 8 ounces for 17 g dose, 4 ounces for 8.5 g dose, 2 ounces for 4 g dose. Follow with the same volume of water. Hold for loose stools unless being administered as part of a bowel prep regimen or bowel clean out. $Given 10/21/2024 3:41 PM CDT 17 g $Given 10/20/2024 8:43 AM CDT 17 g potassium chloride otis ER (KLOR-CON M20) CR tablet 20 mEq 20 mEq, Oral, ONCE, On Mon10/21/24 at 0930, For 1 dose, Potassium level 3.5-3.8 mmol/L Ordered from the Potassium replacement order set. DO NOT CRUSH, Potassium Replacement: Potassium level 3.5-3.8 mmol/L, Recheck: Potassium level next AM $Given 10/21/2024 9:31 AM CDT 20 mEq potassium chloride otis ER (KLOR-CON M20) CR tablet 40 mEq 40 mEq, Oral, ONCE, On Mon10/16/24 at 0730, For 1 dose, Potassium level 3.1 - 3.4 mmol/L Ordered from the Potassium replacement order set. DO NOT CRUSH, Potassium Replacement: Potassium level 3.1-3.4 mmol/L, Recheck: Potassium level 4 hours AFTER last oral dose $Given 10/16/2024 8:53 AM CDT 40 mEq prochlorperazine (COMPAZINE) injection 10 mg 10 mg, Intravenous, EVERY 6 HOURS PRN, nausea/vomiting - 2nd line, Administer over 1-2 Minutes, Starting on Mon10/15/24 at 2050, IF patient unable to tolerate oral medication. This is Step 2 of nausea and vomiting management. Give if nausea not resolved 15 minutes after giving ondansetron (ZOFRAN). prochlorperazine (COMPAZINE) tablet 10 mg 10 mg, Oral, EVERY 6 HOURS PRN, nausea/vomiting - 2nd line, Starting on Mon10/15/24 at 2050, This is Step 2 of nausea and vomiting management. Give if nausea not resolved 15 minutes after giving ondansetron (ZOFRAN). rOPINIRole (REQUIP) tablet 0.25 mg 0.25 mg, Oral, AT BEDTIME, First dose on Mon10/16/24 at 2230 $Given 10/20/2024 9:04 PM CDT 0.25 mg $Given 10/19/2024 9:28 PM CDT 0.25 mg $Given 10/18/2024 9:08 PM CDT 0.25 mg senna-docusate (SENOKOT-S/PERICOLACE) 8.6-50 MG per tablet 1 tablet 1 tablet, Oral, 2 TIMES DAILY, First dose on Mon10/15/24 at 2100, If no bowel movement in 24 hours, increase to 2 tablets by mouth. Hold for loose stools. $Given 10/20/2024 9:04 PM CDT 1 tablet $Given 10/19/2024 8:28 AM CDT 1 tablet $Given 10/18/2024 8:11 PM CDT 1 tablet senna-docusate (SENOKOT-S/PERICOLACE) 8.6-50 MG per tablet 2 tablet 2 tablet, Oral, 2 TIMES DAILY, First dose on Mon10/15/24 at 2100, Hold for loose stools. $Given 10/21/2024 7:41 AM CDT 2 tablets $Given 10/20/2024 8:44 AM CDT 2 tablets $Given 10/19/2024 7:16 PM CDT 2 tablets sodium chloride (PF) 0.9% PF flush 10 mL 10 mL, Intravenous, ONCE, On Mon10/16/24 at 1100, For 1 dose $Given 10/16/2024 10:47 AM CDT 10 mLs sodium chloride (PF) 0.9% PF flush 3 mL 3 mL, Intracatheter, EVERY 8 HOURS SCHEDULED, First dose on Mon10/15/24 at 2200, to lock peripheral IV dormant line $Given 10/21/2024 3:36 PM CDT 3 m Ls $Given 10/21/2024 7:41 AM CDT 3 mLs $Given 10/21/2024 12:07 AM CDT 3 mLs sodium chloride (PF) 0.9% PF flush 3 mL 3 mL, Intracatheter, EVERY 1 MIN PRN, line flush, other, to ensure patency or to lock dormant line, Starting on Mon10/15/24 at 2051 $Given 10/21/2024 1:2 7 PM CDT 3 mLs $Given 10/20/2024 4:10 AM CDT 3 mLs sodium chloride 0.9 % bag for CT scan flush Intravenous, 100 mL, ONCE, On Mon10/16/24 at 0300, For 1 dose, This entry is for use by Radiology to intermittently used as a flush in patients recieving a CT scan. $Given 10/16/2024 2:52 AM CDT 86 mLs sodium chloride 0.9 % bag for CT scan flush Intravenous, 100 mL, ONCE, On Mon10/19/24 at 1900, For 1 dose, This entry is for use by Radiology to intermittently use as a flush in patients receiving a CT scan. $Given 10/19/2024 6:40 PM CDT 65 mLs sodium chloride 0.9 % infusion at 100 mL/hr, Intravenous, CONTINUOUS, Starting on Mon10/15/24 at 2100, Until Mon10/16/24 at 1002, On hold since Mon10/16/2024 at 0231 until manually unheld $New Bag 10/15/2024 10:36 PM CDT 100 mL/hr sodium chloride 0.9 % infusion at 100 mL/hr, Intravenous, CONTINUOUS, Starting on Mon10/16/24 at 1030, Until Patricia 10/17/24 at 0740 Rate/Dose Verify 10/17/2024 7:00 AM CDT 100 mL/hr Rate/Dose Verify 10/17/2024 4:00 AM CDT 100 mL/ hr Rate/Dose Verify 10/17/2024 12:00 AM CDT 100 mL /hr sodium chloride 0.9 % infusion at 75 mL/hr, Intravenous, CONTINUOUS, Starting on Mon10/18/24 at 2130, Until 10/19/24 at 1447 Rate/Dose Change 10/19/2024 10:16 AM CDT 75 mL/hr $New Bag 10/19/2024 8:45 AM CDT 100 mL/hr $New Bag 10/18/2024 9:33 PM CDT 100 mL/hr sodium chloride 0.9% BOLUS 1,000 mL Intravenous, 1,000 mL, ONCE, at 1,000 mL/hr, Administer over 1 Hours, On Mon10/15/24 at 1625, For 1 dose $New Bag 10/15/2024 4:43 PM CDT 1,000 mLs 1000 mL/hr documented in this encounter Active and Recently Administered Medications Times are shown in CDT. Scheduled Medication Order 10/19/2024 10/20/2024 10/21/2024 acetaminophen (TYLENOL) Suppository 650 mg(Linked Group 1) 650 mg, Rectal, 3 TIMES DAILY, First dose (after last modification) on Mon10/18/24 at 2330, Alternate with ibuprofen if ordered. Maximum acetaminophen dose from all sources = 75 mg/kg/day not to exceed 4 grams/day. 0056 (See Alternative - Provider: Candida Her RN)0828 (See Alternative - Provider: Huyen Zazueta RN)1548 (See Alternative - Provider: Darryl Green RN)2128 (See Alternative - Provider: Darryl Green RN) 0844 (See Alternative - Provider: Sveta Elam RN)1511 (See Alternative - Provider: Sveta Elam RN)2104 (See Alternative - Provider: Trang Lin RN) 0822 (See Alternative - Provider: Huyen Zazueta RN)1536 (See Alternative - Provider: Huyen Zazueta RN)2200 (Canceled Entry - Provider: Orders Generic Provider - Comment: Automatically canceled at discontinue of medication order) acetaminophen (TYLENOL) tablet 650 mg(Linked Group 1) 650 mg, Oral, 3 TIMES DAILY, First dose (after last modification) on Mon10/18/24 at 2330, Alternate with ibuprofen if ordered. No more than 2.5 grams of APAP from all sources daily. Maximum acetaminophen dose from all sources = 75 mg/kg/day not to exceed 4 grams/day. 0056 (Not Given - Provider: Candida Her RN - Reason: Other)0828 ($Given - Provider: Hyuen Zazueta RN)1548 ($Given - Provider: Darryl Green RN)2128 ($Given - Provider: Darryl Green RN) 0844 ($Given - Provider: Sveta Elam RN)1511 ($Given - Provider: Sveta Elam RN)2104 ($Given - Provider: Trang Lin RN) 0822 ($Given - Provider: Huyen Zazueta RN)1536 ($Given - Provider: Huyen Zazueta RN)2200 (Canceled Entry - Provider: Orders Generic Provider - Comment: Automatically canceled at discontinue of medication order) bisacodyl (DULCOLAX) suppository 10 mg (COMPLETED) 10 mg, Rectal, ONCE, On 10/21/24 at 0900, For 1 dose, Hold for loose stools. 0929 ($Given - Provider: Huyen Zazueta RN) cefTRIAXone (ROCEPHIN) 2 g vial to attach to NS 100 ml bag for ADULTS or NS 50 ml bag for PEDS (COMPLETED) Routine, 2 g, Intravenous, EVERY 24 HOURS, First dose on Patricia 10/17/24 at 1500, For 5 doses, Lactated Ringer's solution is not compatible with ceftriaxone for injection, Indications: cholangitis 1627 ($New Bag - Provider: Darryl Green RN) 1510 ($New Bag - Provider: Sveta Elam RN) 1536 ($New Bag - Provider: Huyen Zazueta, DEJON) famotidine (PEPCID) injection 20 mg (CANCELED) 20 mg, Intravenous, Administer over 2 Minutes, EVERY 12 HOURS, First dose on Mon10/18/24 at 2130, For ordered IV doses 1-20 mg, give IV Push diluted with 5-10 mL NS over a minimum of 2 minutes. 0839 ($Given - Provider: Huyen Zazueta, DEJON) furosemide (LASIX) injection 20 mg (COMPLETED) 20 mg, Intravenous, ONCE, Administer over 1-3 Minutes, On 10/19/24 at 1500, For 1 dose 1557 ($Given - Provider: Darryl Green RN) furosemide (LASIX) injection 20 mg (CANCELED) 20 mg, Intravenous, EVERY 8 HOURS, Administer over 1-3 Minutes, First dose on 10/20/24 at 0900 0846 ($Given - Provider: Sveta Elam RN) furosemide (LASIX) injection 20 mg 20 mg, Intravenous, EVERY 8 HOURS, Administer over 1-3 Minutes, First dose (after last modification) on 10/20/24 at 1500 1500 ($Given - Provider: Sveta Elam RN)2104 ($Given - Provider: Trang Lin RN - Comment: pt requested) 0548 ($Given - Provider: Rayshawn Quintanilla, DEJON)1326 ($Given - Provider: Huyen Zazueta, DEJON)2100 (Canceled Entry - Provider: Orders Generic Provider - Comment: Automatically canceled at discontinue of medication order) iopamidol (ISOVUE-370) solution 500 mL (COMPLETED) 500 mL, Intravenous, ONCE, On 10/19/24 at 1900, For 1 dose 1840 ($Given - Provider: ARSENIO Galeas) ketorolac (TORADOL) injection 15 mg (COMPLETED) 15 mg, Intravenous, EVERY 6 HOURS, First dose on 10/19/24 at 1000, For 4 doses, Can cause pain on injection. If ordered intravenously (IV) : administer through a running maintenance fluid over 1 minute followed by a flush. If patient complains of pain on injection, may dilute 15-30 mg in 5 mL and push over 1 to 2 minutes. 1013 ($Given - Provider: Huyen Zazueta RN)1551 ($Given - Provider: Darryl Green, DEJON)2129 ($Given - Provider: Darryl Green, DEJON) 0410 ($Given - Provider: Rayshawn Quintanilla, DEJON) melatonin tablet 3 mg (COMPLETED) 3 mg, Oral, ONCE, On Mon10/20/24 at 0900, For 1 dose 1331 ($Given - Provider: Sveta Elam RN) nicotine (NICODERM CQ) 7 MG/24HR 24 hr patch 1 patch 1 patch, Transdermal, Administer over 24 Hours, DAILY, First dose on Mon10/16/24 at 2200, Reminder: Remove previous patch before applying new patch. Avoid heat exposure to application site or surrounding areas. This includes heat from external sources, such as heating pads, electric blankets, or other equipment. 0828 ($Patch/Med Applied - Provider: Huyen Zazueta RN) 0826 (Patch/Med Removed - Provider: Sveta Elam RN)0845 ($Patch/Med Applied - Provider: Sveta Elam RN) 0822 ($Patch/Med Applied - Provider: Huyen Zazueta RN)2241 (Due: Patch/Med Removed - Provider: Orders Generic Provider - Comment: Time automatically adjusted from order being discontinued) pantoprazole (PROTONIX) EC tablet 40 mg 40 mg, Oral, EVERY MORNING BEFORE BREAKFAST, First dose on Mon10/16/24 at 0730, DO NOT CRUSH. 0619 ($Given - Provider: Candida Her RN) 0526 ($Given - Provider: Rayshawn Quintanilla, DEJON) 0548 ($Given - Provider: Rayshawn Quintanilla, DEJON) potassium chloride otis ER (KLOR-CON M20) CR tablet 20 mEq (COMPLETED) 20 mEq, Oral, ONCE, On Mon10/21/24 at 0930, For 1 dose, Potassium level 3.5-3.8 mmol/L Ordered from the Potassium replacement order set. DO NOT CRUSH, Potassium Replacement: Potassium level 3.5-3.8 mmol/L, Recheck: Potassium level next AM 0931 ($Given - Provider: Huyen Zazueta RN) rOPINIRole (REQUIP) tablet 0.25 mg 0.25 mg, Oral, AT BEDTIME, First dose on Mon10/16/24 at 2230 2128 ($Given - Provider: Darryl Green RN) 2103 ($Given - Provider: Trang Lin RN) 2200 (Canceled Entry - Provider: Orders Generic Provider - Comment: Automatically canceled at discontinue of medication order) senna-docusate (SENOKOT-S/PERICOLACE) 8.6-50 MG per tablet 1 tablet(Linked Group 2) 1 tablet, Oral, 2 TIMES DAILY, First dose on Mon10/15/24 at 2100, If no bowel movement in 24 hours, increase to 2 tablets by mouth. Hold for loose stools. 0828 ($Given - Provider: Huyen Zazueta RN)1915 (See Alternative - Provider: Darryl Green RN) 0844 (See Alternative - Provider: Sveta Elam RN)2103 ($Given - Provider: Trang Lin RN) 0741 (See Alternative - Provider: Huyen Zazeuta RN)1999 (Canceled Entry - Provider: Orders Generic Provider - Comment: Automatically canceled at discontinue of medication order) senna-docusate (SENOKOT-S/PERICOLACE) 8.6-50 MG per tablet 2 tablet(Linked Group 2) 2 tablet, Oral, 2 TIMES DAILY, First dose on Mon10/15/24 at 2100, Hold for loose stools. 0828 (See Alternative - Provider: Huyen Zazueta RN)1915 ($Given - Provider: Darryl Green RN) 0844 ($Given - Provider: Sveta Elam RN)2103 (See Alternative - Provider: Trang Lin RN) 0741 ($Given - Provider: Huyen Zazueta RN)1999 (Canceled Entry - Provider: Orders Generic Provider - Comment: Automatically canceled at discontinue of medication order) sodium chloride (PF) 0.9% PF flush 3 mL 3 mL, Intracatheter, EVERY 8 HOURS SCHEDULED, First dose on Mon10/15/24 at 2200, to lock peripheral IV dormant line 0839 ($Given - Provider: Huyen Zazueta, DEJON)1549 ($Given - Provider: Darryl Green, DEJON) 0001 ($Given - Provider: Rayshawn Quintanilla, DEJON)0846 ($Given - Provider: Sveta Elam, DEJON)1512 (Canceled Entry - Provider: Sveta Elam, DEJON) 0007 ($Given - Provider: Rayshawn Quintanilla, DEJON)0741 ($Given - Provider: Huyen Zazueta, DEJON)1536 ($Given - Provider: Huyen Zazueta, DEJON) sodium chloride 0.9 % bag for CT scan flush (COMPLETED) Intravenous, 100 mL, ONCE, On 10/19/24 at 1900, For 1 dose, This entry is for use by Radiology to intermittently use as a flush in patients receiving a CT scan. 1840 ($Given - Provider: ARSENIO Galeas) Continuous Medication Order 10/19/2024 10/20/2024 10/21/2024 sodium chloride 0.9 % infusion (CANCELED) at 75 mL/hr, Intravenous, CONTINUOUS, Starting on Mon10/18/24 at 2130, Until 10/19/24 at 1447 0845 ($New Bag - Provider: Huyen Zazueta RN)1016 (Rate/Dose Change - Provider: Huyen Zazueta RN) PRN Medication Order 10/19/2024 10/20/2024 10/21/2024 artificial saliva (BIOTENE MT) solution 1 spray 1 spray, Mouth/Throat, 4 TIMES DAILY PRN, dry mouth, Starting on Mon10/15/24 at 2100 benzocaine-menthol (CHLORASEPTIC) 6-10 MG lozenge 1 lozenge 1 lozenge, Buccal, EVERY 1 HOUR PRN, sore throat, without fever, Starting on Mon10/15/24 at 2050 calcium carbonate (TUMS) chewable tablet 1,000 mg 1,000 mg, Oral, 4 TIMES DAILY PRN, heartburn, Starting on Mon10/15/24 at 2050 HYDROmorphone (DILAUDID) half-tab 1 mg 1 mg, Oral, EVERY 4 HOURS PRN, moderate pain, IF pain not managed with non-pharmacological and non-opioid interventions, Starting on Mon10/15/24 at 2050, May use concomitant with non-opioid analgesics. HYDROmorphone (DILAUDID) injection 0.2 mg 0.2 mg, Intravenous, EVERY 2 HOURS PRN, moderate pain, IF patient cannot take oral opioid OR IF pain not managed with non-pharmacological, non-opioid, or oral opioid interventions if ordered, Starting on Mon10/15/24 at 2050, May use concomitant with non-opioid analgesics. HYDROmorphone (DILAUDID) injection 0.4 mg (CANCELED) 0.4 mg, Intravenous, EVERY 2 HOURS PRN, severe pain, IF patient cannot take oral opioid OR IF pain not managed with non-pharmacological, non-opioid, or oral opioid interventions if ordered, Starting on Mon10/15/24 at 2050, May use concomitant with non-opioid analgesics. 0323 ($Given - Provider: Candida Her RN)0839 ($Given - Provider: Huyen Zazueta RN)1052 ($Given - Provider: Huyen Zazueta RN)1320 ($Given - Provider: Huyen Zazueta RN) HYDROmorphone (DILAUDID) injection 1 mg 1 mg, Intravenous, EVERY 2 HOURS PRN, severe pain, IF patient cannot take oral opioid OR IF pain not managed with non-pharmacological, non-opioid, or oral opioid interventions if ordered, Starting on Mon10/19/24 at 1531, May use concomitant with non-opioid analgesics. 1554 ($Given - Provider: Darryl Green RN)2131 ($Given - Provider: Darryl Green RN) HYDROmorphone (DILAUDID) tablet 2 mg 2 mg, Oral, EVERY 4 HOURS PRN, severe pain, IF pain not managed with non-pharmacological and non-opioid interventions, Starting on Mon10/21/24 at 0909, May use concomitant with non-opioid analgesics. 1331 ($Given - Provider: Huyen Zazueta RN) HYDROmorphone (DILAUDID) tablet 2-4 mg (CANCELED) 2-4 mg, Oral, EVERY 4 HOURS PRN, severe pain, IF pain not managed with non-pharmacological and non-opioid interventions, Starting on Mon10/18/24 at 2313, May use concomitant with non-opioid analgesics. 1916 ($Given - Provider: Darryl Green RN) 1405 ($Given - Provider: Sveta Elam RN)2227 ($Given - Provider: Trang Lin RN) 0739 ($Given - Provider: Huyen Zazueta RN) levalbuterol (XOPENEX) neb solution 1.25 mg 1.25 mg, Nebulization, EVERY 1 HOUR PRN, wheezing, shortness of breath, Starting on Mon10/16/24 at 0221, Levalbuterol orders will be substituted to albuterol unless intolerance is documented here: Tachycardia lidocaine (LMX4) cream Topical, EVERY 1 HOUR PRN, pain, with VAD insertion, Starting on Mon10/15/24 at 2050, Apply at least 30 minutes prior to VAD insertion in divided doses as needed for size of site for insertion. MAX Dose: 2.5 g ( of 5 g tube) Do NOT give if patient has a history of allergy to any local anesthetic or any veto product. Do NOT use both lidocaine intradermal/subcutaneous injection and the lidocaine cream on the same site. lidocaine 1 % 0.1-1 mL 0.1-1 mL, Other, EVERY 1 HOUR PRN, mild pain with VAD insertion, Starting on Mon10/15/24 at 2050, MAX dose 1 mL subcutaneous OR intradermal along the side of the vein in divided doses as needed for VAD insertion. Do NOT give if patient has a history of allergy to any local anesthetic or any veto product. Do NOT use both lidocaine intradermal/subcutaneous injection and the lidocaine cream on the same site. LORazepam (ATIVAN) tablet 0.5 mg 0.5 mg, Oral, EVERY 4 HOURS PRN, anxiety, Starting on Mon10/18/24 at 2101 1331 ($Given - Provider: Sveta Elam RN) melatonin tablet 5 mg 5 mg, Oral, AT BEDTIME PRN, sleep, Starting on Mon10/15/24 at 2050, Do not give unless at least 6 hours of uninterrupted sleep is expected. If patient has multiple medications ordered PRN sleep/insomnia, offer melatonin first. naloxone (NARCAN) injection 0.2 mg(Linked Group 3) 0.2 mg, Intravenous, EVERY 2 MIN PRN, opioid reversal, Starting on Mon10/15/24 at 2055, Administer intravenous route when available and notify provider when administered. For unintended sedation or respiratory depression if all of the below criteria are met: ~ respiratory rate LESS than or EQUAL to 8. ~SaO2 less than 92% and or/end-tidal CO2 is greater than 50. ~ the patient is receiving an opioid, has unintended sedations assessed as RASS (-3), and is currently not on mechanical ventilation. RASS scale moderate (-3) is movement or eye opening to voice but no eye contact. Patient Monitoring Once the patient has demonstrated a response to the naloxone, continue to monitor respiratory rate, depth, oxygen saturation and end-tidal CO2 (if available) every 15 minutes x 2, then every 30 minutes x 2, then every 1 hour x 1 after each naloxone dose. Consider transfer to ICU if patient respiratory parameters have not improved after 4 naloxone doses. naloxone (NARCAN) injection 0.2 mg(Linked Group 3) 0.2 mg, Intramuscular, EVERY 2 MIN PRN, opioid reversal, Starting on Mon10/15/24 at 2055, Administer intramuscular if an intravenous route is not available and notify provider when administered. For unintended sedation or respiratory depression if all of the below criteria are met: ~ respiratory rate LESS than or EQUAL to 8. ~SaO2 less than 92% and or/end-tidal CO2 is greater than 50. ~ the patient is receiving an opioid, has unintended sedations assessed as RASS (-3), and is currently not on mechanical ventilation. RASS scale moderate (-3) is movement or eye opening to voice but no eye contact. Patient Monitoring Once the patient has demonstrated a response to the naloxone, continue to monitor respiratory rate, depth, oxygen saturation and end-tidal CO2 (if available) every 15 minutes x 2, then every 30 minutes x 2, then every 1 hour x 1 after each naloxone dose. Consider transfer to ICU if patient respiratory parameters have not improved after 4 naloxone doses. naloxone (NARCAN) injection 0.4 mg(Linked Group 3) 0.4 mg, Intravenous, EVERY 2 MIN PRN, opioid reversal, Starting on Mon10/15/24 at 2055, Administer intravenous route when available and notify provider when administered. For unintended sedation or respiratory depression if all of the below criteria are met: ~ respiratory rate LESS than or EQUAL to 8. ~ SaO2 less than 92% and or/end-tidal CO2 is greater than 50. ~ the patient is receiving an opioid, has unintended sedation assessed as RASS (-4) or (-5) and patient is currently not on mechanical ventilation. RASS scale (-4) is deep sedation with no response to voice but movement or eye opening to physical stimulation. RASS scale (-5) is unarousable. Patient Monitoring Once the patient has demonstrated a response to the naloxone, continue to monitor respiratory rate, depth, oxygen saturation and end-tidal CO2 (if available) every 15 minutes x 2, then every 30 minutes x 2, then every 1 hour x 1 after each naloxone dose. Consider transfer to ICU if patient respiratory parameters have not improved after 4 naloxone doses. naloxone (NARCAN) injection 0.4 mg(Linked Group 3) 0.4 mg, Intramuscular, EVERY 2 MIN PRN, opioid reversal, Starting on Mon10/15/24 at 2055, Administer intramuscular if an intravenous route is not available and notify provider when administered. For unintended sedation or respiratory depression if all of the below criteria are met: ~ respiratory rate LESS than or EQUAL to 8. ~ SaO2 less than 92% and or/end-tidal CO2 is greater than 50. ~ the patient is receiving an opioid, has unintended sedation assessed as RASS (-4) or (-5) and patient is currently not on mechanical ventilation. RASS scale (-4) is deep sedation with no response to voice but movement or eye opening to physical stimulation. RASS scale (-5) is unarousable. Patient Monitoring Once the patient has demonstrated a response to the naloxone, continue to monitor respiratory rate, depth, oxygen saturation and end-tidal CO2 (if available) every 15 minutes x 2, then every 30 minutes x 2, then every 1 hour x 1 after each naloxone dose. Consider transfer to ICU if patient respiratory parameters have not improved after 4 naloxone doses. ondansetron (ZOFRAN ODT) ODT tab 4 mg(Linked Group 4) 4 mg, Oral, EVERY 6 HOURS PRN, nausea/vomiting - 1st line, Starting on Mon10/15/24 at 2050, This is Step 1 of nausea and vomiting management. If nausea not resolved in 15 minutes, go to Step 2 prochlorperazine (COMPAZINE). With dry hands, peel back foil backing and gently remove tablet. Do not push oral disintegrating tablet through foil backing. Administer immediately on tongue and oral disintegrating tablet dissolves in seconds, then swallow with saliva. Liquid not required. ondansetron (ZOFRAN) injection 4 mg(Linked Group 4) 4 mg, Intravenous, EVERY 6 HOURS PRN, nausea/vomiting - 1st line, Administer over 2-5 Minutes, Starting on Mon10/15/24 at 2050, Give IF patient unable to tolerate oral medication. This is Step 1 of nausea and vomiting management. If nausea not resolved in 15 minutes, go to Step 2 prochlorperazine (COMPAZINE). polyethylene glycol (MIRALAX) Packet 17 g 17 g, Oral, 2 TIMES DAILY PRN, constipation, Starting on Mon10/15/24 at 2050, IF more than 1 constipation PRN medication is ordered, administer step-laura as indicated, moving to the next step ONLY if prior step ineffective. Step 1: senna-docusate (SENOKOT-S; PERICOLACE) OR bisacodyl (DULCOLAX) EC tablet Step 2: polyethylene glycol (MIRALAX/GLYCOLAX) Step 3: bisacodyl (DULCOLAX) suppository Step 4: enema 1 Packet = 17 grams. Mix each gram with at least 1/2 ounce (15 mL) of water - 8 ounces for 17 g dose, 4 ounces for 8.5 g dose, 2 ounces for 4 g dose. Follow with the same volume of water. Hold for loose stools unless being administered as part of a bowel prep regimen or bowel clean out. 0843 ($Given - Provider: Sveta Elam RN) 1541 ($Given - Provider: Huyen Zazueta RN) prochlorperazine (COMPAZINE) injection 10 mg(Linked Group 5) 10 mg, Intravenous, EVERY 6 HOURS PRN, nausea/vomiting - 2nd line, Administer over 1-2 Minutes, Starting on Mon10/15/24 at 2050, IF patient unable to tolerate oral medication. This is Step 2 of nausea and vomiting management. Give if nausea not resolved 15 minutes after giving ondansetron (ZOFRAN). prochlorperazine (COMPAZINE) tablet 10 mg(Linked Group 5) 10 mg, Oral, EVERY 6 HOURS PRN, nausea/vomiting - 2nd line, Starting on Mon10/15/24 at 2050, This is Step 2 of nausea and vomiting management. Give if nausea not resolved 15 minutes after giving ondansetron (ZOFRAN). sodium chloride (PF) 0.9% PF flush 3 mL 3 mL, Intracatheter, EVERY 1 MIN PRN, line flush, other, to ensure patency or to lock dormant line, Starting on Mon10/15/24 at 2050 0410 ($Given - Provider: Rayshawn Quintanilla, RN) 1327 ($Given - Provider: Huyen Zazueta RN) Linked Groups Order Group 1: acetaminophen (TYLENOL) tablet 650 mgJump to med 650 mg, Oral, 3 TIMES DAILY, First dose (after last modification) on Mon10/18/24 at 2330, Alternate with ibuprofen if ordered. No more than 2.5 grams of APAP from all sources daily. Maximum acetaminophen dose from all sources = 75 mg/kg/day not to exceed 4 grams/day. Or acetaminophen (TYLENOL) Suppository 650 mgJump to med 650 mg, Rectal, 3 TIMES DAILY, First dose (after last modification) on Mon10/18/24 at 2330, Alternate with ibuprofen if ordered. Maximum acetaminophen dose from all sources = 75 mg/kg/day not to exceed 4 grams/day. Group 2: senna-docusate (SENOKOT-S/PERICOLACE) 8.6-50 MG per tablet 1 tabletJump to med 1 tablet, Oral, 2 TIMES DAILY, First dose on Mon10/15/24 at 2100, If no bowel movement in 24 hours, increase to 2 tablets by mouth. Hold for loose stools. Or senna-docusate (SENOKOT-S/PERICOLACE) 8.6-50 MG per tablet 2 tabletJump to med 2 tablet, Oral, 2 TIMES DAILY, First dose on Mon10/15/24 at 2100, Hold for loose stools. Group 3: naloxone (NARCAN) injection 0.2 mgJump to med 0.2 mg, Intravenous, EVERY 2 MIN PRN, opioid reversal, Starting on Mon10/15/24 at 2055, Administer intravenous route when available and notify provider when administered. For unintended sedation or respiratory depression if all of the below criteria are met: ~ respiratory rate LESS than or EQUAL to 8. ~SaO2 less than 92% and or/end-tidal CO2 is greater than 50. ~ the patient is receiving an opioid, has unintended sedations assessed as RASS (-3), and is currently not on mechanical ventilation. RASS scale moderate (-3) is movement or eye opening to voice but no eye contact. Patient Monitoring Once the patient has demonstrated a response to the naloxone, continue to monitor respiratory rate, depth, oxygen saturation and end-tidal CO2 (if available) every 15 minutes x 2, then every 30 minutes x 2, then every 1 hour x 1 after each naloxone dose. Consider transfer to ICU if patient respiratory parameters have not improved after 4 naloxone doses. Or naloxone (NARCAN) injection 0.4 mgJump to med 0.4 mg, Intravenous, EVERY 2 MIN PRN, opioid reversal, Starting on Mon10/15/24 at 2055, Administer intravenous route when available and notify provider when administered. For unintended sedation or respiratory depression if all of the below criteria are met: ~ respiratory rate LESS than or EQUAL to 8. ~ SaO2 less than 92% and or/end-tidal CO2 is greater than 50. ~ the patient is receiving an opioid, has unintended sedation assessed as RASS (-4) or (-5) and patient is currently not on mechanical ventilation. RASS scale (-4) is deep sedation with no response to voice but movement or eye opening to physical stimulation. RASS scale (-5) is unarousable. Patient Monitoring Once the patient has demonstrated a response to the naloxone, continue to monitor respiratory rate, depth, oxygen saturation and end-tidal CO2 (if available) every 15 minutes x 2, then every 30 minutes x 2, then every 1 hour x 1 after each naloxone dose. Consider transfer to ICU if patient respiratory parameters have not improved after 4 naloxone doses. Or naloxone (NARCAN) injection 0.2 mgJump to med 0.2 mg, Intramuscular, EVERY 2 MIN PRN, opioid reversal, Starting on Mon10/15/24 at 2055, Administer intramuscular if an intravenous route is not available and notify provider when administered. For unintended sedation or respiratory depression if all of the below criteria are met: ~ respiratory rate LESS than or EQUAL to 8. ~SaO2 less than 92% and or/end-tidal CO2 is greater than 50. ~ the patient is receiving an opioid, has unintended sedations assessed as RASS (-3), and is currently not on mechanical ventilation. RASS scale moderate (-3) is movement or eye opening to voice but no eye contact. Patient Monitoring Once the patient has demonstrated a response to the naloxone, continue to monitor respiratory rate, depth, oxygen saturation and end-tidal CO2 (if available) every 15 minutes x 2, then every 30 minutes x 2, then every 1 hour x 1 after each naloxone dose. Consider transfer to ICU if patient respiratory parameters have not improved after 4 naloxone doses. Or naloxone (NARCAN) injection 0.4 mgJump to med 0.4 mg, Intramuscular, EVERY 2 MIN PRN, opioid reversal, Starting on Mon10/15/24 at 2055, Administer intramuscular if an intravenous route is not available and notify provider when administered. For unintended sedation or respiratory depression if all of the below criteria are met: ~ respiratory rate LESS than or EQUAL to 8. ~ SaO2 less than 92% and or/end-tidal CO2 is greater than 50. ~ the patient is receiving an opioid, has unintended sedation assessed as RASS (-4) or (-5) and patient is currently not on mechanical ventilation. RASS scale (-4) is deep sedation with no response to voice but movement or eye opening to physical stimulation. RASS scale (-5) is unarousable. Patient Monitoring Once the patient has demonstrated a response to the naloxone, continue to monitor respiratory rate, depth, oxygen saturation and end-tidal CO2 (if available) every 15 minutes x 2, then every 30 minutes x 2, then every 1 hour x 1 after each naloxone dose. Consider transfer to ICU if patient respiratory parameters have not improved after 4 naloxone doses. Group 4: ondansetron (ZOFRAN ODT) ODT tab 4 mgJump to med 4 mg, Oral, EVERY 6 HOURS PRN, nausea/vomiting - 1st line, Starting on Mon10/15/24 at 2050, This is Step 1 of nausea and vomiting management. If nausea not resolved in 15 minutes, go to Step 2 prochlorperazine (COMPAZINE). With dry hands, peel back foil backing and gently remove tablet. Do not push oral disintegrating tablet through foil backing. Administer immediately on tongue and oral disintegrating tablet dissolves in seconds, then swallow with saliva. Liquid not required. Or ondansetron (ZOFRAN) injection 4 mgJump to med 4 mg, Intravenous, EVERY 6 HOURS PRN, nausea/vomiting - 1st line, Administer over 2-5 Minutes, Starting on Mon10/15/24 at 2050, Give IF patient unable to tolerate oral medication. This is Step 1 of nausea and vomiting management. If nausea not resolved in 15 minutes, go to Step 2 prochlorperazine (COMPAZINE). Group 5: prochlorperazine (COMPAZINE) injection 10 mgJump to med 10 mg, Intravenous, EVERY 6 HOURS PRN, nausea/vomiting - 2nd line, Administer over 1-2 Minutes, Starting on Mon10/15/24 at 2050, IF patient unable to tolerate oral medication. This is Step 2 of nausea and vomiting management. Give if nausea not resolved 15 minutes after giving ondansetron (ZOFRAN). Or prochlorperazine (COMPAZINE) tablet 10 mgJump to med 10 mg, Oral, EVERY 6 HOURS PRN, nausea/vomiting - 2nd line, Starting on Mon10/15/24 at 2050, This is Step 2 of nausea and vomiting management. Give if nausea not resolved 15 minutes after giving ondansetron (ZOFRAN). documented in this encounter Care Teams Heel Seater Relationship Specialty Start Date End Date No Ref-Primary, Physician PCP - General 10/15/24 documented as of this encounter
--- OUTSIDE RECORDS SUMMARY | 2024-10-15 19:00 | XMS_ITS | Continuity of Care Document ---
Author Organization [facility] Address [address] [address] [place] [address] Phone Care Team Providers Care Manager Country Name Role Phone Vic Sarkar MD Unavailable Unavailab le Procedures Procedure Date ERCP w/dil, sphinc Ercp; W/endo Retro Remov Stone 25 Inpt Cons High Subsqt Inpt Strtfwd/Low Advance Directives Directive Yes / No Effective Date File Name No Information Encounters Encounter Description Practice Location Reason(s) For Visit Diagnoses Date Provider Providers Copied on Encounter [facility], [address] [address], [place], [place], [id number], [place] tel:[phone] [facility] No Information 5 Mello Ho. [address] [place] [address], [id number], [place]. tel:[phone] Referring Provider: Vic Sarkar MD D, [address] [place] [address], [id number]. tel:[phone] Inpt Cons High [facility], [address] [address], [place], [place], [id number], [place] tel:[phone] [facility] No Information 5 Zay Locke. [address] [place] [address], [id number], [place]. tel:[phone] Referring Provider: Salvador Rocha SAUSAGE GRINDER T, [address] [place], [address]. tel:[phone] Family History Family Member Type Diagnosis Age At Onset No Information Payers Payer name Insurance type Covered constitution party ID Authoriza tijesse(s) [employer] [facility] [id number] Social History Type Description Quantity Date Captured Comments Sex Male Smoking Status No Information Chief Complaint And Reason For Visit No Information Reason For Referral Reason For Referral No Information History Of Present Illness Encounter Date Complaint History Of Prese nt Illness No Information Functional Status Date Functional Assessmen t No Information Instructions Date Instruction Additional Infor mation No Information Assessments Type Assessment Date No Information Patient Care Teams Name Effective Dates (start - stop) Status Members No Information
--- OUTSIDE RECORDS SUMMARY | 2024-10-16 11:00 | XMS_ITS | Encounter Summary ---
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 Name Role Phone No Ref-Primary, Physician Primary Care Provider Reason for Visit * Reason Comments Abdominal Pain * Auth/Cert Specialty Diagnoses / Procedures Referred By Contac t Referred To Contact EMERGENCY MEDICINE Diagnoses Cholecystitis Acute sepsis (H) Elevated LFTs Common bile duct dilation [facility] Emergency Dept [address] [place] [address] Phone: tel:[phone] fax: Referral ID Status Reason Start Date Expiration Date Visits Re quested Visits Authorized [id number] 1 1 Encounter Details Date Type Department Care Team (Late st Contact Info) Description 10/16/2024 11:00 AM CDT - 10/16/2024 12:00 PM CDT Surgery [facility] PeriOp Services [address] [place] [id number] Claudia Sarkar MD [place] [facility] [address] [place] [address] ENDOSCOPIC RETROGRADE CHOLANGIOPANCREATOGRAP HY, COMPLEX, Stone Extraction, Dilation Surgery Details Date/Time Status Location OR Service Patient Class Case Class Case Type Trauma Case? 10/16/2024 11:00 AM Posted RH OR OR 05 Gastroenterology Inpatient NEST 1 - Emergent (Immediate ) Panel 1 Procedure LRB Anes Op Region Wound Class Comments ENDOSCOPIC RETROGRADE CHOLANGIOPANCREATOGRAPHY, COMPLEX, Stone Extraction, Dilation N/A General Mouth II-Clean Contaminated Surgeon Surgeon Role Service Panel Claudia Sarkar MD Primary Gastroenterolog y 1 documented in this encounter Social History Tobacco Use Types Packs/Day Years [...] Answer Date Recorded Do you have housing? 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 Gender Identity Not on file Sexual Orientation Not on file documented as of this encounter Last Filed Vital Signs Vital Sign Reading Time Taken Comments Blood Pressure 95/68 10/16/2024 10:31 AM CDT Pulse 114 10/16/2024 10:31 AM CDT Temperature 38.6 C (101.5 F) 10/16/2024 10:31 AM CDT MDA notified Respiratory Rate 25 10/16/2024 10:3 1 AM CDT Oxygen Saturation 98% 10/16/2024 12: 00 PM CDT Inhaled Oxygen Concentration - - Weight 90.8 kg (200 lb 2.8 oz) 10/16/19 25 8:56 PM CDT Height 174.5 cm (5' 8.7) 10/15/2024 8: 56 PM CDT Body Mass Index 28.72 10/17/2024 8:08 PM CDT documented in this encounter Discharge Summaries * Nicolas Caicedo MD - 10/21/2024 1:32 PM CDT Images from the original note were not included. [facility] Hospitalist Discharge Summary Date of Admission: 10/15/2024 [...] on this Encounter I, Nicolas Caicedo MD, MD, personally saw the patient today and spent greater than 30 minutes discharging this patient. Nicolas Caicedo MD, MD [place] [address] MEDICAL SURGICAL [address] [facility] [address] Physical Exam Vital Signs: Temp: 98.1 ??F [...] Results Collected Updated Procedure Result Status 10/18/2024 14510/20/2024 1831 Blood Culture Peripheral blood (BC) Arm, Right [[id number]] Peripheral blood (BC) from Arm, Right Preliminary result Component Value Culture No growth after 2 days [P] 10/18/2024 1455 10/20/2024 1831 Blood Culture Peripheral blood (BC) Hand, Right [[id number]] Peripheral blood (BC) from Hand, Right Preliminary result Component Value Culture No growth after 2 days [P] 10/15/2024 1709 10/18/2024 0822 Blood Culture Peripheral blood (BC) Arm, Right [[id number]] (Abnormal) Peripheral blood (BC) from Arm, Right [...] 10/16/2024 0600 Blood Culture ID Panel, PCR [[id number]] (Abnormal) Peripheral blood (BC) from Arm, Right [...] Escherichia coli Detected Escherichia coli detected by SmartVa[employer] BCID2 assay. Final identification and antimicrobial susceptibility [...] Blood Culture Peripheral blood (BC) Arm, Left [[id number]] (Abnormal) Peripheral blood (BC) from Arm, Left [...] Limited Narrative EXAM: US ABDOMEN LIMITED LOCATION: [facility] DATE: 10/15/2024 INDICATION: Right upper quadrant pain; [...] EXAM: XR CHEST PORT 1 VIEW LOCATION: [facility] DATE: 10/16/2024 INDICATION: hypoxia COMPARISON: 10/11/2021 Impression [...] CT CHEST PULMONARY EMBOLISM W CONTRAST LOCATION: [facility] DATE: 10/16/2024 INDICATION: tachycardia, tachypnea COMPARISON: Same [...] be read by a radiologist or a [place] non-radiologist provider. XR Abdomen 1 View Narrative EXAM: XR ABDOMEN 1 VIEW LOCATION: [facility] DATE: 10/19/2024 INDICATION: evaluate for ileus, increasing distension, postop day one lateral cholecystectomy. COMPARISON: None. Impression IMPRESSION: Postop changes from recent cholecystectomy. Free air under the right hemidiaphragm consistent with recent surgery. Nothing for ileus. XR Chest Port 1 View Narrative EXAM: XR CHEST PORT 1 VIEW LOCATION: [facility] DATE: 10/19/2024 INDICATION: SOB postop day 1 cholecystectomy. COMPARISON: 10/16/2024 portable chest and 10/16/2024 CT chest Impression IMPRESSION: Some free air under the right hemidiaphragm consistent with recent cholecystectomy. Shallow inspiration with some mild new atelectasis in the left lung base. CT Abdomen Pelvis w Contrast Narrative EXAM: CT ABDOMEN PELVIS W CONTRAST LOCATION: [facility] DATE: 10/19/2024 INDICATION: worsening abdominal pain following [...] EXAM: XR CHEST PORT 1 VIEW LOCATION: [facility] DATE: 10/20/2024 INDICATION: Shortness of breath COMPARISON: Chest radiograph and CT abdomen/pelvis 10/19/2024. Impression IMPRESSION: Stable size of cardiomediastinal silhouette. Low lung volumes with likely linear bibasilar atelectasis. No davin airspace consolidation, pleural effusion or pneumothorax. Small volume pneumoperitoneum, not significantly changed from recent chest radiograph and CT abdomen/pelvis. Echocardiogram Complete Value LVEF 45-50% Narrative [id number]^SATURNINO^REBEKAH [facility] Echocardiography Laboratory [address] [place] [address] Name: SALVADOR AHUMADA : 1965 Study Date: 10/16/2024 09:51 AM Age: 59 yrs Gender: Male Patient Location: [facility] Reason For Study: SOB, BEATRIS Ordering Physician: REBEKAH MATAMOROS Performed By: Isha Murray BSA: 2.0 m2 Height: 68 in Weight: 200 lb BP: 134/92 mmHg Procedure Echocardiogram with two-dimensional, color and spectral Doppler. Optison ([facility] #[id number]) given intravenously. Interpretation Summary The visual ejection [...] AM Echocardiogram Limited Value LVEF 55-60% Narrative [id number]^RICKI^STEVO^Yakelin [facility] Echocardiography Laboratory [address] [place] [address] Name: SALVADOR AHUMADA : 1965 Study Date: 10/18/2024 07:35 AM Age: 59 yrs Gender: Male Patient Location: [facility] Reason For Study: Cardiomyopathy Ordering Physician: [...] HOME CARE FOLLOWING LAPAROSCOPIC CHOLECYSTECTOMY Pamela Jay, RMarium Valencia, R. O???Basil Gonzales J. Shaheen INCISIONAL [...] 1-3 weeks after surgery. Expect gradual improvement. Sxkn-gxa-pskaqlc anti-inflammatory medications (i.e. Ibuprofen/Advil/Motrin or Naprosyn/Aleve) may [...] to be seen, please call us at [phone]. We are located at: [address] [facility], [address]; [place] [phone] -CONTACT US IF THE FOLLOWING DEVELOPS: 1. [...] Walk around frequently. You may consider an auhj-bxw-ctpzfng stool-softener. Your Pharmacist can assist you with [...] to discuss with the nurse or physician assisted living assistant. # There is a surgeon TURBINE MECHANIC on weekday evenings and over the weekend in case of urgent need only, and may be contacted at the same number. If you are having an emergency, call 911 or proceed to your nearest emergency department. * Attachments The following attachments cannot be sent through Care Everywhere. * (s) After Anesthesia (Sleep Medicine) (Turkmen) documented in this encounter Medications at Time [...] from the original note were not included. [facility] Infectious Disease Progress Note Date of Service [...] ??F (36.7 ??C) Pulse: [102-110] 110 Resp: [16-] 16 BP: (151-167)/(103-106) 159/103 SpO2: [93 %-97 [...] bag for PEDS 2 g Intravenous Q24H Stevo Robison DO 2 g at 10/19/24 1627 furosemide [...] mg Oral QAM AC Salvador Rocha APRN MDM DEVELOPER 40 mg at 10/20/24 0526 rOPINIRole (REQUIP) tablet 0.25 mg 0.25 mg Oral At Bedtime Ole Brown MD 0.25 mg at 10/19/24 2128 senna-docusate (SENOKOT-S/PERICOLACE) 8.6-50 MG per tablet 1 tablet 1 tablet Oral BID Salvador Rocha APRN CNP 1 tablet at 10/19/24 0828 Or senna-docusate (SENOKOT-S/PERICOLACE) 8.6-50 MG per tablet 2 tablet 2 tablet Oral BID Salvador Rohca APRN CNP 2 tablet at 10/20/24 0844 sodium chloride (PF) 0.9% PF flush 3 mL 3 mL Intracatheter Q8H LOU Salvador Rocha APRN MDM DEVELOPER 3 mL at 10/20/24 0846 Data All [...] Blood Culture Peripheral blood (BC) Arm, Right [[id number]] Peripheral blood (BC) from Arm, Right Preliminary result Component Value Culture No growth after 12 hours P 10/18/2024 1455 10/19/2024 0631 Blood Culture Peripheral blood (BC) Hand, Right [[id number]] Peripheral blood (BC) from Hand, Right Preliminary result Component Value Culture No growth after 12 hours P 10/15/2024 1709 10/18/2024 0822 Blood Culture Peripheral blood (BC) Arm, Right [[id number]] (Abnormal) Peripheral blood (BC) from Arm, Right [...] Blood Culture Peripheral blood (BC) Arm, Left [[id number]] (Abnormal) Peripheral blood (BC) from Arm, Left Final result Component Value Culture Positive on the 1st day of incubation Abnormal Escherichia coli Panic 2 of 2 bottles Susceptibilities done on previous cultures Imaging EXAM: CT ABDOMEN PELVIS W CONTRAST LOCATION: [facility] DATE: 10/19/2024 INDICATION: worsening abdominal pain following [...] CT CHEST PULMONARY EMBOLISM W CONTRAST LOCATION: [facility] DATE: 10/16/2024 INDICATION: tachycardia, tachypnea COMPARISON: Same [...] the chest. EXAM: US ABDOMEN LIMITED LOCATION: [facility] DATE: 10/15/2024 INDICATION: Right upper quadrant pain; [...] St MD - 10/20/2024 10:13 AM CDT [facility] Hospitalist Progress Note Assessment & Plan ASSESSMENT [...] St MD - 10/19/2024 9:44 AM CDT [facility] Hospitalist Progress Note Assessment & Plan ASSESSMENT [...] Regan MD - 10/18/2024 3:14 PM CDT [facility] Progress Note - Hospitalist Service Date of [...] 24 hours reviewed Recent Labs Lab 10/18/24 0720 10/17/24 0550 10/16/24 0224 WBC 10.8 16.9* 12.3* [...] hours) Echocardiogram Limited Result Value LVEF 55-60% [facility] [id number]^RICKI^STEVO^A [facility] Echocardiography Laboratory [address] [place] [address] Name: SALVADOR AHUMADA : 1965 Study Date: 10/18/2024 07:35 AM Age: 59 yrs Gender: Male Patient Location: [facility] Reason For Study: Cardiomyopathy Ordering Physician: [...] LDA added (if applicable)? Not Applicable Requested WO Nurse Consult from MD? Not Applicable * Kimberlyn Stringer MD - 10/17/2024 3:01 PM CDT [facility] General Surgery Progress Note Assessment and Plan: [...] last 3 completed shifts: In: 2092.33 [P.O.:240; I.V.:1653.33; IV Piggyback:200] Out: 1100 [Urine:1100] Constitutional: awake, [...] TOT PROTEIN: 5.3 (L) LIPASE: N/A Stevo Robison DO Date of Service (when I saw the patient): 10/17/24 [facility] Progress Note - Hospitalist Service Date of [...] 3-4 episodes of severe pain up to 10. He did endorse intermittent RUQ pain over [...] for Discharge: Anticipated in 2-4 Days Zahira [facility] Medical Student Hospitalist Service [facility] Securely message with [employer] info) Text page via [facility] Paging/Directory Interval History Underwent ERCP and tolerated [...] PAST 24 HR DATA REVIEWED * Kerline Zurita [facility] - 10/17/2024 10:08 AM CDT Images from the original note were not included. Antimicrobial Stewardship Team Note Antimicrobial Stewardship Program - A joint venture between [facility] and [facility] ID Physicians to optimize antibiotic management. Patient: Salvador Ahumada Allergies: Patient has no known allergies. Brief Summary: Salvador Ahumada is a 59 year old [...] PharmD, BCIDP Vital Signs/Clinical Features: Vitals 10/15 0700 05/14 0659 10/16 0700 /15 0659 10/17 0700 10/17 1008 Most Recent Temp (??F) 98 - 102.7 97.1 - 101.5 98.5 98.5 (36.9) 10/17 0800 Pulse 78 - 156 66 - 124 75 - 85 75 10/17 09 Resp 18 - 44 10 - 36 12 - 28 26 10/17 914 BP 91/53 - 233/105 90/59 - 130/99 126/93 - 134/103 134/103 10/17 0900 SpO2 (%) 90 - 98 93 - 100 97 97 10/17 0700 Labs Estimated Creatinine Clearance: 88.1 mL/min (based on SCr of 1 mg/dL). Recent Labs Lab Test 03/07/24213010/15/24150910/16/2422310/17/24 0550 CR 1.10 1.00 1.13 1.00 Recent Labs Lab Test 03/07/24213010/15/24150910/16/2422310/17/24 0550 WBC 5.8 11.9* 12.3* 16.9* ANEU 4.1 11.1* -- -- ALYM 0.9 0.2* -- -- BRYAN 0.6 0.4 -- -- AEOS 0.1 0.0 -- -- HGB 14.3 16.3 15.5 13.1* HCT 42.5 45.6 46.0 38.1* MCV 90 85 89 88 PLT 254 236 233 168 Recent Labs Lab Test 10/15/24150910/16/2422310/17/24 0550 BILITOTAL 4.7* 7.0* 4.7* ALKPHOS 111 116 72 ALBUMIN 4.8 4.4 3.0* AST 1,240* 736* 200* ALT 1,380* 1,259* 565* Recent Labs Lab Test 10/16/2422310/16/24 0535 10/16/24 0819 LACT 5.5* 2.1* 3.3* Culture Results: 7-Day Micro Results Procedure Component Value Units Date/Time Blood Culture Peripheral blood (BC) Arm, Right [[id number]] (Abnormal) (Susceptibility) Collected: 10/15/24 4707 Order Status: Completed Lab Status: Preliminary result Updated: 10/17/24934 Specimen: Peripheral blood (BC) from Arm, Right [...] Suppressed Antibiotic Blood Culture ID Panel, PCR [[id number]] (Abnormal) Collected: 10/15/24 1709 Order Status: Completed Lab Status: Final result Updated: 10/16/24 0600 Specimen: Peripheral blood (BC) from Arm, Right [...] coli Detected Comment: Escherichia coli detected by Natanael Ulien BCID2 assay. Final identification and antimicrobial susceptibility [...] Detected Narrative: Assay performed using the FDA-cleared Natanael Ulien Blood Culture Identification 2 (BCID2) Panel, a [...] by the Infectious Diseases Diagnostic Laboratory at [facility]. This laboratory is certified under the Clinical Laboratory Improvement Amendments of 1988 (CLIA-88) as qualified to perform high complexity clinical laboratory testing. Blood Culture Peripheral blood (BC) Arm, Left [[id number]] (Abnormal) Collected: 10/15/24 1631 Order Status: Completed [...] be read by a radiologist or a [place] non-radiologist provider. Echocardiogram Complete Result Date: 10/16/2024 [id number]^SATURNINO^REBEKAH [facility] Echocardiography Laboratory [address] [place] [address] Name: SALVADOR AHUMADA : 1965Study Date: 10/16/2024 09:51 AM Age: 59 yrs Gender: Male Patient Location: [facility] Reason For Study: SOB, SOB Ordering Physician: MATAMOROS, REBEKAH Performed By: Isha Trevor BSA: 2.0 m2 Height: 68 in Weight: 200 lb BP: 134/92 mmHg Procedure Echocardiogram with two-dimensional, color and spectral Doppler. Optison ([facility] #[id number]) given intravenously. Interpretation Summary The visual ejection [...] CT CHEST PULMONARY EMBOLISM W CONTRAST LOCATION: [facility] DATE: 10/16/2024 INDICATION: tachycardia, tachypnea COMPARISON: Same [...] EXAM: XR CHEST PORT 1 VIEW LOCATION: [facility] DATE: 10/16/2024 INDICATION: hypoxia COMPARISON: 10/11/2021 IMPRESSION: Heart size is upper limits of normal. Mild pulmonary vascular congestion noted. Mild linear atelectasis in the left lung base. No confluent airspace opacity, right pleural effusion or pneumothorax. Left costophrenic angle is excluded from view without significant left pleural effusion. US Abdomen Limited Result Date: 10/15/2024 EXAM: US ABDOMEN LIMITED LOCATION: [facility] DATE: 10/15/2024 INDICATION: Right upper quadrant pain; [...] or mass lesion. * Cornelia Collazo APRN MDM DEVELOPER - 10/17/2024 7:30 AM CDT [facility] - Progress Note IMPRESSION: Salvador Ahumada is a 59 year old male with PMH of appendectomy and GERD that presented to [facility] on 10/15/2024 from urgent due to [...] including patient evaluation, reviewing documentation/test results, and circuit recorder Cornelia Collazo NP [facility] [phone] SUBJECTIVE: Resting in bed. States pain is [...] clinical lab results: Recent Labs Lab Test 10/16/2422310/15/24150903/07/24 2131 WBC 12.3* 11.9* 5.8 HGB 15.5 16.3 14.3 MCV 89 85 90 PLT 233 236 254 INR 1.21* -- -- Recent Labs Lab Test 10/16/24 1039 10/16/24 0535 10/16/2422310/15/24 1510 03/07/24 2131 POTASSIUM 3.6 3.1* 4.4 4.5 4.0 CHLORIDE -- -- 100 101 104 CO2 -- -- 20* 26 26 BUN -- -- 15.2 12.3 16.9 CR -- -- 1.13 1.00 1.10 ANIONGAP -- -- 16* 11 9 Recent Labs Lab Test 10/16/244 10/15/24 1510 10/15/24 1353 03/07/24 2131 ALBUMIN 4.4 [...] Service (when I saw the patient): 10/16/24 [facility] Progress Note - Hospitalist Service Date of [...] 3-4 episodes of severe pain up to 9/10. He did endorse intermittent RUQ pain over [...] Family. Zahira Garcia Medical Student Hospitalist Service [facility] Securely message with [employer] (more info) Text page via [facility] Paging/Directory Interval History Patient with episode of [...] Limited Narrative EXAM: US ABDOMEN LIMITED LOCATION: [facility] DATE: 10/15/2024 INDICATION: Right upper quadrant pain; [...] EXAM: XR CHEST PORT 1 VIEW LOCATION: [facility] DATE: 10/16/2024 INDICATION: hypoxia COMPARISON: 10/11/2021 Impression [...] CT CHEST PULMONARY EMBOLISM W CONTRAST LOCATION: [facility] DATE: 10/16/2024 INDICATION: tachycardia, tachypnea COMPARISON: Same [...] chest. Echocardiogram Complete Result Value LVEF 45-50% [facility] [id number]^SATURNINO^REBEKAH [facility] Echocardiography Laboratory [address] [place] [address] Name: SALVADOR AHUMADA : 1965 Study Date: 10/16/2024 09:51 AM Age: 59 yrs Gender: Male Patient Location: [facility] Reason For Study: SOB, SOB Ordering Physician: REBEKAH MATAMOROS Performed By: Isha Murray BSA: 2.0 m2 Height: 68 in Weight: 200 lb BP: 134/92 mmHg Procedure Echocardiogram with two-dimensional, color and spectral Doppler. Optison ([facility] #[id number]) given intravenously. Interpretation Summary The visual ejection [...] be read by a radiologist or a [place] non-radiologist provider. * Carlton Lloyd, RT - 10/16/2024 3:49 AM CDT POST CLOSER called for increased WOB. Patient had upper [...] CDT Pt escorted to CT by this handbook writer and Zacarias HEREDIA. Pt then transferred to ICU 364 for continued cares. at the bedside, updated on events. IV dilaudid given for abdominal pain, IV lasix given. IV Morphine and Labetalol held as pt's breathing much improved BP is much improved. Pt and requesting to talk with . Dr. Matamoros text paged to come talk with pt. * Rebekah Matamoros MD - 10/16/2024 3:21 AM CDT POST CLOSER was called due to acute onset shortness of breath and significant hypoxia. Salvador is a 59-year-old male who is admitted to the hospital with sepsis secondary to cholangitis versus choledocholithiasis. Patient was on room air and suddenly started having difficulty breathing and required up to 10 L nasal cannula. POST CLOSER was called and I immediately assessed the [...] blood pressure also considered flash pulmonary edema howeverimaging does not report that, will do a trial of IV Lasix 40 mg once. It does not appear that patient had received large amount of IV fluids, discussed this with RN and patient had only received 393 mL of IVF, 480 mL of p.o. intake and his output was 225. Will stop further IV fluids. Lastly suspectif patient might be going into ARDS given sepsis/cholangitis, however needs to rule out cardiogenicetiology first. Patient was transferred to the ICU [...] in this encounter H&P Notes * Salvador Rocha APRN MDM DEVELOPER - 10/15/2024 7:19 PM CDT [facility] History and Physical - Hospitalist Service Date of Admission: 10/15/2024 Assessment & Plan Salvador Ahumada is a 59 year old male who past medical history of GERD who presents to [facility] on 10/15/2024 for evaluation of right upper [...] consult. -- CLD this evening. NPO at AL. -- Continue Rocephin and Flagyl for now. [...] Patient and EM Team. Salvador Rocha APRN [facility] Hospitalist Service [facility] Securely message with [employer] (more info) Text page via [facility] Paging/Directory Chief Complaint Abdominal pain History is obtained from the patient, electronic health record, and emergency department physician History of Present Illness Salvador Ahumada is a 59 year old male who past medical history of GERD who presents to [facility] on 10/15/2024 for evaluation of right upper [...] History Past Surgical History: Procedure Laterality Date [facility] APPENDECTOMY 2006 Prior to Admission Medications Prior [...] Limited Narrative EXAM: US ABDOMEN LIMITED LOCATION: [facility] DATE: 10/15/2024 INDICATION: Right upper quadrant pain; [...] from the original note were not included. [facility] Infectious Disease Consultation Date of Admission: 10/15/2024 [...] Dilation; Surgeon: Claudia Sarkar MD; Location: OR [facility] APPENDECTOMY 2006 Prior to Admission Medications Prior [...] it with pertinent information if needed. Salvador Reyeskendal reports that he has been smoking cigarettes. [...] All laboratory data reviewed Component Latest Ref Rn 10/19/2024 7:23 AM Sodium 135 - 145 [...] - 450 10e3/uL 207 Component Latest Ref [facility] 10/18/2024 11:54 PM Lactic Acid 0.7 - 2.0 mmol/L 1.2 Microbiology 10/18/2024145410/19/2024 0631 Blood Culture Peripheral blood (BC) Arm, Right [[id number]] Peripheral blood (BC) from Arm, Right Preliminary result Component Value Culture No growth after 12 hours P 10/18/2024 14510/19/2024 0631 Blood Culture Peripheral blood (BC) Hand, Right [[id number]] Peripheral blood (BC) from Hand, Right Preliminary result Component Value Culture No growth after 12 hours P 10/15/2024 1709 10/18/2024 0822 Blood Culture Peripheral blood (BC) Arm, Right [[id number]] (Abnormal) Peripheral blood (BC) from Arm, Right [...] Blood Culture Peripheral blood (BC) Arm, Left [[id number]] (Abnormal) Peripheral blood (BC) from Arm, Left Final result Component Value Culture Positive on the 1st day of incubation Abnormal Escherichia coli Panic 2 of 2 bottles Susceptibilities done on previous cultures Imaging EXAM: CT CHEST PULMONARY EMBOLISM W CONTRAST LOCATION: [facility] DATE: 10/16/2024 INDICATION: tachycardia, tachypnea COMPARISON: Same [...] the chest. EXAM: US ABDOMEN LIMITED LOCATION: [facility] DATE: 10/15/2024 INDICATION: Right upper quadrant pain; [...] 4:13 PM CDTAssociated Order(s): CARDIOLOGY IP CONSULT [facility] Cardiology Consultation Date of Admission: 10/15/2024 Assessment [...] me with any questions Moderate complexity Saima Yeung DO, MD Primary Care Physician Physician No Ref-Primary Reason for Consult Reason for consult: I was asked by ricki to evaluate this patient for abnormal echo. History of Present Illness Salvador hAumada is a 59 year old male who presents with past medical history of GERD who presents to [facility] on 10/15/2024 for evaluation of right upper [...] History Past Surgical History: Procedure Laterality Date [facility] APPENDECTOMY 2006 Prior to Admission Medications Prior [...] chloride 0.9 % infusion Intravenous Continuous Ricki, Steov A, DO 100 mL/hr at 10/16/24 1600 [...] lozenge 1 lozenge 1 lozenge Buccal Q1H PRSalvador Schaeffer APRN CNP calcium carbonate (TUMS) chewable tablet [...] 0535 10/16/24 0307 10/16/24 0224 10/15/24 1510 WBC -- -- -- -- [...] HDL, LDL, TRIG, CHOLHDLRATIO in the last 25257 hours. Recent Labs Lab 10/16/2422310/15/24 1510 WBC 12.3* 11.9* HGB 15.5 16.3 HCT 46.0 45.6 MCV 89 85 PLT 233 236 No results for input(s): PH, PHV, PO2, PO2V, SAT, PCO2, PCO2V, HCO3, HCO3V in thelast 168 hours. Recent Labs Lab 10/16/2422310/15/24 1510 NTBNP 652* 209* Recent Labs Lab 10/16/24223 DD 1.47* No results for input(s): SED, CRP in the last 168 hours. Recent Labs Lab 10/16/2422310/15/24 1510 PLT 233 236 No results for [...] Limited Narrative EXAM: US ABDOMEN LIMITED LOCATION: [facility] DATE: 10/15/2024 INDICATION: Right upper quadrant pain; [...] EXAM: XR CHEST PORT 1 VIEW LOCATION: [facility] DATE: 10/16/2024 INDICATION: hypoxia COMPARISON: 10/11/2021 Impression [...] CT CHEST PULMONARY EMBOLISM W CONTRAST LOCATION: [facility] DATE: 10/16/2024 INDICATION: tachycardia, tachypnea COMPARISON: Same [...] chest. Echocardiogram Complete Result Value LVEF 45-50% [facility] [id number]^SATURNINO^REBEKAH [facility] Echocardiography Laboratory [address] [place] [id number] Name: SALVADOR AHUMADA : 1965 Study Date: 10/16/2024 09:51 AM Age: 59 yrs Gender: Male Patient Location: [facility] Reason For Study: SOB, SOB Ordering Physician: REBEKAH MATAMOROS Performed By: Isha Murray BSA: 2.0 m2 Height: 68 in Weight: 200 lb BP: 134/92 mmHg Procedure Echocardiogram with two-dimensional, color and spectral Doppler. Optison ([facility] #[id number]) given intravenously. Interpretation Summary The visual ejection [...] be read by a radiologist or a [place] non-radiologist provider. Echo: No results found for [...] History: Past Surgical History: Procedure Laterality Date [facility] APPENDECTOMY 2006 Social History: Social History Tobacco [...] lozenge 1 lozenge 1 lozenge Buccal Q1H PRSalvador Schaeffer APRN CNP calcium carbonate (TUMS) chewable tablet 1,000 mg 1,000 mg Oral 4x Daily PRN Salvador Rocha APRN CNP HYDROmorphone (DILAUDID) half-tab 1 mg 1 mg Oral Q4H PRN Salvador Rocha APRN MDM DEVELOPER HYDROmorphone (DILAUDID) injection 0.2 mg 0.2 mg [...] tablet 1 tablet 1 tablet Oral BID Salvdaor Rocha APRN CNP 1 tablet at 10/15/242235 Or senna-docusate (SENOKOT-S/PERICOLACE) 8.6-50 MG per tablet 2 tablet 2 tablet Oral BID Salvador Rocha APRN CNP 2 tablet at 10/16/24 0853 sodium chloride (PF) 0.9% PF flush 3 mL 3 mL Intracatheter Q8H LOU Salvador Rohca APRN CNP 3 mL at 10/15/242235 sodium [...] flush 3 mL 3 mL Intracatheter Q8H Salvador Pichardo, WELDER EXPERIMENTAL MDM DEVELOPER 3 mL at 10/15/24 2505 Review of Systems: The 10 point review [...] Limited Narrative EXAM: US ABDOMEN LIMITED LOCATION: [facility] DATE: 10/15/2024 INDICATION: Right upper quadrant pain; [...] EXAM: XR CHEST PORT 1 VIEW LOCATION: [facility] DATE: 10/16/2024 INDICATION: hypoxia COMPARISON: 10/11/2021 Impression [...] CT CHEST PULMONARY EMBOLISM W CONTRAST LOCATION: [facility] DATE: 10/16/2024 INDICATION: tachycardia, tachypnea COMPARISON: Same [...] 8:03 AM CDTAssociated Order(s): GASTROENTEROLOGY IP CONSULT [facility] Consultation Salvador Ahumada [id number] [address] [facility] [phone] 59 year old male Admission Date/Time: 10/15/2024 [...] on OR scheduling for ERCP her at [facility] today in the OR -appreciate and agree with general surgery consult -agree with IV antibiotics per primary team, IV narcotics and IV antiemetics -keep NPO -agree with PPI Case discussed with Dr. Bruce. 60 minutes of total time was spent providing patient care, including patient evaluation, reviewing documentation/test results, and circuit recorder Cornelia Collazo NP [place] [facility] [phone] CC: RUQ abdominal pain HPI: Salvador Ahumada is a 59 year old male with PMH of appendectomy and GERD that presented to [facility] ED on 10/15/2024 from urgent due to [...] tablet 650 mg 650 mg Oral Q4H PRSalvador Schaeffer APRN CNP Or acetaminophen (TYLENOL) Suppository 650 mg 650 mg Rectal Q4H PRN Salvador Rocha APRN CNP artificial saliva (BIOTENE MT) solution 1 spray 1 spray Mouth/Throat 4x Daily PRSalvador Schaeffer APRN CNP benzocaine-menthol (CHLORASEPTIC) 6-10 MG lozenge 1 lozenge 1 lozenge Buccal Q1H PRSalvador Schaeffer APRN CNP calcium carbonate (TUMS) chewable tablet 1,000 mg 1,000 mg Oral 4x Daily PRN Salvador Rocha APRN CNP HYDROmorphone (DILAUDID) half-tab 1 mg 1 mg Oral Q4H PRSalvador Schaeffer APRN CNP HYDROmorphone (DILAUDID) injection 0.2 mg [...] tablet 40 mEq 40 mEq Oral Once Ricki, Stevo A, DO prochlorperazine (COMPAZINE) injection 10 mg 10 mg Intravenous Q6H PRN Salvador Rocha APRN CNP Or prochlorperazine (COMPAZINE) tablet 10 mg 10 mg Oral Q6H PRN Salvador Rocha APRN CNP senna-docusate (SENOKOT-S/PERICOLACE) 8.6-50 MG per tablet 1 tablet 1 tablet Oral BID Salvador Rocha APRN CNP 1 tablet at 10/15/246 Or senna-docusate (SENOKOT-S/PERICOLACE) 8.6-50 MG per tablet 2 tablet 2 tablet Oral BID aSlvador Rocha APRN CNP sodium chloride (PF) 0.9% PF flush 3 mL 3 mL Intracatheter Q8H LOU Salvador Rocha APRN CNP 3 mL at 10/15/246 sodium chloride (PF) 0.9% PF flush 3 [...] lab test results. Recent Labs Lab Test 10/16/24 0224 10/15/24 1510 03/07/24 2131 WBC 12.3* 11.9* 5.8 HGB 15.5 16.3 14.3 MCV 89 85 90 PLT 233 236 254 INR 1.21* -- -- Recent Labs Lab Test 10/16/24 0535 10/16/24 0224 10/15/24 1510 03/07/24 2131 POTASSIUM 3.1* 4.4 4.5 4.0 CHLORIDE -- 100 101 104 CO2 -- 20* 26 26 BUN -- 15.2 12.3 16.9 CR -- 1.13 1.00 1.10 ANIONGAP -- 16* 11 9 Recent Labs Lab Test 10/16/24 0224 10/15/24 1510 10/15/24 1353 03/07/24 2131 ALBUMIN 4.4 4.8 -- -- BILITOTAL 7.0* 4.7* -- -- ALT 1,259* 1,380* -- -- AST 736* 1,240* -- -- PROTEIN -- -- 100* Negative LIPASE -- 28 -- -- IMAGING: EXAM: US ABDOMEN LIMITED LOCATION: [facility] DATE: 10/15/2024 INDICATION: Right upper quadrant pain; [...] Lane RN - 10/15/2024 6:10 PM CDT [facility] ED Nurse Handoff Report ED Chief complaint: Abdominal Pain . ED Diagnosis: Final diagnoses: None Allergies: No Known Allergies Code Status: Full Code Activity level - Baseline/Home: independent. Activity Level - Current: standby. Lift room needed: No. Bariatric: No Head Animal Keeper Needed: No Isolation: No. Infection: Not Applicable. [...] 0.5 mg (0.5 mg Intravenous $Given 10/15/24 1741) metroNIDAZOLE (FLAGYL) infusion 500 mg (has no administration in time range) ondansetron (ZOFRAN ODT) ODT tab 4 mg (4 mg Oral $Given 10/15/24 1501) ketorolac (TORADOL) injection 15 mg (15 mg Intravenous $Given 10/15/24 1643) sodium chloride 0.9% BOLUS 1,000 mL (1,000 mLs Intravenous $New Bag 10/15/24 1643) cefTRIAXone (ROCEPHIN) 2 g vial to attach to NS 100 ml bag for ADULTS or NS 50 ml bag for PEDS (2 gIntravenous $New Bag 10/15/24 1728) acetaminophen (TYLENOL) tablet 1,000 mg (1,000 mg Oral $Given 10/15/24 1741) Drips infusing: No For the majority of [...] dosed more frequently than Q12h for bacteremia, VP GENETIC infection and Clostridium difficile. 500 mg over [...] Common bile duct dilation K83.8 Scribe Disclosure: Lesley Payan, am serving as a scribe at 4:51 PM on 10/15/2024 to document services personally performed by Leonora Bone PA-C based on my observations and the provider's statements to me. 10/15/2024 [facility] EMERGENCY DEPT Al Ayon MD 10/15/24 2332 [...] Management Admitting Hospitalist, Dr. Rocha Gastroenterology, Dr. oHlder ED Course ED Course as of 10/16/2429October 15, 20241611 I obtained the history and examined the patient as noted above. 183 I reassessed the patient and updated them on results and plan of care. [address] Holder, GI, regarding patient's presentation, findings, and plan of care. [address] Rocha, hospitalist, regarding patient's presentation, findings, and plan of care. Additional Documentation none Medical Decision Making / Diagnosis [facility] Diagnoses: None MIPS None MDM Salvador Ahumada [...] AM Leonora Bone PA-C 10/16/24 0036 * Kianna Carbajal RN - 10/15/2024 2:57 PM CDT Pt arrives from he has been having abdominal pain on and off for 2 years that gets worse with a meal, Pt states for the last couple days it has gotten worse with nothing making it better. Triage Assessment (Adult) Row Name 10/15/24 1457 Triage Assessment Airway WDL WDL Respiratory WDL Respiratory WDL WDL Skin Circulation/Temperature WDL Skin Circulation/Temperature WDL WDL Cardiac WDL Cardiac WDL WDL Peripheral/Neurovascular WDL Peripheral Neurovascular WDL WDL Cognitive/Neuro/Behavioral WDL Cognitive/Neuro/Behavioral WDL WDL Mukund Coma Scale Best Eye Response 4-->(E4) spontaneous Best Motor Response 6-->(M6) obeys commands Best Verbal Response 5-->(V5) oriented Mukund Coma Scale Score 15 documented in this encounter Miscellaneous Notes * Plan of Care - Rayshawn Quintanilla RN - 10/21/2024 6:17 AM CDT For vital signs and complete assessments, please see documentation flowsheets. [id number] Pertinent assessments: Pt A&Ox4. Ind in room. [...] Taken 10/21/2024 0005 by Rayshawn Quintanilla RN Safety Promotion/Fall Prevention: clutter free environment [...] Documentation Taken 10/21/2024 0005 by Rayshawn Quintanilla buffer automatic Review/Management: medications reviewed Problem: Sepsis/Septic Shock Goal: [...] and complete assessments, please see documentation flowsheets. [id number] Pertinent assessments: Pt A&Ox4. SBA. On RA. [...] your shiftnote. Outcome: Progressing Flowsheets (Taken 10/20/2024 2946) Outcome Evaluation: On RA. SBA. PIV saline [...] Skin Injury Recent Flowsheet Documentation Taken 10/20/2024 by Rayshawn Quintanilla RN Body Position: position [...] Prevent Infection Recent Flowsheet Documentation Taken 10/19/2024 155 by Darryl Green RN Infection Prevention: cohorting utilized hand hygiene promoted rest/sleep promoted single patient room provided Goal: Optimal Comfort and Wellbeing Outcome: Not Progressing Intervention: Monitor Pain and Promote Comfort Recent Flowsheet Documentation Taken 10/19/20242130 by Darryl Green RN Pain Management Interventions: [...] your shiftnote. Outcome: Progressing Flowsheets (Taken 10/19/2024 9017) Plan of Care Reviewed With: patient Overall [...] Manage Fall Risk Recent Flowsheet Documentation Taken 10/18/2024 2350 by Candida Her RN Safety Promotion/Fall Prevention: safety round/check completed Intervention: Prevent Skin Injury Recent Flowsheet Documentation Taken 10/18/2024 2350 by Candida Her RN Body Position: position changed independently Taken 10/18/20242008 by Candida Her RN Body Position: position changed independently Intervention: Prevent and Manage VTE (Venous Thromboembolism) Risk Recent Flowsheet Documentation Taken 10/18/2024 2350 by Candida Her RN VTE Prevention/Management: SCDs on (sequential compression devices) Goal: Optimal Comfort and Wellbeing Outcome: Progressing Intervention: Monitor Pain and Promote Comfort Recent Flowsheet Documentation Taken 10/18/2024 2339 by Candida Her RN Pain Management Interventions: medication (see MAR) Taken 10/18/20242008 by Candida Her RN Pain Management Interventions: medication (see MAR) Goal: Readiness for Transition of Care Outcome: Progressing Problem: Pain Acute Goal: Optimal Pain Control and Function Outcome: Progressing Intervention: Develop Pain Management Plan Recent Flowsheet Documentation Taken 10/18/2024 233 by Candida Her RN Pain Management Interventions: medication (see MAR) Taken 10/18/20242008 by Candida Her RN Pain Management Interventions: medication (see MAR) Intervention: Prevent or Manage Pain Recent Flowsheet Documentation Taken 10/18/2024 2350 by Candida Her RN Medication Review/Management: medications reviewed Problem: Sepsis/Septic Shock Goal: Optimal Coping Outcome: Progressing Goal: Absence of Bleeding Outcome: Progressing Goal: Blood Glucose Level Within Targeted Range Outcome: Progressing Goal: Absence of Infection Signs and Symptoms Outcome: Progressing Goal: Optimal Nutrition Intake Outcome: Progressing * Provider Notification - Candida Her RN - 10/18/2024 10:55 PM CDT Following the Hospitalist's request, handbook writer called general surgery and informed provider [...] anxiety. Pt seemed to be very restless, handbook writer requested provider to come to patient's room and see the pt. Provider came and assessed the patient and placed orders and asked handbook writer to contact the general surgery and [...] Person-Centered Care Recent Flowsheet Documentation Taken 10/18/2024 9497 by Lester Hampton RN Trust Relationship/Rapport: care [...] your shiftnote. Outcome: Progressing Flowsheets (Taken 10/18/2024 1418) Outcome Evaluation: Lap alma rosa done Plan of Care Reviewed With: patient [...] Ortiz MD - 10/18/2024 11:53 AM CDT [facility] Brief Operative Note Pre-operative diagnosis: Cholangitis (H) [...] Ortiz MD - 10/18/2024 10:00 AM CDT [facility] General Surgery Operative Note Pre-operative diagnosis: Chronic cholecystitis and cholangitis Post-operative diagnosis: same Procedure: laparoscopic cholecystectomy Surgeon: Dominique Ortiz MD Vice President Of Development(s): Pamela Cunningham PA-C The Physician Vice President Of Development was medically necessary for their expertise in [...] your shiftnote. Outcome: Progressing Flowsheets (Taken 10/18/2024 0641) Outcome Evaluation: Denies pain and nausea, NPO/Clear [...] Manage Fall Risk Recent Flowsheet Documentation Taken 10/17/20242352 by Maria Teresa Ace RN Safety Promotion/Fall [...] (Venous Thromboembolism) Risk Recent Flowsheet Documentation Taken 10/17/20242352 by Maria Teresa Ace RN VTE Prevention/Management: [...] Promote Recovery Recent Flowsheet Documentation Taken 10/17/2024 7243 by Maria Teresa Ace RN Activity Management: [...] floor, skin check Treatment Plan: NPO at AL, echo tomorrow am possible lap alma rosa [...] your shiftnote. Outcome: Progressing Flowsheets (Taken 10/17/2024 2214) Outcome Evaluation: doing well. independent in room. [...] Manage Fall Risk Recent Flowsheet Documentation Taken 10/17/20242005 by Chuy Borrero RN Safety Promotion/Fall Prevention: [...] Intervention: Promote Recovery Recent Flowsheet Documentation Taken 10/17/20242005 by Chuy Borrero RN Activity Management: activity [...] Flowsheet Documentation Taken 10/17/2024 1700 by Yovana Mayfield, RN Safety Promotion/Fall Prevention: activity supervised assistive device/personal items within reach clutter free environment maintained increased rounding and observation increase visualization of patient lighting adjusted nonskid shoes/slippers when out of bed room near nurse's station room organization consistent safety round/check completed treat underlying cause treat reversible contributory factors Taken 10/17/2024 1200 by Yovana Mayfield, RN Safety Promotion/Fall Prevention: activity supervised assistive [...] Glycemic Control Recent Flowsheet Documentation Taken 10/17/2024 1700 by Yovana Mayfield RN Hyperglycemia Management: blood [...] Promote Recovery Recent Flowsheet Documentation Taken 10/17/2024 1700 by Yovana Mayfield RN Airway/Ventilation Management: airway [...] underlying cause treat reversible contributory factors Taken 10/16/2024 235 by Trang Vicente RN Safety Promotion/Fall Prevention: [...] RN Body Position: position changed independently Taken 10/17/20248 by Trang Vicente RN Body Position: position changed independently Skin Protection: adhesive use limited Taken 10/17/2024 0200 by Trang Vicente RN Body Position: position [...] questions encouraged reassurance provided thoughts/feelings acknowledged Taken 10/16/20242349 by Trang Vicente RN Trust Relationship/Rapport: care [...] to wake me up as it startlesme. 10/16/20241848 by Yovana Mayfield RN Outcome: Progressing 10/16/20241822 by Yovana Mayfield RN Outcome: Progressing Goal: Absence of Hospital-Acquired Illness or Injury 10/16/20241848 by Yovana Mayfield RN Outcome: Progressing 10/16/20241822 by Yovana Mayfield, DEJON Outcome: Progressing Intervention: Identify and Manage Fall [...] position changed independently Taken 10/16/2024 1430 by Yoavna Mayfield RN Body Position: position changed independently Taken 10/16/2024 0800 by Yovana Mayfield RN Body Position: position changed independently Intervention: Prevent and Manage VTE (Venous Thromboembolism) Risk Recent Flowsheet Documentation Taken 10/16/2024 1600 by Yovana Mayfield RN VTE Prevention/Management: SCDs off (sequential compression devices) Taken 10/16/2024 0800 by Yovana Mayfield RN VTE Prevention/Management: SCDs off (sequential compression devices) Goal: Optimal Comfort and Wellbeing 10/16/2024 184 by Yovana Mayfield RN Outcome: [...] Goal: Readiness for Transition of Care 10/16/2024 1849 by Yovana Mayfield RN Outcome: Progressing 10/16/2024 182 by Yovana Mayfield RN Outcome: Progressing Problem: Pain Acute Goal: Optimal Pain Control and Function 10/16/2024 184 by Yovana Mayfield RN Outcome: Progressing 10/16/2024 1823 by Yovana Mayfield RN Outcome: Progressing Intervention: [...] reviewed Problem: Sepsis/Septic Shock Goal: Optimal Coping 10/16/2024 184 by Yovana Mayfield RN Outcome: [...] provided presence promoted Goal: Absence of Bleeding 10/16/20241848 by Yovana Mayfield RN Outcome: Progressing 10/16/2024 182 by Yovana Mayfield RN Outcome: Progressing Goal: Blood Glucose Level Within Targeted Range 10/16/20241848 by Yovana Mayfield RN Outcome: Progressing 10/16/2024 182 by Yovana Mayfield RN Outcome: Progressing Goal: Absence of Infection Signs and Symptoms 10/16/2024 184 by Yovana Mayfield RN Outcome: [...] Activity Management: bedrest Goal: Optimal Nutrition Intake 10/16/2024 1849 by Yovana Mayfield RN Outcome: Progressing 10/16/2024 1823 by Yovana Mayfield RN Outcome: Progressing Yovana [...] on your shiftnote. Outcome: Progressing Flowsheets (Taken 10/16/2024 0558) Outcome Evaluation: see note Plan of Care [...] Documentation Taken 10/16/2024329 by Mireya Alejandra RN VTE Prevention/Management: SCDs off (sequential compression [...] Promote Recovery Recent Flowsheet Documentation Taken 10/16/2024 0330 by Mireya Alejandra RN Sleep/Rest Enhancement: awakenings minimized family presence promoted noise level reduced regular sleep/rest pattern promoted relaxation techniques promoted room darkened Activity Management: bedrest Goal: Optimal Nutrition Intake Outcome: Progressing * Code/Rapid Response - Isis Lane RN - 10/16/2024 2:49 AM CDT 0200 - RN called into room by other RN. Patient with increased WOB, audible wheezing and patient complaining of sudden onset of severe SOB. SpO2 91-92 % on RA at this time. Patient place on 10L oxymask d/t patient's complaint of SOB. At this time, patient stating mild abdominal pain of a 3/10. POST CLOSER called by charge coordinator. 0201 - MD HENRY and flyer at bedside. Patient placed on [...] Recent Flowsheet Documentation Taken 10/15/20242114 by Isis Lane, buffer automatic Review/Management: medications reviewed * Pharmacy-Admission Medication History - Steve Robledo RPH - 10/15/2024 7:05 PM CDT Pharmacist Admission Medication History Admission medication history is complete. The information provided in this note is only as accurateas the sources available at the time of the update. Information Source(s): Patient, Family member, and CareEverywhere/SureScripts via in-person Pertinent Information: none Changes made to [employer] [facility] medication list: Added: mvi Deleted: None Changed: omeprazole Allergies reviewed with patient and updates made in EHR: yes Medication History Completed By: Steve Robledo RPH 10/15/2024 7:05 PM [facility] Med List Medication Sig Last Dose/Taking multivitamin [...] Description 12/09/2024 8:30 AM CDT Office Visit [facility] [address] [address] [place] [address] Henri Castañeda PA-C [address] [place] [address] [place] [address] Scheduled Referrals Name Type Priority Associated Diagnoses [...] PATHOLOGY EXAM Routine 10/19/19 11:29 AM CDT ECHO LIMITED Routine 10/18/2024 7:57 AM CDT [...] CDT LACTIC ACID WHOLE BLOOD Timed 10/17/19 25 5:35 AM CDT GLUCOSE BY METER Routine [...] - 15.0 % 10/21/2024 7:25 AM CDT LABORATORY Platelet Count 311 150 - 450 10e3/uL 10/21/2024 7:25 AM CDT LABORATORY Blood STRUCTURE OF LEFT UPPER LIMB / Unknown Venipuncture / Unknown 10/21/2024 7:10 AM CDT 10/21/2024 7:22 AM CDT us Stevo Robison DO LAB - BLOOD ORDERABLES Final R esult [facility] LABORATORY [facility] Lab [address] Lab (1st floor, no room number) [place] [address], [facility] * (ABNORMAL) Comprehensive metabolic panel (10/21/2024 7:10 AM CDT) Sodium 135 135 - 145 mmol/L 10/21/2024 7:57 AM CDT LABORATORY Potassium 3.6 3.4 - 5.3 mmol/L [...] 10/21/2024 7:57 AM CDT LABORATORY Comment:eGFR calculated usin 2020 CKD-EPI equation. Calcium 9.1 8.8 - 10.4 mg/dL 10/21/2024 7:57 AM CDT LABORATORY Chloride 95(L) 98 - 107 mmol/L 10/21/2024 7:57 AM CDT LABORATORY Glucose 125(H) 70 - 99 mg/dL 10/21/2024 7:57 AM CDT LABORATORY Alkaline Phosphatase 127 40 - 150 U/L 10/21/2024 7:57 AM CDT [facility] LABORATORY AST 31 0 - 45 U/L 10/21/2024 7:57 AM CDT [facility] LAB[facility]ATORY ALT 143(H) 0 - 70 U/L 10/21/2024 7:57 AM CDT [facility] LABORATORY Protein Total 7.1 6.4 - 8.3 g/dL 10/21/2024 7:57 AM CDT [facility] LABORATORY Albumin 3.5 3.5 - 5.2 g/dL 10/21/2024 7:57 AM CDT [facility] LABORATORY Bilirubin Total 1.9(H) <=1.2 mg/dL 10/21/2024 7:57 AM CDT [facility] LABORATORY Blood STRUCTURE OF LEFT UPPER LIMB / Unknown Venipuncture / Unknown 10/21/2024 7:10 AM CDT 10/21/2024 7:22 AM CDT us Stevo A Ricki DO LAB - BLOOD ORDERABLES Final R esult LABORATORY [facility] Lab [address] Lab (1st floor, no room number) [place] [address] * XR Chest Port 1 View (10/20/2024 [...] EXAM: XR CHEST PORT 1 VIEW LOCATION: [facility] DATE: 10/20/2024 INDICATION: Shortness of breath COMPARISON: Chest radiograph and CT abdomen/pelvis 10/19/2024. Procedure Note Rudy oFss MD - 10/20/2024 EXAM: XR CHEST PORT 1 VIEW LOCATION: [facility] DATE: 10/20/2024 INDICATION: Shortness of breath COMPARISON: Chest radiograph and CT abdomen/pelvis 10/19/2024. IMPRESSION: Stable size of cardiomediastinal silhouette. Low lung volumeswith likely linear bibasilar atelectasis. No davin airspace consolidation,pleural effusion or pneumothorax. Small volume pneumoperitoneum, notsignificantly changed from recent chest radiograph and CT abdomen/pelvis. us [address] MD IMG DIAGNOSTIC MEGH[facility] GING ORDERABLES Final Result * (ABNORMAL) CBC with platelets (10/20/2024 7:39 AM CDT) Pathologist [facility] WBC Count 15.5(H) 4.0 - 11.0 10e3/uL 10/20/2024 8:05 AM CDT [facility] LAB[facility]ATORY RBC Count 4.85 4.40 - 5.90 10e6/uL 10/20/2024 8:05 AM CDT [facility] LABORATORY Hemoglobin 14.4 13.3 - 17.7 g/dL 10/20/2024 8:05 AM CDT [facility] Hematocrit 42.0 40.0 - 53.0 % 10/20/2024 8:05 AM CDT [facility] LAB[facility]AT[facility] MCV 87 78 - 100 fL 10/20/2024 8:05 AM CDT [facility]AT[facility] MCH 29.7 26.5 - 33.0 pg 10/20/2024 8:05 AM CDT [facility] LAB[facility]AT[facility] MCHC 34.3 31.5 - 36.5 g/dL 10/20/2024 8:05 AM CDT [facility] LAB[facility] RDW 13.6 10.0 - 15.0 % 10/20/2024 8:05 AM CDT [facility] LAB[facility]AT[facility] Platelet Count 246 150 - 450 10e3/uL 10/20/2024 8:05 AM CDT [facility] LAB[facility]ATORY Blood STRUCTURE OF RIGHT UPPER LIMB / Unknown Venipuncture / Unknown 10/20/2024 7:39 AM CDT 10/20/2024 8:00 AM CDT us Stevo Robison DO LAB - BLOOD ORDERABLES Final R esult [facility] LABORATORY [facility] [address] Lab (1st floor, no room number) [place] [address] * (ABNORMAL) Comprehensive metabolic panel (10/20/2024 7:39 AM CDT) Sodium 136 135 - 145 mmol/L 10/20/2024 8:21 AM CDT [facility] Potassium 4.1 3.4 - 5.3 mmol/L 10/20/2024 8:21 AM CDT LABORATORY Carbon Dioxide (CO2) 25 22 - 29 mmol/L 10/20/2024 8:21 AM CDT [facility] Anion Gap 12 7 - 15 mmol/L 10/20/2024 8:21 AM CDT LABORATORY Urea Nitrogen 17.6 8.0 - 23.0 mg/dL 10/20/2024 8:21 AM CDT LABORATORY Creatinine 0.82 0.67 - 1.17 mg/dL 10/20/2024 8:21 AM CDT [facility] GFR Estimate >90 >60 mL/min/1.7 3m2 10/20/2024 8:21 AM CDT [facility] Comment:eGFR calculated usin 2020 CKD-EPI equation. Calcium 9.2 8.8 - 10.4 mg/dL 10/20/2024 8:21 AM CDT [facility] Chloride 99 98 - 107 mmol/L 10/20/2024 8:21 AM CDT LABORATORY Glucose 133(H) 70 - 99 mg/dL 10/20/2024 8:21 AM CDT [facility] Alkaline Phosphatase 121 40 - 150 U/L 10/20/2024 8:21 AM CDT LABORATORY AST 43 0 - 45 U/L 10/20/2024 8:21 AM CDT LABORATORY ALT 201(H) 0 - 70 U/L 10/20/2024 8:21 AM CDT [facility] Protein Total 7.0 6.4 - 8.3 g/dL 10/20/2024 8:21 AM CDT [facility] Albumin 3.6 3.5 - 5.2 g/dL 10/20/2024 8:21 AM CDT [facility] Bilirubin Total 2.5(H) <=1.2 mg/dL 10/20/2024 8:21 AM CDT [facility] Blood STRUCTURE OF RIGHT UPPER LIMB / Unknown Venipuncture / Unknown 10/20/2024 7:39 AM CDT 10/20/2024 8:00 AM CDT us Stevo Robison DO LAB - BLOOD ORDERABLES Final R esult [facility] Acute Care Lab [address] Lab (1st floor, no room number) [place] [address], [facility] * CT Abdomen Pelvis w Contrast (10/19/2024 [...] EXAM: CT ABDOMEN PELVIS W CONTRAST LOCATION: [facility] DATE: 10/19/2024 INDICATION: worsening abdominal pain following [...] EXAM: CT ABDOMEN PELVIS W CONTRAST LOCATION: [facility] DATE: 10/19/2024 INDICATION: worsening abdominal pain following [...] point to suggestobstruction. us Jacob Valencia MD IMAlejandra CT ORDERABLES Final Resul t * XR [...] EXAM: XR CHEST PORT 1 VIEW LOCATION: [facility] DATE: 10/19/2024 INDICATION: SOB postop day 1 cholecystectomy. COMPARISON: 10/16/2024 portable chest and 10/16/2024 CT chest Procedure Note Claudia Hyde MD - 10/19/2024 EXAM: XR CHEST PORT 1 VIEW LOCATION: [facility] DATE: 10/19/2024 INDICATION: SOB postop day 1 cholecystectomy. COMPARISON: 10/16/2024 portable chest and 10/16/2024 CT chest IMPRESSION: Some free air under the right hemidiaphragm consistent withrecent cholecystectomy. Shallow inspiration with some mild new atelectasisin the left lung base. Bradford St MD IMG DIAGNOSTIC MEGHAN GING [...] CDT EXAM: XR ABDOMEN 1 VIEW LOCATION: [facility] DATE: 10/19/2024 INDICATION: evaluate for ileus, increasing distension, postop day one lateral cholecystectomy. COMPARISON: None. Procedure Note Claudia Hyde MD - 10/19/2024 EXAM: XR ABDOMEN 1 VIEW LOCATION: [facility] DATE: 10/19/2024 INDICATION: evaluate for ileus, increasing [...] - 36.5 g/dL 10/19/2024 7:46 AM CDT [facility] RDW 13.3 10.0 - 15.0 % 10/19/2024 7:46 AM CDT [facility] Platelet Count 207 150 - 450 10e3/uL 10/19/2024 7:46 AM CDT [facility] Blood STRUCTURE OF RIGHT HAND / Unknown Venipuncture / Unknown 10/19/2024 7:23 AM CDT 10/19/2024 7:34 AM CDT us Stevo Robison DO LAB - BLOOD ORDERABLES Final R esult [facility] Acute Care Lab [address] Lab (1st floor, no room number) [place] [address], [facility] * (ABNORMAL) Comprehensive metabolic panel (10/19/2024 7:23 AM CDT) Sodium 139 135 - 145 mmol/L 10/19/2024 8:01 AM CDT [facility] Potassium 4.6 3.4 - 5.3 mmol/L 10/19/2024 8:01 AM [facility] Carbon Dioxide (CO2) 24 22 - 29 mmol/L 10/19/2024 8:01 AM [facility] Anion Gap 12 7 - 15 mmol/L 10/19/2024 8:01 AM [facility] Urea Nitrogen 12.9 8.0 - 23.0 mg/dL 10/19/2024 8:01 AM [facility] Creatinine 0.74 0.67 - 1.17 mg/dL 10/19/2024 8:01 AM [facility] GFR Estimate >90 >60 mL/min/1.7 3m2 10/19/2024 8:01 AM [facility] Comment:eGFR calculated usin 2020 CKD-EPI equation. Calcium 8.8 8.8 - 10.4 mg/dL 10/19/2024 8:01 AM [facility] Chloride 103 98 - 107 mmol/L 10/19/2024 8:01 AM [facility] Glucose 111(H) 70 - 99 mg/dL 10/19/2024 8:01 AM [facility] Alkaline Phosphatase 97 40 - 150 U/L 10/19/2024 8:01 AM [facility] AST 52(H) 0 - 45 U/L 10/19/2024 8:01 AM [facility] ALT 264(H) 0 - 70 U/L 10/19/2024 8:01 AM [facility] Protein Total 6.2(L) 6.4 - 8.3 g/dL 10/19/2024 8:01 AM [facility] Albumin 3.3(L) 3.5 - 5.2 g/dL 10/19/2024 8:01 AM [facility] Bilirubin Total 2.1(H) <=1.2 mg/dL 10/19/2024 8:01 AM [facility] Blood STRUCTURE OF RIGHT HAND / Unknown Venipuncture / Unknown 10/19/2024 7:23 AM CDT 10/19/2024 7:34 AM T us Stevo A Ricki DO LAB - BLOOD ORDERABLES Final R esult LABORATORY [facility] Acute Care Lab [address] Lab (1st floor, no room number) [place] [address] * Lactic acid whole blood (10/18/2024 11:54 PM CDT) Pathologist [facility] [place] Lactic Acid 1.2 0.7 - 2.0 mmol/L 10/19/2024 12:03 AM CDT [facility] Blood STRUCTURE OF RIGHT HAND / Unknown Venipuncture / Unknown 10/18/2024 11:54 PM CDT 10/18/2024 11:57 PM CDT us Dominique Ortiz MD LAB - BLOOD ORDERABLES Final Result LABORATORY [facility] Lab [address] [facility] Lab (1st floor, no room number) [place] [phone] * (ABNORMAL) CBC with platelets (10/18/2024 11:54 PM CDT) Pathologist [facility] [place] WBC Count 15.5(H) 4.0 - 11.0 10e3/uL [...] 11:54 PM CDT 10/18/2024 11:57 PM CDT Dominique Ortiz MD LAB - BLOOD ORDERABLES Final Result [facility] Lab [address] Lab (1st floor, no room number) [place] [address] * EKG 12-lead, tracing only (10/18/2024 11:42 PM CDT) Systolic Blood Pressure mmHg RADIOLOGY RESULTS Diastolic Blood Pressure mmHg RADIOLOGY RESULTS Ventricular Rate 90 BPM RAD IOLOGY RESULTS Atrial Rate 90 BPM RADIOLOG Y RESULTS CA Interval 144 ms RADIOLOG Y RESULTS QRS Duration 92 ms RADIOLO GY RESULTS QT 352 ms RADIOLOGY RESULTS QTc 430 ms RADIOLOGY RESULTS P Mcintosh 53 degrees RADIOLOGY RESULTS R AXIS -7 degrees RADIOLOGY RESULTS T Mcintosh 21 degrees RADIOLOGY RESULTS Interpretation ECG Sinus rhythm Normal ECG When compared with ECG of 16-Oct-2024 15:12, No significant change was found Confirmed by SATINDER DE LEON ([id number]) on 10/21/2024 4:25:05 PM RADIOLOGY RESULTS 10/18/2024 11:4 2 PM CDT 10/21/2024 4:25 PM CDT Dominique Ortiz MD ECG ORDERABLES Edited Result [...] Bottle was collected, interpret results with caution. Julio Cesar Regan MD LAB - MICRO GENERAL ORDERABL ES Final Result [facility] Inf. Diseases Diag. Lab [address] [facility], [address] * Blood Culture Peripheral blood (BC) Arm, Right (10/18/2024 2:55 PM CDT) Culture No Growth 10/23/2024 6:32 PM CDT [facility] Peripheral blood (BC) STRUCTURE OF RIGHT UPPER LIMB / Unknown Venipuncture / Unknown 10/18/2024 2:55 PM CDT 10/18/2024 3:01 PM CDT Julio Cesar Regan MD LAB - MICRO GENERAL ORDERABL ES Final Result Performing Organization Address City/[facility] Co de Phone Number [facility] Inf. Diseases Diag. Lab [address] [facility], [address] * Surgical Pathology Exam (10/18/2024 11:29 AM CDT) Case Report Surgical Pathology Report Case: [id number] Authorizing Provider: Dominique Ortiz MD Collected: 10/18/2024 11:29 AM Ordering Location: [facility] Received: 10/18/2024 11:54 AM Main OR Pathologist: Alisa Watts MD Specimen: Gallbladder, GALLBLADDER AND CONTENTS 10/21/2024 12:28 PM CDT [facility] Final Diagnosis A(1). Gallbladder, cholecystectomy: -Acute cholecystitis -Negative for dysplasia or malignancy. 10/21/2024 12:28 PM CDT [facility] at 1227 CDT Clinical Information Procedure: CHOLECYSTECTOMY, LAPAROSCOPIC Pre-op Diagnosis: Cholangitis (H) [K83.09] Post-op Diagnosis: K83.09 - Cholangitis (H) [ICD-10-CM] 10/21/2024 12:28 PM CDT [facility] Gross Description A(1). Gallbladder, GALLBLADDER AND [...] or received free-floating within the specimen container. Avionics Mechanic sections of the gallbladder to include the possible cystic duct margin (inked black) are submitted in 1 cassette. (WILFREDO Brock (ASCP) 10/18/2024 1:31 PM 10/21/2024 12:28 PM CDT LABORATORY Microscopic Description Microscopic examination was performed. 10/21/2024 12:28 PM CDT LABORATORY Performing Labs The technical component of this testing was completed at [facility]. Stain controls for all stains resulted within this report have been reviewed and show appropriate reactivity. 10/21/2024 12:28 PM CDT LABORATORY Case Images 10/21/2024 12:28 PM CDT LABORATORY Tissue GALLBLADDER PART / Unknown 10/18/2024 11:29 AM CDT 10/18/2024 11:54 AM CDT us Dominique Ortiz MD LAB - SHAZIA AP Final Result LABORATORY [facility] Lab [address] [facility] Lab (1st floor, no room number) [place] [address], [facility] * ECHO LIMITED (10/18/2024 7:57 AM CDT) LVEF 55-60% CARDIOLOGY RESULTS Anatomical Region Laterality Modality Echocardiography 10/18/2024 7:35 AM CDT Narrative 10/18/2024 8:56 AM CDT [id number]^RICKI^STEVO^A [facility] Echocardiography Laboratory [address] [place] [address] Name: SALVADOR AHUMADA : 1965 Study Date: 10/18/2024 07:35 AM Age: 59 yrs Gender: Male Patient Location: [facility] Reason For Study: Cardiomyopathy Ordering Physician: [...] AM Procedure Note Saima Yeung, - 10/18/2024 [id number]^RICKI^STEVO^Yakelin [facility] Echocardiography Laboratory [address] [place] [id number] Name: LUKASKENDALSALVADOR : 1965 Study Date: 10/18/2024 07:35 AM Age: 59 yrs Gender: Male Patient Location: [facility] Reason For Study: Cardiomyopathy Ordering Physician: [...] Saima Yeung MD on 10/18/2024 08:56 AM Stevo Robison DO CV ECHO ORDERABLES Edited Resu lt - Final * (ABNORMAL) CBC with platelets (10/18/2024 7:20 AM CDT) [facility] WBC Count 10.8 4.0 - 11.0 10e3/uL [...] BLOOD ORDERABLES Final R esult [facility] LAB[facility]AT[facility] Lab [address] Lab (1st floor, no room number) [place] [address], [place] * (ABNORMAL) Comprehensive metabolic panel (10/18/2024 7:20 [...] 0.67 - 1.17 mg/dL 10/18/2024 8:07 AM T LABORATORY GFR Estimate >90 >60 mL/min/1.7 3m2 10/18/2024 8:07 AM CDT LABORATORY Comment:eGFR calculated us2020 CKD-EPI equation. Calcium 8.7(L) 8.8 - 10.4 mg/dL 10/18/2024 8:07 AM CDT LABORATORY Chloride 105 98 - 107 mmol/L 10/18/2024 8:07 AM CDT LABORATORY Glucose 100(H) 70 - 99 mg/dL 10/18/2024 8:07 AM T LABORATORY Alkaline Phosphatase 87 40 - 150 U/L 10/18/2024 8:07 AM T LABORATORY AST 73(H) 0 - 45 U/L 10/18/2024 8:07 AM T LABORATORY ALT 382(H) 0 - 70 U/L 10/18/2024 8:07 AM T LABORATORY Protein Total 5.9(L) 6.4 - 8.3 g/dL 10/18/2024 8:07 AM CDT LABORATORY Albumin 3.3(L) 3.5 - 5.2 g/dL 10/18/2024 8:07 AM CDT LABORATORY Bilirubin Total 2.7(H) <=1.2 mg/dL 10/18/2024 8:07 AM CDT LABORATORY Blood STRUCTURE OF RIGHT HAND / Unknown Venipuncture / Unknown 10/18/2024 7:20 AM CDT 10/18/2024 7:47 AM CDT Stevo Robison DO LAB - BLOOD ORDERABLES Final R esult LABORATORY [facility] Care Lab [address] Lab (1st floor, no room number) [place] [address] * (ABNORMAL) Glucose by meter (10/17/2024 4:07 PM CDT) GLUCOSE BY METER POCT 150(H) 70 - 99 mg/dL 10/17/2024 4:15 PM CDT LABORATORY POC Comment:Joon Notified Blood, Capillary BLOOD SPECIMEN / Unknown 10/17/2024 4:07 PM CDT 10/17/2024 4:15 PM CDT Ole LANGLEY - BEMICHELLE POCTiffanie Randhawaa l Result Performing Organization Address City/[facility]/ZIP Co de Phone Number LABORATORY [facility] Lab [address] Lab (1st floor, no room number) [place] [address], [facility] * (ABNORMAL) Glucose by meter (10/17/2024 12:15 PM CDT) GLUCOSE BY METER POCT 151(H) 70 - 99 mg/dL 10/17/2024 12:22 PM CDT LABORATORY POC Comment:Joon Notified Blood, Capillary BLOOD SPECIMEN / Unknown 10/17/2024 12:15 PM CDT 10/17/2024 12:22 PM CDT Ole LANGLEY - BEMICHELLE POCT Martha l Result LABORATORY [facility] Care Lab [address] Lab (1st floor, no room number) [place] [address], [facility] * (ABNORMAL) Glucose by meter (10/17/2024 7:54 AM CDT) GLUCOSE BY METER POCT 154(H) 70 - 99 mg/dL 10/17/2024 8:03 AM CDT [facility] LAB[facility] POC Comment:/RN Notified Blood, Capillary BLOOD SPECIMEN / Unknown 10/17/2024 7:54 AM CDT 10/17/2024 8:03 AM CDT Ole Brown MD LAB - BEAKER POCT Martha l Result RH LABORATORY POC [facility] Care Lab [address] [facility] Lab (1st floor, no room number) [place] [address] * (ABNORMAL) CBC with platelets (10/17/2024 5:50 [...] - BLOOD ORDERABLES Final R esult LABORATORY [facility] Lab [address] Lab (1st floor, no room number) [place] [address], [facility] * (ABNORMAL) Comprehensive metabolic panel (10/17/2024 5:50 AM CDT) Sodium 138 135 - 145 mmol/L 10/17/2024 6:38 AM CDT LABORATORY Potassium 4.4 3.4 - 5.3 mmol/L 10/17/2024 6:38 AM CDT LABORATORY Carbon Dioxide (CO2) 22 22 - 29 mmol/L 10/17/2024 6:38 AM T LABORATORY Anion Gap 12 7 - 15 mmol/L 10/17/2024 6:38 AM T LABORATORY Urea Nitrogen 20.3 8.0 - 23.0 mg/dL 10/17/2024 6:38 AM CDT LABORATORY Creatinine 1.00 0.67 - 1.17 mg/dL 10/17/2024 6:38 AM CDT LABORATORY GFR Estimate 87 >60 mL/min/1.7 3m2 10/17/2024 6:38 AM CDT LABORATORY Comment:eGFR calculated usin g 2020 CKD-EPI equation. Calcium 8.0(L) 8.8 - 10.4 mg/dL 10/17/2024 6:38 AM T LABORATORY Chloride 104 98 - 107 mmol/L [...] - 8.3 g/dL 10/17/2024 6:38 AM CDT [facility] Albumin 3.0(L) 3.5 - 5.2 g/dL 10/17/2024 6:38 AM CDT [facility] Bilirubin Total 4.7(H) <=1.2 mg/dL 10/17/2024 6:38 AM CDT [facility] Blood BLOOD SPECIMEN / Unknown Venipuncture / Unknown 10/17/2024 5:50 AM CDT 10/17/2024 6:15 AM CDT Stevo Robison DO LAB - BLOOD ORDERABLES Final R esult LABORATORY [facility] Lab [address] Lab (1st floor, no room number) [place] [address] * (ABNORMAL) Glucose by meter (10/17/2024 4:25 AM CDT) GLUCOSE BY METER POCT 141(H) 70 - 99 mg/dL 10/17/2024 4:32 AM CDT LABORATORY POC Blood, Capillary BLOOD SPECIMEN / Unknown 10/17/2024 4:25 AM CDT 10/17/2024 4:32 AM CDT Ole Brown MD LAB - BEAKER POCT Martha l Result LABORATORY [facility] Lab [address] Lab (1st floor, no room number) [place] [address] * (ABNORMAL) Glucose by meter (10/16/2024 11:43 PM CDT) GLUCOSE BY METER POCT 150(H) 70 - 99 mg/dL 10/16/2024 11:50 PM CDT LABORATORY POC Blood, Capillary BLOOD SPECIMEN / Unknown 10/16/2024 11:43 PM CDT 10/16/2024 11:50 PM CDT Ole Brown MD LAB - BEAKER POCT Martha l Result LABORATORY [facility] Lab [address] Lab (1st floor, no room number) [place] [address] * (ABNORMAL) Glucose by meter (10/16/2024 8:25 PM CDT) GLUCOSE BY METER POCT 161(H) 70 - 99 mg/dL 10/16/2024 8:32 PM CDT LABORATORY POC Blood, Capillary BLOOD SPECIMEN / Unknown 10/16/2024 8:25 PM CDT 10/16/2024 8:32 PM CDT us Ole Brown MD LAB - BEAKER POCT Martha l Result Performing Organization Address [facility]/ZIP Co de Phone Number LABORATORY [facility] Lab [address] [facility] Lab (1st floor, no room number) [place] [address] * EKG 12-lead, tracing only (10/16/2024 3:12 PM CDT) Systolic Blood Pressure mmHg RADIOLOGY RESULTS Diastolic Blood Pressure mmHg RADIOLOGY RESULTS Ventricular Rate 103 BPM RAD IOLOGY RESULTS Atrial Rate 103 BPM RADIOLOG Y RESULTS CA Interval 152 ms RADIOLOG Y RESULTS QRS Duration 88 ms RADIOLO GY RESULTS QT 336 ms RADIOLOGY RESULTS QTc 440 ms RADIOLOGY RESULTS P Mcintosh 39 degrees RADIOLOGY RESULTS R AXIS 9 degrees RADIOLOGY RESULTS T Mcintosh 9 degrees RADIOLOGY RESULTS Interpretation ECG Sinus tachycardia Cannot rule out Inferior infarct , age undetermined Abnormal ECG Compared to prior ECG from 07-Mar-2024 at 21:20:24: HR increased by 34 bpm Otherwise no major changes Confirmed by Osmany Wall ([id number]) on 10/16/2024 3:42:20 PM RADIOLOGY RESULTS 10/16/2024 3:12 PM CDT 10/16/2024 3:42 PM CDT us Stevo Robison DO ECG ORDERABLES Edited Result - Final RADIOLOGY RESULTS * (ABNORMAL) Glucose by meter (10/16/2024 2:43 PM CDT) GLUCOSE BY METER POCT 122(H) 70 - 99 mg/dL 10/16/2024 2:49 PM CDT LABORATORY POC Blood, Capillary BLOOD SPECIMEN / Unknown 10/16/2024 2:43 PM CDT 10/16/2024 2:49 PM CDT Ole Brown MD LAB - BEAKER POCT Martha l Result LABORATORY POC [facility] Lab [address] [facility] Lab (1st floor, no room number) [place] [address] * XR ERCP (10/16/2024 1:37 PM CDT) Narrative [facility] - 10/16/2024 1:39 PM CDT This exam was marked as non-reportable because it will not be read by a radiologist or a [place] non-radiologist provider. us Cornelia Collazo WELDER EXPERIMENTAL MDM DEVELOPER IMG DIAGNOSTIC IMAGING O RDERABLES Final Result [facility] * ECHO COMPLETE WITH CONTRAST (10/16/2024 10:47 AM CDT) LVEF 45-50% CARDIOLOGY RESULTS Anatomical Region Laterality Modality Echocardiography 10/16/2024 9:51 AM CDT Narrative 10/16/2024 11:03 AM CDT [id number]^SATURNINO^REBEKAH [facility] Echocardiography Laboratory [address] [place] [id number] Name: SALVADOR AHUMADA : 1965 Study Date: 10/16/2024 09:51 AM Age: 59 yrs Gender: Male Patient Location: [facility] Reason For Study: SOB, SOB Ordering Physician: REBEKAH MATAMOROS Performed By: Isha Murray BSA: 2.0 m2 Height: 68 in Weight: 200 lb BP: 134/92 mmHg Procedure Echocardiogram with two-dimensional, color and spectral Doppler. Optison ([facility] #[id number]) given intravenously. Interpretation Summary The visual ejection [...] Procedure Note Rudy Mcdowell MD - 10/16/2024 [id number]^SATURNINO^[facility] Echocardiography Laboratory [address] [facility] [place] [address] Name: SALVADOR AHUMADA : 1965 Study Date: 10/16/2024 09:51 AM Age: 59 yrs Gender: Male Patient Location: [facility] Reason For Study: SOB, SOB Ordering Physician: REBEKAH MATAMOROS Performed By: Isha Murray BSA: 2.0 m2 Height: 68 in Weight: 200 lb BP: 134/92 mmHg Procedure Echocardiogram with two-dimensional, color and spectral Doppler. Optison([facility] #[id number]) given intravenously. Interpretation Summary The visual ejection [...] Rudy Mcdowell MD on 10/16/2024 11:03 AM us Rebekah Matamoros MD CV ECHO ORDERABLES Edited Result - Final * ENDOSCOPIC RETROGRADE CHOLANGIOPANCREATOGRAPHY (10/16/2024 10:40 AM CDT) [facility] Patient Name: Salvador Ahumada Procedure Date: 10/16/2024 10:40 AM Date of [...] Exera II Duodenovideoscope (ERCP), Model # TJF-Q190V, Critical Access Hospital[facility] # [id number] was introduced through the mouth, and used to inject contrast into and used to inject contrast into the bile duct. The ERCP was accomplished without difficulty. The patient tolerated the procedure well. Findings: The shaft sinker film was normal. The papilla appeared normal. [...] 10/16/2024 10:4 0 AM CDT us Claudia D Liveringhouse MD PROCEDURES Final Re sult RADIOLOGY RESULTS * Potassium (10/16/2024 10:39 AM CDT) Potassium 3.6 3.4 - 5.3 mmol/L 10/16/2024 11:51 AM CDT LABORATORY Blood BLOOD SPECIMEN / Unknown Venipuncture / Unknown 10/16/2024 10:39 AM CDT 10/16/2024 11:23 AM CDT Stevo A Ricki DO LAB - BLOOD ORDERABLES Final R esult LABORATORY [facility] Care Lab [address] Lab (1st floor, no room number) [place] [phone] [place] [address] * (ABNORMAL) Lactic acid whole blood (10/16/2024 8:19 AM CDT) Lactic Acid 3.3(H) 0.7 - 2.0 mmol/L 10/16/2024 8:49 AM CDT LABORATORY Blood STRUCTURE OF RIGHT HAND / Unknown Venipuncture / Unknown 10/16/2024 8:19 AM CDT 10/16/2024 8:47 AM CDT Stevo A Ricki DO LAB - BLOOD ORDERABLES Final R esult Performing Organization Address City/[facility]/ZIP Co de Phone Number LABORATORY [facility] Lab [address] Lab (1st floor, no room number) [place] [phone] * Glucose by meter (10/16/2024 7:55 AM CDT) GLUCOSE BY METER POCT 87 70 - 99 mg/dL 10/16/2024 8:04 AM CDT LABORATORY POC Comment:Dr/RN Notified Blood, Capillary BLOOD SPECIMEN / Unknown 10/16/2024 7:55 AM CDT 10/16/2024 8:04 AM CDT us Ole Brown MD LAB - BEAKER POCT Martha l Result LABORATORY [facility] Care Lab [address] Lab (1st floor, no room number) [address] * Extra Purple Top EDTA (LAB USE ONLY) (10/16/2024 5:35 AM CDT) Hold Specimen JIC 10/16/2024 6:46 AM CDT RH LABORATORY Blood BLOOD SPECIMEN / Unknown Venipuncture / Unknown 10/16/2024 5:35 AM CDT 10/16/2024 5:43 AM CDT Ole Brown MD LAB - BLOOD ORDERABLES Final Result Performing Organization Address City/[facility]/ZIP Co de Phone Number [facility] Lab [address] Lab (1st floor, no room number) [address] * (ABNORMAL) Potassium (10/16/2024 5:35 AM CDT) Potassium 3.1(L) 3.4 - 5.3 mmol/L 10/16/2024 6:12 AM CDT RH LABORATORY Blood BLOOD SPECIMEN / Unknown Venipuncture / Unknown 10/16/2024 5:35 AM CDT 10/16/2024 5:43 AM CDT Rebekah Matamoros MD LAB - BLOOD ORDERABLES Final Res ult [facility] Care Lab [address] Lab (1st floor, no room number) [address] * (ABNORMAL) Lactic acid whole blood (10/16/2024 5:35 AM CDT) Lactic Acid 2.1(H) 0.7 - 2.0 mmol/L 10/16/2024 5:52 AM CDT RH LABORATORY Blood BLOOD SPECIMEN / Unknown Venipuncture / Unknown 10/16/2024 5:35 AM CDT 10/16/2024 5:43 AM CDT Rebekah Matamoros MD LAB - BLOOD ORDERABLES Final Res ult LABORATORY [facility] Care Lab [address] Lab (1st floor, no room number) [place] [address] * (ABNORMAL) Glucose by meter (10/16/2024 3:07 AM CDT) [facility] GLUCOSE BY METER POCT 131(H) 70 - 99 mg/dL 10/16/2024 3:14 AM CDT LABORATORY POC Comment:Dr/RN Notified Blood, Capillary BLOOD SPECIMEN / Unknown 10/16/2024 3:07 AM CDT 10/16/2024 3:14 AM CDT Ole Brown MD LAB - BEAKER POCT Martha l Result Performing Organization Address [facility]/ZIP Co de Phone Number LABORATORY POC [facility] [address] Lab (1st floor, no room number) [place] [phone] [place] [address] * CT Chest Pulmonary Embolism w Contrast [...] CT CHEST PULMONARY EMBOLISM W CONTRAST LOCATION: [facility] DATE: 10/16/2024 INDICATION: tachycardia, tachypnea COMPARISON: Same [...] CT CHEST PULMONARY EMBOLISM W CONTRAST LOCATION: [facility] DATE: 10/16/2024 INDICATION: tachycardia, tachypnea COMPARISON: Same [...] process within the chest. Rebekah Matamoros [place] [facility] [place] Final Result * (ABNORMAL) NT-proBNP (10/16/2024 2:24 AM CDT) [facility] NT-proBNP 652(H) 0 - 177 pg/mL 10/16/2024 3:23 AM CDT LABORATORY Comment: Starting on 10/09/2024, [facility] laboratory began flagging abnormal values for plasma [...] be interpreted with the updated reference intervals. [facility]'s Pediatric (boys and girls) Reference Ranges in pg/mL * 0 up to 3 days: 0 - 04042 3 days up to 1 month: 0 [...] For adult chronic CHF patients according to [place] [employer] (NYHA) Functional Class, the mean NT-proBNP concentration is as following (5th and 95th percentile values respectively displayed in parentheses): Class I: 1016 pg/mL (33-3410) Class II: 1666 pg/mL (103-6567) Class III: 3029 pg/mL (126-81285) Class IV: 3465 pg/mL (148-69325) Clinical thresholds for acute (emergency department) settings: [...] body mass index. * References: (1) Angel A et al. Pediatr Cardiol 30:3-8, 2008. Blood BLOOD SPECIMEN / Unknown Venipuncture / Unknown 10/16/2024 2:24 AM CDT 10/16/2024 2:46 AM CDT Rebekah Matamoros MD LAB - BLOOD ORDERABLES Final Res ult Performing Organization Address City/[facility]/ZIP Co de Phone Number [facility] [address] [facility], no room number) [place] [phone] * (ABNORMAL) Lactic acid whole blood (10/16/2024 2:24 AM CDT) Pathologist [facility] [place] Lactic Acid 5.5(HH) 0.7 - 2.0 mmol/L 10/16/2024 2:33 AM CDT LABORATORY Blood BLOOD SPECIMEN / Unknown Venipuncture / Unknown 10/16/2024 2:24 AM CDT 10/16/2024 2:26 AM CDT Rebekah Matamoros MD LAB - BLOOD ORDERABLES Final Res ult Performing Organization Address [facility] Co de Phone Number [facility] [address] [facility] (1[facility], no room number) [place] [phone] [place] [address] * (ABNORMAL) D dimer quantitative (10/16/2024 2:24 AM CDT) Pathologist [facility] [place] D-Dimer Quantitative 1.47(H) 0.00 - 0.50 ug/mL FEU 10/16/2024 3:09 AM CDT LABORATORY Blood BLOOD SPECIMEN / Unknown Venipuncture / Unknown 10/16/2024 2:24 AM CDT 10/16/2024 2:46 AM CDT Narrative [facility] LABORATORY - 10/16/2024 3:09 AM CDT This [...] out pulmonary embolism: The ADJUST-PE Study. BRETT 2014;311:6737-3907.; HJ Jose et al. Diagnostic accuracy of conventional or age adjusted D-dimer cutoff values in older patients with suspected venous thromboembolism. Systemic review and meta-analysis. BMJ 2013:346:f2492. Rebekah Matamoros MD LAB - BLOOD ORDERABLES Final Res ult [facility] [address] Lab (1st floor, no room number) [place] [address] * (ABNORMAL) INR (10/16/2024 2:24 AM CDT) INR 1.21(H) 0.85 - 1.15 10/16/2024 3:07 AM CDT [facility] LABORATORY PT 15.3(H) 11.8 - 14.8 Seconds 10/16/2024 3:07 AM CDT [facility] LABORATORY Blood BLOOD SPECIMEN / Unknown Venipuncture / Unknown 10/16/2024 2:24 AM CDT 10/16/2024 2:46 AM CDT Salvador Rocha APRN, CNP LAB - BLOOD ORDERABLE S Final Result LABORATORY [facility] [address] Lab (1st floor, no room number) [place] [address] * (ABNORMAL) CBC with platelets (10/16/2024 2:24 AM CDT) WBC Count 12.3(H) 4.0 - 11.0 10e3/uL 10/16/2024 3:36 AM CDT [facility] LABORATORY RBC Count 5.20 4.40 - 5.90 10e6/uL 10/16/2024 3:36 AM CDT [facility] LABORATORY Hemoglobin 15.5 13.3 - 17.7 g/dL 10/16/2024 3:36 AM CDT [facility] LABORATORY Hematocrit 46.0 40.0 - 53.0 % 10/16/2024 3:36 AM CDT LABORATORY MCV 89 78 - 100 fL 10/16/2024 3:36 AM CDT LABORATORY MCH 29.8 26.5 - 33.0 pg 10/16/2024 3:36 AM CDT LABORATORY MCHC 33.7 31.5 - 36.5 g/dL 10/16/2024 3:36 AM CDT LABORATORY RDW 13.0 10.0 - 15.0 % 10/16/2024 3:36 AM CDT LABORATORY Platelet Count 233 150 - 450 10e3/uL 10/16/2024 3:36 AM CDT LABORATORY Blood BLOOD SPECIMEN / Unknown Venipuncture / Unknown 10/16/2024 2:24 AM CDT 10/16/2024 2:47 AM CDT Salvador Rocha APRN MDM DEVELOPER LAB - BLOOD ORDERABLE S Final Result LABORATORY [facility] [address] Lab (1st floor, no room number) [place] [address], [facility] * (ABNORMAL) Comprehensive metabolic panel (10/16/2024 2:24 AM CDT) Pathologist [facility] [place] Sodium 136 135 - 145 mmol/L 10/16/2024 [...] - 150 U/L 10/16/2024 3:33 AM CDT LABORATORY AST 736(HH) 0 - 45 U/L 10/16/2024 3:33 AM CDT LABORATORY ALT 1,259(HH) 0 - 70 U/L 10/16/2024 3:33 AM CDT LABORATORY Protein Total 7.0 6.4 - 8.3 g/dL 10/16/2024 3:33 AM CDT LABORATORY Albumin 4.4 3.5 - 5.2 g/dL 10/16/2024 3:33 AM CDT LABORATORY Bilirubin Total 7.0(H) <=1.2 mg/dL 10/16/2024 3:33 AM CDT LABORATORY Blood BLOOD SPECIMEN / Unknown Venipuncture / Unknown 10/16/2024 2:24 AM CDT 10/16/2024 2:46 AM CDT Salvador Rocha APRN MDM DEVELOPER LAB - BLOOD ORDERABLE S Final Result LABORATORY [facility] [address] [facility] Lab (1st floor, no room number) [place] [address] * XR Chest Port 1 View (10/16/2024 [...] EXAM: XR CHEST PORT 1 VIEW LOCATION: [facility] DATE: 10/16/2024 INDICATION: hypoxia COMPARISON: 10/11/2021 Procedure Note Bradford Brown MD - 10/16/2024 EXAM: XR CHEST PORT 1 VIEW LOCATION: [facility] DATE: 10/16/2024 INDICATION: hypoxia COMPARISON: 10/11/2021 IMPRESSION: [...] PM CDT EXAM: US ABDOMEN LIMITED LOCATION: [facility] DATE: 10/15/2024 INDICATION: Right upper quadrant pain; [...] - 10/15/2024 EXAM: US ABDOMEN LIMITED LOCATION: [facility] DATE: 10/15/2024 INDICATION: Right upper quadrant pain; [...] a distalobstructing stone or mass lesion. Leonora Bone PA-C Alejandra US ORDERABLES Final Result * (ABNORMAL) Blood [...] IDD LABORATORY Comment:Escherichia coli det ected by Natanael Ulien BCID2 assay. Final identification and antimicrobial susceptibility [...] by the Infectious Diseases Diagnostic Laboratory at [facility]. This laboratory is certified under the Clinical Laboratory Improvement Amendments of 1988 (CLIA-88) as qualified to perform high complexity clinical laboratory testing. Leonora Bone PA-C LAB - MICRO GENERAL ORDE [facility] Final Result [facility] ID[facility] LABORAT[facility] Inf. Diseases Diag. Lab [address] [facility], [address] [place], [place] [phone] * (ABNORMAL) Blood Culture Peripheral blood (BC) Arm, Right (10/15/2024 5:09 PM CDT) [facility] Culture Positive on the 1st day of [...] - MICRO GENERAL ORDE JENNY Final Result Performing Organization Address City/[facility] Co de Phone Number [facility] LABORATORY [facility] Inf. Diseases Diag. Lab [address] [facility], [address] * (ABNORMAL) Blood Culture Peripheral blood (BC) Arm, Left (10/15/2024 4:31 PM CDT) Pathologist [facility] [place] Culture Positive on the 1st day of [...] - MICRO GENERAL STEFFEN ALVARADO Final Result Performing Organization Address [facility] de Phone Number [facility] IDD LABORATORY [facility] Inf. Diseases Diag. Lab [address] [place] [address], Room [place] [phone] [place] [address] * (ABNORMAL) NT-proBNP (10/15/2024 3:10 PM CDT) NT-proBNP 209(H) 0 - 177 pg/mL 10/16/2024 2:34 AM CDT LABORATORY Comment: Starting on 10/09/2024, [facility] laboratory began flagging abnormal values for plasma [...] be interpreted with the updated reference intervals. [facility]'s Pediatric (boys and girls) Reference Ranges in pg/mL * 0 up to 3 days: 0 - 94823 3 days up to 1 month: 0 [...] For adult chronic CHF patients according to [place] [employer] (NYHA) Functional Class, the mean NT-proBNP concentration is as following (5th and 95th percentile values respectively displayed in parentheses): Class I: 1016 pg/mL (33-3410) Class II: 1666 pg/mL (103-6567) Class III: 3029 pg/mL (126-05866) Class IV: 3465 pg/mL (148-35660) Clinical thresholds for acute (emergency department) settings: [...] 3:10 PM CDT 10/15/2024 3:31 PM CDT Rebekah Matamoros MD LAB - BLOOD ORDERABLES Final Res ult Performing Organization Address [facility]/ZIP Co de Phone Number [facility] [address] Lab (1st floor, no room number) [address] [place] [address] * (ABNORMAL) Acetaminophen level (10/15/2024 3:10 PM CDT) Acetaminophen <5.0(L) 10.0 - 30.0 ug/mL 10/15/2024 7:15 PM CDT LABORATORY Blood STRUCTURE OF RIGHT UPPER LIMB / Unknown Venipuncture / Unknown 10/15/2024 3:10 PM CDT 10/15/2024 3:31 PM CDT Al Ayon MD LAB - BLOOD ORDERABLES F inal Result Performing Organization Address [facility] de Phone Number [facility] [address] Lab (1st floor, no room number) [place] [phone] [place] [address] * Alcohol level blood (10/15/2024 3:10 PM CDT) Ethanol Level Blood <0.01 <=0.01 g/dL 10/15/2024 5:08 PM CDT LABORATORY Blood STRUCTURE OF RIGHT UPPER LIMB / Unknown Venipuncture / Unknown 10/15/2024 3:10 PM CDT 10/15/2024 3:31 PM CDT Result [facility] Leonora Bone PA-C LAB - BLOOD ORDERABLES F inal Result LABORATORY [facility] [address] Lab (1st floor, no room number) [place] [phone] [place] [address] * Extra Red Top Tube (10/15/2024 3:10 PM CDT) Hold Specimen [facility] 10/15/2024 4:31 PM CDT [facility] LABORATORY Blood STRUCTURE OF RIGHT UPPER LIMB / Unknown Venipuncture / Unknown 10/15/2024 3:10 PM CDT 10/15/2024 3:31 PM CDT Leonora Bone PA-C LAB - BLOOD ORDERABLES F inal Result Performing Organization Address City/[facility]/ZIP Co de Phone Number [facility] [address] Lab (1st floor, no room number) [place] [phone] [place] [address] * Extra Blue Top Tube (10/15/2024 3:10 PM CDT) Hold Specimen [facility] 10/15/2024 4:31 PM CDT [facility] LABORATORY Blood STRUCTURE OF RIGHT UPPER LIMB / Unknown Venipuncture / Unknown 10/15/2024 3:10 PM CDT 10/15/2024 3:31 PM CDT Leonora Bone PA-C LAB - BLOOD ORDERABLES F inal Result [facility] [address] Lab (1st floor, no room number) [place] [phone] * (ABNORMAL) CBC with platelets and differential [...] LAB - BLOOD ORDERABLES F inal Result [facility] [address] Lab (1st floor, no room number) [place] [phone] [place] [address] * (ABNORMAL) Bilirubin direct (10/15/2024 3:10 PM CDT) Bilirubin Direct 2.98(H) 0.00 - 0.30 mg/dL 10/15/2024 4:03 PM CDT [facility] LABORATORY Blood STRUCTURE OF RIGHT UPPER LIMB / Unknown Venipuncture / Unknown 10/15/2024 3:10 PM CDT 10/15/2024 3:31 PM CDT Leonora Bone PA-C LAB - BLOOD ORDERABLES F inal Result Performing Organization Address [facility]/ZIP Co de Phone Number [facility] [address] Lab (1st floor, no room number) [place] [phone] [place] [address] * Lipase (10/15/2024 3:10 PM CDT) Lipase 28 13 - 60 U/L 10/15/2024 4:00 PM CDT [facility] LABORATORY Blood STRUCTURE OF RIGHT UPPER LIMB / Unknown Venipuncture / Unknown 10/15/2024 3:10 PM CDT 10/15/2024 3:31 PM CDT Leonora Bone PA-C LAB - BLOOD ORDERABLES F inal Result [facility] [address] Lab (1st floor, no room number) [place] [address], [facility] * (ABNORMAL) Comprehensive metabolic panel (10/15/2024 3:10 PM CDT) Sodium 138 135 - 145 mmol/L 10/15/2024 4:15 PM CDT RH LABORATORY Potassium 4.5 3.4 - 5.3 mmol/L 10/15/2024 4:15 PM CDT LABORATORY Carbon Dioxide (CO2) 26 22 - 29 mmol/L 10/15/2024 4:15 PM CDT RH LABORATORY Anion Gap 11 7 - 15 mmol/L 10/15/2024 4:15 PM CDT [facility] LABORATORY Urea Nitrogen 12.3 8.0 - 23.0 mg/dL 10/15/2024 4:15 PM CDT LABORATORY Creatinine 1.00 0.67 - 1.17 mg/dL 10/15/2024 4:15 PM CDT [facility] LABORATORY GFR Estimate 87 >60 mL/min/1. 73m2 10/15/2024 4:15 PM CDT [facility] LABORATORY Comment:eGFR calculated us2020 CKD-EPI equation. Calcium 10.0 8.8 - 10.4 mg/dL 10/15/2024 4:15 PM CDT [facility] LABORATORY Chloride 101 98 - 107 mmol/L 10/15/2024 4:15 PM CDT LABORATORY Glucose 147(H) 70 - 99 mg/dL 10/15/2024 4:15 PM CDT [facility] LABORATORY Alkaline Phosphatase 111 40 - 150 U/L 10/15/2024 4:15 PM CDT [facility] LABORATORY AST 1,240(HH) 0 - 45 U/L 10/15/2024 4:15 PM CDT [facility] LABORATORY ALT 1,380(HH) 0 - 70 U/L 10/15/2024 4:15 PM CDT [facility] LABORATORY Protein Total 7.5 6.4 - 8.3 g/dL 10/15/2024 4:15 PM CDT [facility] LABORATORY Albumin 4.8 3.5 - 5.2 g/dL 10/15/2024 4:15 PM CDT [facility] LABORATORY Bilirubin Total 4.7(H) <=1.2 mg/dL 10/15/2024 4:15 PM CDT [facility] LABORATORY Blood STRUCTURE OF RIGHT UPPER LIMB / Unknown Venipuncture / Unknown 10/15/2024 3:10 PM CDT 10/15/2024 3:31 PM CDT Leonora Bone PA-C LAB - BLOOD ORDERABLES F inal Result [facility] [address] [facility] Lab (1st floor, no room number) [place] [address], [facility] documented in this encounter Visit Diagnoses Diagnosis Cholangitis (H)- Primary Cholangitis Cholecystitis Cholecystitis, unspecified Acute sepsis (H) Elevated LFTs Other abnormal blood chemistry Common bile duct dilation Other specified disorders of biliary tract Cholecystitis Cholecystitis, unspecified Elevated LFTs Other abnormal blood chemistry Common bile duct dilation Other specified disorders of biliary tract Acute sepsis (H) Cholecystitis Cholecystitis, unspecified Common bile duct dilation Other specified disorders of biliary tract documented in this encounter Admitting Diagnoses Diagnosis [...] to exceed 4 grams/day. acetaminophen (TYLENOL) tablet 650 mg 650 mg, [...] $Given 10/17/2024 6:54 PM CDT 1 lozenge calcium carbonate (TUMS) chewable tablet 1,000 mg 1,000 mg, Oral, 4 TIMES DAILY PRN, heartburn, Starting on Mon10/15/24 at 2050 $Given 10/18/2024 6:55 PM CDT 1,000 mg furosemide (LASIX) injection 20 mg 20 mg, Intravenous, EVERY 8 HOURS, Administer over 1-3 Minutes, First dose (after last modification) on Mon10/20/24 at 1500 $Given 10/21/2024 1:26 PM CDT 20 mg $Given 10/21/2024 5:48 AM CDT 20 mg $Given 10/20/2024 9:04 PM CDT 20 mg HYDROmorphone (DILAUDID) half-tab 1 mg 1 [...] PM CDT 0.2 mg HYDROmorphone (DILAUDID) injection 1 mg 1 mg, Intravenous, EVERY 2 HOURS PRN, severe pain, IF patient cannot take oral opioid OR IF pain not managed with non-pharmacological, non-opioid, or oral opioid interventions if ordered, Starting on [facility] 10/19/24 at 1531, May use concomitant with non-opioid analgesics. $Given 10/19/2024 9:31 PM CDT 1 mg $Given 10/19/2024 3:54 PM CDT 1 mg HYDROmorphone (DILAUDID) tablet 2 mg 2 mg, Oral, EVERY 4 HOURS PRN, severe pain, IF pain not managed with non-pharmacological and non-opioid interventions, Starting on Mon10/21/24 at 0909, May use concomitant with non-opioid analgesics. $Given 10/21/2024 1:31 PM CDT 2 mg iopamidol 61% (ISOVUE 300) 50 mL + NaCl 0.9% 50 mL PRN, Starting on Mon10/16/24 at 1326, Intra-procedure $Given 10/16/2024 1:26 PM CDT 42 ml given Operative Site/Surgical Site levalbuterol (XOPENEX) neb solution 1.25 mg 1.25 [...] 9:08 PM CDT 0.5 mg melatonin tablet 5 mg 5 mg, Oral, AT BEDTIME PRN, sleep, Starting on Mon10/15/24 at 2050, Do not give unless at least 6 hours of uninterrupted sleep is expected. If patient has multiple medications ordered PRN sleep/insomnia, offer melatonin first. $Given 10/17/2024 11:43 PM CDT 5 mg naloxone (NARCAN) injection 0.2 mg 0.2 [...] $Given 10/19/2024 6:19 AM CDT 40 mg polyethylene glycol (MIRALAX) Packet 17 g 17 [...] $Given 10/20/2024 8:43 AM CDT 17 g prochlorperazine (COMPAZINE) injection 10 mg 10 mg, [...] tablets sodium chloride (PF) 0.9% PF flush 3 mL 3 mL, Intracatheter, EVERY 8 HOURS SCHEDULED, First dose on Mon10/15/24 at 2200, to lock peripheral IV dormant line $Given 10/21/2024 3:36 PM CDT 3 mLs $Given 10/21/2024 7:41 AM CDT 3 mLs $Given 10/21/2024 12:07 AM CDT 3 mLs sodium chloride (PF) 0.9% PF flush 3 mL 3 mL, Intracatheter, EVERY 1 MIN PRN, line flush, other, to ensure patency or to lock dormant line, Starting on Mon10/15/24 at 2050 $Given 10/21/2024 1:2 7 PM CDT 3 mLs $Given 10/20/2024 4:10 AM CDT 3 mLs documented in this encounter Active and Recently [...] RN - Reason: Other)0828 ($Given - Provider: Huyen Zazueta RN)1548 ($Given - Provider: Darryl Green RN)2128 ($Given - Provider: Darryl Green RN) 0844 ($Given - Provider: Sveta Elam RN)1511 ($Given - Provider: Sveta Elam RN)2104 ($Given - Provider: Trang Lin RN) 0822 ($Given - Provider: Huyen Zazueta, DEJON)1536 ($Given - Provider: Huyen Zazueta RN)2200 (Canceled [...] RN) 1536 ($New Bag - Provider: Huyen Zazueta RN) famotidine (PEPCID) injection 20 mg (CANCELED) 20 mg, Intravenous, Administer over 2 Minutes, EVERY 12 HOURS, First dose on Mon10/18/24 at 2130, For ordered IV doses 1-20 mg, give IV Push diluted with 5-10 mL NS over a minimum of 2 minutes. 0839 ($Given - Provider: Huyen Zazueta RN) furosemide (LASIX) injection 20 mg (COMPLETED) 20 [...] Rayshawn Quintanilla, DEJON)1326 ($Given - Provider: Huyen Zazueta RN)2100 (Canceled Entry - Provider: Orders Generic Provider - Comment: Automatically canceled at discontinue of medication order) iopamidol (ISOVUE-370) solution 500 mL (COMPLETED) 500 mL, Intravenous, ONCE, On 10/19/24 at 1900, For 1 dose 1840 ($Given - Provider: Yuki Rush [facility]) ketorolac (TORADOL) injection 15 mg (COMPLETED) 15 [...] Huyen Zazueta RN)1551 ($Given - Provider: Darryl Green RN)2129 ($Given - Provider: Darryl Green RN) 0410 ($Given - Provider: Rayshawn Quintanilla, DEJON) melatonin tablet 3 mg (COMPLETED) 3 mg, Oral, ONCE, On 10/20/24 at 0900, For 1 dose 1331 ($Given [...] RN) 0826 (Patch/Med Removed - Provider: Sveta Elam, DEJON)0845 ($Patch/Med Applied - Provider: Sveta Elam, DEJON) 0822 ($Patch/Med Applied - Provider: Huyen Zazueta [...] next AM 0931 ($Given - Provider: Huyen Zazueta, DEJON) rOPINIRole (REQUIP) tablet 0.25 mg 0.25 mg, Oral, AT BEDTIME, First dose on Mon10/16/24 at 2230 2128 ($Given - Provider: Darryl Green, DEJON) 2104 ($Given - Provider: Trang Lin, DEJON) 2200 (Canceled Entry - Provider: Orders Generic Provider - Comment: Automatically canceled at discontinue of medication order) senna-docusate (SENOKOT-S/PERICOLACE) 8.6-50 MG per tablet 1 tablet(Linked Group 2) 1 tablet, Oral, 2 TIMES DAILY, First dose on Mon10/15/24 at 2100, If no bowel movement in 24 hours, increase to 2 tablets by mouth. Hold for loose stools. 0828 ($Given - Provider: Huyen Zazueta RN)191 (See Alternative - Provider: Darryl Green RN) 0844 (See Alternative - Provider: Sveta Elam, DEJON)210 ($Given - Provider: Trang Lin RN) 0741 (See Alternative - Provider: Huyen Zazueta RN)1999 (Canceled Entry - Provider: Orders Generic Provider - Comment: Automatically canceled at discontinue of medication order) senna-docusate (SENOKOT-S/PERICOLACE) 8.6-50 MG per tablet 2 tablet(Linked Group 2) 2 tablet, Oral, 2 TIMES DAILY, First dose on Mon10/15/24 at 2100, Hold for loose stools. 0828 (See Alternative - Provider: Huyen Zazueta RN)1915 ($Given - Provider: Darryl Green RN) 08 ($Given - Provider: Sveta Elam, DEJON)2103 (See Alternative - Provider: Trang Lin RN) 0741 ($Given - Provider: Huyen Zazueta RN)1999 (Canceled Entry - Provider: Orders Generic Provider - Comment: Automatically canceled at discontinue of medication order) sodium chloride (PF) 0.9% PF flush 3 mL 3 mL, Intracatheter, EVERY 8 HOURS SCHEDULED, First dose on Mon10/15/24 at 2200, to lock peripheral IV dormant line 0839 ($Given - Provider: Huyen Zazueta RN)1549 ($Given - Provider: Darryl Green RN) 0001 ($Given - Provider: Rayshawn Quintanilla, DEJON)0846 ($Given - Provider: Sveta Elam, DEJON)1512 (Canceled Entry - Provider: Sveta Elam, DEJON) 0007 ($Given - Provider: Rayshawn Quintanilla, DEJON)0741 ($Given - Provider: Huyen Zazueta RN)1536 ($Given - Provider: Huyen Zazueta RN) sodium chloride 0.9 % bag for CT scan flush (COMPLETED) Intravenous, 100 mL, ONCE, On Mon10/19/24 at [...] interventions if ordered, Starting on Mon10/15/24 at 2051, May use concomitant with non-opioid analgesics. 0323 ($Given - Provider: Candida Her RN)0839 ($Given - Provider: Huyen Zazueta RN)1052 ($Given - Provider: Huyen Zazueta, DEJON)1320 ($Given - Provider: Huyen Zazueta RN) HYDROmorphone [...] at 2050 0410 ($Given - Provider: Rayshawn Quintanilla RN) 1327 ($Given - Provider: Huyen Zazueta [...] PRN, opioid reversal, Starting on Mon10/15/24 at 6, Administer intravenous route when available and notify [...] - 2nd line, Starting on Mon10/15/24 at 2051, This is Step 2 of nausea and vomiting management. Give if nausea not resolved 15 minutes after giving ondansetron (ZOFRAN). documented in this encounter Care Teams On Site Soil Evaluator Relationship Specialty Start Date End Date No Ref-Primary, Physician PCP - General 10/15/24 documented as of this encounter
--- OUTSIDE RECORDS SUMMARY | 2024-10-16 12:50 | XMS_ITS | Encounter Summary ---
Author Organization [facility] Address [address] [place] [id number] Care Team Providers Care Steel Erector Name Role Phone No Ref-Primary, Physician Primary Care Provider Reason for Visit * Auth/Cert Specialty Diagnoses / Procedures Referred By Contac t Referred To Contact EMERGENCY MEDICINE Diagnoses Cholecystitis Acute sepsis (H) Elevated LFTs Common bile duct dilation [facility] Emergency Dept [address] [place] [address] Phone: tel:[phone] fax: Referral ID Status Reason Start Date Expiration Date Visits Re quested Visits Authorized [id number] 1 1 Encounter Details Date Type Department Care Team (Late st Contact Info) Description 10/16/2024 12:50 PM CDT Anesthesia Event [facility]Op [facility] [address] [place] [id number] Isidro Watters MD [facility] [address] [place] [address] John Rome APRN [facility] [address] [facility] [address] [place] [address] [id number] Anesthesia Record Procedure Summary Procedure Name Responsible Anesthesiologist Anesthesia Start Time Anesthesia Stop Time ENDOSCOPIC RETROGRADE CHOLANGIOPANCREATOGR APHY, COMPLEX, Stone Extraction, Dilation (Mouth) Isidro Watters MD 10/16/24 1250 10/16/24 1341 Events Date Time Event Comment 10/16/2024 1250 An Start Anesthesia Star t is defined as when the anesthesia provider assumed care, began anesthesia prep, remained continuously present with the patient, and excludes all time for performing the pre-anesthesia evaluation. The Pre-Anesthesia Evaluation was completed before Anesthesia Start. 1253 An Start Data 1253 AN REASSESS I attest that I have identified and re-evaluated the patient immediately before the induction of anesthesia and I am satisfied that the anesthetic plan is suitable for the patient's condition and procedure. The first vital signs recorded are pre-induction. John Rome APRN ELECTRIC FRYING PAN REPAIRER 1258 An Induction 1258 MD Present 1302 An Intubation 1302 MD Present 1303 AN INCISION 1332 AN Extubation All extubation criteria met prior to removal. 1333 an stop data 1335 MD Present 1341 An Stop Electronically signed by John Rome APRN ELECT[employer]YING PAN REPAIRER on October 16, 2024 1:42 PM 1341 MD Present Meds Name Total midazolam 1 mg/mL 2 mg lidocaine 2% 50 mg propofol 10 mg/mL 200 mg rocuronium 10 mg/mL 50 mg phenylephrine (HUAN-SYNEPHRINE) injection 200 mcg glycopyrrolate 0.2 mg/mL 0.2 mg sugammadex (BRIDION) 200mg/2mL 200 mg fentaNYL (PF) (SUBLIMAZE) injection 50 m cg 100 mcg dexAMETHasone (DECADRON) injection 4 mg 8 mg ondansetron (ZOFRAN) injection 4 mg 4 mg lactated ringers infusion 700 mL * Agents Name O2 N2O Air Exp Sevoflurane Exp Isoflurane Exp Desflurane Ins Sevoflurane Ins Isoflurane Ins Desflurane * Blood No blood administrations on file. Lines, Drains, and Airways Type Details Placement Removal Peripheral IV 10/15/24; 1630; 20 G ; Left; Antecubital fossa; Chlorhexidine 10/15/24 1630 by Alejandra Maria RN 10/20/24 1029 by Daniela Irvin RN ETT Placement Date: 10/03 09/27; Placement Time: 1302 (created via procedure documentation); Mask Ventilation: 1; Induction Type: Intravenous; Ease of Intubation: Easy; Technique: Video laryngoscopy; Tube Size: 8 mm; VL Blade Size: Huntington scope 4; Grade View: 1; Adjucts: Stylet; Placement Person: ELECTRIC FRYING PAN REPAIRER; Attempts: 1 10/16/24 1302 by John Rome APRN CRNA 10/16/24 1332 by John Rome APRN CRNA Incision/Surgical Site No Incision; 10/03 09/27; 1304; Mouth; ERCP; 10/18/24; 0916 10/16/24 1304 by Domi Ledbetter RN 10/18/24 0916 by Mendy Hurley RN documented in this encounter Social History Tobacco [...] Date Recorded Do you have housing? (Freda g is defined as stable permanent housing and does not include staying outside in a car, in a tent, in an abandoned building, in an overnight fci, or couch-surfing.) Yes 10/15/2024 Are you worried [...] on file Legal Sex Male 3:38 AM [employer] Gender Identity Not on file Sexual Orientation Not on file documented as of this encounter OR Notes * Anesthesia Postprocedure Evaluation - Isidro Watters MD - 10/16/2024 1:59 PM CDT Patient: Salvador Back Procedure: Procedure(s): ENDOSCOPIC RETROGRADE CHOLANGIOPANCREATOGRAPHY, COMPLEX, Stone Extraction, Dilation Anesthesia Type: General Note: Postop Pain Control: Uneventful Sign Out: Well controlled pain PONV: No Neuro/Psych: Uneventful Sign Out: Acceptable/Baseline neuro status Airway/Respiratory: Uneventful Sign Out: Acceptable/Baseline resp. status CV/Hemodynamics: Uneventful Sign Out: Acceptable CV status Other NRE: NONE DID A NON-ROUTINE EVENT OCCUR? No Last vitals: Vitals Value Taken Time BP 96/76 10/16/24 13:55 Temp 98.7 ??F (37.1 ??C) 10/16/24 13:40 Pulse 117 10/16/24 13:58 Resp 21 10/16/24 13:58 SpO2 95 % 10/16/24 13:58 Vitals shown include unfiled device data. Electronically Signed By: Isidro Watters MD October 16, 2024 1:59 PM * Anesthesia Procedure Notes - John Rome APRN CRNA - 10/16/2024 1:03 PM CDTAssociated Order(s): Airway Airway Patient location during procedure: OR Procedure Start/Stop Times: 10/16/2024 1:02 PM Staff - Anesthesiologist: Isidro Watters MD [employer]YING [employer] REPAIRER: John Rome APRN ELECTRIC FRYING PAN REPAIRER Performed By: ELECTRIC FRYING PAN REPAIRER Consent for Airway Urgency: elective Indications and Patient Condition Indications for airway management: charles-procedural and airway protection Induction type:intravenous Mask difficulty assessment: 1 - vent by mask Final Airway Details Final airway type: endotracheal airway Successful airway: ETT - single and Oral Endotracheal Airway Details ETT size (mm): 8.0 Cuffed: yes Successful intubation technique: video laryngoscopy VL Blade Size: Glidescope 4 Grade View of Cords: 1 Adjucts: stylet Position: Center Measured from: lips Secured at (cm): 24 Bite block used: Soft Post intubation assessment Placement verified by: capnometry, equal breath sounds and chest rise Number of attempts at approach: 1 Number of other approaches attempted: 0 Secured with: tape Ease of procedure: easy Dentition: Intact and Unchanged Medication(s) Administered Medication Administration Time: 10/16/2024 1:02 PM * Anesthesia Preprocedure Evaluation - Isidro Watters MD - 10/16/2024 10:42 AM CDT Anesthesia Pre-Procedure Evaluation Patient: Salvador Back : 1965 Procedure : Procedure(s): ENDOSCOPIC RETROGRADE CHOLANGIOPANCREATOGRAPHY, COMPLEX Past Medical History: Diagnosis Date Knee pain torn menisus. Past Surgical History: Procedure Laterality Date Z APPENDECTOMY 2006 No Known Allergies Social History Tobacco Use Smoking status: Every Day Current packs/day: 0.00 Types: Cigarettes Smokeless tobacco: Current Types: Chew Tobacco comments: chew quiting, 1 can q 3 day7s Substance Use Topics Alcohol use: Yes Alcohol/week: 0.0 standard drinks of alcohol Comment: several beers on the weekends Wt Readings from Last 1 Encounters: 10/15/24 90.8 kg (200 lb 2.8 oz) Anesthesia Evaluation Pt has had prior anesthetic. Type: General. No history of anesthetic complications ROS/MED HX ENT/Pulmonary: - neg pulmonary ROS Neurologic: - neg neurologic ROS Cardiovascular: - neg cardiovascular ROS METS/Exercise Tolerance: Hematologic: - neg hematologic ROS Musculoskeletal: - neg musculoskeletal ROS GI/Hepatic: (+) cholecystitis/cholelithiasis, Renal/Genitourinary: - neg Renal ROS Endo: - neg endo ROS Psychiatric/Substance Use: - neg psychiatric ROS Infectious Disease: Comment: sepsis Malignancy: - neg malignancy ROS Other: - neg other ROS Physical Exam Airway Mallampati: I TM distance: >3 FB Neck ROM: full Upper bite lip test: I Mouth opening: >= 4 cm Cardiovascular - normal exam Rhythm: regular Rate: normal rate Dental Pulmonary - normal examBreath sounds clear to auscultation Neurological - normal exam He appears awake, alert and oriented x3. Other Findings OUTSIDE LABS: CBC: Lab Results Component Value Date WBC 12.3 (H) 10/16/2024 WBC 11.9 (H) 10/15/2024 HGB 15.5 10/16/2024 HGB 16.3 10/15/2024 HCT 46.0 10/16/2024 HCT 45.6 10/15/2024 PLT 233 10/16/2024 PLT 236 10/15/2024 BMP: Lab Results Component Value Date NA 136 10/16/2024 NA 138 10/15/2024 POTASSIUM 3.1 (L) 10/16/2024 POTASSIUM 4.4 10/16/2024 CHLORIDE 100 10/16/2024 CHLORIDE 101 10/15/2024 CO2 20 (L) 10/16/2024 CO2 26 10/15/2024 BUN 15.2 10/16/2024 BUN 12.3 10/15/2024 CR 1.13 10/16/2024 CR 1.00 10/15/2024 GLC 87 10/16/2024 GLC 131 (H) 10/16/2024 COAGS: Lab Results Component Value Date INR 1.21 (H) 10/16/2024 POC: No results found for: BGM, HCG, HCGS HEPATIC: Lab Results Component Value Date ALBUMIN 4.4 10/16/2024 PROTTOTAL 7.0 10/16/2024 ALT 1,259 (HH) 10/16/2024 AST 736 (HH) 10/16/2024 ALKPHOS 116 10/16/2024 BILITOTAL 7.0 (H) 10/16/2024 OTHER: Lab Results Component Value Date LACT 3.3 (H) 10/16/2024 RACHAEL 8.9 10/16/2024 LIPASE 28 10/15/2024 TSH 1.26 01/08/2014 Anesthesia Plan ASA Status: 2 NPO Status: NPO Appropriate Anesthesia Type: General. Induction: intravenous. Consents Anesthesia Plan(s) and associated risks, benefits, and realistic alternatives discussed. Questions answered and patient/hostess party sales representative(s) expressed understanding. - Discussed: - Discussed with: Patient Blood Consent: - Discussed with: patient. - Consented: consented to blood products Postoperative Care Comments: Isidro Watters MD I have reviewed the pertinent notes and labs in the chart from the past 30 days and (re)examined the patient. Any updates or changes from those notes are reflected in this note. Clinically Significant Risk Factors Present on Admission [...] encounter: 90.8 kg (200 lb 2.8 oz). documented in this encounter Miscellaneous Notes * Anesthesia Care Transfer Note - John Rome APRN CRNA - 10/16/2024 1:42 PM CDT Patient: Salvador Back Procedure: Procedure(s): ENDOSCOPIC RETROGRADE CHOLANGIOPANCREATOGRAPHY, COMPLEX, Stone Extraction Diagnosis: Cholecystitis [K81.9] Common bile duct dilation [K83.8] Diagnosis Additional Information: No value filed. Anesthesia Type: General Note: Oropharynx: oropharynx clear of all foreign objects and spontaneously breathing Level of Consciousness: drowsy Oxygen Supplementation: face mask Level of Supplemental Oxygen (L/min / FiO2): 8 Independent Airway: airway patency satisfactory and stable Dentition: dentition unchanged Vital Signs Stable: post-procedure vital signs reviewed and stable Report to RN Given: handoff report given Patient transferred to: PACU Handoff Report: Identifed the Patient, Identified the Reponsible Provider, Reviewed the pertinent medical history, Discussed the surgical course, Reviewed Intra-OP anesthesia mangement and issues during anesthesia, Set expectations for post-procedure period and Allowed opportunity for questions andacknowledgement of understanding Vitals: Vitals Value Taken Time BP 103/75 10/16/24 13:40 Temp Pulse 118 10/16/24 13:41 Resp 10 10/16/24 13:41 SpO2 98 % 10/16/24 13:41 Vitals shown include unfiled device data. Electronically Signed By: John Rome APRN CRNA October 16, 2024 1:42 PM documented in this encounter Plan of Treatment Upcoming Encounters Date Type Department Care Team (Late st Contact Info) Description 12/09/2024 8:30 AM CDT Office Visit [facility] [address] [place] [address] Henri Castañeda PA-C [address] [facility] [place] [address] documented as of this encounter Procedures Procedure Name Priority Date/Time Associated Diagnosis Comments ANE AIRWAY ETT PERFORMABLE Routine 10/16/2024 1:02 PM CDT documented in this encounter Results * ANE AIRWAY ETT PERFORMABLE (10/16/2024 1:02 PM CDT) Narrative John Rome APRN CRNA - 10/16/2024 1:02 PM CDT John Rome APRN CRNA 10/16/2024 1:05 PM Airway Patient location during procedure: OR Procedure Start/Stop Times: 10/16/2024 1:02 PM Staff - Anesthesiologist: Isidro Watters MD ELECTRIC FRYING PAN REPAIRER: John Rome APRN CRNA Performed By: ELECTRIC FRYING PAN REPAIRER Consent for Airway Urgency: elective Indications and Patient Condition Indications for airway management: charles-procedural and airway protection Induction type:intravenous Mask difficulty assessment: 1 - vent by mask Final Airway Details Final airway type: endotracheal airway Successful airway: ETT - single and Oral Endotracheal Airway Details ETT size (mm): 8.0 Cuffed: yes Successful intubation technique: video laryngoscopy VL Blade Size: Glidescope 4 Grade View of Cords: 1 Adjucts: stylet Position: Center Measured from: lips Secured at (cm): 24 Bite block used: Soft Post intubation assessment Placement verified by: capnometry, equal breath sounds and chest rise Number of attempts at approach: 1 Number of other approaches attempted: 0 Secured with: tape Ease of procedure: easy Dentition: Intact and Unchanged Medication(s) Administered Medication Administration Time: 10/16/2024 1:02 PM us Isidro Watters MD [place] ANESTH[facility]IA Final Result documented in this encounter Visit Diagnoses Not on filedocumented in this encounter Administered Medications Inactive Administered Medications - up to 3 most recent administrations Medication Order MAR Action Action Date Dose Rate Site dexAMETHasone (DECADRON) injection 4 mg 4 mg, Intravenous, ONCE PRN, nausea/vomiting - 2nd line, PACU, Administer over 1 Minutes, Starting on Mon10/16/24 at 1044, For 1 dose, Administer ONLY if dexamethasone (DECADRON) NOT given in the OR. This is Step 2 of nausea and vomiting management. IF nausea vomiting NOT resolved within 30 minutes or dexamethasone (DECADRON) was given in the OR go to Step 3 prochlorperazine (COMPAZINE)., PACU $Given 10/16/2024 12:59 PM CDT 8 mg fentaNYL (PF) (SUBLIMAZE) injection 50 mcg 50 mcg, Intravenous, EVERY 5 MIN PRN, severe pain, Give fentaNYL (SUBLIMAZE) first if HYDROmorphone (DILAUDID) also ordered., Starting on Mon10/16/24 at 1044, Administer fentaNYL (SUBLIMAZE) for acute pain control. Move to HYDROmorphone (DILAUDID): - IF patient has received up to 200 mcg of fentaNYL (SUBLIMAZE), OR - IF patient has received 2 doses of fentaNYL (SUBLIMAZE) AND continues to have severe pain (pain score greater than or equal to seven (7) or is unable to participate in post op recovery due to pain. Wait 5 minutes AFTER last fentaNYL (SUBLIMAZE) dose before administering HYDROmorphone (DILADUDID). Postop Anesthesia Phase I only. Notify Provider to assess for uncontrolled pain or analgesic side effects. DO NOT revert back to fentanyl (SUBLIMAZE) after administering HYDROmorphone (DILAUDID)., PACU $Given 10/16/2024 1:08 PM CDT 50 mcg $Given 10/16/2024 12:58 PM CDT 50 mcg glycopyrrolate (ROBINUL) injection Intravenous, PRN, Administer over 1-2 Minutes, Starting on Mon10/16/24 at 1258, Anesthesia Intra-op $Given 10/16/2024 12:58 PM CDT 0.2 mg lactated ringers infusion at 10 mL/hr, Intravenous, CONTINUOUS, IF patient NOT on dialysis., Pre-procedure, Starting on Mon10/16/24 at 1030, Until Mon10/16/24 at 1339 Restarted 10/16/2024 1:06 PM CDT $New Bag 10/16/2024 10:30 AM CDT 10 mL/hr lidocaine 2% injection (MDV) Intravenous, PRN, Starting on Mon10/16/24 at 1258, Anesthesia Intra-op $Given 10/16/2024 12:58 PM CDT 50 mg midazolam (VERSED) injection Intravenous, Administer over 2 Minutes, PRN, Starting on Mon10/16/24 at 1250, Anesthesia Intra-op $Given 10/16/2024 12:50 PM CDT 2 mg ondansetron (ZOFRAN) injection 4 mg 4 mg, Intravenous, EVERY 30 MIN PRN, nausea/vomiting - 1st line, PACU, Administer over 2-5 Minutes, Starting on Mon10/16/24 at 1044, For 2 doses, This is Step 1 of nausea and vomiting management. If nausea/vomiting not resolved in 15 minutes, then go to Step 2 dexamethasone (DECADRON) IV. MAX total dose = 8 mg, including OR dosing., PACU $Given 10/16/2024 1:18 PM CDT 4 mg phenylephrine (HUAN-SYNEPHRINE) injection Intravenous, CONTINUOUS PRN, Starting on Mon10/16/24 at 1304, Anesthesia Intra-op $Bolus 10/16/2024 1:08 PM CDT 100 mcg $New Bag 10/16/2024 1:04 PM CDT 100 mcg propofol (DIPRIVAN) injection 10 mg/mL vial Intravenous, PRN, Starting on Mon10/16/24 at 1258, Anesthesia Intra-op $Given 10/16/2024 12:58 PM CDT 200 mg rocuronium injection Intravenous, PRN, Starting on Mon10/16/24 at 1259, Anesthesia Intra-op $Given 10/16/2024 12:59 PM CDT 50 mg sugammadex (BRIDION) injection Intravenous, PRN, Starting on Mon10/16/24 at 1328, Anesthesia Intra-op $Given 10/16/2024 1:28 PM CDT 200 mg documented in this encounter Care Teams Steel Erector Relationship Specialty Start Date End Date No Ref-Primary, Physician PCP - General 10/15/24 documented as of this encounter
--- OUTSIDE RECORDS SUMMARY | 2024-10-18 09:20 | XMS_ITS | Encounter Summary ---
Author Organization [facility] Address [address] [place] [address] Care Team Providers Care Stopboard Assembler Name Role Phone No Ref-Primary, Physician Primary Care Provider Reason for Visit * Reason Comments Abdominal Pain * Auth/Cert Specialty Diagnoses / Procedures Referred By Contac t Referred To Contact EMERGENCY MEDICINE Diagnoses Cholecystitis Acute sepsis (H) Elevated LFTs Common bile duct dilation [facility] Emergency Dept [address] [place] [address] Phone: tel: fax: Referral ID Status Reason Start Date Expiration Date Visits Re quested Visits Authorized [id number] 1 1 Encounter Details Date Type Department Care Team (Late st Contact Info) Description 10/18/2024 9:20 AM CDT - 10/18/2024 11:10 AM CDT Surgery [facility] PeriOp Services [address] [place] [id number] [facility] [address] [place] [address] CHOLECYSTECTOMY, LAPAROSCOPIC Surgery Details Date/Time Status Location OR Service Patient Class Case Class Case Type Trauma Case? 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 Gender Identity Not on file Sexual Orientation Not on file documented as of this encounter Last Filed Vital Signs Vital Sign Reading Time Taken Comments Blood Pressure 137/96 10/18/2024 9:04 AM CDT Pulse 81 10/18/2024 9:04 AM CDT Temperature 36.2 C (97.2 F) 10/18/2024 9:04 AM CDT Respiratory Rate 18 10/18/2024 9:04 AM CDT Oxygen Saturation 98% 10/18/2024 9:04 AM CDT Inhaled Oxygen Concentration - - Weight 89.9 kg (198 lb 1.6 oz) 10/18/2024 6:06 A M CDT Height 175.3 cm (5' 9) 10/17/2024 8:08 PM CDT Body Mass Index 28.72 10/17/2024 8:08 PM CDT documented in this encounter Discharge Summaries * Nicolas Caicedo MD - 10/21/2024 1:32 PM CDT Images from the original note were not included. [facility] Hospitalist Discharge Summary Date of Admission: [...] discharging this patient. Nicolas Caicedo MD, MD [place] [address] MEDICAL SURGICAL [address] [facility] [address] Physical Exam Vital Signs: Temp: 98.1 ??F [...] Blood Culture Peripheral blood (BC) Arm, Right [[id number]] Peripheral blood (BC) from Arm, Right Preliminary result Component Value Culture No growth after 2 days [P] 10/18/2024 1455 10/20/2024 1831 Blood Culture Peripheral blood (BC) Hand, Right [[id number]] Peripheral blood (BC) from Hand, Right Preliminary result Component Value Culture No growth after 2 days [P] 10/15/2024 1709 10/18/2024 0822 Blood Culture Peripheral blood (BC) Arm, Right [[id number]] (Abnormal) Peripheral blood (BC) from Arm, Right [...] 10/16/2024 0600 Blood Culture ID Panel, PCR [[id number]] (Abnormal) Peripheral blood (BC) from Arm, Right [...] Escherichia coli Detected Escherichia coli detected by Landis+Gyr BCID2 assay. Final identification and antimicrobial susceptibility [...] Blood Culture Peripheral blood (BC) Arm, Left [[id number]] (Abnormal) Peripheral blood (BC) from Arm, Left [...] Limited Narrative EXAM: US ABDOMEN LIMITED LOCATION: [facility] DATE: 10/15/2024 INDICATION: Right upper quadrant [...] EXAM: XR CHEST PORT 1 VIEW LOCATION: [facility] DATE: 10/16/2024 INDICATION: hypoxia COMPARISON: 10/11/2021 [...] CT CHEST PULMONARY EMBOLISM W CONTRAST LOCATION: [facility] DATE: 10/16/2024 INDICATION: tachycardia, tachypnea COMPARISON: [...] be read by a radiologist or a [facility] non-radiologist provider. XR Abdomen 1 View Narrative EXAM: XR ABDOMEN 1 VIEW LOCATION: [facility] DATE: 10/19/2024 INDICATION: evaluate for ileus, increasing distension, postop day one lateral cholecystectomy. COMPARISON: None. Impression IMPRESSION: Postop changes from recent cholecystectomy. Free air under the right hemidiaphragm consistent with recent surgery. Nothing for ileus. XR Chest Port 1 View Narrative EXAM: XR CHEST PORT 1 VIEW LOCATION: [facility] DATE: 10/19/2024 INDICATION: SOB postop day 1 cholecystectomy. COMPARISON: 10/16/2024 portable chest and 10/16/2024 CT chest Impression IMPRESSION: Some free air under the right hemidiaphragm consistent with recent cholecystectomy. Shallow inspiration with some mild new atelectasis in the left lung base. CT Abdomen Pelvis w Contrast Narrative EXAM: CT ABDOMEN PELVIS W CONTRAST LOCATION: [facility] DATE: 10/19/2024 INDICATION: worsening abdominal pain [...] EXAM: XR CHEST PORT 1 VIEW LOCATION: [facility] DATE: 10/20/2024 INDICATION: Shortness of breath COMPARISON: Chest radiograph and CT abdomen/pelvis 10/19/2024. Impression IMPRESSION: Stable size of cardiomediastinal silhouette. Low lung volumes with likely linear bibasilar atelectasis. No davin airspace consolidation, pleural effusion or pneumothorax. Small volume pneumoperitoneum, not significantly changed from recent chest radiograph and CT abdomen/pelvis. Echocardiogram Complete Value LVEF 45-50% Narrative [id number] [facility] [id number]^SATURNINO^REBEKAH [facility] Echocardiography Laboratory [address] [place] [address] Name: SALVADOR AHUMADA : 1965 Study Date: 10/16/2024 09:51 AM Age: 59 yrs Gender: Male Patient Location: [facility] Reason For Study: SOB, BEATRIS Ordering Physician: REBEKAH MATAMOROS Performed By: Isha Murray BSA: 2.0 m2 Height: 68 in Weight: 200 lb BP: 134/92 mmHg Procedure Echocardiogram with two-dimensional, color and spectral Doppler. Optison ([facility] #[id number]) given intravenously. Interpretation Summary The visual ejection [...] AM Echocardiogram Limited Value LVEF 55-60% Narrative [id number]^RICKI^STEVO^Yakelin [facility] Echocardiography Laboratory [address] [place], [place] [id number] Name: SALVADOR AHUMADA : 1965 Study Date: 10/18/2024 07:35 AM Age: 59 yrs Gender: Male Patient Location: [facility] Reason For Study: Cardiomyopathy Ordering Physician: STEVO [...] 1-3 weeks after surgery. Expect gradual improvement. Qnwh-egm-hkgongs anti-inflammatory medications (i.e. Ibuprofen/Advil/Motrin or Naprosyn/Aleve) may [...] to be seen, please call us at [phone]. We are located at: [address] [facility] [facility], [address]; [place] [address] -CONTACT US IF THE FOLLOWING DEVELOPS: 1. [...] Walk around frequently. You may consider an vzhb-lpd-zqixuqb stool-softener. Your Pharmacist can assist you with choosing one that is stocked at your pharmacy. Constipation is also one of the most common side effects of pain medication. If you are using pain medication, be pro-active and try to PREVENT problems with constipation [...] time and feeling discomfort or pressure in the very low abdomen. This is called ???urinary retention?? , and is actually an urgent situation. Proceed to your nearest Emergency department for evaluation (not an Urgent Care Center). Sometimes the bladder does not work correctly after certain medications you receive during surgery, or related to certain procedures. You may need to have a catheter placed until your bladder recovers. When planning to go to an Emergency department, it may [...] to discuss with the nurse or physician environmental assistant. # There is a surgeon MAINS AND SERVICE SUPERVISOR on weekday evenings and over the weekend in case of urgent need only, and may be contacted at the same number. If you are having an emergency, call 911 or proceed to your nearest emergency department. * Attachments The following attachments cannot be sent through Care Everywhere. * (s) After Anesthesia (Sleep Medicine) (Kyrgyz) documented in this encounter Medications at Time [...] from the original note were not included. [facility] Infectious Disease Progress Note Date of [...] mg Oral QAM AC Salvador Rocha APRN TOOL ENGINE LATHE SET UP OPERATOR 40 mg at 10/20/24 0526 rOPINIRole (REQUIP) [...] mL Intracatheter Q8H LOU Salvador Rocha APRN TOOL ENGINE LATHE SET UP OPERATOR 3 mL at 10/20/24 0846 Data All [...] Blood Culture Peripheral blood (BC) Arm, Right [[id number]] Peripheral blood (BC) from Arm, Right Preliminary result Component Value Culture No growth after 12 hours P 10/18/2024 1455 10/19/2024 0631 Blood Culture Peripheral blood (BC) Hand, Right [[id number]] Peripheral blood (BC) from Hand, Right Preliminary result Component Value Culture No growth after 12 hours P 10/15/2024 1709 10/18/2024 0822 Blood Culture Peripheral blood (BC) Arm, Right [[id number]] (Abnormal) Peripheral blood (BC) from Arm, Right [...] Blood Culture Peripheral blood (BC) Arm, Left [[id number]] (Abnormal) Peripheral blood (BC) from Arm, Left Final result Component Value Culture Positive on the 1st day of incubation Abnormal Escherichia coli Panic 2 of 2 bottles Susceptibilities done on previous cultures Imaging EXAM: CT ABDOMEN PELVIS W CONTRAST LOCATION: [facility] DATE: 10/19/2024 INDICATION: worsening abdominal pain [...] CT CHEST PULMONARY EMBOLISM W CONTRAST LOCATION: [facility] DATE: 10/16/2024 INDICATION: tachycardia, tachypnea COMPARISON: [...] the chest. EXAM: US ABDOMEN LIMITED LOCATION: [facility] DATE: 10/15/2024 INDICATION: Right upper quadrant [...] St MD - 10/20/2024 10:[address] [facility] Hospitalist Progress Note Assessment & Plan [...] results discussed in assessment and plan. * aJcob Valencia MD - 10/19/2024 10:02 AM CDT [...] St MD - 10/19/2024 9:[address] [facility] Hospitalist Progress Note Assessment & Plan [...] Regan MD - 10/18/2024 3:14 PM CDT [facility] Progress Note - Hospitalist Service Date [...] Echocardiogram Limited Result Value LVEF 55-60% Narrative [id number]^RICKI^STEVO^A [facility] Echocardiography Laboratory [address] [place] [address] Name: SALVADOR AHUMADA : 1965 Study Date: 10/18/2024 07:35 AM Age: 59 yrs Gender: Male Patient Location: [facility] Reason For Study: Cardiomyopathy Ordering Physician: STEVO [...] Stringer MD - 10/17/2024 3:[address] [facility] General Surgery Progress Note Assessment and [...] Service (when I saw the patient): 10/17/24 [facility] Progress Note - Hospitalist Service Date [...] Days Zahira Garcia Medical Student Hospitalist Service [facility] Securely message with [employer] info) Text page via [facility] Paging/Directory Interval History Underwent ERCP and tolerated [...] 24 HR DATA REVIEWED * Kerline Zurita [facility] - 10/17/2024 10:08 AM CDT Images from the original note were not included. Antimicrobial Stewardship Team Note Antimicrobial Stewardship Program - A joint venture between [facility] and [facility] to optimize antibiotic management. Patient: Salvador [...] Blood Culture Peripheral blood (BC) Arm, Right [[id number]] (Abnormal) (Susceptibility) Collected: 10/15/24 1269 Order Status: Completed Lab Status: Preliminary result [...] Suppressed Antibiotic Blood Culture ID Panel, PCR [[id number]] (Abnormal) Collected: 10/15/24 1709 Order Status: Completed [...] coli Detected Comment: Escherichia coli detected by Landis+Gyr BCID2 assay. Final identification and antimicrobial susceptibility [...] Detected Narrative: Assay performed using the FDA-cleared Landis+Gyr Blood Culture Identification 2 (BCID2) Panel, a [...] Blood Culture Peripheral blood (BC) Arm, Left [[id number]] (Abnormal) Collected: 10/15/24 1631 Order Status: Completed [...] be read by a radiologist or a [facility] non-radiologist provider. Echocardiogram Complete Result Date: 10/16/2024 [id number]^SATURNINO^REBEKAH [facility] Echocardiography Laboratory [address] [place] [address] Name: SALVADOR AHUMADA : 1965Study Date: 10/16/2024 09:51 AM Age: 59 yrs Gender: Male Patient Location: [facility] Reason For Study: SOB, SOB Ordering Physician: REBEKAH MATAMOROS Performed By: Isha Murray BSA: 2.0 m2 Height: 68 in Weight: 200 lb BP: 134/92 mmHg Procedure Echocardiogram with two-dimensional, color and spectral Doppler. Optison ([facility] #[id number]) given intravenously. Interpretation Summary The visual ejection [...] CT CHEST PULMONARY EMBOLISM W CONTRAST LOCATION: [facility] DATE: 10/16/2024 INDICATION: tachycardia, tachypnea COMPARISON: [...] EXAM: XR CHEST PORT 1 VIEW LOCATION: [facility] DATE: 10/16/2024 INDICATION: hypoxia COMPARISON: 10/11/2021 IMPRESSION: Heart size is upper limits of normal. Mild pulmonary vascular congestion noted. Mild linear atelectasis in the left lung base. No confluent airspace opacity, right pleural effusion or pneumothorax. Left costophrenic angle is excluded from view without significant left pleural effusion. US Abdomen Limited Result Date: 10/15/2024 EXAM: US ABDOMEN LIMITED LOCATION: [facility] DATE: 10/15/2024 INDICATION: Right upper quadrant [...] or mass lesion. * Cornelia Collazo APRN TOOL ENGINE LATHE SET UP OPERATOR - 10/17/2024 7:30 AM CDT [facility] - Digestive [facility] Progress Note IMPRESSION: Salvador Ahumada is a 59 year old male with PMH of appendectomy and GERD that presented to [facility] on 10/15/2024 from urgent due to concerns [...] including patient evaluation, reviewing documentation/test results, and small order cutter Cornelia Collazo NP [facility] [phone] SUBJECTIVE: Resting in bed. States pain is [...] Service (when I saw the patient): 10/16/24 [facility] Progress Note - Hospitalist Service Date [...] Code Status: Full Code Social Drivers of Azimuth Tobacco Use: High Risk (10/16/2024) Patient History [...] Family. Zahira Garcia Medical Student Hospitalist Service [facility] Securely message with [employer] (more info) Text page via [facility] [employer] Paging/Directory Interval History Patient with episode of [...] Limited Narrative EXAM: US ABDOMEN LIMITED LOCATION: [facility] DATE: 10/15/2024 INDICATION: Right upper quadrant [...] EXAM: XR CHEST PORT 1 VIEW LOCATION: [facility] DATE: 10/16/2024 INDICATION: hypoxia COMPARISON: 10/11/2021 [...] CT CHEST PULMONARY EMBOLISM W CONTRAST LOCATION: [facility] DATE: 10/16/2024 INDICATION: tachycardia, tachypnea COMPARISON: [...] chest. Echocardiogram Complete Result Value LVEF 45-50% [facility] [id number]^SATURNINO^REBEKAH [facility] Echocardiography Laboratory [address] [place] [address] Name: SALVADOR AHUMADA : 1965 Study Date: 10/16/2024 09:51 AM Age: 59 yrs Gender: Male Patient Location: [facility] Reason For Study: SOB, SOB Ordering Physician: REBEKAH MATAMOROS Performed By: Isha Murray BSA: 2.0 m2 Height: 68 in Weight: 200 lb BP: 134/92 mmHg Procedure Echocardiogram with two-dimensional, color and spectral Doppler. Optison ([facility] #[id number]) given intravenously. Interpretation Summary The visual ejection [...] be read by a radiologist or a [facility] non-radiologist provider. * Carlton Lloyd, RT - 10/16/2024 3:49 AM CDT SMALL BOAT ENGINEER called for increased WOB. Patient had upper [...] CDT Pt escorted to CT by this video games storywriter and Zacarias HEREDIA. Pt then transferred to [...] Matamoros MD - 10/16/2024 3:21 AM CDT SMALL BOAT ENGINEER was called due to acute onset shortness of breath and significant hypoxia. Salvador is a 59-year-old male who is admitted to the hospital with sepsis secondary to cholangitis versus choledocholithiasis. Patient was on room air and suddenly started having difficulty breathing and required up to 10 L nasal cannula. SMALL BOAT ENGINEER was called and I immediately assessed the [...] encounter H&P Notes * Salvador Rocha APRN TOOL ENGINE LATHE SET UP OPERATOR - 10/15/2024 7:19 PM CDT [facility] History and Physical - Hospitalist Service Date of Admission: 10/15/2024 Assessment & Plan Salvador Ahumada is a 59 year old male who past medical history of GERD who presents to [facility] on 10/15/2024 for evaluation of right [...] consult. -- CLD this evening. NPO at DC. -- Continue Rocephin and Flagyl for now. [...] Patient and EM Team. Salvador Rocha APRN [facility] Hospitalist Service [facility] Securely message with [employer] (more info) Text page via [facility] Paging/Directory Chief Complaint Abdominal pain History is obtained from the patient, electronic health record, and emergency department physician History of Present Illness Salvador Ahumada is a 59 year old male who past medical history of GERD who presents to [facility] on 10/15/2024 for evaluation of right [...] History Past Surgical History: Procedure Laterality Date [facility] APPENDECTOMY 2006 Prior to Admission Medications Prior [...] Limited Narrative EXAM: US ABDOMEN LIMITED LOCATION: [facility] DATE: 10/15/2024 INDICATION: Right upper quadrant [...] from the original note were not included. [facility] Infectious Disease Consultation Date of Admission: [...] Dilation; Surgeon: Claudia Sarkar MD; Location: OR [facility] APPENDECTOMY 2006 Prior to Admission Medications Prior [...] it with pertinent information if needed. Salvador Hamlin Wong reports that he has been smoking cigarettes. [...] - 450 10e3/uL 207 Component Latest Ref [facility] 10/18/2024 11:54 PM Lactic Acid 0.7 - 2.0 mmol/L 1.2 Microbiology 10/18/2024145410/19/2024 0631 Blood Culture Peripheral blood (BC) Arm, Right [[id number]] Peripheral blood (BC) from Arm, Right Preliminary result Component Value Culture No growth after 12 hours P 10/18/2024 1455 10/19/2024 0631 Blood Culture Peripheral blood (BC) Hand, Right [[id number]] Peripheral blood (BC) from Hand, Right Preliminary result Component Value Culture No growth after 12 hours P 10/15/2024 1709 10/18/2024 0822 Blood Culture Peripheral blood (BC) Arm, Right [[id number]] (Abnormal) Peripheral blood (BC) from Arm, Right [...] Blood Culture Peripheral blood (BC) Arm, Left [[id number]] (Abnormal) Peripheral blood (BC) from Arm, Left Final result Component Value Culture Positive on the 1st day of incubation Abnormal Escherichia coli Panic 2 of 2 bottles Susceptibilities done on previous cultures Imaging EXAM: CT CHEST PULMONARY EMBOLISM W CONTRAST LOCATION: [facility] DATE: 10/16/2024 INDICATION: tachycardia, tachypnea COMPARISON: [...] the chest. EXAM: US ABDOMEN LIMITED LOCATION: [facility] DATE: 10/15/2024 INDICATION: Right upper quadrant [...] 4:13 PM CDTAssociated Order(s): CARDIOLOGY IP CONSULT [facility] Cardiology Consultation Date of Admission: 10/15/2024 [...] medical history of GERD who presents to [facility] on 10/15/2024 for evaluation of right [...] History Past Surgical History: Procedure Laterality Date [facility] APPENDECTOMY 2006 Prior to Admission Medications Prior [...] mg 10 mg Intravenous Q6H PRN Claudia Srakar MD Or prochlorperazine (COMPAZINE) tablet 10 mg [...] HDL, LDL, TRIG, CHOLHDLRATIO in the last 59087 hours. Recent Labs Lab 10/16/2422310/15/24 1510 WBC [...] Limited Narrative EXAM: US ABDOMEN LIMITED LOCATION: [facility] DATE: 10/15/2024 INDICATION: Right upper quadrant [...] EXAM: XR CHEST PORT 1 VIEW LOCATION: [facility] DATE: 10/16/2024 INDICATION: hypoxia COMPARISON: 10/11/2021 [...] CT CHEST PULMONARY EMBOLISM W CONTRAST LOCATION: [facility] DATE: 10/16/2024 INDICATION: tachycardia, tachypnea COMPARISON: [...] Echocardiogram Complete Result Value LVEF 45-50% Narrative [id number]^SATURNINO^REBEKAH [facility] Echocardiography Laboratory [address] [place] [address] Name: SALVADOR AHUMADA : 1965 Study Date: 10/16/2024 09:51 AM Age: 59 yrs Gender: Male Patient Location: [facility] Reason For Study: SOB, SOB Ordering Physician: REBEKAH MATAMOROS Performed By: Isha Murray BSA: 2.0 m2 Height: 68 in Weight: 200 lb BP: 134/92 mmHg Procedure Echocardiogram with two-dimensional, color and spectral Doppler. Optison ([facility] #[id number]) given intravenously. Interpretation Summary The visual ejection [...] be read by a radiologist or a [facility] non-radiologist provider. Echo: No results found for [...] History: Past Surgical History: Procedure Laterality Date [facility] APPENDECTOMY 2006 Social History: Social History Tobacco [...] 3 mL 3 mL Intracatheter Q8H LOU CarpenterSalvador todd, AIRCRAFT POWERPLANT REPAIRER TOOL ENGINE LATHE SET UP OPERATOR 3 mL at 10/15/24 4270 Review of Systems: The 10 point review [...] Limited Narrative EXAM: US ABDOMEN LIMITED LOCATION: [facility] DATE: 10/15/2024 INDICATION: Right upper quadrant [...] EXAM: XR CHEST PORT 1 VIEW LOCATION: [facility] DATE: 10/16/2024 INDICATION: hypoxia COMPARISON: 10/11/2021 [...] CT CHEST PULMONARY EMBOLISM W CONTRAST LOCATION: [facility] DATE: 10/16/2024 INDICATION: tachycardia, tachypnea COMPARISON: [...] [facility] - Dig[facility] Consultation Salvador Ahumada [id number] [address] [facility] [id number] 59 year old male Admission Date/Time: 10/15/2024 [...] on OR scheduling for ERCP her at [facility] today in the OR -appreciate and agree with general surgery consult -agree with IV antibiotics per primary team, IV narcotics and IV antiemetics -keep NPO -agree with PPI Case discussed with Dr. Bruce. 60 minutes of total time was spent providing patient care, including patient evaluation, reviewing documentation/test results, and small order cutter Cornelia Collazo NP [facility] [phone] CC: RUQ abdominal pain HPI: Salvador Ahumada is a 59 year old male with PMH of appendectomy and GERD that presented to [facility] ED on 10/15/2024 from urgent due [...] 24 Ht 1.745 m (5' 8.7) Wt 90.8kg (200 lb 2.8 oz) SpO2 100% BMI [...] -- IMAGING: EXAM: US ABDOMEN LIMITED LOCATION: [facility] DATE: 10/15/2024 INDICATION: Right upper quadrant [...] Lane RN - 10/15/2024 6:10 PM CDT [facility] ED Nurse Handoff Report ED Chief complaint: Abdominal Pain . ED Diagnosis: Final diagnoses: None Allergies: No Known Allergies Code Status: Full Code Activity level - Baseline/Home: independent. Activity Level - Current: standby. Lift room needed: No. Bariatric: No Manager Environmental Services Needed: No Isolation: No. Infection: Not Applicable. [...] dosed more frequently than Q12h for bacteremia, BLANKING PRESS OPERATOR infection and Clostridium difficile. 500 mg over [...] on October 15, 2024 at 8:31 PM Schuyler Valdivia called the ED to inform them the [...] Holder ED Course ED Course as of 10/16/2429October [...] Documentation none Medical Decision Making / Diagnosis [facility] Diagnoses: None MIPS None MDM Salvador Ahumada [...] Common bile duct dilation K83.8 Scribe Disclosure: Schuyler, Pau Ortiz, am serving as a scribe at 4:26 [...] WDL WDL Cognitive/Neuro/Behavioral WDL Cognitive/Neuro/Behavioral WDL WDL [place] Coma Scale Best Eye Response 4-->(E4) spontaneous Best Motor Response 6-->(M6) obeys commands Best Verbal Response 5-->(V5) oriented [place] Coma Scale Score 15 documented in this encounter Miscellaneous Notes * Plan of Care - Rayshawn Quintanilla RN - 10/21/2024 6:17 AM CDT For vital signs and complete assessments, please see documentation flowsheets. [id number] Pertinent assessments: Pt A&Ox4. Ind in room. [...] Documentation Taken 10/21/2024 0005 by Rayshawn Quintanilla compliance representative Review/Management: medications reviewed Problem: Sepsis/Septic Shock Goal: [...] and complete assessments, please see documentation flowsheets. [id number] Pertinent assessments: Pt A&Ox4. SBA. On RA. [...] your shiftnote. Outcome: Progressing Flowsheets (Taken 10/20/2024 3678) Outcome Evaluation: On RA. SBA. PIV saline [...] your shiftnote. Outcome: Progressing Flowsheets (Taken 10/19/2024 7357) Plan of Care Reviewed With: patient Overall [...] Flowsheet Documentation Taken 10/18/2024 2350 by Candida eHr RN Medication Review/Management: medications reviewed Problem: Sepsis/Septic Shock Goal: Optimal Coping Outcome: Progressing Goal: Absence of Bleeding Outcome: Progressing Goal: Blood Glucose Level Within Targeted Range Outcome: Progressing Goal: Absence of Infection Signs and Symptoms Outcome: Progressing Goal: Optimal Nutrition Intake Outcome: Progressing * Provider Notification - Candida Her RN - 10/18/2024 10:55 PM CDT Following the Hospitalist's request, video games storywriter called general surgery and informed provider Diana [...] anxiety. Pt seemed to be very restless, video games storywriter requested provider to come to patient's room and see the pt. Provider came and assessed the patient and placed orders and asked video games storywriter to contact the general surgery and inform [...] Person-Centered Care Recent Flowsheet Documentation Taken 10/18/2024 1943 by Lester Hampton RN Trust Relationship/Rapport: care [...] Ortiz MD - 10/18/2024 11:53 AM CDT [facility] Brief Operative Note Pre-operative diagnosis: Cholangitis [...] Ortiz MD - 10/18/2024 10:00 AM CDT [facility] General Surgery Operative Note Pre-operative diagnosis: Chronic cholecystitis and cholangitis Post-operative diagnosis: same Procedure: laparoscopic cholecystectomy Surgeon: Dominique Ortiz MD Accounts Payables Clerk(s): Pamela Cunningham PA-C The Physician Accounts Payables Clerk was medically necessary for their expertise in [...] irrigated with saline. Each of the ports wereremoved under direct visualization. There was no bleeding from any of these sites. The Luis trocar was removed and the abdomen was evacuated of CO2. The gallbladder was removed through the umbilical trocar site. Additional 0 Vicryl was placed in the fascia between the previously placed 0 vicryls and all were tied down to good effect. The skin of the umbilical incision was anesthetized with local anesthetic. All of the incisions were closed with interrupted 4-0 Vicryl subcuticular sutures and D ermabond. The patient tolerated the procedure well. Sponge [...] Promote Recovery Recent Flowsheet Documentation Taken 10/17/2024 3823 by Maria Teresa Ace RN Activity Management: [...] floor, skin check Treatment Plan: NPO at DC, echo tomorrow am possible lap alma rosa [...] or Manage Pain Recent Flowsheet Documentation Taken 10/17/20242005 by Chuy Borrero RN Medication Review/Management: medications [...] contributory factors Taken 10/17/2024 0800 by Yovana Mayfield, DEJON Safety Promotion/Fall Prevention: activity supervised assistive device/personal [...] Body Position: position changed independently Taken 10/17/2024 0428 by Trang Vicente RN Body Position: position [...] stating mild abdominal pain of a 3/10. SMALL BOAT ENGINEER called by credit analysis manager. 0201 - MD HENRY and flyer at [...] in-person Pertinent Information: none Changes made to DETECTIVE medication list: Added: mvi Deleted: None Changed: omeprazole Allergies reviewed with patient and updates made in EHR: yes Medication History Completed By: Steev Robledo RPH 10/15/2024 7:05 PM DETECTIVE Med List Medication Sig Last Dose/Taking multivitamin [...] Description 12/09/2024 8:30 AM CDT Office Visit [facility] [address] [place] [address] Henri Castañeda PA-C [address] [place] [address] [place] [address] Scheduled Referrals Name Type Priority Associated Diagnoses [...] XR ERCP Routine 10/16/2024 1:37 PM CDT ECHO COMPLETE WITH CONTRAST Routine 10/03 10:47 [...] - 36.5 g/dL 10/21/2024 7:25 AM CDT LABORATORY RDW 13.6 10.0 - 15.0 % 10/21/2024 7:25 AM CDT LABORATORY Platelet Count 311 150 - 450 10e3/uL 10/21/2024 7:25 AM CDT LABORATORY Blood STRUCTURE OF LEFT UPPER LIMB / Unknown Venipuncture / Unknown 10/21/2024 7:10 AM CDT 10/21/2024 7:22 AM CDT us Stevo A Ricki DO LAB - BLOOD ORDERABLES Final R esult LABORATORY [facility] [address] [facility] Lab (1st floor, no room number) [place] [address], [facility] * (ABNORMAL) Comprehensive metabolic panel (10/21/2024 [...] - 99 mg/dL 10/21/2024 7:57 AM CDT RH LABORATORY Alkaline Phosphatase 127 40 - 150 [...] LAB - BLOOD ORDERABLES Final R esult [facility] Lab [address] Lab (1st floor, no room number) [place] [address] * XR Chest Port 1 View (10/20/2024 [...] EXAM: XR CHEST PORT 1 VIEW LOCATION: [facility] DATE: 10/20/2024 INDICATION: Shortness of breath COMPARISON: Chest radiograph and CT abdomen/pelvis 10/19/2024. Procedure Note Rudy Foss MD - 10/20/2024 EXAM: XR CHEST PORT 1 VIEW LOCATION: [facility] DATE: 10/20/2024 INDICATION: Shortness of breath [...] BLOOD ORDERABLES Final R esult RH LABORATORY [facility] [address] Lab (1st floor, no room number) [place] [address], [facility] * (ABNORMAL) Comprehensive metabolic panel (10/20/2024 7:39 [...] 10/20/2024 8:21 AM CDT LABORATORY Comment:eGFR calculated us2020 CKD-EPI equation. Calcium 9.2 8.8 - 10.4 [...] LAB - BLOOD ORDERABLES Final R esult [facility] Care Lab [address] Lab (1st floor, no room number) [place] [address], [facility] * CT Abdomen Pelvis w Contrast [...] EXAM: CT ABDOMEN PELVIS W CONTRAST LOCATION: [facility] DATE: 10/19/2024 INDICATION: worsening abdominal pain [...] EXAM: CT ABDOMEN PELVIS W CONTRAST LOCATION: [facility] DATE: 10/19/2024 INDICATION: worsening abdominal pain [...] EXAM: XR CHEST PORT 1 VIEW LOCATION: [facility] DATE: 10/19/2024 INDICATION: SOB postop day 1 cholecystectomy. COMPARISON: 10/16/2024 portable chest and 10/16/2024 CT chest Procedure Note Claudia Hyde MD - 10/19/2024 EXAM: XR CHEST PORT 1 VIEW LOCATION: [facility] DATE: 10/19/2024 INDICATION: SOB postop day [...] CDT EXAM: XR ABDOMEN 1 VIEW LOCATION: [facility] DATE: 10/19/2024 INDICATION: evaluate for ileus, increasing distension, postop day one lateral cholecystectomy. COMPARISON: None. Procedure Note Claudia Hyde MD - 10/19/2024 EXAM: XR ABDOMEN 1 VIEW LOCATION: [facility] DATE: 10/19/2024 INDICATION: evaluate for ileus, [...] - 53.0 % 10/19/2024 7:46 AM CDT LABORATORY MCV 88 78 - 100 fL 10/19/2024 7:46 AM CDT LABORATORY MCH 30.0 26.5 - 33.0 pg 10/19/2024 7:46 AM CDT LABORATORY MCHC 34.1 31.5 - 36.5 g/dL [...] - BLOOD ORDERABLES Final R esult LABORATORY [facility] [address] [facility] Lab (1st floor, no room number) [place] [address], [facility] * (ABNORMAL) Comprehensive metabolic panel (10/19/2024 7:23 AM CDT) Pathologist [facility] Sodium 139 135 - 145 mmol/L 10/19/2024 8:01 AM [facility] LABORATORY Potassium 4.6 3.4 - 5.3 mmol/L 10/19/2024 8:01 AM [facility] LABORATORY Carbon Dioxide (CO2) 24 22 - 29 mmol/L 10/19/2024 8:01 AM [facility] Anion Gap 12 7 - 15 mmol/L 10/19/2024 8:01 AM [facility] Urea Nitrogen 12.9 8.0 - 23.0 mg/dL 10/19/2024 8:01 AM [facility] Creatinine 0.74 0.67 - 1.17 mg/dL 10/19/2024 8:01 AM [facility] GFR Estimate >90 >60 mL/min/1.7 3m2 10/19/2024 8:01 AM [facility] LAB[facility] Comment:eGFR calculated usin g 2020 CKD-EPI equation. Calcium 8.8 8.8 - 10.4 mg/dL 10/19/2024 8:01 AM [facility] Chloride 103 98 - 107 mmol/L 10/19/2024 8:01 AM [facility] Glucose 111(H) 70 - 99 mg/dL 10/19/2024 8:01 AM [facility] Alkaline Phosphatase 97 40 - 150 U/L 10/19/2024 8:01 AM [facility] AST 52(H) 0 - 45 U/L 10/19/2024 8:01 AM [facility] ALT 264(H) 0 - 70 U/L 10/19/2024 8:01 AM [facility] Protein Total 6.2(L) 6.4 - 8.3 g/dL 10/19/2024 8:01 AM [facility] Albumin 3.3(L) 3.5 - 5.2 g/dL 10/19/2024 8:01 AM [facility] Bilirubin Total 2.1(H) <=1.2 mg/dL 10/19/2024 8:01 AM [facility] LABOR[facility]ORY Blood STRUCTURE OF RIGHT HAND / Unknown Venipuncture / Unknown 10/19/2024 7:23 AM CDT 10/19/2024 7:34 AM T us Stevo A Ricki DO LAB - BLOOD ORDERABLES Final R esult LABORATORY [facility] Lab [address] Lab (1st floor, no room number) [place] [phone] * Lactic acid whole blood (10/18/2024 11:54 PM CDT) Lactic Acid 1.2 0.7 - 2.0 mmol/L 10/19/2024 12:03 AM CDT RH LABORATORY Blood STRUCTURE OF RIGHT HAND / Unknown Venipuncture / Unknown 10/18/2024 11:54 PM CDT 10/18/2024 11:57 PM CDT us Dominique Ortiz MD LAB - BLOOD ORDERABLES Final Result LABORATORY [facility] Lab [address] Lab (1st floor, no room number) [place] [phone] [place] [address] * (ABNORMAL) CBC with platelets (10/18/2024 11:54 [...] - BLOOD ORDERABLES Final Result RH LABORATORY [facility] [address] Lab (1st floor, no room number) [place] [address] * EKG 12-lead, tracing only (10/18/2024 11:42 PM CDT) Systolic Blood Pressure mmHg RADIOLOGY RESULTS Diastolic Blood Pressure mmHg RADIOLOGY RESULTS Ventricular Rate 90 BPM RAD IOLOGY RESULTS Atrial Rate 90 BPM RADIOLOG Y RESULTS [place] Interval 144 ms RADIOLOG Y RESULTS QRS Duration 92 ms RADIOLO GY RESULTS QT 352 ms RADIOLOGY RESULTS QTc 430 ms RADIOLOGY RESULTS P Harshaw 53 degrees RADIOLOGY RESULTS R AXIS -7 degrees RADIOLOGY RESULTS T Harshaw 21 degrees RADIOLOGY RESULTS Interpretation ECG Sinus [...] ORDERABL ES Final Result Performing Organization Address City/[facility]/ZIP Co de Phone Number [facility] LABORATORY [facility] Inf. Diseases Diag. Lab [address] [facility], Room [place] [phone] * Blood Culture Peripheral blood (BC) Arm, Right (10/18/2024 2:55 PM CDT) Culture No Growth 10/23/2024 6:32 PM CDT [facility] LABORATORY Peripheral blood (BC) STRUCTURE OF RIGHT UPPER LIMB / Unknown Venipuncture / Unknown 10/18/2024 2:55 PM CDT 10/18/2024 3:01 PM CDT Julio Cesar Regan MD LAB - MICRO GENERAL ORDERABL ES Final Result Performing Organization Address [facility] Co de Phone Number [facility] LABORATORY [facility] Inf. Diseases Diag. Lab [address] [facility], Room [place] [phone] [place] [address] * Surgical Pathology Exam (10/18/2024 11:29 AM CDT) Case Report Surgical Pathology Report Case: [id number] [facility]izing [facility] Collected: 10/18/2024 11:29 AM Ordering Location: [...] or received free-floating within the specimen container. Self Sealing Fuel Tank Repairer sections of the gallbladder to include the possible cystic duct margin (inked black) are submitted in 1 cassette. (WILFREDO Brock ([facility]) 10/18/2024 1:31 PM 10/21/2024 12:28 PM CDT LABORATORY Microscopic Description Microscopic examination was performed. 10/21/2024 12:28 PM CDT LABORATORY Performing Labs The technical component of this testing was completed at [facility]. Stain controls for all stains resulted within this report have been reviewed and show appropriate reactivity. 10/21/2024 12:28 PM CDT LABORATORY Case Images 10/21/2024 12:28 PM CDT LABORATORY Tissue GALLBLADDER PART / Unknown 10/18/2024 11:29 AM CDT 10/18/2024 11:54 AM CDT us Dominique MILLER Final Result LABORATORY [facility] [address] [facility] Lab (1st floor, no room number) [place] [address], [facility] * ECHO LIMITED (10/18/2024 7:57 AM CDT) LVEF 55-60% CARDIOLOGY RESULTS Anatomical Region Laterality Modality Echocardiography 10/18/2024 7:35 AM CDT Narrative 10/18/2024 8:56 AM CDT [id number]^RICKI^STEVO^Yakelin [facility] Echocardiography Laboratory [address] [place] [address] Name: SALVADOR AHUMADA : 1965 Study Date: 10/18/2024 07:35 AM Age: 59 yrs Gender: Male Patient Location: [facility] Reason For Study: Cardiomyopathy Ordering Physician: STEVO [...] 10/18/2024 08:56 AM Procedure Note Saima Yeung, DO - 10/18/2024 [id number]^RICKI^STEVO^Yakelin [facility] Echocardiography Laboratory [address] [place] [address] Name: SALVADOR AHUMADA Yakelin : 1965 Study Date: 10/18/2024 07:35 AM Age: 59 yrs Gender: Male Patient Location: [facility] Reason For Study: Cardiomyopathy Ordering Physician: STEVO [...] MD on 10/18/2024 08:56 AM us Stevo Robison DO CV ECHO ORDERABLES Edited [...] - BLOOD ORDERABLES Final R esult LABORATORY [facility] [address] Lab (1st floor, no room number) [place] [address], [facility] * (ABNORMAL) Comprehensive metabolic panel (10/18/2024 7:20 AM CDT) Sodium 137 135 - 145 mmol/L 10/18/2024 8:07 AM CDT LABORATORY Potassium 4.3 3.4 - 5.3 mmol/L 10/18/2024 8:07 AM CDT LABORATORY Carbon Dioxide (CO2) 23 22 - 29 mmol/L 10/18/2024 8:07 AM T LABORATORY Anion Gap 9 7 - 15 mmol/L 10/18/2024 8:07 AM T LABORATORY Urea Nitrogen 15.6 8.0 - 23.0 mg/dL 10/18/2024 8:07 AM T LABORATORY Creatinine 0.93 0.67 - 1.17 mg/dL 10/18/2024 8:07 AM T LABORATORY GFR Estimate >90 >60 mL/min/1.7 3m2 10/18/2024 8:07 AM CDT LABORATORY Comment:eGFR calculated us2020 CKD-EPI equation. Calcium 8.7(L) 8.8 - 10.4 mg/dL 10/18/2024 8:07 AM T LABORATORY Chloride 105 98 - 107 mmol/L 10/18/2024 8:07 AM T LABORATORY Glucose 100(H) 70 - 99 mg/dL 10/18/2024 8:07 AM CDT LABORATORY Alkaline Phosphatase 87 40 - 150 U/L 10/18/2024 8:07 AM CDT LABORATORY AST 73(H) 0 - 45 U/L 10/18/2024 8:07 AM T LABORATORY ALT 382(H) 0 - 70 U/L 10/18/2024 8:07 AM CDT LABORATORY Protein Total 5.9(L) 6.4 - 8.3 g/dL 10/18/2024 8:07 AM T LABORATORY Albumin 3.3(L) 3.5 - 5.2 g/dL 10/18/2024 8:07 AM T LABORATORY Bilirubin Total 2.7(H) <=1.2 mg/dL 10/18/2024 8:07 AM CDT LABORATORY Blood STRUCTURE OF RIGHT HAND / Unknown Venipuncture / Unknown 10/18/2024 7:20 AM CDT 10/18/2024 7:47 AM CDT Stevo Yakelin Robison DO LAB - BLOOD ORDERABLES Final R esult Performing Organization Address City/[facility]/ZIP Co de Phone Number [facility] Lab [address] Lab (1st floor, no room number) [address] * (ABNORMAL) Glucose by meter (10/17/2024 4:07 PM CDT) GLUCOSE BY METER POCT 150(H) 70 - 99 mg/dL 10/17/2024 4:15 PM CDT LABORATORY POC Comment:/DEJON Notified Blood, Capillary BLOOD SPECIMEN / Unknown 10/17/2024 4:07 PM CDT 10/17/2024 4:15 PM CDT Ole LANGLEY - BEMICHELLE POCT Martha l Result Performing Organization Address [facility]/ZIP Co de Phone Number LABORATORY [facility] Lab [address] Lab (1st floor, no room number) [place] [phone] [place] [address] * (ABNORMAL) Glucose by meter (10/17/2024 12:15 PM CDT) GLUCOSE BY METER POCT 151(H) 70 - 99 mg/dL 10/17/2024 12:22 PM CDT RH LABORATORY POC Comment:/DEJON Notified Blood, Capillary BLOOD SPECIMEN / Unknown 10/17/2024 12:15 PM CDT 10/17/2024 12:22 PM CDT Ole Brown MD LAB - BEAKER POCT Martha l Result Performing Organization Address City/[facility]/ZIP Co de Phone Number LABORATORY [facility] Lab [address] Lab (1st floor, no room number) [place] [address] * (ABNORMAL) Glucose by meter (10/17/2024 7:54 AM CDT) GLUCOSE BY METER POCT 154(H) 70 - 99 mg/dL 10/17/2024 8:03 AM CDT RH LABORATORY POC Comment:Dr/RN Notified Blood, Capillary BLOOD SPECIMEN / Unknown 10/17/2024 7:54 AM CDT 10/17/2024 8:03 AM CDT Ole Brown MD LAB - BEAKER POCT Martha l Result RH LABORATORY POC [facility] [address] [facility] Lab (1st floor, no room number) [place] [phone] * (ABNORMAL) CBC with platelets (10/17/2024 5:50 [...] - 450 10e3/uL 10/17/2024 6:18 AM CDT LABORATORY Blood BLOOD SPECIMEN / Unknown Venipuncture / Unknown 10/17/2024 5:50 AM CDT 10/17/2024 6:15 AM CDT us Stevo Robison DO LAB - BLOOD ORDERABLES Final R esult LABORATORY [facility] [address] Lab (1st floor, no room number) [place] [address] * (ABNORMAL) Comprehensive metabolic panel (10/17/2024 5:50 AM CDT) Sodium 138 135 - 145 mmol/L 10/17/2024 6:38 AM CDT LABORATORY Potassium 4.4 3.4 - 5.3 mmol/L 10/17/2024 6:38 AM CDT LABORATORY Carbon Dioxide (CO2) 22 22 - 29 mmol/L 10/17/2024 6:38 AM CDT LABORATORY Anion Gap 12 7 - 15 mmol/L 10/17/2024 6:38 AM CDT LABORATORY Urea Nitrogen 20.3 8.0 - 23.0 [...] - 70 U/L 10/17/2024 6:38 AM CDT RH LABORATORY Protein Total 5.3(L) 6.4 - 8.3 [...] - BLOOD ORDERABLES Final R esult LABORATORY [facility] Lab [address] Lab (1st floor, no room number) [place] [address] * (ABNORMAL) Glucose by meter (10/17/2024 4:25 AM CDT) GLUCOSE BY METER POCT 141(H) 70 - 99 mg/dL 10/17/2024 4:32 AM CDT LABORATORY POC Blood, Capillary BLOOD SPECIMEN / Unknown 10/17/2024 4:25 AM CDT 10/17/2024 4:32 AM CDT Ole Brown MD LAB - BEAKER POCT Martha l Result LABORATORY POC [facility] Lab [address] Lab (1st floor, no room number) [place] [address], [facility] * (ABNORMAL) Glucose by meter (10/16/2024 11:43 PM CDT) GLUCOSE BY METER POCT 150(H) 70 - 99 mg/dL 10/16/2024 11:50 PM CDT LABORATORY POC Blood, Capillary BLOOD SPECIMEN / Unknown 10/16/2024 11:43 PM CDT 10/16/2024 11:50 PM CDT Ole Brown MD LAB - BEAKER POCT Martha l Result LABORATORY [facility] Lab [address] Lab (1st floor, no room number) [place] [address] * (ABNORMAL) Glucose by meter (10/16/2024 8:25 PM CDT) GLUCOSE BY METER POCT 161(H) 70 - 99 mg/dL 10/16/2024 8:32 PM CDT LABORATORY POC Blood, Capillary BLOOD SPECIMEN / Unknown 10/16/2024 8:25 PM CDT 10/16/2024 8:32 PM CDT Ole Brown MD LAB - BEAKER POCT Martha l Result LABORATORY [facility] [address] Lab (1st floor, no room number) [place] [address] * EKG 12-lead, tracing only (10/16/2024 3:12 PM CDT) Systolic Blood Pressure mmHg RADIOLOGY RESULTS Diastolic Blood Pressure mmHg RADIOLOGY RESULTS Ventricular Rate 103 BPM RAD IOLOGY RESULTS Atrial Rate 103 BPM RADIOLOG Y RESULTS [place] Interval 152 ms RADIOLOG Y RESULTS QRS Duration 88 ms RADIOLO GY RESULTS QT 336 ms RADIOLOGY RESULTS QTc 440 ms RADIOLOGY RESULTS P Harshaw 39 degrees RADIOLOGY RESULTS R AXIS 9 degrees RADIOLOGY RESULTS T Harshaw 9 degrees RADIOLOGY RESULTS Interpretation ECG Sinus tachycardia Cannot rule out Inferior infarct , age undetermined Abnormal ECG Compared to prior ECG from 07-Mar-2024 at 21:20:24: HR increased by 34 bpm Otherwise no major changes Confirmed by Osmany Wall ([id number]) on 10/16/2024 3:42:20 PM RADIOLOGY RESULTS 10/16/2024 [...] 2:43 PM CDT 10/16/2024 2:49 PM CDT us Ole Brown MD [facility] POCT Martha l Result Performing Organization Address City/[facility]/ZIP Co de Phone Number LABORATORY [facility] Lab [address] [facility] Lab (1st floor, no room number) [place] [address] * XR ERCP (10/16/2024 1:37 PM CDT) Narrative [facility] - 10/16/2024 1:39 PM CDT This exam was marked as non-reportable because it will not be read by a radiologist or a D Hanis non-radiologist provider. us Cornelia Collazo AIRCRAFT POWERPLANT REPAIRER TOOL ENGINE LATHE SET UP OPERATOR IMG DIAGNOSTIC IMAGING O RDERABLES Final Result Performing Organization Address City/[facility]/ZIP Co de Phone Number [facility] * ECHO COMPLETE WITH CONTRAST (10/16/2024 10:47 AM CDT) Pathologist [facility] LVEF 45-50% CARDIOLOGY RESULTS Anatomical Region Laterality Modality Echocardiography 10/16/2024 9:51 AM CDT Narrative 10/16/2024 11:03 AM CDT [id number]^SATURNINO^REBEKAH [facility] Echocardiography Laboratory [address] [place] [address] Name: SALVADOR AHUMADA : 1965 Study Date: 10/16/2024 09:51 AM Age: 59 yrs Gender: Male Patient Location: [facility] Reason For Study: SOB, SOB Ordering Physician: REBEKAH MATAMOROS Performed By: Isha Murray BSA: 2.0 m2 Height: 68 in Weight: 200 lb BP: 134/92 mmHg Procedure Echocardiogram with two-dimensional, color and spectral Doppler. Optison ([facility] #[id number]) given intravenously. Interpretation Summary The visual ejection [...] Procedure Note Rudy Mcdowell MD - 10/16/2024 [id number] [facility] [id number]^SATURNINO^REBEKAH [facility] Echocardiography Laboratory [address] [place] [address] Name: SALVADOR AHUMADA : 1965 Study Date: 10/16/2024 09:51 AM Age: 59 yrs Gender: Male Patient Location: [facility] Reason For Study: SOB, SOB Ordering Physician: REBEKAH MATAMOROS Performed By: Isha Murray BSA: 2.0 m2 Height: 68 in Weight: 200 lb BP: 134/92 mmHg Procedure Echocardiogram with two-dimensional, color and spectral Doppler. Optison([facility] #[id number]) given intravenously. Interpretation Summary The visual ejection [...] ENDOSCOPIC RETROGRADE CHOLANGIOPANCREATOGRAPHY (10/16/2024 10:40 AM CDT) [facility] Patient Name: Salvador Ahumada Procedure Date: [...] Duodenovideoscope (ERCP), Model # TJF-Q190V, Censitrac # [id number] was introduced through the mouth, and used to inject contrast into and used to inject contrast into the bile duct. The ERCP was accomplished without difficulty. The patient tolerated the procedure well. Findings: The hat band attacher film was normal. The papilla appeared normal. [...] - BLOOD ORDERABLES Final R esult LABORATORY [facility] Lab [address] Lab (1st floor, no room number) [address] * (ABNORMAL) Lactic acid whole blood (10/16/2024 8:19 AM CDT) Lactic Acid 3.3(H) 0.7 - 2.0 mmol/L 10/16/2024 8:49 AM CDT LABORATORY Blood STRUCTURE OF RIGHT HAND / Unknown Venipuncture / Unknown 10/16/2024 8:19 AM CDT 10/16/2024 8:47 AM CDT us Stevo A Ricki DO LAB - BLOOD ORDERABLES Final R esult LABORATORY [facility] Lab [address] Lab (1st floor, no room number) [address] * Glucose by meter (10/16/2024 7:55 AM CDT) GLUCOSE BY METER POCT 87 70 - 99 mg/dL 10/16/2024 8:04 AM CDT LABORATORY POC Comment:Dr/RN Notified Blood, Capillary BLOOD SPECIMEN / Unknown 10/16/2024 7:55 AM CDT 10/16/2024 8:04 AM CDT Ole Brown MD LAB - BEAKER POCT Martha l Result Performing Organization Address [facility]/State/ZIP Co de Phone Number LABORATORY [facility] [address] Lab (1st floor, no room number) [place] [phone] [place] [address] * Extra Purple Top EDTA (LAB USE ONLY) (10/16/2024 5:35 AM CDT) Hold Specimen JIC 10/16/2024 6:46 AM CDT LABORATORY Blood BLOOD SPECIMEN / Unknown Venipuncture / Unknown 10/16/2024 5:35 AM CDT 10/16/2024 5:43 AM CDT Ole Brown MD LAB - BLOOD ORDERABLES Final Result Performing Organization Address [facility]/ZIP Co de Phone Number [facility] Lab [address] Lab (1st floor, no room number) [place] [phone] [place] [address] * (ABNORMAL) Potassium (10/16/2024 5:35 AM CDT) Potassium 3.1(L) 3.4 - 5.3 mmol/L 10/16/2024 6:12 AM CDT LABORATORY Blood BLOOD SPECIMEN / Unknown Venipuncture / Unknown 10/16/2024 5:35 AM CDT 10/16/2024 5:43 AM CDT Rebekah Matamoros MD LAB - BLOOD ORDERABLES Final Res ult Performing Organization Address City/[facility]/ZIP Co de Phone Number [facility] Lab [address] Lab (1st floor, no room number) [place] [phone] [place] [address] * (ABNORMAL) Lactic acid whole blood (10/16/2024 5:35 AM CDT) Lactic Acid 2.1(H) 0.7 - 2.0 mmol/L 10/16/2024 5:52 AM CDT LABORATORY Blood BLOOD SPECIMEN / Unknown Venipuncture / Unknown 10/16/2024 5:35 AM CDT 10/16/2024 5:43 AM CDT Rebekah Matamoros MD LAB - BLOOD ORDERABLES Final Res ult LABORATORY [facility] [address] Lab (1st floor, no room number) [place] [address], [facility] * (ABNORMAL) Glucose by meter (10/16/2024 3:07 AM CDT) GLUCOSE BY METER POCT 131(H) 70 - 99 mg/dL 10/16/2024 3:14 AM CDT LABORATORY POC Comment:Dr/RN Notified Blood, Capillary BLOOD SPECIMEN / Unknown 10/16/2024 3:07 AM CDT 10/16/2024 3:14 AM CDT Ole Brown MD LAB - BEAKER POCT Martha l Result Performing Organization Address City/[facility]/ZIP Co de Phone Number LABORATORY [facility] Lab [address] Lab (1st floor, no room number) [place] [address] * CT Chest Pulmonary Embolism w Contrast [...] CT CHEST PULMONARY EMBOLISM W CONTRAST LOCATION: [facility] DATE: 10/16/2024 INDICATION: tachycardia, tachypnea COMPARISON: [...] CT CHEST PULMONARY EMBOLISM W CONTRAST LOCATION: [facility] DATE: 10/16/2024 INDICATION: tachycardia, tachypnea COMPARISON: [...] process within the chest. Rebekah Matamoros MD [facility] CT ORDERABLES Final Result * (ABNORMAL) NT-proBNP (10/16/2024 2:24 AM CDT) [facility] NT-proBNP 652(H) 0 - 177 pg/mL 10/16/2024 [...] be interpreted with the updated reference intervals. [facility]'s Pediatric (boys and girls) Reference Ranges in pg/mL * 0 up to 3 days: 0 - 13702 3 days up to 1 month: 0 [...] For adult chronic CHF patients according to [place] Heart [employer] (NYHA) Functional Class, the mean NT-proBNP concentration is as following (5th and 95th percentile values respectively displayed in parentheses): Class I: 1016 pg/mL (33-3410) Class II: 1666 pg/mL (103-6567) Class III: 3029 pg/mL (126-72612) Class IV: 3465 pg/mL (148-94661) Clinical thresholds for acute (emergency department) settings: [...] LAB - BLOOD ORDERABLES Final Res ult [facility] Care Lab [address] Lab (1st floor, no room number) [place] [phone] * (ABNORMAL) Lactic acid whole blood (10/16/2024 2:24 AM CDT) Lactic Acid 5.5(HH) 0.7 - 2.0 mmol/L 10/16/2024 2:33 AM CDT LABORATORY Blood BLOOD SPECIMEN / Unknown Venipuncture / Unknown 10/16/2024 2:24 AM CDT 10/16/2024 2:26 AM CDT Rebekah Matamoros MD LAB - BLOOD ORDERABLES Final Res ult Performing Organization Address City/[facility]/ZIP Co de Phone Number LABORATORY [facility] Lab [address] Lab (1st floor, no room number) [place] [address] * (ABNORMAL) D dimer quantitative (10/16/2024 2:24 [...] out pulmonary embolism: The ADJUST-PE Study. BRETT 2014;311:1184-5259.; HJ Jose et al. Diagnostic accuracy of conventional or age adjusted D-dimer cutoff values in older patients with suspected venous thromboembolism. Systemic review and meta-analysis. BMJ 2013:346:f2492. Rebekah Matamoros MD LAB - BLOOD ORDERABLES Final Res ult [facility] Acute [facility] Lab [address] Lab (1st floor, no room number) [place] [address], [facility] * (ABNORMAL) INR (10/16/2024 2:24 AM CDT) INR 1.21(H) 0.85 - 1.15 10/16/2024 3:07 AM CDT RH LABORATORY PT 15.3(H) 11.8 - 14.8 Seconds 10/16/2024 3:07 AM CDT [facility] LABORATORY Blood BLOOD SPECIMEN / Unknown Venipuncture / Unknown 10/16/2024 2:24 AM CDT 10/16/2024 2:46 AM CDT Salvador Rocha APRN TOOL ENGINE LATHE SET UP OPERATOR LAB - BLOOD ORDERABLE S Final Result RH LABORATORY [facility] Lab [address] Lab (1st floor, no room number) [place] [address] * (ABNORMAL) CBC with platelets (10/16/2024 2:24 [...] - 15.0 % 10/16/2024 3:36 AM CDT [facility] LABORATORY Platelet Count 233 150 - 450 10e3/uL 10/16/2024 3:36 AM CDT RH LABORATORY Blood BLOOD SPECIMEN / Unknown Venipuncture / Unknown 10/16/2024 2:24 AM CDT 10/16/2024 2:47 AM CDT Salvador Rocha APRN TOOL ENGINE LATHE SET UP OPERATOR LAB - BLOOD ORDERABLE S Final Result LABORATORY [facility] Lab [address] Lab (1st floor, no room number) [place] [phone] * (ABNORMAL) Comprehensive metabolic panel (10/16/2024 2:24 [...] 10/16/2024 3:33 AM CDT LABORATORY Comment:eGFR calculated usin 2020 CKD-EPI equation. Calcium 8.9 8.8 - 10.4 [...] 10/16/2024 2:46 AM CDT Salvador Rocha APRN TOOL ENGINE LATHE SET UP OPERATOR LAB - BLOOD ORDERABLE S Final Result [facility] Care Lab [address] Lab (1st floor, no room number) [place] [address] * XR Chest Port 1 View (10/16/2024 [...] EXAM: XR CHEST PORT 1 VIEW LOCATION: [facility] DATE: 10/16/2024 INDICATION: hypoxia COMPARISON: 10/11/2021 Procedure Note Bradford Brown MD - 10/16/2024 EXAM: XR CHEST PORT 1 VIEW LOCATION: [facility] DATE: 10/16/2024 INDICATION: hypoxia COMPARISON: 10/11/2021 IMPRESSION: Heart size is upper limits of normal. Mild pulmonary vascularcongestion noted. Mild linear atelectasis in the left lung base. Noconfluent airspace opacity, right pleural effusion or pneumothorax. Leftcostophrenic angle is excluded from view without significant left pleural effusion. Rebekah Matamoros MD [facility] DIAGNOSTIC IMAGING ORDERABLE S Final Result * [...] PM CDT EXAM: US ABDOMEN LIMITED LOCATION: [facility] DATE: 10/15/2024 INDICATION: Right upper quadrant [...] - 10/15/2024 EXAM: US ABDOMEN LIMITED LOCATION: [facility] DATE: 10/15/2024 INDICATION: Right upper quadrant [...] IDD LABORATORY Comment:Escherichia coli det ected by Landis+Gyr BCID2 assay. Final identification and antimicrobial susceptibility [...] Bone PA-C LAB - MICRO GENERAL [facility] Final Result [facility] ID[facility] LABORATORY [facility] Inf. Diseases Diag. Lab [address] [facility], [address] [place] [address] * (ABNORMAL) Blood Culture Peripheral blood (BC) Arm, Right (10/15/2024 5:09 PM CDT) [facility] Culture Positive on the 1st day of [...] ORDE RABEMERALD Final Result [facility] IDD LABORATORY [facility] Inf. Diseases Diag. Lab [address] [facility], [address] * (ABNORMAL) Blood Culture Peripheral blood [...] ORDE RABEMERALD Final Result [facility] IDD LABORATORY [facility] Inf. Diseases Diag. Lab [address] [facility], [address] [place] [phone] [place] [address] * (ABNORMAL) NT-proBNP (10/15/2024 3:10 PM CDT) NT-proBNP 209(H) 0 - 177 pg/mL 10/16/2024 2:34 AM CDT LABORATORY Comment: Starting on 10/09/[address] [place] [address] laboratory began flagging abnormal values for plasma [...] be interpreted with the updated reference intervals. [facility]'s Pediatric (boys and girls) Reference Ranges in pg/mL * 0 up to 3 days: 0 - 48046 3 days up to 1 month: 0 [...] For adult chronic CHF patients according to [place] Heart Association (NYHA) Functional Class, the mean NT-proBNP concentration is as following (5th and 95th percentile values respectively displayed in parentheses): Class I: 1016 pg/mL (33-3410) Class II: 1666 pg/mL (103-6567) Class III: 3029 pg/mL (126-76114) Class IV: 3465 pg/mL (148-11525) Clinical thresholds for acute (emergency department) settings: [...] ORDERABLES Final Res ult Performing Organization Address City/[facility]/ZIP Co de Phone Number [facility] Care Lab [address] Lab (1st floor, no room number) [place] [address] * (ABNORMAL) Acetaminophen level (10/15/2024 3:10 PM CDT) Acetaminophen <5.0(L) 10.0 - 30.0 ug/mL 10/15/2024 7:15 PM CDT LABORATORY Blood STRUCTURE OF RIGHT UPPER LIMB / Unknown Venipuncture / Unknown 10/15/2024 3:10 PM CDT 10/15/2024 3:31 PM CDT Al Ayon MD LAB - BLOOD ORDERABLES F inal Result Performing Organization Address City/[facility]/ZIP Co de Phone Number [facility] Care Lab [address] Lab (1st floor, no room number) [place] [address] * Alcohol level blood (10/15/2024 3:10 PM CDT) Ethanol Level Blood <0.01 <=0.01 g/dL 10/15/2024 5:08 PM CDT LABORATORY Blood STRUCTURE OF RIGHT UPPER LIMB / Unknown Venipuncture / Unknown 10/15/2024 3:10 PM CDT 10/15/2024 3:31 PM CDT Leonora Bone PA-C LAB - BLOOD ORDERABLES F inal Result [facility] Care Lab [address] Lab (1st floor, no room number) [place] [phone] [place] [address] * Extra Red Top Tube (10/15/2024 3:10 PM CDT) Hold Specimen [facility] 10/15/2024 4:31 PM CDT LABORATORY Blood STRUCTURE OF RIGHT UPPER LIMB / Unknown Venipuncture / Unknown 10/15/2024 3:10 PM CDT 10/15/2024 3:31 PM CDT Leonora Bone PA-C LAB - BLOOD ORDERABLES F inal Result Performing Organization Address City/[facility]/ZIP Co de Phone Number [facility] Lab [address] Lab (1st floor, no room number) [place] [phone] [place] [address] * Extra Blue Top Tube (10/15/2024 3:10 PM CDT) Hold Specimen [facility] 10/15/2024 4:31 PM CDT LABORATORY Blood STRUCTURE OF RIGHT UPPER LIMB / Unknown Venipuncture / Unknown 10/15/2024 3:10 PM CDT 10/15/2024 3:31 PM CDT Leonora Bone PA-C LAB - BLOOD ORDERABLES F inal Result [facility] Lab [address] Lab (1st floor, no room number) [address] [place] [address] * (ABNORMAL) CBC with platelets and differential [...] LAB - BLOOD ORDERABLES F inal Result [facility] [address] Lab (1st floor, no room number) [address] * (ABNORMAL) Bilirubin direct (10/15/2024 3:10 PM CDT) Bilirubin Direct 2.98(H) 0.00 - 0.30 mg/dL 10/15/2024 4:03 PM CDT RH LABORATORY Blood STRUCTURE OF RIGHT UPPER LIMB / Unknown Venipuncture / Unknown 10/15/2024 3:10 PM CDT 10/15/2024 3:31 PM CDT Leonora Bone PA-C LAB - BLOOD ORDERABLES F inal Result [facility] Lab [address] Lab (1st floor, no room number) [address] * Lipase (10/15/2024 3:10 PM CDT) Lipase 28 13 - 60 U/L 10/15/2024 4:00 PM CDT RH LABORATORY Blood STRUCTURE OF RIGHT UPPER LIMB / Unknown Venipuncture / Unknown 10/15/2024 3:10 PM CDT 10/15/2024 3:31 PM CDT Leonora Bone PA-C LAB - BLOOD ORDERABLES F inal Result RH LABORATORY [facility] Lab [address] [facility] Lab (1st floor, no room number) [place] [address], [facility] * (ABNORMAL) Comprehensive metabolic panel (10/15/2024 3:10 PM CDT) Sodium 138 135 - 145 mmol/L 10/15/2024 4:15 PM CDT LABORATORY Potassium 4.5 3.4 - 5.3 mmol/L 10/15/2024 4:15 PM CDT LABORATORY Carbon Dioxide (CO2) 26 22 - 29 mmol/L 10/15/2024 4:15 PM CDT LABORATORY Anion Gap 11 7 - 15 mmol/L 10/15/2024 4:15 PM CDT LABORATORY Urea Nitrogen 12.3 8.0 - 23.0 mg/dL 10/15/2024 4:15 PM CDT LABORATORY Creatinine 1.00 0.67 - 1.17 mg/dL 10/15/2024 4:15 PM CDT LABORATORY GFR Estimate 87 >60 mL/min/1. 73m2 10/15/2024 4:15 PM CDT LABORATORY Comment:eGFR calculated us2020 CKD-EPI equation. [...] - BLOOD ORDERABLES F inal Result LABORATORY [facility] Lab [address] Lab (1st floor, no room number) [place] [address], [facility] documented in this encounter Visit Diagnoses Diagnosis Cholangitis (H)- Primary Cholangitis Cholecystitis Cholecystitis, unspecified Acute sepsis (H) Elevated LFTs Other abnormal blood chemistry Common bile duct dilation Other specified disorders of biliary tract Cholecystitis Cholecystitis, unspecified Elevated LFTs Other abnormal blood chemistry Common bile duct dilation Other specified disorders of biliary tract Acute sepsis (H) Cholangitis (H) Cholangitis documented in this encounter Admitting Diagnoses Diagnosis [...] $Given 10/17/2024 6:54 PM CDT 1 lozenge BUPivacaine 0.5 % - EPINEPHrine 1:200,000 injection PRN, Starting on Mon10/18/24 at 1011, Intra-procedure $Given 10/18/2024 10:11 AM CDT 30 mLs Operative Site/Surgi rachael Site calcium carbonate (TUMS) chewable tablet 1,000 mg [...] $Given 10/21/2024 1:31 PM CDT 2 mg levalbuterol (XOPENEX) neb solution 1.25 mg 1.25 [...] 4:10 AM CDT 3 mLs sodium chloride 0.9% irrigation (bag) PRN, Starting on Mon10/18/24 at 1038, Intra-procedure $Given 10/18/2024 11:33 AM CDT 600 mLs Operative Site/Surgi rachael Site $Given 10/18/2024 11:26 AM CDT 1,000 mLs O perative Site/Surgical Site $Given 10/18/2024 10:38 AM CDT 1,000 mLs O perative Site/Surgical Site documented in this encounter Active and Recently [...] mg (COMPLETED) 10 mg, Rectal, ONCE, On Mon10/21/24 at [...] 1 dose 1557 ($Given - Provider: Darryl Green, DEJON) furosemide (LASIX) injection 20 mg (CANCELED) 20 [...] pt requested) 0548 ($Given - Provider: Rayshawn Quintanilla RN)1326 ($Given - Provider: Huyen Zazueta RN)2100 (Canceled [...] Darryl Green, DEJON)2129 ($Given - Provider: Darryl Green RN) 0410 ($Given - Provider: Rayshawn Quintanilla RN) melatonin tablet 3 mg (COMPLETED) 3 mg, [...] Her RN) 0526 ($Given - Provider: Rayshawn Quintanilla RN) 0548 ($Given - Provider: Rayshawn Quintanilla, DEJON) [...] 2128 ($Given - Provider: Darryl Green RN) 2104 ($Given - Provider: Trang Lin RN) 2200 [...] 0828 (See Alternative - Provider: Huyen Zazueta RN)191 ($Given - Provider: Darryl Green RN) 0844 [...] Green RN) 0001 ($Given - Provider: Rayshawn Quintanilla RN)0846 ($Given - Provider: Sveta Elam RN)1512 (Canceled Entry - Provider: Sveta Elam RN) 0007 ($Given - Provider: Rayshawn Quintanilla RN)0741 ($Given - Provider: Huyen Zazueta, DEJON)1536 ($Given - Provider: Huyen Zazueta RN) sodium [...] PRN, dry mouth, Starting on Mon10/15/24 at 210 benzocaine-menthol (CHLORASEPTIC) 6-10 MG lozenge 1 lozenge [...] 2051, May use concomitant with non-opioid analgesics. HYDROmorphone (DILAUDID) injection 0.4 mg (CANCELED) 0.4 mg, Intravenous, EVERY 2 HOURS PRN, severe pain, IF patient cannot take oral opioid OR IF pain not managed with non-pharmacological, non-opioid, or oral opioid interventions if ordered, Starting on Mon10/15/24 at 205, May use concomitant with non-opioid analgesics. 0323 [...] RN) 1405 ($Given - Provider: Sveta Elam RN)2224 ($Given - Provider: Trang Lin RN) 0798 ($Given - Provider: Huyen Zazueta RN) levalbuterol [...] (ZOFRAN). documented in this encounter Care Teams Stopboard Assembler Relationship Specialty Start Date End Date No Ref-Primary, Physician PCP - General 10/15/24 documented as of this encounter
--- OUTSIDE RECORDS SUMMARY | 2024-10-18 09:38 | XMS_ITS | Encounter Summary ---
Author Organization [facility] Address [address] [place] [address]. [place] [address] Care Team Providers Care Tile Installer Name Role Phone No Ref-Primary, Physician Primary Care Provider Reason for Visit * Auth/Cert Specialty Diagnoses / Procedures Referred By Contac t Referred To Contact EMERGENCY MEDICINE Diagnoses Cholecystitis Acute sepsis (H) Elevated LFTs Common bile duct dilation [facility] Emergency Dept [address] [place] [address] Phone: tel: fax: Referral ID Status Reason Start Date Expiration Date Visits Re quested Visits Authorized [id number] 1 1 Encounter Details Date Type Department Care Team (Late st Contact Info) Description 10/18/2024 9:38 AM CDT Anesthesia Event [facility] PeriOp Services [address] [place] [id number] Yovani Lal MD [facility] ANESTHESIA [address] [place] [address] Betina Gutierrez APRN [facility] ANESTHESIA [address] [place] [address] Anesthesia Record Procedure Summary Procedure Name Responsible Anesthesiologist Anesthesia Start Time Anesthesia Stop Time CHOLECYSTECTOMY, LAPAROSCOPIC (Abdomen) Yovani Lal MD 10/18/24 0938 10/18/24 1156 Events Date Time Event Comment 10/18/2024 0818 0901 RN LABOR DELIVERY Ready for Procedure 0938 An Start Anesthesia Star t is defined as when the anesthesia provider assumed care, began anesthesia prep, remained continuously present with the patient, and excludes all time for performing the pre-anesthesia evaluation. The Pre-Anesthesia Evaluation was completed before Anesthesia Start. 0941 An Start Data 0941 AN REASSESS I attest that I have identified and re-evaluated the patient immediately before the induction of anesthesia and I am satisfied that the anesthetic plan is suitable for the patient's condition and procedure. The first vital signs recorded are pre-induction. Betina Gutierrez APRN RN LABOR DELIVERY 0943 An Induction 0946 An Intubation 0947 MD Present 0947 Anesthesia Ready for Procedu re 1041 MD Present 1141 MD Present 1151 AN Extubation All extubation criteria met prior to removal. 1152 an stop data 1156 An Stop Electronically signed by Betina Gutierrez APRN RN LABOR DELIVERY on October 18, 2024 11:56 AM Meds Name Total midazolam 1 mg/mL 2 mg fentaNYL 50 mcg/mL 100 mcg HYDROmorphone 1 mg/mL 1 mg ketorolac 30 mg/mL 15 mg lidocaine 2% 30 mg propofol 10 mg/mL 200 mg propofol drip mcg/kg/min 467.48 mg rocuronium 10 mg/mL 80 mg phenylephrine (HUAN-SYNEPHRINE) injection 300 mcg dexamethasone (DECADRON) 4 mg/mL 4 mg ondansetron 2 mg/mL 4 mg glycopyrrolate 0.2 mg/mL 0.2 mg sugammadex (BRIDION) 200mg/2mL 200 mg ceFAZolin Sodium (ANCEF) injection 2 g 2 g LR 1,000 mL * Agents Name O2 N2O Air Exp Sevoflurane Exp Isoflurane Exp Desflurane Ins Sevoflurane Ins Isoflurane Ins Desflurane * Blood No blood administrations on file. Lines, Drains, and Airways Type Details Placement Removal Incision/Surgical Site Incision; 5; 1030; Abdomen; Four Laparoscopic Port Sites 10/18/24 1030 by Kimberley Turner RN Peripheral IV 10/15/24; 1630; 20 G ; Left; Antecubital fossa; Chlorhexidine 10/15/24 1630 by Alejandra Maria RN 10/20/24 1029 by Daniela Irvin RN Incision/Surgical Site No Incision; 10/03 09/27; 1304; Mouth; ERCP; 10/18/24; 0916 10/16/24 1304 by Domi Ledbetter RN 10/18/24 0916 by Mendy Hurley RN ETT Placement Date: 10/03 11/27; Placement Time: 0946 (created via procedure documentation); Mask Ventilation: 1; Induction Type: Intravenous; Ease of Intubation: Easy; Technique: Video laryngoscopy; Tube Size: 8 mm; VL Blade Size: [place] scope 4; Grade View: 1; Adjucts: Stylet; Placement Person: RN LABOR DELIVERY; Attempts: 1 10/18/24 0946 by Betina Gutierrez APRN CRNA 10/18/24 1151 by Betina Gutierrez APRN CRNA documented in this encounter Social History Tobacco [...] on file 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 status CV/Hemodynamics: Uneventful Sign Out: Acceptable CV status; No obvious hypovolemia; No obvious fluid overload Other NRE: NONE DID A NON-ROUTINE EVENT OCCUR? No Last vitals: Vitals Value Taken Time BP 143/106 10/18/24 12:05 Temp 98.06 ??F (36.7 ??C) 10/18/24 12:07 Pulse 78 10/18/24 12:07 Resp 17 10/18/24 12:07 SpO2 92 % 10/18/24 12:07 Vitals shown include unfiled device data. Electronically Signed By: Yovani Lal MD October 18, 2024 12:08 PM * Anesthesia Procedure Notes - Betina Gutierrez APRN CRNA - 10/18/2024 10:06 AM CDTAssociated Order(s): Airway Airway Patient location during procedure: OR Procedure Start/Stop Times: 10/18/2024 9:46 AM Staff - RN LABOR DELIVERY: Betina Gutierrez APRN CRNA Performed By: RN LABOR DELIVERY Consent for Airway Urgency: elective Indications and Patient Condition Indications for airway management: charles-procedural Induction type:intravenous Mask difficulty assessment: 1 - vent by mask Final Airway Details Final airway type: endotracheal airway Successful airway: ETT - single Endotracheal Airway Details ETT size (mm): 8.0 Cuffed: yes Successful intubation technique: video laryngoscopy VL Blade Size: Glidescope 4 Grade View of Cords: 1 Adjucts: stylet Position: Right Measured from: gums/teeth Secured at (cm): 24 Bite block used: None Post intubation assessment Placement verified by: capnometry, equal breath sounds and chest rise Number of attempts at approach: 1 Number of other approaches attempted: 0 Secured with: tape Ease of procedure: easy Dentition: Intact and Unchanged Medication(s) Administered Medication Administration Time: 10/18/2024 9:46 AM * Anesthesia Preprocedure Evaluation - Yovani Lal MD - 10/18/2024 8:21 AM CDT Anesthesia Pre-Procedure Evaluation Patient: Salvador Back : 1965 Procedure : Procedure(s): CHOLECYSTECTOMY, LAPAROSCOPIC Past Medical History: Diagnosis Date Knee pain torn menisus. Past Surgical History: Procedure Laterality Date ENDOSCOPIC RETROGRADE CHOLANGIOPANCREATOGRAM N/A 10/16/2024 Procedure: ENDOSCOPIC RETROGRADE CHOLANGIOPANCREATOGRAPHY, COMPLEX, Stone Extraction, Dilation; Surgeon: Vic Sarkar MD; Location: OR [facility] APPENDECTOMY 2006 No Known Allergies Social History Tobacco Use Smoking status: Every Day Current packs/day: 0.00 Types: Cigarettes Smokeless tobacco: Current Types: Chew Tobacco comments: chew quiting, 1 can q 3 day7s Substance Use Topics Alcohol use: Yes Alcohol/week: 0.0 standard drinks of alcohol Comment: several beers on the weekends Wt Readings from Last 1 Encounters: 10/18/24 89.9 kg (198 lb 1.6 oz) Anesthesia Evaluation Pt has had prior anesthetic. Type: General. No history of anesthetic complications ROS/MED HX ENT/Pulmonary: - neg pulmonary ROS Neurologic: - neg neurologic ROS Cardiovascular: (+) - - - - - CHF METS/Exercise Tolerance: Hematologic: - neg hematologic ROS Musculoskeletal: - neg musculoskeletal ROS GI/Hepatic: (+) cholecystitis/cholelithiasis, Renal/Genitourinary: - neg Renal ROS Endo: - neg endo ROS Psychiatric/Substance Use: - neg psychiatric ROS Infectious Disease: Comment: Sepsis from ascending cholangitis, improving Malignancy: Other: Physical Exam Airway Mallampati: II Neck ROM: full Cardiovascular - normal exam Dental (+) Minor Abnormalities - some fillings, tiny chips Pulmonary - normal exam Neurological - normal exam He appears awake, alert and oriented x3. Other Findings OUTSIDE LABS: CBC: Lab Results Component Value Date WBC 10.8 10/18/2024 WBC 16.9 (H) 10/17/2024 HGB 13.6 10/18/2024 HGB 13.1 (L) 10/17/2024 HCT 39.8 (L) 10/18/2024 HCT 38.1 (L) 10/17/2024 PLT 208 10/18/2024 PLT 168 10/17/2024 BMP: Lab Results Component Value Date NA 137 10/18/2024 NA 138 10/17/2024 POTASSIUM 4.3 10/18/2024 POTASSIUM 4.4 10/17/2024 CHLORIDE 105 10/18/2024 CHLORIDE 104 10/17/2024 CO2 23 10/18/2024 CO2 22 10/17/2024 BUN 15.6 10/18/2024 BUN 20.3 10/17/2024 CR 0.93 10/18/2024 CR 1.00 10/17/2024 GLC 100 (H) 10/18/2024 GLC 150 (H) 10/17/2024 COAGS: Lab Results Component Value Date INR 1.21 (H) 10/16/2024 POC: No results found for: BGM, HCG, HCGS HEPATIC: Lab Results Component Value Date ALBUMIN 3.3 (L) 10/18/2024 PROTTOTAL 5.9 (L) 10/18/2024 ALT 382 (H) 10/18/2024 AST 73 (H) 10/18/2024 ALKPHOS 87 10/18/2024 BILITOTAL 2.7 (H) 10/18/2024 OTHER: Lab Results Component Value Date LACT 3.3 (H) 10/16/2024 RACHAEL 8.7 (L) 10/18/2024 LIPASE 28 10/15/2024 TSH 1.26 01/08/2014 Anesthesia Plan ASA Status: 3 Anesthesia Type: General. Airway: oral. Induction: intravenous. Maintenance: Inhalation. Techniques and Equipment: - Monitoring Plan: standard ASA monitoring Consents Anesthesia Plan(s) and associated risks, benefits, and realistic alternatives discussed. Questions answered and patient/telemarketing representative(s) expressed understanding. - Discussed: anesthesiologist - Discussed with: Postoperative Care Comments: Yovani Lal MD I have reviewed the pertinent notes and labs in the chart from the past 30 days and (re)examined the patient. Any updates or changes from those notes are reflected in this note. Clinically Significant Risk Factors # Hypoalbuminemia: Lowest albumin = 3 g/dL at 10/17/2024 5:50 AM, will monitor as appropriate # Coagulation Defect: INR = 1.21 (Ref range: 0.85 - 1.15) and/or PTT = N/A, will monitor for bleeding # Overweight: Estimated body mass index is 29.25 kg/m?? as calculated from the following: Height as of this encounter: 1.753 m (5' 9). Weight as of this encounter: 89.9 kg (198 lb 1.6 oz)., PRESENT ON ADMISSION documented in this encounter Miscellaneous Notes * Anesthesia Care Transfer Note - Betina Gutierrez APRN RN LABOR DELIVERY - 10/18/2024 11:56 AM CDT Patient: Salvador Back Procedure: Procedure(s): CHOLECYSTECTOMY, LAPAROSCOPIC Diagnosis: Cholangitis (H) [K83.09] Diagnosis Additional Information: No value filed. Anesthesia Type: General Note: Oropharynx: oropharynx clear of all foreign objects Level of Consciousness: awake Oxygen Supplementation: face mask Level of Supplemental Oxygen (L/min / FiO2): 6 Independent Airway: airway patency satisfactory and stable [...] understanding Vitals: Vitals Value Taken Time BP 160/102 10/18/24 11:53 Temp 96.98 ??F (36.1 ??C) 10/18/24 11:55 Pulse 79 10/18/24 11:55 Resp 13 10/18/24 11:55 SpO2 95 % 10/18/24 11:55 Vitals shown include unfiled device data. Electronically Signed By: Betina Gutierrez APRN CRNA October 18, 2024 11:56 AM documented in this encounter Plan of Treatment Upcoming Encounters Date Type Department Care Team (Late st Contact Info) Description 12/09/2024 8:30 AM CDT Office Visit [facility] [address] [place] [address] Henri Castañeda PA-C [address] [place] [address] [place] [address] documented as of this encounter Procedures Procedure Name Priority Date/Time Associated Diagnosis Comments ANE AIRWAY ETT PERFORMABLE Routine 10/18/2024 9:46 AM CDT documented in this encounter Results * ANE AIRWAY ETT PERFORMABLE (10/18/2024 9:46 AM CDT) Narrative Betina Gutierrez APRN CRNA - 10/18/2024 9:46 AM CDT Betina Gutierrez APRN CRNA 10/18/2024 10:06 AM Airway Patient location during procedure: OR Procedure Start/Stop Times: 10/18/2024 9:46 AM Staff - RN LABOR DELIVERY: Betina Gutierrez APRN RN LABOR DELIVERY Performed By: RN LABOR DELIVERY Consent for Airway Urgency: elective Indications and Patient Condition Indications for airway management: charles-procedural Induction type:intravenous Mask difficulty assessment: 1 - vent by mask Final Airway Details Final airway type: endotracheal airway Successful airway: ETT - single Endotracheal Airway Details ETT size (mm): 8.0 Cuffed: yes Successful intubation technique: video laryngoscopy VL Blade Size: Glidescope 4 Grade View of Cords: 1 Adjucts: stylet Position: Right Measured from: gums/teeth Secured at (cm): 24 Bite block used: None Post intubation assessment Placement verified by: capnometry, equal breath sounds and chest rise Number of attempts at approach: 1 Number of other approaches attempted: 0 Secured with: tape Ease of procedure: easy Dentition: Intact and Unchanged Medication(s) Administered Medication Administration Time: 10/18/2024 9:46 AM Yovani Lal MD [place] ANESTHESIA Final Resu lt documented in this encounter Visit Diagnoses Not on filedocumented in this encounter Administered Medications Inactive Administered Medications - up to 3 most recent administrations Medication Order MAR Action Action Date Dose Rate Site ceFAZolin Sodium (ANCEF) injection 2 g Routine, 2 g, Intravenous, SEE ADMIN INSTRUCTIONS, Starting on Mon10/18/24 at 0901, Intra-Op Dose. Give every 4 hours while patient in surgery, starting 4 hours after pre-op dose., Indications: Perioperative Pharmacoprophylaxis, Pre-procedureIndications:Perioperat joann Pharmacoprophylaxis $Given 10/18/2024 9:38 AM CDT 2 g dexAMETHasone (DECADRON) injection Intravenous, PRN, Administer over 1 Minutes, Starting on Mon10/18/24 at 0944, Anesthesia Intra-op $Given 10/18/2024 9:44 AM CDT 4 mg fentaNYL (PF) (SUBLIMAZE) injection Intravenous, PRN, Administer over 3-5 Minutes, Starting on Mon10/18/24 at 0943, Anesthesia Intra-op $Given 10/18/2024 9:43 AM CDT 100 mcg glycopyrrolate (ROBINUL) injection Intravenous, PRN, Administer over 1-2 Minutes, Starting on Mon10/18/24 at 0954, Anesthesia Intra-op $Given 10/18/2024 9:54 AM CDT 0.2 mg HYDROmorphone (DILAUDID) injection Intravenous, PRN, Starting on Mon10/18/24 at 1000, Anesthesia Intra-op $Given 10/18/2024 10:15 AM CDT 0.5 mg $Given 10/18/2024 10:00 AM CDT 0.5 mg ketorolac (TORADOL) injection Intravenous, PRN, Administer over 2 Minutes, Starting on Mon10/18/24 at 1136, Anesthesia Intra-op $Given 10/18/2024 11:36 AM CDT 15 mg lactated ringers infusion Intravenous, CONTINUOUS PRN, Anesthesia Intra-op, Starting on Mon10/18/24 at 0938, Until Mon10/18/24 at 1156 $New Bag 10/18/2024 11:22 AM CDT $New Bag 10/18/2024 9:38 AM CDT lidocaine 2% injection (MDV) Intravenous, PRN, Starting on Mon10/18/24 at 0943, Anesthesia Intra-op $Given 10/18/2024 9:43 AM CDT 30 mg midazolam (VERSED) injection Intravenous, Administer over 2 Minutes, PRN, Starting on Mon10/18/24 at 0938, Anesthesia Intra-op $Given 10/18/2024 9:38 AM CDT 2 mg ondansetron (ZOFRAN) injection Intravenous, PRN, Administer over 2-5 Minutes, Starting on Mon10/18/24 at 1136, Anesthesia Intra-op $Given 10/18/2024 11:36 AM CDT 4 mg phenylephrine (HUAN-SYNEPHRINE) injection Intravenous, CONTINUOUS PRN, Starting on Mon10/18/24 at 0954, Anesthesia Intra-op $Bolus 10/18/2024 10:09 AM CDT 200 mcg $New Bag 10/18/2024 9:54 AM CDT 100 mcg propofol (DIPRIVAN) infusion Intravenous, CONTINUOUS PRN, Starting on Mon10/18/24 at 0948, Anesthesia Intra-op $New Bag 10/18/2024 9:48 AM CDT 50 mcg/kg/min 26.97 mL/hr propofol (DIPRIVAN) injection 10 mg/mL vial Intravenous, PRN, Starting on Mon10/18/24 at 0943, Anesthesia Intra-op $Given 10/18/2024 9:43 AM CDT 200 mg rocuronium injection Intravenous, PRN, Starting on Mon10/18/24 at 0944, Anesthesia Intra-op $Given 10/18/2024 11:00 AM CDT 10 mg $Given 10/18/2024 10:30 AM CDT 20 mg $Given 10/18/2024 9:44 AM CDT 50 mg sugammadex (BRIDION) injection Intravenous, PRN, Starting on Mon10/18/24 at 1135, Anesthesia Intra-op $Given 10/18/2024 11:35 AM CDT 200 mg documented in this encounter Care Teams Tile Installer Relationship Specialty Start Date End Date No Ref-Primary, Physician PCP - General 10/15/24 documented as of this encounter
[2024-11-13] VITALS (18 sets, daily range): BP systolic 125–147; BP diastolic 85–96; PULSE 108–125; RESP 20–43; TEMP 37–38.3; O2SAT 91–96; BMI 27.5
--- OUTSIDE RECORDS SUMMARY | 2024-11-13 20:42 | XMS_ITS | Clinical Summary ---
Author Organization [employer] Address [address] [place] [address] Care Team Providers Care Group Account Director Name Role Phone [facility] Primary Care Provider [phone] Allergies No known active allergies Medications omeprazole (PRILOSEC) 20 mg Delayed-Release capsuleIndicati ons:RUQ pain Take 1 capsule by mouth once daily before a meal. 60 capsule 05/09/2017 Active omeprazole (PRILOSEC) 20 mg Delayed-Release capsuleIndicati ons:RUQ pain Take 1 capsule by mouth 2 times daily before meals. 60 capsule 05/09/2017 Active Active Problems No known active problems Immunizations Immunization Administration Dates Next Due Tdap 11/16/2017 Family History Medical History Relation Name Comments Other Mother glaucoma/mside Genetic Other Family history of: melanoma-- faterh age 60. 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 Gender Identity Not on file Sexual Orientation Not on file Obstetrics History Last Filed Vital Signs Vital Sign Reading Time Taken Comments Blood Pressure 134/87 11/16/2017 11:05 AM CDT Pulse 85 11/16/2017 11:05 AM CDT Temperature 36.8 C (98.3 F) 11/16/2017 11:05 AM CDT Respiratory Rate 16 11/16/2017 11:05 AM CDT Oxygen Saturation 97% 11/16/2017 11:05 AM CDT Inhaled Oxygen Concentration - - Weight 86.2 kg (190 lb) 05/09/2017 6:18 PM SCRIPT WRITER Height 175.3 cm (5' 9) 05/09/2017 6:18 PM SCRIPT WRITER Body Mass Index 28.06 05/09/2017 6:18 PM SCRIPT WRITER Plan of Treatment Health Maintenance Due Date Last Done Comments Depression screening for age 12+ 1977 HIV for age 15-65 1980 BMI (ht and wt on same day) for age 18+ 1983 Hepatitis C screening for age 18-79 1983 Hepatitis B series for 19+ ( 1 of 3 - 19+ 3-dose series) 1984 Colonoscopy through age 75 2010 Lipids for age 45-75 2010 Pneumococcal series for age 50+ (1 of 1 - PCV) 016 Zoster (shingles) series for age 50+ (1 of 2) 06/13/19 16 COVID-19 vaccine series ( - 2023- season) 4 Influenza Vaccine (Season Ended) 2025 Tetanus booster 11/17/2027 11/16/2017 Tdap Completed 11/16/2017 [facility] Care Teams Group Account Director Relationship Specialty Start Date End Date [facility] [address] [place] [address] [place] [id number] PCP - General 05/09/17
--- OUTSIDE RECORDS SUMMARY | 2024-11-13 20:42 | XMS_ITS | Encounter Summary ---
Author Organization [facility] Address [address] [place] [address] Care Team Providers Care Cook Chili Name Role Phone Isidro Siu MD Primary Care Provider + [phone] Isidro Siu MD Unavailable [phone] Kenya Hill Mai, MD Unavailable [phone] Isidro Siu MD Unavailable [phone] Clinic - [facility] Primary Care P rovider No Ref-Primary, Physician Primary Care Provider Reason for Visit * Reason Onset Date Comments Refill Request 04/05/2020 omeprazole (PRIL OSEC) [address] syed Encounter Details Date Type Department Care Team (Late st Contact Info) Description 04/05/2020 Refill M [facility] [address] [place] [address] [address] [place] [address] Isidro Siu MD [address] [place] [address] [place] [address] Refill Request (omeprazole (PRILOSEC) [address] capsule) Social History Tobacco Use Types Packs/Day Years Used Date Smoking Tobacco: Every Day Cigarettes Smokeless Tobacco: Current Chew Comments:chew quiting, 1 can q 3 day7s Alcohol Use Standard Drinks/Week Comments Yes 0 (1 standard drink = 0.6 oz pur e alcohol) AUDIT-C Answer Date Recorded Q1: How often do you have a drink containing alc ohol? 2-3 times a week 04/04/2019 Q2: How many drinks containi ng alcohol do you have on a typical day when you are drinking? 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 Maria Teresa Duque MA VERER OUTSIDE * Telephone Encounter - Maeve Avila CMA - 04/14/2020 2:58 PM CST Called patient and LVM to return phone call to clinic in regards to scheduling. 2nd attempt. Maeve Avila CMA VERER OUTSIDE * Telephone Encounter - Melanie Michael CMA - 04/07/2020 10:05 AM DELIVERER OUTSIDE Called pt and left VM Melanie Michael MA 10:06 AM 04/07/2020 VERER OUTSIDE * Telephone Encounter - Isis Stuart RN - 04/06/2020 1:18 PM DELIVERER OUTSIDE Medication is being filled for 1 time refill only due to: Patient needs to be seen because it has been more than one year since last visit. Routing to RAFA/CATALINA singh. The Pt is due for a visit with PCP. Please call and help them schedule. RN will issue a 90 day supply. No further refills until the Pt is seen. Isis Stuart RN -- [facility] VERER OUTSIDE documented in this encounter Plan of Treatment Upcoming Encounters Date Type Department Care Team (Late st Contact Info) Description 12/09/2024 8:30 AM CDT Office Visit [facility] [address] [place] [address] [address] [place] [address] Henri Castañeda PA-C [address] [place] [address] [place] [address] documented as of this encounter Visit Diagnoses Diagnosis Other gastritis without hemorrhage, unspecified chronicity documented in this encounter Additional Health Concerns Infection Onset Date Last Indicated Resolved Time Rule Out COVID-19 10/11/2021 10/11/2021 10/11/2021 7:47 PM CDT documented as of this encounter Care Teams Cook Chili Relationship Specialty Start Date End Date Isidro Siu MD [address] [place] [address] [place] [id number] PCP - General Internal Medicine 02/15/12 03/06/24 [facility] [place] [facility] [address] [place] [address] [place] [id number] PCP - General 03/07/24 10/14/24 No Ref-Primary, Physician PCP - General 10/15/24 Isidro Siu MD [address] [place] [address] [place] [id number] Assigned PCP 04/05/20 05/16/20 Kenya Hill Mai, MD [address] [place] [address] [place] [id number] Assigned PCP 05/17/20 05/01/21 Isidro Siu MD [address] [place] [address] [place] [id number] Assigned PCP 05/02/21 05/26/24 documented as of this encounter
--- OUTSIDE RECORDS SUMMARY | 2024-11-13 20:42 | XMS_ITS ---
Author Organization [facility] Address [address] [place] [address] Care Team Providers Care Certified Adapted Physical Educator Name Role Phone No Ref-Primary, Physician Primary Care Provider Transitional Care Management Status:Closed (Closed) Start date:10/22/2024 Enrollment date:10/22/2024 End date:11/05/2024 Close reason:Goals met Continued Care and Services Coordination
--- OUTSIDE RECORDS SUMMARY | 2024-11-13 20:43 | XMS_ITS | Encounter Summary ---
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 Gender Identity Not on file Sexual Orientation Not on file documented as of this encounter Plan of Treatment Upcoming Encounters Date Type Department Care Team (Late st Contact Info) Description 12/09/2024 8:30 AM CDT Office Visit [facility] [address] [place] [phone] Henri Castañeda PA-C [address] [place] [address] [place] [phone] documented as of this encounter Visit Diagnoses Not on filedocumented in this encounter Care Teams Dementia Program Director Relationship Specialty Start Date End Date No Ref-Primary, Physician PCP - General 10/15/24 documented as of this encounter
--- OUTSIDE RECORDS SUMMARY | 2024-11-13 20:44 | XMS_ITS | Clinical Summary ---
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 Active multivitamin (CENTRUM SILVER) tablet Take 1 tablet by mouth daily. Active senna-docusate (SENOKOT-S/CHARLES COLACE) 8.6-50 MG tabletIndicatio ns:Cholecystiti s,Cholangitis (H) Take 1 tablet by mouth 2 times daily. 20 tablet 5 Active acetaminophen (TYLENOL) 325 MG tabletIndicatio ns:Cholecystiti s,Cholangitis (H) Take 2 tablets (650 mg) by mouth 3 times daily. 100 tablet 5 Active HYDROmorphone (DILAUDID) 2 MG tabletIndicatio ns:Cholecystiti s,Cholangitis (H) Take 1 tablet (2 mg) by mouth every 4 hours as needed for severe pain (IF pain not managed with non-pharmaco logical and non-opioid intervention s). 10 tablet 5 Active azithromycin (ZITHROMAX) 250 MG tabletIndicatio ns:Cough Two tablets first day, then one tablet daily for four days. 6 tablet 2 10/22/19 25 Discontinue d(Stop at Discharge) HYDROmorphone (DILAUDID) 2 MG tabletIndicatio ns:Cholecystiti s,Cholangitis (H) Take 1 tablet (2 mg) by mouth every 4 hours as needed for severe pain (IF pain not managed with non-pharmaco logical and non-opioid intervention s). 10 tablet 5 10/25/19 25 Discontinue d(Reorder (No AVS)) ciprofloxacin (CIPRO) 500 MG tabletIndicatio ns:Acute sepsis (H) Take 1 tablet (500 mg) by mouth 2 times daily for 3 days. 6 tablet 5 10/25/19 25 Active Problems Problem Noted Date Diagnosed Date Cholecystitis 10/15/2024 Elevated LFTs 10/15/2024 Common bile duct dilation 10/15/2024 Acute sepsis 10/15/2024 Plantar fasciitis of left foot 05/23/2022 Tobacco abuse 03/20/2012 CARDIOVASCULAR SCREENING; LDL GOAL LESS THAN 160 04/04/2010 Encounters Date Type Department Care Team Description 11/07/[address] [facility] Surgery [facility] [address], [address] [place] [phone] Pamela Cunningham PA-C Post-Op - General Surgery 10/24/2024 Telephone [facility] [address], [address] [place] [phone] Dominique Ortiz MD Post-Op - General Surgery (Pain med refill) 10/18/2024 9:38 AM CDT Anesthesia Event [facility] Per[facility]Op Services [address] [place] [address] Yovani Lal MD Grover, Katie, INSURANCE VERIFY REP STITCH BONDING MACHINE OPERATOR 10/18/2024 9:20 AM CDT - 10/18/2024 11:10 AM CDT Surgery [facility] [address] [place] [address] Dominique Ortiz MD CHOLECYSTECTOMY, LAPAROSCOPIC 10/16/2024 12:50 PM CDT Anesthesia Event [facility] [address] [place] [address] Isidro Watters MD Severson, Dean Rayshawn, BRYANNA PRUETT 10/16/2024 11:00 AM CDT - 10/16/2024 12:00 PM CDT Surgery [facility] [address] [place] [address] Claudia Sarkar MD ENDOSCOPIC RETROGRADE CHOLANGIOPANCREATOGR APHY, COMPLEX, Stone Extraction, Dilation 10/15/2024 3:36 PM CDT - 10/21/2024 10:41 PM CDT Hospital Encounter [facility] 5 Medical Surgical [address] [place] [address] Leonora Bone, Ole Berrios MD Cholangitis (H) (Primary Dx); Cholecystitis; Acute sepsis (H); Elevated LFTs; Common bile duct dilation Discharge Disposition: Home or Self Care 10/15/2024 1:40 PM CDT Office Visit [facility] [place] [address] [place] [address] Awais Kidd, CLOVER Abdominal pain, right upper quadrant (Primary Dx); Fever, unspecified fever cause; Nausea 10/15/2024 Travel from Last 3 Months Immunizations Immunization Administration Dates Next Due Influenza (IIV3) PF 03/20/2012 Influenza Vaccine 18-64 (Flublok) 04/13/2021, Influenza Vaccine >6 months,quad, PF 05/18/2016, 04/26/2013 Tdap (Adult) Unspecified Formulation 11/16/2017 Tetanus 06/05/2006 Family History Medical History Relation Comments Cancer Father Melanoma/Thyroid Cancer Mother Lung Cancer Cancer - colorectal No family hx of Diabetes No family hx of Relation Status Comments Brother Alive Father (Age 56) Mother Alive Sister Alive Social History Tobacco Use Types Packs/Day Years [...] Answer Date Recorded Do you have housing? 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 Gender Identity Not on file Sexual Orientation Not on file Last Filed Vital Signs Vital Sign Reading [...] Mass Index 28.72 10/17/2024 8:08 PM CDT Plan of Treatment Upcoming Encounters Date Type Department Care Team (Late st Contact Info) Description 12/09/2024 8:30 AM CDT Office Visit [facility] [address] [place] [address] Henri Castañeda PA-C [address] [facility] [place] [address] Health Maintenance Due Date Last Done Comments CT COLONOGRAPHY 1965 FIT 1965 FLEX SIG 1965 sDNA (Cologuard) 1965 COLONOSCOPY 1975 COLORECTAL CANCER SCREENING 1975 HIV SCREENING 1980 HEPATITIS C SCREENING 1983 HEPATITIS B VACCINE (1 of 3 - 19+ 3-dose series) 1984 PNEUMOCOCCAL VACCINE 50+ YEARS (1 of 2 - PCV) 1984 ZOSTER VACCINE (1 of 2) 2015 LIPID 03/20/2017 03/20/2012 ANNUAL REVIEW OF HM ORDERS 04/13/2022 04/13/2021 NICOTINE/TOBACCO CESSATION COUNSELING Q 1 YR 04/13/2022 04/13/2021, 04/04/2019 YEARLY PREVENTIVE VISIT 04/13/2022 04/13/2021, 03/20 COVID-19 VACCINE ( season) 2024 06/29/2021, 11/03/2020, 10/12/2020 PHQ-2 (once per calendar year) 2024 04/13/2021, 11/10/2017, 01/29/2016 INFLUENZA VACCINE (Season Ended) 2025 04/13/2021, 04/04/2019, 05/18/2016, Additional history exists LUNG CANCER SCREENING 10/16/2025 10/16/2024 ADVANCE CARE PLANNING 04/13/2026 04/13/2021 DIABETES SCREENING 10/22/2027 10/21/2024, 0 10/20/2024, 10/19/2024, Additional history exists DTAP/TDAP/TD VACCINE (2 - Td or Tdap) 11/17/2027 11/16/2017, 11/16/2017, 06/05/2006 HPV VACCINE Aged Out No longer eligi ble based on patient's age to complete this topic MENINGITIS VACCINE Aged Out No longer eligible based on patient's age to complete this topic Procedures Procedure Name Priority Date/Time Associated Diagnosis Comments CBC WITH PLATELETS Routine 10/21/2024 7:10 AM CDT COMPREHENSIVE METABOLIC PANEL Routine 7:10 AM CDT XR CHEST PORT 1 VIEW STAT 10/20/2024 3:45 PM CDT CBC WITH PLATELETS Routine 10/20/2024 7:39 AM CDT COMPREHENSIVE METABOLIC PANEL Routine 7:[address] ABDOMEN PELVIS W CONTRAST STAT 6:49 PM CDT XR CHEST PORT 1 VIEW STAT 10/19/2024 3:25 PM CDT XR ABDOMEN 1 VIEW Routine 10/19/2024 9:55 AM CDT CBC WITH PLATELETS Routine 10/19/2024 7:23 AM CDT COMPREHENSIVE METABOLIC PANEL Routine 7:23 AM CDT LACTIC ACID WHOLE BLOOD STAT 10/19/19 11:54 PM CDT CBC WITH PLATELETS STAT 10/18/2024 11:54 PM CDT EKG 12-LEAD, TRACING ONLY Routine 2024 11:42 PM CDT BLOOD CULTURE STAT 10/18/2024 2:55 PM CDT BLOOD CULTURE STAT 10/18/2024 2:55 PM CDT SURGICAL PATHOLOGY EXAM Routine 10/19/19 11:29 AM CDT ANE AIRWAY ETT PERFORMABLE Routine 10/18 9:46 AM CDT LAP,CHOLECYSTECTOMY/EXPLORE 10/03 9:40 AM CDT Cholangitis (H) LAP,CHOLECYSTECTOMY/GRAPH 2024 9:40 AM CDT Cholangitis (H) LAPAROSCOPY, SURGICAL; CHOLECYSTECTOMY 10/18/2024 9:40 AM CDT Cholangitis (H) ECHO LIMITED Routine 10/18/2024 7:57 AM CDT CBC WITH PLATELETS Routine 10/18/2024 7:20 AM CDT COMPREHENSIVE METABOLIC PANEL Routine 7:20 AM CDT GLUCOSE BY METER Routine 10/17/2024 4:07 PM CDT GLUCOSE BY METER Routine 10/17/2024 12:15 PM CDT GLUCOSE BY METER Routine 10/17/2024 7:54 AM CDT CBC WITH PLATELETS Routine 10/17/2024 5:50 AM CDT COMPREHENSIVE METABOLIC PANEL Routine 5:50 AM CDT GLUCOSE BY METER Routine 10/17/2024 4:25 AM CDT GLUCOSE BY METER Routine 10/16/2024 11:43 PM CDT GLUCOSE BY METER Routine 10/16/2024 8:25 PM CDT EKG 12-LEAD, TRACING ONLY Routine 2024 3:12 PM CDT GLUCOSE BY METER Routine 10/16/2024 2:43 PM CDT XR ERCP Routine 10/16/2024 1:37 PM CDT ANE AIRWAY ETT PERFORMABLE Routine 10/16 1:02 PM CDT ERCP W REMOVAL OF STONE, [...] W CONTRAST STAT 10/16/2024 2:55 AM CDT NT-PROBNP STAT Add-on 10/16/2024 2:24 AM CDT LACTIC ACID WHOLE BLOOD STAT 10/17/19 25 2:24 AM CDT D DIMER QUANTITATIVE STAT 10/16/2024 2:24 AM CDT INR Routine 10/16/2024 2:24 AM CDT CBC WITH PLATELETS Routine 10/16/2024 2:24 AM CDT COMPREHENSIVE METABOLIC PANEL Routine 2:24 AM CDT XR CHEST PORT 1 VIEW STAT 10/16/2024 2:23 AM CDT US ABDOMEN LIMITED STAT 10/15/2024 6:05 PM CDT BLOOD CULTURE ID PANEL, PCR Routine 10/03 5:09 PM CDT BLOOD CULTURE STAT 10/15/2024 5:09 PM CDT BLOOD CULTURE STAT 10/15/2024 4:31 PM CDT CBC WITH PLATELETS & DIFFERENTIAL STAT 10/15/2024 3:10 PM CDT NT-PROBNP STAT Add-on 10/15/2024 3:10 PM CDT ACETAMINOPHEN LEVEL STAT 10/15/2024 3:10 PM CDT ETHANOL LEVEL BLOOD STAT 10/15/2024 3:10 PM CDT EXTRA RED TOP TUBE STAT 10/15/2024 3:10 PM CDT EXTRA BLUE TOP TUBE STAT 10/15/2024 3:10 PM CDT CBC WITH PLATELETS AND DIFFERENTIAL STAT 10/15/2024 3:10 PM CDT BILIRUBIN DIRECT STAT 10/15/2024 3:10 PM CDT LIPASE STAT 10/15/2024 3:10 PM CDT EXTRA TUBE STAT 10/15/2024 3:10 PM CDT COMPREHENSIVE METABOLIC PANEL STAT 3:10 PM CDT UA MICROSCOPIC WITH REFLEX T O CULTURE Routine 10/15/2024 1:53 PM CDT Abdominal pain, right upper quadrant UA MACROSCOPIC WITH REFLEX T O MICRO AND CULTURE Routine 10/15/2024 1:53 PM CDT Abdominal pain, right upper quadrant LIPID REFLEX TO DIRECT LDL PANEL Routine 03/20/2012 9:58 AM CDT Routine general medical examination at a health care facility from Last 3 Months or Most Recently Relevant to Health Maintenance Results * (ABNORMAL) Comprehensive metabolic panel (10/21/2024 7:10 AM CDT) Only the most recent of7 resultswithin the time period is included. Sodium 135 135 - 145 mmol/L 10/21/2024 7:57 AM CDT [facility] Potassium 3.6 3.4 - 5.3 mmol/L 10/21/2024 7:57 AM CDT [facility] Carbon Dioxide (CO2) 26 22 - 29 mmol/L 10/21/2024 7:57 AM CDT [facility] Anion Gap 14 7 - 15 mmol/L 10/21/2024 7:57 AM CDT [facility] Urea Nitrogen 20.5 8.0 - 23.0 mg/dL 10/21/2024 7:57 AM CDT [facility] Creatinine 0.84 0.67 - 1.17 mg/dL 10/21/2024 7:57 AM CDT [facility] GFR Estimate >90 [...] - 70 U/L 10/21/2024 7:57 AM CDT LABORATORY Protein Total 7.1 6.4 - 8.3 g/dL 10/21/2024 7:57 AM CDT LABORATORY Albumin 3.5 3.5 - 5.2 g/dL 10/21/2024 7:57 AM CDT LABORATORY Bilirubin Total 1.9(H) <=1.2 mg/dL 10/21/2024 7:57 AM CDT LABORATORY Blood STRUCTURE OF LEFT UPPER LIMB / Unknown Venipuncture / Unknown 10/21/2024 7:10 AM CDT 10/21/2024 7:22 AM CDT us Stevo A Ricki DO LAB - BLOOD ORDERABLES Final R esult LABORATORY [facility] [address] Lab (1st floor, no room number) [place] [address], [facility] * (ABNORMAL) CBC with platelets (10/21/2024 7:10 AM CDT) Only the most recent of7 resultswithin the time period is included. WBC Count 11.7(H) 4.0 - 11.0 10e3/uL 10/21/2024 7:25 AM CDT LABORATORY RBC Count 4.54 4.40 - 5.90 [...] - BLOOD ORDERABLES Final R esult LABORATORY [facility] [address] Lab (1st floor, no room number) [place] [address], [facility] * XR Chest Port 1 View (10/20/2024 3:45 PM CDT) Only the most recent of3 resultswithin the time period is included. Anatomical Region Laterality Modality Chest Digital Radiogra [...] EXAM: XR CHEST PORT 1 VIEW LOCATION: [facility] DATE: 10/20/2024 INDICATION: Shortness of breath COMPARISON: Chest radiograph and CT abdomen/pelvis 10/19/2024. Procedure Note Rudy Foss MD - 10/20/2024 EXAM: XR CHEST PORT 1 VIEW LOCATION: [facility] DATE: 10/20/2024 INDICATION: Shortness of breath COMPARISON: Chest radiograph and CT abdomen/pelvis 10/19/2024. IMPRESSION: Stable size of cardiomediastinal silhouette. Low lung volumeswith likely linear bibasilar atelectasis. No davin airspace consolidation,pleural effusion or pneumothorax. Small volume pneumoperitoneum, notsignificantly changed from recent chest radiograph and CT abdomen/pelvis. us Bradford St MD IMG DIAGNOSTIC MEGHAN GING ORDERABLES Final Result * CT Abdomen Pelvis w Contrast (10/19/2024 [...] EXAM: CT ABDOMEN PELVIS W CONTRAST LOCATION: [facility] DATE: 10/19/2024 INDICATION: worsening [...] EXAM: CT ABDOMEN PELVIS W CONTRAST LOCATION: [facility] DATE: 10/19/2024 INDICATION: worsening [...] ileus. No discrete transition point to suggestobstruction. Jacob Valencia MD [facility] CT ORDERABLES Final Resul t * XR Abdomen 1 View (10/19/2024 9:55 AM CDT) Anatomical Region Laterality Modality Abdomen/Pelvis Digital Radiogra phy 10/19/2024 9:55 AM CDT Impressions 10/19/2024 1:53 PM CDT IMPRESSION: Postop changes from recent cholecystectomy. Free air under the right hemidiaphragm consistent with recent surgery. Nothing for ileus. Narrative 10/19/2024 1:53 PM CDT EXAM: XR ABDOMEN 1 VIEW LOCATION: [facility] DATE: 10/19/2024 INDICATION: evaluate for ileus, increasing distension, postop day one lateral cholecystectomy. COMPARISON: None. Procedure Note Claudia Hyde MD - 10/19/2024 EXAM: XR ABDOMEN 1 VIEW LOCATION: [facility] DATE: 10/19/2024 INDICATION: evaluate for ileus, increasing distension, postop day onelateral cholecystectomy. COMPARISON: None. IMPRESSION: Postop changes from recent cholecystectomy. Free air under theright hemidiaphragm consistent with recent surgery. Nothing for ileus. Jacob Valencia MD [facility] DIAGNOSTIC IMAGING ORDERA BLES Final Result * Lactic acid whole blood (10/18/2024 11:54 PM CDT) Only the most recent of4 resultswithin the time period is included. Lactic Acid 1.2 0.7 - 2.0 mmol/L 10/19/2024 12:03 AM CDT LABORATORY Blood STRUCTURE OF RIGHT HAND / Unknown Venipuncture / Unknown 10/18/2024 11:54 PM CDT 10/18/2024 11:57 PM CDT Result [facility] Dominique Ortiz MD LAB - BLOOD ORDERABLES Final Result LABORATORY [facility] [address] Lab (1st floor, no room number) [place] [address], [place] * EKG 12-lead, tracing only (10/18/2024 11:42 PM CDT) Only the most recent of2 resultswithin the time period is included. Systolic Blood Pressure mmHg RADIOLOGY RESULTS Diastolic Blood Pressure mmHg RADIOLOGY RESULTS Ventricular Rate 90 BPM RAD IOLOGY RESULTS Atrial Rate 90 BPM RADIOLOG Y RESULTS MO Interval 144 ms RADIOLOG Y RESULTS QRS Duration 92 ms RADIOLO GY RESULTS QT 352 ms RADIOLOGY RESULTS QTc 430 ms RADIOLOGY RESULTS P [place] 53 degrees RADIOLOGY RESULTS R AXIS -7 degrees RADIOLOGY RESULTS T [place] 21 degrees RADIOLOGY RESULTS Interpretation ECG Sinus [...] (BC) Hand, Right (10/18/2024 2:55 PM CDT) Only the most recent of4 resultswithin the time period is included. Culture No Growth 10/23/2024 6:32 PM CDT [...] ORDERABL ES Final Result [facility] IDD LABORATORY [facility] Inf. Diseases Diag. Lab [address] [place] [address], [facility] * Surgical Pathology Exam (10/18/2024 11:29 AM CDT) Case Report Surgical Pathology Report Case: [id number] [facility]izing [facility] Collected: 10/18/2024 11:29 AM Ordering Location: [facility] Received: 10/18/2024 11:54 AM Main OR Pathologist: [...] or received free-floating within the specimen container. Labor Conciliator sections of the gallbladder to include the possible cystic duct margin (inked black) are submitted in 1 cassette. (WILFREDO Brock (ASCP) 10/18/2024 1:31 PM 10/21/2024 12:28 PM CDT LABORATORY Microscopic Description Microscopic examination was performed. 10/21/2024 12:28 PM CDT LABORATORY Performing Labs The technical component of this testing was completed at [facility]. Stain controls for all stains resulted within this report have been reviewed and show appropriate reactivity. 10/21/2024 12:28 PM CDT LABORATORY Case Images 10/21/2024 12:28 PM CDT LABORATORY Tissue GALLBLADDER PART / Unknown 10/18/2024 11:29 AM CDT 10/18/2024 11:54 AM CDT Dominique Ortiz MD LAB - SHAZIA AP Final Result LABORATORY [facility] [address] Lab (1st floor, no room number) [place] [address] * ANE AIRWAY ETT PERFORMABLE (10/18/2024 9:46 AM CDT) Only the most recent of2 resultswithin the time period is included. Narrative Betina Gutierrez APRN STITCH BONDING MACHINE OPERATOR - 10/18/2024 9:46 AM CDT Betina Gutierrez APRN STITCH BONDING MACHINE OPERATOR 10/18/2024 10:06 AM Airway Patient location during procedure: OR Procedure Start/Stop Times: 10/18/2024 9:46 AM Staff - STITCH BONDING MACHINE OPERATOR: Betina Gutierrez APRN STITCH BONDING MACHINE OPERATOR Performed By: STITCH BONDING MACHINE OPERATOR Consent for Airway Urgency: elective Indications and [...] Administered Medication Administration Time: 10/18/2024 9:46 AM us Yovani Lal MD [place] ANESTHESIA Final Resu lt * ECHO LIMITED (10/18/2024 7:57 AM CDT) LVEF 55-60% CARDIOLOGY RESULTS Anatomical Region Laterality Modality Echocardiography 10/18/2024 7:35 AM CDT Narrative 10/18/2024 8:56 AM T [id number]^RICKI^STEVO^Yakelin [facility] E[facility] Laboratory [address] [place] [address] Name: AVEL AHUMADA : 1965 Study Date: 10/18/2024 07:35 AM Age: 59 yrs Gender: Male Patient Location: [facility] Reason For Study: Cardiomyopathy Ordering Physician: [...] AM Procedure Note Saima Yeung, - 10/18/2024 [id number]^RICKI^STEVO^Yakelin [facility] Laboratory [address] [place] [address] Name: AVEL AHUMADA : 1965 Study Date: 10/18/2024 07:35 AM Age: 59 yrs Gender: Male Patient Location: [facility] Reason For Study: Cardiomyopathy Ordering Physician: STEVO ROBISON Performed By: Katelyn Antonoi BSA: 2.1 m2 Height: 69 in Weight: [...] Edited Resu lt - Final * (ABNORMAL) Glucose by meter (10/17/2024 4:07 PM CDT) Only the most recent of9 resultswithin the time period is included. GLUCOSE BY METER POCT 150(H) 70 - 99 mg/dL 10/17/2024 4:15 PM CDT LABORATORY POC Comment:Dr/RN Notified Blood, Capillary BLOOD SPECIMEN / Unknown 10/17/2024 4:07 PM CDT 10/17/2024 4:15 PM CDT us Ole Brown MD LAB - BEAKER POCT Martha l Result LABORATORY POC [facility] [address] [facility] Lab (1st floor, no room number) [place] [address], [facility] * XR ERCP (10/16/2024 1:37 PM CDT) Narrative [facility] - 10/16/2024 1:39 PM CDT This exam was marked as non-reportable because it will not be read by a radiologist or a [facility] non-radiologist provider. us Cornelia Collazo INSURANCE VERIFY REP ELECTRICAL MAINTENANCE MECHANIC IMG DIAGNOSTIC IMAGING O RDERABLES Final Result [facility] * ECHO COMPLETE WITH CONTRAST (10/16/2024 10:47 AM CDT) LVEF 45-50% CARDIOLOGY RESULTS Anatomical Region Laterality Modality Echocardiography 10/16/2024 9:51 AM CDT Narrative 10/16/2024 11:03 AM CDT [id number]^SATURNINO^REBEKAH [facility]ch[facility] Laboratory [address] [place] [address] Name: AVEL AHUMADA : 1965 Study Date: 10/16/2024 09:51 AM Age: 59 yrs Gender: Male Patient Location: [facility] Reason For Study: SOB, SOB Ordering Physician: REBEKAH DE LEON Performed By: Isha Murray BSA: 2.0 m2 Height: 68 in Weight: 200 lb BP: 134/92 mmHg Procedure Echocardiogram with two-dimensional, color and spectral Doppler. Optison ([facility] #[id number]) given intravenously. Interpretation Summary The visual ejection [...] Procedure Note Rudy Mcdowell MD - 10/16/2024 [id number]^SATURNINO^REBEKAH [facility] E[facility] Laboratory [address] [place] [address] Name: AVEL AHUMADA : 1965 Study Date: 10/16/2024 09:51 AM Age: 59 yrs Gender: Male Patient Location: [facility] Reason For Study: SOB, SOB Ordering Physician: REBEKAH DE LEON Performed By: Isha Murray BSA: 2.0 m2 Height: 68 in Weight: 200 lb BP: 134/92 mmHg Procedure Echocardiogram with two-dimensional, color and spectral Doppler. Optison([facility] #[id number]) given intravenously. Interpretation Summary The visual ejection [...] MD on 10/16/2024 11:03 AM us Rebekah De Leon MD CV ECHO ORDERABLES Edited Result - Final * ENDOSCOPIC RETROGRADE CHOLANGIOPANCREATOGRAPHY (10/16/2024 10:40 AM CDT) [facility] Patient Name: Avel Ahumada Procedure Date: 10/16/2024 10:40 AM Date [...] Duodenovideoscope (ERCP), Model # TJF-Q190V, Censitrac # [id number] was introduced through the mouth, and used to inject contrast into and used to inject contrast into the bile duct. The ERCP was accomplished without difficulty. The patient tolerated the procedure well. Findings: The waitstaff film was normal. The papilla appeared normal. [...] liquid diet. - Continue Antibiotics. - Lap lena per surgical service. Claudia Sarkar MD __ [...] RESULTS * Potassium (10/16/2024 10:39 AM CDT) Only the most recent of2 resultswithin the time period is included. Potassium 3.6 3.4 - 5.3 mmol/L 10/16/2024 11:51 AM CDT LABORATORY Blood BLOOD SPECIMEN / Unknown Venipuncture / Unknown 10/16/2024 10:39 AM CDT 10/16/2024 11:23 AM CDT us Stevo Robison DO LAB - BLOOD ORDERABLES Final R esult LABORATORY [facility] [address] Lab (1st floor, no room number) [place] [address] * Extra Purple Top EDTA (LAB USE ONLY) (10/16/2024 5:35 AM CDT) Hold Specimen JIC 10/16/2024 6:46 AM CDT LABORATORY Blood BLOOD SPECIMEN / Unknown Venipuncture / Unknown 10/16/2024 5:35 AM CDT 10/16/2024 5:43 AM CDT Ole Brown MD LAB - BLOOD ORDERABLES Final Result [facility] [address] Lab (1st floor, no room number) [place] [address] * CT Chest Pulmonary Embolism w Contrast [...] CT CHEST PULMONARY EMBOLISM W CONTRAST LOCATION: [facility] DATE: 10/16/2024 INDICATION: tachycardia, [...] CT CHEST PULMONARY EMBOLISM W CONTRAST LOCATION: [facility] DATE: 10/16/2024 INDICATION: tachycardia, [...] other acute process within the chest. Rebekah De Leon MD IMG CT ORDERABLES Final Result * (ABNORMAL) INR (10/16/2024 2:24 AM CDT) INR 1.21(H) 0.85 - 1.15 10/16/2024 3:07 AM CDT [facility] PT 15.3(H) 11.8 - 14.8 Seconds 10/16/2024 3:07 AM CDT [facility] Blood BLOOD SPECIMEN / Unknown Venipuncture / Unknown 10/16/2024 2:24 AM CDT 10/16/2024 2:46 AM CDT Avel Rocha APRN ELECTRICAL MAINTENANCE MECHANIC LAB - BLOOD ORDERABLE S Final Result LABORATORY [facility] [address] [facility] Lab (1st floor, no room number) [place] [address] * (ABNORMAL) NT-proBNP (10/16/2024 2:24 AM CDT) Only the most recent of2 resultswithin the time period is included. NT-proBNP 652(H) 0 - 177 pg/mL 10/16/2024 3:23 AM CDT [facility] Comment: Starting on 10/09/2024, [facility] laboratory began flagging abnormal values for [...] be interpreted with the updated reference intervals. [facility]'s Pediatric (boys and girls) Reference Ranges in pg/mL * 0 up to 3 days: 0 - 46684 3 days up to 1 month: 0 [...] For adult chronic CHF patients according to [place] [employer] (NYHA) Functional Class, the mean NT-proBNP concentration is as following (5th and 95th percentile values respectively displayed in parentheses): Class I: 1016 pg/mL (33-3410) Class II: 1666 pg/mL (103-6567) Class III: 3029 pg/mL (126-03390) Class IV: 3465 pg/mL (148-35840) Clinical thresholds for acute (emergency department) settings: [...] CDT 10/16/2024 2:46 AM CDT us Rebekah De Leon MD LAB - BLOOD ORDERABLES Final Res ult [facility] LABORATORY [facility] [address] Lab (1st floor, no room number) [place] [address] * (ABNORMAL) D dimer quantitative (10/16/2024 2:24 [...] 0.01 ug/mL = 0.76 ug/mL (760 ug/L). Kenyatta Flores et al. Age adjusted D-dimer cut-off levels to rule out pulmonary embolism: The ADJUST-PE Study. BRETT 2014;311:9471-0446.; HJ Jose et al. Diagnostic accuracy of conventional or age adjusted D-dimer cutoff values in older patients with suspected venous thromboembolism. Systemic review and meta-analysis. BMJ 2013:346:f2492. Rebekah De Leon MD LAB - BLOOD ORDERABLES Final Res ult [facility] [address] Lab (1st floor, no room number) [place] [address], [facility] * US Abdomen Limited (10/15/2024 6:05 PM [...] PM CDT EXAM: US ABDOMEN LIMITED LOCATION: [facility] DATE: 10/15/2024 INDICATION: Right [...] - 10/15/2024 EXAM: US ABDOMEN LIMITED LOCATION: [facility] DATE: 10/15/2024 INDICATION: Right [...] IDD LABORATORY Comment:Escherichia coli det ected by Appiterate BCID2 assay. Final identification and antimicrobial susceptibility [...] by the Infectious Diseases Diagnostic Laboratory at [facility]. This laboratory is certified under the Clinical Laboratory Improvement Amendments of 1988 (CLIA-88) as qualified to perform high complexity clinical laboratory testing. Leonora Bone PA-C LAB - MICRO GENERAL ORDE JENNY Final Result [facility] IDD LABORATORY [facility] Inf. Diseases Diag. Lab [address] [place] [address], [facility] * Extra Red Top Tube (10/15/2024 3:10 PM CDT) Hold Specimen [facility] 10/15/2024 4:31 PM CDT RH LABORATORY Blood STRUCTURE OF RIGHT UPPER LIMB / Unknown Venipuncture / Unknown 10/15/2024 3:10 PM CDT 10/15/2024 3:31 PM CDT Leonora Bone PA-C LAB - BLOOD ORDERABLES F inal Result LABORATORY [facility] [address] Lab (1st floor, no room number) [place] [address] * Extra Blue Top Tube (10/15/2024 3:10 PM CDT) Hold Specimen [facility] 10/15/2024 4:31 PM CDT LABORATORY Blood STRUCTURE OF RIGHT UPPER LIMB / Unknown Venipuncture / Unknown 10/15/2024 3:10 PM CDT 10/15/2024 3:31 PM CDT Leonora Bone PA-C LAB - BLOOD ORDERABLES F inal Result LABORATORY [facility] [address] Lab (1st floor, no room number) [place] [address] * (ABNORMAL) CBC with platelets and differential (10/15/2024 3:10 PM CDT) Pathologist [facility] WBC Count 11.9(H) 4.0 - 11.0 10e3/uL [...] LAB - BLOOD ORDERABLES F inal Result [facility] [address] Lab (1st floor, no room number) [place] [phone] * Lipase (10/15/2024 3:10 PM CDT) Lipase 28 13 - 60 U/L 10/15/2024 4:00 PM CDT LABORATORY Blood STRUCTURE OF RIGHT UPPER LIMB / Unknown Venipuncture / Unknown 10/15/2024 3:10 PM CDT 10/15/2024 3:31 PM CDT Leonora Bone PA-C LAB - BLOOD ORDERABLES F inal Result Performing Organization Address [facility] Co de Phone Number [facility] Lab [address] Lab (1st floor, no room number) [place] [phone] [place] [address] * (ABNORMAL) Bilirubin direct (10/15/2024 3:10 PM CDT) Bilirubin Direct 2.98(H) 0.00 - 0.30 mg/dL 10/15/2024 4:03 PM CDT LABORATORY Blood STRUCTURE OF RIGHT UPPER LIMB / Unknown Venipuncture / Unknown 10/15/2024 3:10 PM CDT 10/15/2024 3:31 PM CDT Leonora Bone PA-C LAB - BLOOD ORDERABLES F inal Result Performing Organization Address City/[facility]/ZIP Co de Phone Number [facility] Lab [address] Lab (1st floor, no room number) [place] [phone] * Alcohol level blood (10/15/2024 3:10 PM CDT) Ethanol Level Blood <0.01 <=0.01 g/dL 10/15/2024 5:08 PM CDT LABORATORY Blood STRUCTURE OF RIGHT UPPER LIMB / Unknown Venipuncture / Unknown 10/15/2024 3:10 PM CDT 10/15/2024 3:31 PM CDT Leonora Bone PA-C LAB - BLOOD ORDERABLES F inal Result Performing Organization Address City/[facility]/ZIP Co de Phone Number [facility] Lab [address] Lab (1st floor, no room number) [place] [address] * (ABNORMAL) Acetaminophen level (10/15/2024 3:10 PM CDT) Pathologist [facility] Acetaminophen <5.0(L) 10.0 - 30.0 ug/mL 10/15/2024 7:15 PM CDT LABORATORY Blood STRUCTURE OF RIGHT UPPER LIMB / Unknown Venipuncture / Unknown 10/15/2024 3:10 PM CDT 10/15/2024 3:31 PM CDT Al Ayon MD LAB - BLOOD ORDERABLES F inal Result Performing Organization Address [facility] Co de Phone Number [facility] [address] Lab (1st floor, no room number) [place] [address], [facility] * (ABNORMAL) UA Microscopic with Reflex to [...] - URINE ORDERABLES Final Result EA LABORATORY [facility] [address] [place] [address], [facility] * (ABNORMAL) UA Macroscopic with reflex to [...] 10/15/2024 2:12 PM CDT EA LABORATORY Specific [place] Urine 1.020 1.003 - 1.035 10/15/2024 2:12 [...] 1:53 PM CDT 10/15/2024 2:02 PM CDT Awais Kidd PA-C LAB - URINE ORDERABLES Final Result Performing Organization Address City/[facility] Co de Phone Number EA LABORATORY [facility] [place] [facility] [address] [place] [address], [facility] * Lipid Profile with reflex to direct LDL (03/20/2012 9:58 AM CDT) Cholesterol 190 0 - 200 mg/dL [facility] Comment: LDL Cholesterol is the primary guide to therapy. The NCEP recommends further evaluation of: patients with cholesterol greater than 200 mg/dL if additional risk factors are present, cholesterol greater than 240 mg/dL, triglycerides greater than 150 mg/dL, or HDL less than 40 mg/dL. Triglycerides 98 0 - 150 mg/dL [facility] HDL Cholesterol 49 40 - 110 mg/dL [facility] LDL Cholesterol Calculated 122 0 - 129 mg/dL [facility] Comment: LDL Cholesterol is the primary guide to therapy: LDL-cholesterol goal in high risk patients is <100 mg/dL and in very high risk patients is <70 mg/dL. VLDL-Cholesterol 20 0 - 30 mg/dL [facility] Cholesterol/HDL Ratio 3.9 0.0 - 5.0 [facility] Blood specimen (specimen) 03/20/2012 9:58 AM CDT 03/20/2012 9:59 AM CDT us Isidro Siu MD LAB - BLOOD ORDERABLES Fin al Result Performing Organization Address City/[facility]/ZIP Co de Phone Number [facility] [address] [place] [phone] from Last 3 Months or Most Recently Relevant to Health Maintenance Insurance [employer] Advance Directives For more information, please contact: [phone] * Full Code (Latest Code Status on File) Date Activated Date Inactivated Comments 10/21/2024 1:28 PM Question Answer Comments Code status determined by: Discussion with marlon vuaghan/ legal decision maker * Full Code Date Activated Date Inactivated Comments 10/15/2024 8:51 PM 10/21/2024 1:28 PM All basic an d advanced life-sustaining interventions are performed as appropriate Question Answer Comments Code status determined by: Discussion with marlon vaughan/ legal decision maker Care Teams Rail Car Welder Relationship Specialty Start Date End Date No Ref-Primary, Physician PCP - General 10/15/24
--- OUTSIDE RECORDS SUMMARY | 2024-11-13 20:44 | XMS_ITS | Encounter Summary ---
Author Organization [place] Address [address] [place] [address] Care Team Providers Care Supervisor Pipe Manufacture Name Role Phone No Ref-Primary, Physician Primary Care Provider Reason for Visit * Reason Onset Date Comments Post-Op - General Surgery 10/24/2024 Pain m ed refill Encounter Details Date Type Department Care Team (Late st Contact Info) Description 10/24/2024 [facility] [place] [address] [place] [address] [facility] [address] [place] [address] Post-Op - General Surgery (Pain med refill) Social History Tobacco Use Types Packs/Day Years [...] in an abandoned building, in an overnight intermediate, or couch-surfing.) Yes 10/15/2024 Are you worried [...] on file 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 Surgeon: Dr. Ortiz Patient medication request: Dilaudid 2mg Refill request: first Type/Amount of pain medication in current use: Dilaudid 2mg - 1 tab every 4 hours prn, Tylenol 650mg TID Patient Symptoms: incisional / surgery site pain, worse with movement. Daughter Yvonne calling - verbal consent to communicate given by patient over the phone. Patient has has two small BM's. No much of an appetite yet. Will finish last dose of Cipro today. Ok to supplement with ensure or protein shake until appetite improves. Ok for Miralax per package directions if needed. Discussed alternating ES Tylenol - 2 tabs every 6 hours (max 4000mg/ 24hrs) and Ibuprofen 600mg every 6 hours(max 2400mg / 24hrs). Patient will taper use of Dilaudid as he tolerates with this refill. Would like refill to go to [facility] on [address] * Telephone Encounter - Leslie Pabon - 10/24/2024 12:41 PM CDT Name of caller: antonia Russell Reason for Call: Pain med refill for one week Surgeon: Dominique Ortiz MD Recent Surgery: Yes. If yes, when & what type: 10/18/24 GB Best phone number to reach pt at is: Yvonne [phone] Ok to leave a message with medical info? Yes. Pharmacy preferred (if calling for a refill): [facility] documented in this encounter Plan of Treatment Upcoming Encounters Date Type Department Care Team (Late st Contact Info) Description 12/09/2024 8:30 AM CDT Office Visit [facility] [place] [address] [place] [address] Henri Castañeda PA-C [address] [place] [address] [place] [address] documented as of this encounter Visit Diagnoses Diagnosis Cholecystitis Cholecystitis, unspecified Cholangitis (H) Cholangitis documented in this encounter Care Teams Supervisor Pipe Manufacture Relationship Specialty Start Date End Date No Ref-Primary, Physician PCP - General 10/15/24 documented as of this encounter
--- OUTSIDE RECORDS SUMMARY | 2024-11-13 20:44 | XMS_ITS | Encounter Summary ---
Author Organization [place] Address [address] [place] [address] Care Team Providers Care Java Support Engineer Name Role Phone No Ref-Primary, Physician Primary Care Provider Reason for Visit * Reason Onset Date Comments Post-Op - General Surgery 11/07/2024 Encounter Details Date Type Department Care Team (Late st Contact Info) Description 11/07/2024 Telephone [facility] [place] [address] [place] [address] Pamela Cunningham PA-C [address] [facility] [address] [place] [address] Post-Op - General Surgery Social History Tobacco Use Types Packs/Day Years [...] Getting School Help Needed Not on file 10/16 /2023 Food Insecurity Answer Date Recorded Within the [...] in an abandoned building, in an overnight nursing home, or couch-surfing.) Yes 10/15/2024 Are you worried [...] on file 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 No answer. Message was left for patient to call back if they had any questions of concerns. Pamela Cunningham PA-C documented in this encounter Plan of Treatment Upcoming Encounters Date Type Department Care Team (Late st Contact Info) Description 12/09/2024 8:30 AM CDT Office Visit [facility] [address] [place] [phone] Henri Castañeda PA-C [address] [place] [address] documented as of this encounter Visit Diagnoses Not on filedocumented in this encounter Care Teams Java Support Engineer Relationship Specialty Start Date End Date No Ref-Primary, Physician PCP - General 10/15/24 documented as of this encounter
[2024-11-13] MEDS: ONDANSETRON 2 MG/ML inj 4 MG IVP (21:15)
[2024-11-13] MEDS: 0.9 % SODIUM CHLORIDE 1000 ml 1,000 ML IV (21:15)
[2024-11-13 21:22] LABS: Lactate* 1.9 mmol/L (0.5-1.9)
[2024-11-13 21:25] LABS: Basophils Percent Auto 0.1 % (0.0-3.0); Eosinophils Percent Auto 0.2 % (0.0-7.0); Hematocrit 38.9 % (37.0-53.0); Hemoglobin* 12.9 gm/dL (13.5-17.5); Immature Granulocytes Pct Auto 0.2 %; Lymphocytes Percent Auto 5.4 % (20-44); Mean Corpuscular HGB Conc 33 gm/dL (32-36); Mean Corpuscular Hemoglobin 29 pg (26-34); Mean Corpuscular Volume 87 fL (80-100); Monocytes Percent Auto 8.2 % (0.0-11.0); Neutrophils Percent Auto 85.9 % (42.0-72.0); Platelet Count* 438 K/uL (140-440); Red Blood Count 4.45 m/uL (4.30-5.90)
[2024-11-13 21:28] LABS: Slide Review Reflex No
--- NOTE | 2024-11-13 21:36 | CRLHL7_ITS ---
For Patients: As a result of the Cures Act, medical imaging exams and procedure reports are released immediately into your electronic medical record. You may view this report before your referring provider. If you have questions, please contact your health care provider. INDICATION: Cough, shortness of breath. TECHNIQUE: Chest 2 views. COMPARISON: None. FINDINGS: Cardiovascular and mediastinum: Heart size and vasculature are normal in caliber and appearance. Lungs and pleural spaces: Elevation of the right hemidiaphragm. Low lung volumes with interstitial prominence and bibasilar consolidations. No sign of pleural effusion. No pneumothorax. Bones and soft tissues: No significant findings. IMPRESSION: Elevation of the right hemidiaphragm. Low lung volumes with interstitial prominence and bibasilar consolidations, possibly atelectasis or infection in the appropriate clinical setting. Dictated by Osmany Chen MD @ 11/13/2024 10:00:30 PM (Electronically Signed)
[2024-11-13] MEDS: PIPERACILLIN/TAZOBACTAM 3.375 GM in 0.9 % SODIUM CHLORIDE Mini-bag 100 ML IVPB (21:58)
--- NOTE | 2024-11-13 22:02 | ED_ITS ---
HPI - General Adult General Chief complaint: Cough Stated complaint: 2 wks post op, suspected sepsis Time Seen by Provider: 11/13/24 21:28 History of Present Illness HPI narrative: This 59-year-old male comes in reporting fever and cough with shortness of breath. He had his gallbladder removed laparoscopically about 2 or 3 weeks ago at a different facility. He states that he recovered from this and no longer has abdominal pain. He has developed a cough and shortness of breath and reports a fever. He did go to [facility] but came home early because of these symptoms. He arrives here with oximetry at 95% on room air but does have respirations at 20 per minute and a pulse at around 120 beats per minute. Currently he is afebrile but is reporting temperatures at 101? F. he does chew tobacco products. Related Data Home Medications ?Medication ?Instructions ?Recorded ?Confirmed No Known Home Medications 11/13/2411/03 Allergies Allergy/AdvReac Type Severity Reaction Status Date / Time No Known Drug Allergies Allergy Verified 11/13/24 21:12 Review of Systems Status of ROS: Reports: 10 or more systems reviewed and unremarkable except as noted in History and below Narrative: Constitutional: He reports fevers and has had some weight loss. Eyes: No discharge. No vision changes. HENT: No congestion, no sore throat, no ear pain. Cardiovascular: No chest pain, no palpitations. Respiratory: He reports a cough and shortness of breath. Gastrointestinal: No abdominal pain, no vomiting, no diarrhea. Genitourinary: No dysuria, no hematuria. Musculoskeletal: Normal range of motion. Skin: No rashes, no pruritis. Neurological: No dizziness, weakness, sensory change, speech change. Endo/Heme/Allergies: No bruising or bleeding. No polydipsia. Pysch: no suicidality, no anxiety, no insomnia. All other systems reviewed and are negative. Exam Const: Vital Signs, click to edit/add: Vital Signs - 24 hr 11/13/24 21:12 11/13/24 21:15 11/13/24 21:22 Temperature 98.6 F Pulse Rate 125 H 117 H Pulse Rate [Right Pulse Oximeter] 119 H Respiratory Rate 20 24 25 H Blood Pressure 146/90 H Blood Pressure [Ri ght Upper Arm] 139/92 H Pulse Oximetry 95 96 96 Oxygen Delivery Me thod Room Air 11/13/24 21:30 11/13/24 21:32 11/13/24 21:45 Temperature Pulse Rate 119 H 118 H 117 H Pulse Rate [Right Pulse Oximeter] Respiratory Rate 28 H 24 32 H Blood Pressure 147/86 H Blood Pressure [Ri ght Upper Arm] Pulse Oximetry 96 95 91 Oxygen Delivery Me thod 11/13/24 22:01 11/13/24 22:01 11/13/24 22:02 Temperature 101.0 F H Pulse Rate 115 H 119 H Pulse Rate [Right Pulse Oximeter] Respiratory Rate 28 H 28 H Blood Pressure 145/96 H Blood Pressure [Ri ght Upper Arm] Pulse Oximetry 96 95 Oxygen Delivery Me thod Course Vital Signs Vital signs: Initial Vital Signs Temperature 98.6 F 11/13/24 21:12 Temperature Source Temporal Artery Scan 11/13/24 21:12 Pulse Rate 119 H 11/13/24 21:12 Respiratory Rate 20 11/13/24 21:12 Blood Pressure 139/92 H 11/13/24 21:12 Blood Pressure Mean 107 H 11/13/24 21:12 Blood Pressure Position Sitting 11/13/24 21:12 Pulse Oximetry 95 11/13/24 21:12 Oxygen Delivery Method Room Air 11/13/24 21:12 Vital Signs Temperature 98.6 F 11/13/24 21:12 Pulse Rate 119 H 11/13/24 21:12 Respiratory Rate 20 11/13/24 21:12 Blood Pressure 139/92 H 11/13/24 21:12 Pulse Oximetry 95 11/13/24 21:12 Oxygen Delivery Method Room Air 11/13/24 21:12 Temperature 101.0 F H 11/13/24 22:01 Pulse Rate 119 H 11/13/24 22:02 Respiratory Rate 28 H 11/13/24 22:02 Blood Pressure 145/96 H 11/13/24 22:02 Pulse Oximetry 95 11/13/24 22:02 Oxygen Delivery Method Room Air 11/13/24 21:12 Medications Administered Medications: Generic Name Dose Route Start Last Admin Trade Name Freq PRN Reason Stop Dose Admin Acetaminophen 1,000 mg 11/13/24 22:01 11/13/24 22:03 Acetaminophen 500 Mg Tablet PO 11/13/24 22:02 1,000 mg ONCE ONE Administration Piperacillin Sod/Tazobactam 100 mls @ 200 mls/hr 11/13/24 21:36 11/13/24 21:58 Sod 3.375 gm/ Sodium Chloride IVPB 11/13/24 21:37 200 mls/hr ONCE ONE Administration Discontinued Medications Generic Name Dose Route Start Last Admin Trade Name Jake PRN Reason Stop Dose Admin Sodium Chloride 1,000 mls @ 1,000 mls/hr 11/13/24 21:15 11/13/24 21:15 0.9 % Sodium Chloride 1000 Ml IV 11/13/24 22:14 1,000 mls/hr .Q1H LOU Administration Ondansetron HCl 4 mg 11/13/24 21:13 11/13/24 21:15 Ondansetron 2 Mg/Ml Inj IVP 11/13/24 21:14 4 mg ONCE ONE Administration Medical Decision Making MDM Narrative Medical decision making narrative: This patient comes in with tachycardia and report of shortness of breath and coughing. He is maintaining sufficient blood pressure and aside from tachycardia is not tripping triggers suspicious for sepsis. Nevertheless I did order an IV with a L of normal saline and labs are acquired. His lactate level returns at 1.9. His white blood cell count is markedly elevated at almost 25,000. After blood culture was obtained the patient did receive IV Zosyn. He developed a temperature of 101? F here so he did receive oral Tylenol 1000 mg. Chest x-ray does show elevated right hemidiaphragm. There are some bibasilar atelectasis or possible infiltrate showing on x-ray. The patient states that he had significant right upper quadrant pain after the surgery for a day or 2 and had a follow-up x-ray at that time and his right hemidiaphragm was elevated. This was at a different facility and those records are not available here. I did order a CT scan of his abdomen and pelvis for further assessment of this finding. The patient continues to have tachycardia with a heart rate around 120 beats per minute. Respirations are also increased but otherwise he is maintaining sufficient vital signs. Care for this patient is transferred to Dr. Carbajal at the end of my shift. Lab Data Labs: Lab Results 11/13/24 11/13/24 Range/Units 21:15 21:23 WBC 24.90 H (4.50-11.00) K/uL RBC 4.45 (4.30-5.90) m/uL Hgb 12.9 L (13.5-17.5) gm/dL Hct 38.9 (37.0-53.0) % MCV 87 (80-100) fL MCH 29 (26-34) pg MCHC 33 (32-36) gm/dL RDW Coeff of Viviane 13.0 (11.5-15.5) % Plt Count 438 (140-440) K/uL Neut % (Auto) 85.9 H (42.0-72.0) % Lymph % (Auto) 5.4 L (20-44) % [place] % (Auto) 8.2 (0.0-11.0) % Eos % (Auto) 0.2 (0.0-7.0) % Baso % (Auto) 0.1 (0.0-3.0) % Neut # (Auto) 21.40 H (1.7-7.0) K/uL Lymph # (Auto) 1.30 (0.90-2.90) K/uL [place] # (Auto) 2.00 H (0.00-0.90) K/UL Eos # (Auto) 0.00 (0.00-0.50) K/uL Baso # (Auto) 0.00 (0.00-0.30) K/uL Abs Immat Gran (auto) 0.00 (0.00-0.30) K/uL Imm/Tot Granulo (auto) 0.2 % Lactate 1.9 (0.5-1.9) mmol/L SARS-CoV-2 (PCR) Negative SARS-CoV-2 (Negative) Influenza Type A (PCR) Negative PCR FLU A (Negative) Influenza Type B (PCR) Negative PCR FLU B (Negative) RSV (PCR) Negative PCR RSV (Negative) Imaging Data Chest x-ray: Radiologist's impression: Elevation of the right hemidiaphragm. Low lung volumes with interstitial prominence and bibasilar consolidations, possibly atelectasis or infection in the appropriate clinical setting. Discharge Plan Discharge Clinical Impression: Leukocytosis, Pneumonia Prescriptions: No Action No Known Home Medications Follow Up/Referrals: Provider,Not a Local [Primary Care Provider, Family Practice]
[2024-11-13] MEDS: ACETAMINOPHEN 500 MG TABLET 1000 MG PO (22:03)
[2024-11-13 22:05] LABS: PCR FLU A Negative PCR FLU A (Negative); PCR FLU B Negative PCR FLU B (Negative); PCR RSV Negative PCR RSV (Negative); SARS PCR* Negative SARS-CoV-2 (Negative)
[2024-11-13 22:13] LABS: Albumin* 3.6 g/dL (3.3-5.0); Chloride* 95 mmol/L (96-114); Potassium* 4.5 mmol/L (3.6-5.1); Sodium* 134 mmol/L (135-149)
[2024-11-13 22:15] LABS: Blood Urea Nitrogen* 14 mg/dL (7-30); Est. Creatinine Clearance* 79.54; Estimated Glomerular Filt Rate 87 ml/min
[2024-11-13 22:16] LABS: Alanine Aminotransferase* 32 U/L (4-50); Alkaline Phosphatase* 163 U/L (40-150); Anion Gap 10 mEq/L (7-15); Aspartate Amino Transferase* 27 U/L (12-35); Bilirubin Direct* 0.5 mg/dL (0.0-0.5); Bilirubin Total* 1.1 mg/dL (0.1-1.5); Carbon Dioxide* 29 mmol/L (20-32); Glucose* 156 mg/dL (60-115); Lipase* 35 U/L (23-300); Total Protein* 7.5 g/dL (6.0-8.3)
--- NOTE | 2024-11-13 22:18 | CRLHL7_ITS ---
For Patients: As a result of the Century Cures Act, medical imaging exams and procedure reports are released immediately into your electronic medical record. You may view this report before your referring provider. If you have questions, please contact your health care provider. INDICATION: FEVER, SOB, RECENT LIVAN SURGERY 4 WEEKS AGO, RT HEMIDIAPHRAGM ELEVATED, WBC 24K. TECHNIQUE: CT abdomen and pelvis acquired with 95 cc of Isovue 370 IV contrast. COMPARISON: Chest CT from the same day. FINDINGS: Lower chest: Dictated separately. Liver: Large air and fluid collection adjacent to the dome of the liver without discrete involvement of the liver parenchyma itself. Portal vein is patent. No suspicious mass. Gallbladder and bile ducts: Cholecystectomy. No biliary ductal dilatation. Pancreas: Unremarkable. No mass or inflammation. Spleen: Unremarkable. Normal in size. No masses. Adrenal glands: Unremarkable. No nodules. Kidneys: Unremarkable. No suspicious masses, stones, or hydronephrosis. GI tract: Multiple surgical clips adjacent to the hepatic flexure. The adjacent colon is unremarkable. No bowel obstruction. No mural thickening. The appendix is not clearly visualized; however, there are no inflammatory changes in the right lower quadrant. Vasculature: Abdominal aorta is normal in caliber. Mesenteric arteries are patent. Lymph nodes: No lymphadenopathy. Peritoneum/Abdominal Wall: Large, 11.1 x 9.5 x 9.2 cm air and fluid collection between the dome of the liver and right hemidiaphragm causing elevation of the right hemidiaphragm and passive atelectasis in the right lung base. Small right-sided pleural effusion. Small fat-containing bilateral inguinal hernias. Pelvis: Unremarkable. Bones: Unremarkable for age. IMPRESSION: Large abscess between the dome of the liver and right hemidiaphragm measuring 11.1 x 9.5 x 9.2 cm. No convincing evidence of extension into the liver parenchyma. Small adjacent right pleural effusion, cannot entirely exclude empyema. Please note that all CT scans at this facility use dose modulation, iterative reconstruction, and/or weight-based dosing when appropriate to reduce radiation dose to as low as reasonably achievable. Dictated by Bradford Parsons MD @ 11/13/2024 11:29:39 PM (Electronically Signed)
--- NOTE | 2024-11-13 22:32 | CRLHL7_ITS ---
For Patients: As a result of the Century Cures Act, medical imaging exams and procedure reports are released immediately into your electronic medical record. You may view this report before your referring provider. If you have questions, please contact your health care provider. INDICATION: FEVER, SOB, RECENT LIVAN SURGERY. TECHNIQUE: CT chest PE was acquired with 95 cc Isovue 370 IV contrast. COMPARISON: CT abdomen and pelvis from the same day. FINDINGS: Heart and vasculature: Contrast opacification of the pulmonary arterial tree is adequate. No sign of pulmonary embolism. Heart size is normal. Thoracic aorta and pulmonary artery are normal in caliber. Lungs and pleura: Elevated right hemidiaphragm with passive atelectasis involving the right lung base. Small right pleural effusion with adjacent strandy opacities. No pneumothorax. Left lung is clear. The central airways are clear. Lymph nodes/mediastinum: No mediastinal, hilar, or axillary adenopathy. Chest wall: No masses. Upper abdomen: Dictated separately. Bones: Unremarkable for age. IMPRESSION: 1. No pulmonary embolism. 2. Small right pleural effusion and right basilar opacities, likely atelectasis; however, cannot entirely exclude a superimposed infectious process. Please note that all CT scans at this facility use dose modulation, iterative reconstruction, and/or weight-based dosing when appropriate to reduce radiation dose to as low as reasonably achievable. Dictated by Bradford Parsons MD @ 11/13/2024 11:22:55 PM (Electronically Signed)
[2024-11-13 22:42] LABS: C Reactive Protein* > 27.0 mg/dL (0.5-1.0)
[2024-11-13] MEDS: 0.9 % SODIUM CHLORIDE 500 ML 500 ML IV (23:30)
[2024-11-13] MEDS: LACTATED RINGERS 1000 ML 1,000 ML IV (23:59)
[2024-11-14] VITALS (29 sets, daily range): BP systolic 127–155; BP diastolic 86–106; PULSE 102–127; RESP 19–33; TEMP 37.7–38.4; O2SAT 92–97
--- NOTE | 2024-11-14 01:35 | PC.NURSE ---
Dr Carbajal talking to hospitalist from [facility]
--- NOTE | 2024-11-14 02:13 | PC.NURSE ---
pt accepted to [facility] bed 2414 on Ortho spine floor want a call in 20min with report [phone]
[2024-11-14] MEDS: LACTATED RINGERS 1000 ML 1,000 ML 125 ML IV (02:48)
--- NOTE | 2024-11-14 02:50 | PC.NURSE ---
report given to Paulette on Ortho/Spine floor
[2024-11-14] MEDS: ACETAMINOPHEN 500 MG TABLET 1000 MG PO (04:01)
--- NOTE | 2024-11-14 04:02 | PC.NURSE ---
up to bathroom independently, chills and tamp now 101.2, tylenol given
== END 2024-11-14 04:34 | disposition short-term general hospital (02) ==
PROVIDERS: Emergency Provider Emergency Medicine
DX: J18.9 Pneumonia, unspecified organism (principal); K65.1 Peritoneal abscess; K66.8 Other specified disorders of peritoneum; A41.9 Sepsis, unspecified organism
CPT/HCPCS: 36415; 71046; 71275; 74177; 80048; 80076; 83605; 83690; 85025; 86140; 87040; 87631; 96365; 96375; 99284; 99285; A9270; J2405; J2543; J7030; J7120; Q9967

== ENCOUNTER 2024-11-14 04:30 | Outpatient (CLI) | payer BC, SELFPAY | END 2024-11-14 04:31 | disposition home or self-care (01) | LOC: AMB 11-15 10:08 | PROVIDERS: Visit Provider Family Medicine | DX: R10.11 Right upper quadrant pain (principal) | CPT/HCPCS: A0425; A0427 ==